=== PATIENT | female | born 1950 | race Caucasian/White ===

== ENCOUNTER 2017-08-27 08:26 | Emergency (ER) | payer BC ==
[~2017-08-27] VITALS: Ht 175.3 cm; Wt 58.0 kg
[~2017-08-27 08:26] MED LIST: CYPR4TAB PO; MEDR4PAK3 PO; PROP20TA24 PO; PROZ20CA11 PO; TYLE3 PO; ZOCO40TA PO
[2017-08-27 08:32] VITALS: BP 144/102; PULSE 80; RESP 16; TEMP 96.9; O2SAT 98
[2017-08-27] MEDS ORDERED: SODIUM CHLOR 0.9% 1000 ML INJ 1,000 ML IV SCH (08:41)
[2017-08-27] MEDS ORDERED: SODIUM CHLORIDE 0.9% FLUSH 10 ML FLUSH IV FLUSH PRN (08:45)
--- NOTE | 2017-08-27 09:07 | RADRPT ---
EXAM DATE/TIME: 08/27/2017 08:55 [facility] COMPARISON: No previous studies available for comparison. INDICATIONS : Altered mental status. RADIATION DOSE: 29.62 CTDIvol (mGy) MEDICAL HISTORY : Cardiovascular disease. Hypertension. SURGICAL HISTORY : Mitral valve prolapse ENCOUNTER: Initial ACUITY: 1 day PAIN SCALE: 0/10 LOCATION: cranial TECHNIQUE: Multiple contiguous axial images were obtained of the head. Using automated exposure control and adj ustment of the mA and/or kV according to patient size, radiation dose was kept as low as reasonably a chievable to obtain optimal diagnostic quality images. DICOM format image data is available electro nically for review and comparison. FINDINGS: CEREBRUM: Atrophy with commensurate ventricular prominence. Chronic low attenuation seen in the periventricular white matter. No evidence of midline shift, mass lesion, hemorrhage or acute infarction. No extra-a xial fluid collections are seen. POSTERIOR FOSSA: The cerebellum and brainstem are intact. The 4th ventricle is midline. The cerebellopontine angle i s unremarkable. EXTRACRANIAL: The visualized portion of the orbits is intact. SKULL: The calvaria is intact. No evidence of skull fracture. CONCLUSION: No acute intracranial abnormality demonstrated. Atrophy and chronic white matter changes. Scooter Moreno MD on August 27, 2017 at 9:03 Board Certified Radiologist. This report was verified electronically.
[2017-08-27 09:12] LABS: AUTOMATED NEUTROPHIL # 2.3 TH/MM3 (1.8-7.7); BASOPHIL # 0.1 TH/MM3 (0-0.2); BASOPHIL % 1.4 % (0.0-2.0); EOSINOPHIL % 0.8 % (0.0-4.0); HEMATOCRIT 39.8 % (35.0-46.0); HEMO FLAGS DIFF FINAL; LYMPHOCYTE # 1.6 TH/MM3 (1.0-4.8); MEAN CORPUSCULAR HEMOGLOBIN 36.8 PG (27.0-34.0); MEAN CORPUSCULAR HGB CONC 35.1 % (32.0-36.0); MONO % 10.6 % (0.0-8.0); NEUT % 51.2 % (16.0-70.0); PLATELET COUNT 301 TH/MM3 (150-450); RED BLOOD COUNT 3.79 MIL/MM3 (4.00-5.30); RED CELL DISTRIBUTION WIDTH 13.3 % (11.6-17.2); WHITE BLOOD COUNT 4.5 TH/MM3 (4.0-11.0)
[2017-08-27 09:27] LABS: BICARBONATE 22.4 MEQ/L (21.0-32.0); POTASSIUM 3.9 MEQ/L (3.5-5.1)
[2017-08-27 10:11] LABS: BACTERIA, URINE RARE /hpf; BLOOD, URINE TRACE (NEG); GLUCOSE,URINE NEG (NEG); GRANULAR CAST, URINE 1 /lpf; HYALINE CAST, URINE 6 /lpf (RARE); KETONE, URINE TRACE mg/dL (NEG); MUCUS URINE MOD /lpf (OCC); NITRITE,URINE NEG (NEG); PH, URINE 5.5 (5.0-8.5); SQUAMOUS EPITHELIAL CELL URINE 2 /hpf (0-5); URINE COLOR YELLOW (YELLW/STRAW)
[2017-08-27 10:14] LABS: COMMENT (UR) CATH-CULTURE IND; CULTURE IF INDICATED CATH CULTURE IND
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
[2017-08-27] MEDS ORDERED: PROP20TA3 PO (11:09)
[2017-08-27 12:47] VITALS: BP 154/74
[2017-08-28] MEDS ORDERED: PROP20TA3 PO (11:09)
[2017-08-28] MEDS ORDERED: ACET300T49 PO (11:09)
[2017-08-28] MEDS ORDERED: LORA2TAB7 PO (11:09)
[2017-08-28] MEDS ORDERED: DIPH2.5T14 PO (11:09)
[2017-08-28] MEDS ORDERED: BACL10TA PO (11:09)
== END 2017-08-27 12:48 | disposition home or self-care (01) ==
LOC: NEPC 08:26
DX: R41.0 Disorientation, unspecified (principal); F41.9 Anxiety disorder, unspecified; I34.1 Nonrheumatic mitral (valve) prolapse; I10 Essential (primary) hypertension; F17.210 Nicotine dependence, cigarettes, uncomplicated; Z79.899 Other long term (current) drug therapy
CPT/HCPCS: 70450; 80048; 80307; 81001; 84443; 85025; 87086; 99285; J7030

== ENCOUNTER 2017-08-28 07:39 | Inpatient (IN) | payer BC ==
[2017-08-28] VITALS (19 sets, daily range): BP systolic 96–196; BP diastolic 59–120; PULSE 66–123; RESP 16–20; TEMP 97.4–100.7; O2SAT 94–100
[~2017-08-28] VITALS: Ht 167.6 cm; Wt 52.5 kg
[~2017-08-28 07:39] MED LIST changes: +PROP20TA3 PO
[2017-08-28] MEDS ORDERED: SODIUM CHLOR 0.9% 1000 ML INJ 1,000 ML IV SCH (07:51)
[2017-08-28] MEDS ORDERED: ETOMIDATE 20 MG/10 ML VIAL IV PUSH ONE (08:00)
[2017-08-28] MEDS ORDERED: TETANUS/DIPHTHERIA TOXOID ADULT 0.5 ML VIAL IM ONE (08:00)
[2017-08-28] MEDS ORDERED: SUCCINYLCHOLINE CHLORIDE 100 MG/5 ML SYRINGE IV PUSH ONE (08:00)
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
[2017-08-28 08:35] LABS: INTERNATIONAL NORMALIZED RATIO 1.1 RATIO; PROTHROMBIN TIME - PATIENT 11.2 SEC (9.8-11.6)
[2017-08-28 08:49] LABS: AUTOMATED NEUTROPHIL # 3.6 TH/MM3 (1.8-7.7); BASOPHIL % 0.5 % (0.0-2.0); EOSINOPHIL % 0.6 % (0.0-4.0); HEMATOCRIT 38.8 % (35.0-46.0); HEMOGLOBIN 12.6 GM/DL (11.6-15.3); LYMPH % 42.3 % (9.0-44.0); LYMPHOCYTE # 2.7 TH/MM3 (1.0-4.8); MEAN CELL VOLUME 111.5 FL (80.0-100.0); MEAN CORPUSCULAR HEMOGLOBIN 36.2 PG (27.0-34.0); MEAN CORPUSCULAR HGB CONC 32.5 % (32.0-36.0); MEAN PLATELET VOLUME 9.6 FL (7.0-11.0); MONO % 1.2 % (0.0-8.0); MONOCYTE # 0.1 TH/MM3 (0-0.9); NEUT % 55.4 % (16.0-70.0); PLATELET COUNT 300 TH/MM3 (150-450); RED BLOOD COUNT 3.48 MIL/MM3 (4.00-5.30); RED CELL DISTRIBUTION WIDTH 13.5 % (11.6-17.2); WHITE BLOOD COUNT 6.5 TH/MM3 (4.0-11.0)
--- NOTE | 2017-08-28 08:58 | RADRPT ---
EXAM DATE/TIME: 08/28/2017 08:20 [facility] COMPARISON: No previous studies available for comparison. INDICATIONS : Found face down having seizure, unresponsive RADIATION DOSE: 56.35 CTDIvol (mGy) MEDICAL HISTORY : Hyperparathyroidism. Cardiovascular disease SURGICAL HISTORY : None. ENCOUNTER: Initial ACUITY: 1 day PAIN SCALE: Non-responsive LOCATION: cranial TECHNIQUE: Multiple contiguous axial images were obtained of the head. Using automated exposure control and adj ustment of the mA and/or kV according to patient size, radiation dose was kept as low as reasonably a chievable to obtain optimal diagnostic quality images. DICOM format image data is available electro nically for review and comparison. FINDINGS: CEREBRUM: Scattered areas of low attenuation throughout the white matter. The ventricles are normal for age. N o evidence of midline shift, mass lesion, hemorrhage or acute infarction. No extra-axial fluid colle ctions are seen. POSTERIOR FOSSA: The cerebellum and brainstem are intact. The 4th ventricle is midline. The cerebellopontine angle i s unremarkable. EXTRACRANIAL: The visualized portion of the orbits is intact. Complete opacification of the left maxillary sinus wi th wall thickening. SKULL: The calvaria is intact. No evidence of skull fracture. CONCLUSION: 1. Nonspecific white matter changes. 2. No acute intracranial abnormality. 3. Chronic opacification left maxillary sinus Armand Foreman MD on August 28, 2017 at 8:55 Board Certified Radiologist. This report was verified electronically.
--- NOTE | 2017-08-28 09:01 | RADRPT ---
EXAM DATE/TIME: 08/28/2017 08:20 [facility] COMPARISON: No previous studies available for comparison. INDICATIONS : Found face down, unresponsive RADIATION DOSE: 24.13 CTDIvol (mGy) MEDICAL HISTORY : Hypertension. Cardiovascular disease SURGICAL HISTORY : None. ENCOUNTER: initial ACUITY: 1 day PAIN SCALE: Non-responsive LOCATION: neck TECHNIQUE: Volumetric scanning of the cervical spine was performed. Multiplanar reconstructions in the sagittal, coronal and oblique axial planes were performed. Using automated exposure control and adjustment o f the mA and/or kV according to patient size, radiation dose was kept as low as reasonably achievable to obtain optimal diagnostic quality images. DICOM format image data is available electronically f or review and comparison. FINDINGS: VERTEBRAE: Normal vertebral body height. ALIGNMENT: No evidence of subluxation. Emphysema in upper lobes. Right upper lung density with minimal disease i n the left upper lung. C2-C3: The bony spinal canal is normal in size. No evidence of disc bulge or herniation. The neural forami na are bilaterally patent. C3-C4: The bony spinal canal is normal in size. No evidence of disc bulge or herniation. The neural forami na are bilaterally patent. C4-C5: Posterior disc osteophyte complex without canal stenosis. . The neural foramina are bilaterally pat ent. C5-C6: Posterior disc osteophyte complex without canal stenosis. The neural foramina are bilaterally patent . C6-C7: Posterior disc osteophyte complex without canal stenosis. The neural foramina are bilaterally patent . C7-T1: The bony spinal canal is normal in size. No evidence of disc bulge or herniation. The neural forami na are bilaterally patent. CONCLUSION: 1. Multilevel degenerative changes. 2. No compression fracture or subluxation. 3. Ground glass density right upper lobe and to lesser degree left upper lobe could be contusion or i nfectious/inflammatory process. Armand Foreman MD on August 28, 2017 at 8:57 Board Certified Radiologist. This report was verified electronically.
--- NOTE | 2017-08-28 09:05 | RADRPT ---
EXAM DATE/TIME: 08/28/2017 08:20 [facility] COMPARISON: No previous studies available for comparison. INDICATIONS : Found face down, unresponsive RADIATION DOSE: 26.35 CTDIvol (mGy) MEDICAL HISTORY : Hypertension. Cardiovascular disease SURGICAL HISTORY : None. ENCOUNTER: Initial ACUITY: 1 day PAIN SCORE: Non-responsive LOCATION: Bilateral facial TECHNIQUE: Volumetric scanning of the facial bones was performed. Using automated exposure control and adjustme nt of the mA and/or kV according to patient size, radiation dose was kept as low as reasonably achiev able to obtain optimal diagnostic quality images. DICOM format image data is available electronicall y for review and comparison. FINDINGS: ORBITS: The orbital and infraorbital osseous structures are intact. The retroconal structures have a normal configuration. No radiopaque foreign bodies are seen. NASAL BONE: The nasal bone and maxillary spine are intact ZYGOMATIC ARCHES: Symmetric without evidence of fracture. SINUSES: The maxillary, ethmoid and frontal sinuses are intact. No air-fluid levels seen. NASAL CAVITY: Bilateral displaced nasal fractures. SOFT TISSUES: Extensive soft tissue swelling and contusion right face and to a lesser degree in the left. There is a fracture through the body of the right mandible and also displaced fracture of the condyle with ove rlap. There is also a fracture through the left ramus/condyle. Displacement of both condylar heads. T here are some fracture/loose teeth anteriorly. INTRACRANIAL: No intracranial air seen. CRIBIFORM PLATE: Grossly intact. CONCLUSION: 1. Bilateral displaced mandible fractures more extensive involving the condyles bilaterally. 2. Sensitive soft tissue swelling. 3. Bilateral nasal fractures. Armand Foreman MD on August 28, 2017 at 8:59 Board Certified Radiologist. This report was verified electronically.
--- NOTE | 2017-08-28 09:07 | RADRPT ---
EXAM DATE/TIME: 08/28/2017 08:44 [facility] COMPARISON: No previous studies available for comparison. INDICATIONS : Post intubation. MEDICAL HISTORY : Cardiovascular disease. Hypertension mitral valve prolapse SURGICAL HISTORY : None. ENCOUNTER: Initial ACUITY: 1 day PAIN SCORE: Non-responsive. LOCATION: Bilateral chest FINDINGS: A single view of the chest demonstrates bilateral upper lobe densities. Endotracheal tube 6 cm above the roberto carlos. Nasogastric tube tip in stomach. The cardiomediastinal contours are unremarkable. Osseou s structures are intact. CONCLUSION: 1. Minimal bilateral upper lobe densities likely contusions. Armand Foreman MD on August 28, 2017 at 9:04 Board Certified Radiologist. This report was verified electronically.
[2017-08-28] MEDS ORDERED: MIDAZOLAM HCL 2 MG/2 ML VIAL IV PUSH ONE (09:30)
[2017-08-28] MEDS ORDERED: LACTULOSE SYRUP 20 GM/30 ML CUP PO PRN (09:30)
[2017-08-28] MEDS ORDERED: MIDAZOLAM 100 MG/100 ML INJ 100 ML IV PRN (09:30)
[2017-08-28] MEDS ORDERED: fentaNYL DRIP 250 ML IV PRN (09:30)
[2017-08-28] MEDS ORDERED: MAGNESIUM HYDROXIDE SUSP 30 ML CUP PO PRN (09:30)
[2017-08-28] MEDS ORDERED: CHLORHEXIDINE GLUCONATE 2 % 1 PACK (2 CLOTHS) TOP PRN (09:30)
[2017-08-28] MEDS ORDERED: SENNOSIDES 8.6 MG TAB PO PRN (09:30)
[2017-08-28] MEDS ORDERED: BISACODYL 10 MG SUPP RECTAL PRN (09:30)
[2017-08-28] MEDS ORDERED: MISCELLANEOUS NURSING INFORMATION XX SCH (09:30)
[2017-08-28 09:31] LABS: AMORPHOUS SEDIMENT, URINE RARE; BACTERIA, URINE OCC /hpf; BILIRUBIN, URINE NEG (NEG); BLOOD, URINE SMALL (NEG); GLUCOSE,URINE NEG (NEG); HYALINE CAST, URINE 1 /lpf (RARE); KETONE, URINE NEG (NEG); MUCUS URINE FEW /lpf (OCC); NITRITE,URINE NEG (NEG); PH, URINE 5.5 (5.0-8.5); SQUAMOUS EPITHELIAL CELL URINE <1 /hpf (0-5); URINE COLOR LIGHT-YELLOW (YELLW/STRAW); URINE LEUKOCYTE ESTERASE NEG (NEG)
[2017-08-28] MEDS ORDERED: SODIUM BICARBONATE 8.4% INJ 154 MEQ in SODIUM CHLOR 0.9% 1000 ML INJ 846 ML IV SCH (09:43)
[2017-08-28] MEDS ORDERED: SODIUM CHLOR 0.9% 1000 ML INJ 1,000 ML IV ONE ×2 (09:45→16:00)
[2017-08-28] MEDS: MIDAZOLAM 100 MG/NS 100 ML DRIP Premix IV PRN (10:08)
[2017-08-28] MEDS: fentaNYL 2,500 MCG/NS 250 ML IV PRN (10:08)
[2017-08-28 10:15] LABS: ACETAMINOPHEN LESS THAN 2.0 MCG/ML (10.0-30.0); ALBUMIN 2.5 GM/DL (3.4-5.0); ALT (GPT) 18 U/L (10-53); AST (GOT) 81 U/L (15-37); BICARBONATE 13.1 MEQ/L (21.0-32.0); BLOOD UREA NITROGEN 9 MG/DL (7-18); CHLORIDE 107 MEQ/L (98-107); CREATININE 0.84 MG/DL (0.50-1.00); GLOMERULAR FILTRATION RATE 68 ML/MIN (>89); GLUCOSE,RANDOM 123 MG/DL (74-106); SODIUM (NA) 133 MEQ/L (136-145)
[2017-08-28] MEDS: RESP: ALBUTEROL 2.5 MG/IPRATROPIUM 0.5 MG NEB (SCH) INH ×3 (10:28→20:06)
[2017-08-28 10:29] LABS: ALKALINE PHOSPHATASE 106 U/L (45-117); TOTAL BILIRUBIN ADULT 0.4 MG/DL (0.2-1.0); TOTAL PROTEIN 6.5 GM/DL (6.4-8.2)
[2017-08-28] MEDS ORDERED: VANCOMYCIN INJ 1,000 MG in SODIUM CHLOR 0.9% 250 ML INJ 250 ML IV ONE (10:30)
[2017-08-28] MEDS ORDERED: PIPERACIL-TAZO 4.5 GM PREMIX 100 ML IV ONE (10:30)
[2017-08-28 10:42] LABS: CALCIUM-PROTEIN CORRECTED 7.3 MG/DL (8.5-10.1); TROPONIN I 0.97 NG/ML (0.02-0.05)
[2017-08-28] MEDS ORDERED: CALCIUM CHLORIDE 10% SOLN 1 GRAM/10 ML SYR IV PUSH ONE (10:45)
[2017-08-28] MEDS ORDERED: cefTRIAXone INJ 1,000 MG in SODIUM CHLORIDE 0.9% INJ 100 ML IV SCH (11:00)
[2017-08-28] MEDS ORDERED: BACL10TA PO (11:09)
[2017-08-28] MEDS ORDERED: DIPH2.5T14 PO (11:09)
[2017-08-28] MEDS ORDERED: LORA2TAB7 PO (11:09)
[2017-08-28] MEDS ORDERED: ACET300T49 PO (11:09)
[2017-08-28] MEDS ORDERED: PROP20TA3 PO (11:09)
[2017-08-28] MEDS ORDERED: POTASSIUM CHLOR 20 MEQ PREMIX 100 ML IV PRN (11:15)
[2017-08-28] MEDS ORDERED: MAGNESIUM SULFATE INJ 2 GM in SODIUM CHLORIDE 0.9% INJ 96 ML IV PRN (11:15)
[2017-08-28] MEDS ORDERED: POTASSIUM CHLORIDE 25 MEQ EFFERVESCENT TAB PO PRN (11:15)
[2017-08-28] MEDS ORDERED: MAGNESIUM SULFATE INJ 4 GM in SODIUM CHLORIDE 0.9% INJ 92 ML IV PRN (11:15)
[2017-08-28] MEDS ORDERED: POTASSIUM PHOSPHATE INJ 30 MMOL in SODIUM CHLOR 0.9% 250 ML INJ 250 ML IV PRN (11:15)
[2017-08-28] MEDS ORDERED: POTASSIUM PHOSPHATE MONOBASIC 500 MG TAB PO/TUBE PRN (11:15)
[2017-08-28] MEDS ORDERED: POTASSIUM PHOSPHATE MONOBASIC 500 MG TAB PO PRN (11:15)
[2017-08-28] MEDS ORDERED: MAGNESIUM OXIDE 400 MG TAB PO PRN (11:15)
[2017-08-28] MEDS ORDERED: GLUCAGON 1 MG/ML VIAL OTHER PRN (11:15)
--- NOTE | 2017-08-28 11:49 | MH ---
cc: LASHAY HOOK M.D. DATE OF ADMISSION 08/28/2017 DATE OF 1950 HISTORY OF PRESENT ILLNESS The patient is a 67-year-old female with a past medical history of mitral valve prolapse, chronic back pain, hyperlipidemia, hypertension. She presented to [facility] ED via EMS after she was found face down unresponsive by her . She was given 2 mg IV Ativan by EMS for a witnessed seizure. She was last seen at her baseline at 5:30 this morning. According to the , the patient does not have any seizure disorder and she is not on any seizure meds at home. She had a similar episode a couple years ago and he attributed it to her multiple medications that she takes at home. She is on Tylenol #3 along with Lorazepam, Baclofen and Propranolol. She was found to have a laceration on chin which was bleeding. Her blood sugar was measured at 95. On arrival to the ED, she was hypertensive with a blood pressure of 196/120 and tachycardiac with a heart rate in the 120's. The patient was intubated with etomidate, succinylcholine and placed on full mechanical ventilation. Her laboratory data is significant for lactic acidosis with lactic acid level of 4.0, an elevated troponin at 0.97 with a total CK of 129. Her urine drug screen is negative for amphetamines, benzodiazepines, and opiates. A CT scan of the brain was performed in the ED which showed no acute intracranial abnormalities. Chronic opacification left maxillary sinus noted. She also had a CT maxillofacial which showed bilateral displaced mandible fractures and bilateral nasal fractures. A cervical spine CT showed multilevel degenerative changes without any compression fracture or subluxation. Chest x-ray, she also had a chest x-ray which showed minimal bilateral upper lobe densities. The patient was given 2 liters of crystalloids in the ED, tetanus shot and placed on Fentanyl and Versed for sedation. There is no history of any chest pain, shortness of breath or any constitutional symptoms. Also, no history of any GI symptoms per the patient's . PAST MEDICAL HISTORY Significant for: 1. Mitral valve prolapse 2. Hyperlipidemia 3. Hypertension 4. Chronic back pain PAST SURGICAL HISTORY Unremarkable FAMILY HISTORY Reviewed and not related to the current present illness. ALLERGIES NO KNOWN DRUG ALLERGIES. MEDICATIONS Reported medications include: 1. Propranolol 2. Tylenol #3 3. Lorazepam 4. Baclofen SOCIAL HISTORY Occasional drinker. The patient drinks a half bottle of wine per and occasional smoker. REVIEW OF SYSTEMS As per HPI. The rest of the review of systems is limited as the patient is intubated. PHYSICAL EXAM This is a 67-year-old male female intubated for airway protection. VITAL SIGNS: Afebrile, temperature of 97.4, pulse of 116, blood pressure 144/100, saturation 100%, vent setting assist control, rate of 18, tidal volume 500, PEEP of 5, 100% FIO2. HEENT. A one inch chin laceration that stopped bleeding. Contusion and superficial laceration on the right lower rib cage laterally. Pupils equal, round and reactive to accommodation. Extraocular muscles intact. Conjunctivae pink. Nonicteric sclerae. Blood noted in the oral cavity, poor dentition with multiple loose teeth. NECK: C-collar in place. CARDIOVASCULAR: Tachycardiac normal S1-S2. No murmurs, rubs or gallops noted. PULMONARY: Bilateral equal entry. No rales or wheezing. ABDOMEN: Soft, nontender, no distension. Positive bowel sounds. EXTREMITIES: No cyanosis, clubbing or edema. NEUROLOGIC: Intubated and sedated. LABORATORY DATA Sodium of 133, potassium 4.4, chloride 107, CO2 13, BUN 9, creatinine 0.84, glucose 123, lactic acid 4.0, corrected calcium 7.3, AST 81, ALT 18, total bilirubin 0.4, ammonia 32, troponin 0.97, total CK 129, TSH 2.96, WBC 6.5, hemoglobin 12.6, hematocrit 38, platelet count of 300, INR 1.1, PT 11.2. Urine drug screen negative. Urinalysis occasional bacteria. RADIOGRAPHIC STUDIES CT scan of the brain showed no acute intracranial abnormalities. Maxillofacial CT showed bilateral mandible fractures and nasal fractures. Cervical spine CT showed multilevel degenerative changes. No compression fracture or subluxation. IMPRESSION 1. Altered mental status 2. Status post syncopal episode. 3. Status post seizure episode. 4. Lactic acidemia likely secondary to seizures. 5. Respiratory failure requiring intubation. 6. Bilateral mandible and nasal fractures. 7. Pulmonary contusion 8. Elevated troponin 9. Hypertension 10. Hyperlipidemia 11. Elevated AST RECOMMENDATIONS 1. Monitor neuro status closely. 2. Continue with Fentanyl and Versed drip for sedation. Daily sedation vacation when appropriate. 3. CT scan of the brain in the ED negative for acute intracranial findings. 4. We will obtain EEG. 5. I will consult neurology service. 6. In addition, we will check a duplex carotid ultrasound. 7. Place on Ativan p.r.n. for seizures. 8. Continue with vent support and maintain sats above 92%. 9. Bronchodilators in the form of DuoNeb q4 scheduled. 10. I will initiate ICU vent bundle. 11. Monitor heart rate and blood pressure closely and maintain MAP greater 65 mmHg. The patient was given 2 liters of crystalloids in the ED. We will continue with maintenance fluids D5 NS at 84 mL an hour. 12. Monitor cardiac enzymes and troponins and will obtain a 2-D echo to evaluate LV function and to rule out regional wall motion abnormalities. 13. We will give aspirin 325 mg p.o. x1 now. 14. Serial lactic acid monitoring till cleared. Mild elevation lactic acid likely secondary to seizures. 15. Monitor renal function I's and O's and electrolyte replacement per protocol. 16. IV fluids as stated above. 17. We will give one ampule of sodium bicarb and repeat BMP and lactic acid in six hours. 18. Keep n.p.o. for now, monitor LFTs and place on Pepcid 10 mg q. 12-hour for GI prophylaxis. 19. Continue with antibiotics in the form of Zosyn for possible aspiration and monitor for signs of infections which include fever and WBC. 20. Follow up on blood cultures and urine culture. In addition, We will check sputum culture with gram stain. 21. The patient was given one dose of vancomycin and Zosyn in the ED. 22. Monitor CBC 23. Sliding scale insulin with Accu-Chek's to maintain euglycemia. 24. GI prophylaxis with Pepcid and DVT prophylaxis with SCD's for now. 25. Further recommendations will be based on hospital course. MD QI Rodriguez/ENDER /11:00 AM /11:28 AM
[2017-08-28] MEDS ORDERED: ASPIRIN 325 MG TAB PO ONE (12:00)
[2017-08-28] MEDS ORDERED: SODIUM BICARBONATE 8.4% INJ 50 MEQ/50 ML SYR IV PUSH ONE (12:00)
[2017-08-28] MEDS: DEXT 5%-NACL 0.9% 1000 ML INJ 1,000 ML IV SCH ×2 (12:11→23:55)
[2017-08-28] MEDS ORDERED: FAMOTIDINE 20 MG/2 ML VIAL IV PUSH SCH (12:15)
[2017-08-28] MEDS ORDERED: CALCIUM GLUCONATE INJ 1 GM in SODIUM CHLORIDE 0.9% INJ 100 ML IV ONE (13:00)
--- NOTE | 2017-08-28 13:31 | MG ---
cc: JEREMY BROWN M.D., ALAA M.D. Lab No: Date: Age: Sex: F INDICATION An EEG was obtained on this 67-year-old patient being evaluated for inappropriate behavior, seizures. MEDICAL HISTORY Depression and anxiety. MEDICATIONS Lorazepam, acetaminophen/codeine, propranolol, baclofen. The patient is described as intubated on Versed. DESCRIPTION The EEG is showing some diffuse alpha activity. There is also low amplitude beta rhythms. There are delta rhythms bilaterally. At times the delta activity becomes more prominent. There continues to be alpha rhythms even during the asleep recording and more so frontally. Photic stimulation showed no change. The patient does not squeeze but the EEG shows some artifact and "awakening" at the very end when the patient was asked to squeeze with the hands. INTERPRETATION Abnormal EEG because of generalized slowing suggesting a diffuse disturbance of cerebral function. No epileptiform or ictal features are present. Clinical correlation. Jeremy Brown MD OFC/BT /1:08 PM /1:19 PM
--- NOTE | 2017-08-28 13:33 | PD.CONS ---
HPI Consult Requested By Primary Care Physician No Primary Care Physician History of Present Illness 67-year-old female with a past medical history of mitral valve prolapse, chronic back pain, hyperlipidemia and hypertension. She presented to [facility] ED via EMS after she was found face down unresponsive by her . On arrival to the ED, she was hypertensive with a blood pressure of 196 /120 and tachycardiac with a heart rate in the 120's.The patient was intubated, laboratory data is significant for lactic acidosis with lactic acid level of 4.0 , an elevated troponin at 0.97 with a total CK of 129. Head CT scan showed no acute intracranial abnormalities. CT maxillofacial showed bilateral displaced mandible fractures and bilateral nasal fractures. There is no history of any chest pain, shortness of breath or any constitutional symptoms. Cardiology consulted due to elevated troponin. Review of Systems ROS Limitations: Intubated Consitutional: DENIES: Fatigue, Fever, Chills, Weight gain, Weight loss Eyes: DENIES: Amaurosis Fugax, Change in vision HEENT: DENIES: Lightheadedness, Change in hearing Respiratory: DENIES: See HPI, Cough, Snoring, Shortness of breath, Wheezing, Sputum production Cardiovascular: DENIES: See HPI, Chest pain, Palpitations, Syncope, Tachycardia Gastrointestinal: DENIES: Nausea, Vomiting, Change in bowel habits, Reflux, Bloody stools, Melena Genitourinary: DENIES: Urinary incontinence, Difficulty voiding Integumentary: DENIES: Rash Neurologic: DENIES: Tingling or numbness, Memory problems, Poor Balance, Stroke symptoms Musculoskeletal: DENIES: Joint pain, Muscle pain, Limited range of motion, Back pain Psychiatric: DENIES: Anxiety, Depression, Sleep disturbances Hematologic: DENIES: Bruising tendencies, Bleeding tendencies Endocrine: DENIES: Weight gain, Weight loss, Thyroid disease Past Family Social History Allergies: Coded Allergies: No Known Allergies (Verified , 10/13/10) Past Medical History 1. Mitral valve prolapse 2. Hyperlipidemia 3. Hypertension 4. Chronic back pain Past Surgical History Unremarkable Reported Medications Reported Meds & Active Scripts Active Reported Lorazepam 2 Mg Tab 2 Mg PO BID PRN Lorazepam 2 Mg Tab 2 Mg PO BID PRN Diphenoxylate-Atropine 2.5-0.025 Mg Tab 2 Tab PO Q6H PRN Acetaminophen-Codeine 300-15 mg Tab 1 Tab PO Q6H PRN Propranolol (Propranolol HCl) 20 Mg Tab 20 Mg PO Q8HR Baclofen 10 Mg Tab 10 Mg PO TID Active Ordered Medications Current Medications Medications (Trade) Dose Ordered Sig/Benny Route Start Time Stop Time Status Last Admin (NS Flush) 2 ml UNSCH PRN IV FLUSH 08/28/17 08:00 Fentanyl Citrate 250 ml @ 5 mls/hr TITRATE PRN IV 08/28/17 10:00 08/28/17 10:08 Midazolam HCl 100 ml @ 2 mls/hr TITRATE PRN IV 08/28/17 10:00 08/28/17 10:08 (Duoneb Neb) 1 ampule Q4HR NEB INH 08/28/17 12:00 08/28/17 10:28 Miscellaneous Information 1 [id number] XX 08/28/17 09:30 (Chlorhexidine 2% Cloth) 3 pack Taper DAILY@04 TOP 08/29/17 04:00 08/25/18 03:59 (Chlorhexidine 2% Cloth) 3 pack UNSCH PRN TOP 08/28/17 09:30 (Brenna-Colace) 1 tab BID PO 08/28/17 21:00 (Milk Of Magnesia Liq) 30 ml Q12H PRN PO 08/28/17 09:30 (Senokot) 17.2 mg Q12H PRN PO 08/28/17 09:30 (Dulcolax Supp) 10 mg DAILY PRN RECTAL 08/28/17 09:30 (Lactulose Liq) 30 ml DAILY PRN PO 08/28/17 09:30 Calcium Gluconate 1 gm/Sodium Chloride 110 ml @ 110 mls/hr ONCE ONCE IV 08/28/17 13:00 08/28/17 13:59 Dextrose/Sodium Chloride 1,000 ml @ 84 mls/hr [id number] IV 08/28/17 12:00 08/28/17 12:11 Piperacillin Sod/ Tazobactam Sod 100 ml @ 200 mls/hr Q6H IV 08/28/17 17:00 (Pepcid Inj) 10 mg Q12HR IV PUSH 08/28/17 12:15 (D50w (Vial) Inj) 50 ml UNSCH PRN IV PUSH 08/28/17 11:15 (Glucagon Inj) 1 mg UNSCH PRN OTHER 08/28/17 11:15 (NovoLIN R SUPPLEMENTAL SCALE) 1 Q4H SQ 08/28/17 12:00 Potassium Chloride 100 ml @ 50 mls/hr Q2H PRN IV 08/28/17 11:15 Potassium Chloride 100 ml @ 50 mls/hr Q2H PRN IV 08/28/17 11:15 (K-Lyte Cl Eff) 50 meq UNSCH PRN PO 08/28/17 11:15 Potassium Chloride 100 ml @ 25 mls/hr UNSCH PRN IV 08/28/17 11:15 Potassium Chloride 100 ml @ 50 mls/hr Q2H PRN IV 08/28/17 11:15 Magnesium Sulfate 4 gm/Sodium Chloride 100 ml @ 50 mls/hr UNSCH PRN IV 08/28/17 11:15 (Mag-Ox) 800 mg UNSCH PRN PO 08/28/17 11:15 Magnesium Sulfate 2 gm/Sodium Chloride 100 ml @ 50 mls/hr UNSCH PRN IV 08/28/17 11:15 (K-Phos) 2,000 mg Q4H PRN PO 08/28/17 11:15 Sodium Phosphate 30 mmol/Sodium Chloride 250 ml @ 42 mls/hr UNSCH PRN IV 08/28/17 11:15 (K-Phos) 2,000 mg UNSCH PRN PO/TUBE 08/28/17 11:15 Potassium Phosphate 30 mmol/ Sodium Chloride 260 ml @ 42 mls/hr UNSCH PRN IV 08/28/17 11:15 Family History Reviewed and not related to the current present illness. Social History Occasional drinker. The patient drinks a half bottle of wine per and occasional smoker. Physical Exam Vital Signs Vital Signs Date Time Temp Pulse Resp B/P (MAP) Pulse Ox O2 Delivery O2 Flow Rate FiO2 08/28/17 12:45 100 40 08/28/17 12:00 98 08/28/17 12:00 99.8 98 20 155/87 (109) 100 08/28/17 12:00 50 08/28/17 11:47 08/28/17 11:15 100 100 08/28/17 10:00 113 20 144/98 (113) 100 Ventilator 50 08/28/17 09:50 100 60 08/28/17 08:30 100 100 08/28/17 08:15 123 16 183/82 (115) 100 Ventilator 100 08/28/17 07:53 94 100 08/28/17 07:47 100 08/28/17 07:45 123 16 98 Bag Valve 15.00 08/28/17 07:40 98 Non-Rebreather 15.00 08/28/17 07:40 97.4 121 16 196/120 (145) 98 Non-Rebreather 15.00 08/28/17 07:40 97.4 121 16 196/120 (145) 100 Physical Exam GENERAL: Sedated, intubated SKIN: Warm and dry. HEAD: Normocephalic. EYES: No scleral icterus. No injection or drainage. NECK: Supple, trachea midline. No JVD or lymphadenopathy. CARDIOVASCULAR: Regular rate and rhythm without murmurs, gallops, or rubs. RESPIRATORY: Breath sounds equal bilaterally. No accessory muscle use. GASTROINTESTINAL: Abdomen soft, non-tender, nondistended. EXTREMITIES: No cyanosis, or edema. Laboratory Laboratory Tests Test 08/28/17 08:05 08/28/17 09:00 08/28/17 09:30 08/28/17 09:35 White Blood Count 6.5 Red Blood Count 3.48 Hemoglobin 12.6 Hematocrit 38.8 Mean Corpuscular Volume 111.5 Mean Corpuscular Hemoglobin 36.2 Mean Corpuscular Hemoglobin Concent 32.5 Red Cell Distribution Width 13.5 Platelet Count 300 Mean Platelet Volume 9.6 Neutrophils (%) (Auto) 55.4 Lymphocytes (%) (Auto) 42.3 Monocytes (%) (Auto) 1.2 Eosinophils (%) (Auto) 0.6 Basophils (%) (Auto) 0.5 Neutrophils # (Auto) 3.6 Lymphocytes # (Auto) 2.7 Monocytes # (Auto) 0.1 Eosinophils # (Auto) 0.0 Basophils # (Auto) 0.0 CBC Comment DIFF FINAL Differential Comment Prothrombin Time 11.2 Prothromb Time International Ratio 1.1 Salicylates Level 2.0 Urine Color LIGHT-YELLOW Urine Turbidity CLEAR Urine pH 5.5 Urine Specific [place] 1.005 Urine Protein TRACE Urine Glucose (UA) NEG Urine Ketones NEG Urine Occult Blood SMALL Urine Nitrite NEG Urine Bilirubin NEG Urine Urobilinogen LESS THAN 2.0 Urine Leukocyte Esterase NEG Urine RBC 1 Urine WBC 1 Urine Squamous Epithelial Cells <1 Urine Amorphous Sediment RARE Urine Bacteria OCC Urine Hyaline Casts 1 Urine Mucus FEW Microscopic Urinalysis Comment CATH-CULTURE IND Urine Opiates Screen NEG Urine Barbiturates Screen NEG Urine Amphetamines Screen NEG Urine Benzodiazepines Screen NEG Urine Cocaine Screen NEG Urine Cannabinoids Screen NEG Blood Gas Puncture Site LT RADIAL Blood Gas Patient Temperature 37.0 Blood Gas HCO3 13 Blood Gas Base Excess -12.0 Blood Gas Oxygen Saturation 99 Arterial Blood pH 7.29 Arterial Blood Partial Pressure CO2 29 Arterial Blood Partial Pressure O2 464 Arterial Blood Oxygen Content 18.2 Arterial Blood Carboxyhemoglobin 0.1 Arterial Blood Methemoglobin 0.6 Blood Gas Hemoglobin 12.2 Oxygen Delivery Device VENTILATOR Blood Gas Ventilator Setting AC 500/18/+5PEEP Blood Gas Inspired Oxygen 100 Blood Urea Nitrogen 9 Creatinine 0.84 Random Glucose 123 Total Protein 6.5 Albumin 2.5 Calcium Level 7.0 Alkaline Phosphatase 106 Aspartate Amino Transf (AST/SGOT) 81 Alanine Aminotransferase (ALT/SGPT) 18 Total Bilirubin 0.4 Sodium Level 133 Potassium Level 4.4 Chloride Level 107 Carbon Dioxide Level 13.1 Anion Gap 13 Estimat Glomerular Filtration Rate 68 Lactic Acid Level 4.0 Protein Corrected Calcium 7.3 Ammonia 32 Total Creatine Kinase 129 Troponin I 0.97 Thyroid Stimulating Hormone 3rd Gen 2.960 Acetaminophen Level LESS THAN 2.0 Ethyl Alcohol Level LESS THAN 3 Test 08/28/17 13:26 Date/Time Source Procedure Growth Status 08/28/17 08:10 Blood Peripheral Aerobic Blood Culture Pending Received 08/28/17 08:10 Blood Peripheral Anaerobic Blood Culture Pending Received 08/28/17 09:00 Urine Catheterized Urine Urine Culture Pending Received Result Diagram: 08/28/17 0805 08/28/17 0935 Imaging Last Impressions Head CT 08/28/17 0751 Signed Impressions: Service Date/Time: Monday, August 28, 2017 08:20 - CONCLUSION: 1. Nonspecific white matter changes. 2. No acute intracranial abnormality. 3. Chronic opacification left maxillary sinus Armand Foreman MD Maxillofacial CT 08/28/17 0000 Signed Impressions: Service Date/Time: Monday, August 28, 2017 08:20 - CONCLUSION: 1. Bilateral displaced mandible fractures more extensive involving the condyles bilaterally. 2. Sensitive soft tissue swelling. 3. Bilateral nasal fractures. Armand Foreman MD Chest X-Ray 08/28/17 0000 Signed Impressions: Service Date/Time: Monday, August 28, 2017 08:44 - CONCLUSION: 1. Minimal bilateral upper lobe densities likely contusions. Armand Foreman MD Cervical Spine CT 08/28/17 0000 Signed Impressions: Service Date/Time: Monday, August 28, 2017 08:20 - CONCLUSION: 1. Multilevel degenerative changes. 2. No compression fracture or subluxation. 3. Ground glass density right upper lobe and to lesser degree left upper lobe could be contusion or infectious/inflammatory process. Armand Foreamn MD Assessment and Plan Problem List: (1) Elevated troponin ICD Codes: R74.8 - Abnormal levels of other serum enzymes Plan: 67y/o F found down sustaining mandibular fractures ?seizures vs syncope, severely hypocalcemic on admission labs. Cardiac risk factors DM, HTN, HLD. EKG sinus tach, IRBBB with T wave inversions in the Lateral Leads. First set of Troponin 0.97. Neurological status uncertain. EEG results noted. Pending formal Neurology Consult. Given unknown neurological status she is not a candidate for invasive cardiac risk stratification at this time. Recommendations: 1. Cont cycle cardiac enzymes x3 2. Start Heparin drip if no contraindications 3. BB, ACEi, statin 4. Cont ASA 5. Echocardiogram 6. Telemetry monitoring 7. Neuro consult 8. Avoid electrolytes abnormalities Will follow with you Cruzito Tucker MD Aug 28, 2017 13:33
--- NOTE | 2017-08-28 15:01 | RADRPT ---
EXAM DATE/TIME: 08/28/2017 13:23 [facility] COMPARISON: No previous studies available for comparison. INDICATIONS : Syncope. MEDICAL HISTORY : Hypertension. Mitral valve prolapse. Arthritis. SURGICAL HISTORY : None. ENCOUNTER: Initial ACUITY: 1 day PAIN SCORE: Nonresponsive. LOCATION: Bilateral neck PEAK SYSTOLIC VELOCITIES (cm/sec): ICA/CCA RATIO: Right: 1.1 Left: 1.3 ICA: Right: 74 Left: 104 CCA: Right: 68 Left: 82 ECA: Right: 45 Left: 40 VERTEBRAL: Right: 59 antegrade Left: 41 antegrade Elevated flow velocities and ICA/CCA ratios have been found to correlate with increased degrees of vessel stenosis, calculated as percentage of diameter relative to a normal segment of distal ICA/CCA FINDINGS: Mild plaque is identified in both carotid bifurcations. RIGHT CAROTID: No significant stenosis is visualized. The waveforms are within normal limits. LEFT CAROTID: No significant stenosis is visualized. The waveforms are within normal limits. VERTEBRAL ARTERIES: Antegrade flow is seen in both vertebral arteries. MISCELLANEOUS: None. CONCLUSION: 1. Mild bilateral carotid plaque. 2. No evidence of hemodynamically significant stenosis. 3. Antegrade flow in both vertebral arteries. Jason Martinez MD on August 28, 2017 at 14:58 Board Certified Radiologist. This report was verified electronically.
[2017-08-28 15:35] LABS: BICARBONATE 21.4 MEQ/L (21.0-32.0); CALCIUM 8.1 MG/DL (8.5-10.1); CREATININE 0.85 MG/DL (0.50-1.00); PHOSPHORUS 3.1 MG/DL (2.5-4.9)
[2017-08-28 15:39] LABS: TROPONIN I 3.38 NG/ML (0.02-0.05)
[2017-08-28] MEDS: INSULIN NovoLIN REGULAR SUPPLEMENTAL SCALE SQ SCH ×2 (16:00→20:00)
[2017-08-28] MEDS ORDERED: LORazepam 2 MG/ML VIAL IV PUSH PRN (16:00)
--- NOTE | 2017-08-28 16:09 | MB ---
cc: JAVON HALL M.D. DATE OF CONSULTATION 08/28/2017 REASON FOR CONSULTATION Seizure. HISTORY OF PRESENT ILLNESS Ms. Long is a 67-year-old woman. She was found face down unresponsive by her . EMS was called and when they found her she was having seizure activity, was given 2 mg IV Ativan with improvement. She has had no recurrent seizures. There is no history of previous seizure. She has not been running any fevers. PAST MEDICAL HISTORY 1. Hyperlipidemia. 2. Hypertension. 3. Chronic back pain. 4. Mitral valve prolapse. MEDICATIONS Current medications are: 1. Chlorhexidine. 2. Senna. 3. Pepcid. 4. Piperacillin. 5. Albuterol. 6. She is on Versed and Fentanyl IV. 7. Potassium chloride. 8. Magnesium sulfate. NEUROLOGIC EXAMINATION She does withdraw both upper and lower extremities to tactile stimulation. She does not follow commands. Pupils are 2 mm symmetric and reactive. Extraocular movements are intact. Reflexes symmetric. IMAGING CT scan of the head, chronic ischemic demyelinization, opacification left maxillary sinus which appears to chronic. No acute changes present. Carotid ultrasound mild bilateral carotid disease. No significant stenosis. Cervical spine CT scan degenerative disk disease. No fractures identified. Ground-glass density seen in the right upper lobe and left upper lobe. LABORATORY DATA White count 6500, hemoglobin 12.6, hematocrit 38%, platelets 300,000. Sodium is 136, potassium 3.6, chloride 104, CO2 is 21.4, BUN is 9, creatinine 0.85, GFR 67, glucose 94, calcium 8.1, ammonia 32, CPK 325. Troponin 3.38. PT 11.2, INR 1.1. Tox screen is negative. Urinalysis pH 5.5, specific gravity 1.005. IMPRESSION New-onset seizure. RECOMMENDATIONS EEG, MRI brain. We will start the patient on Keppra 500 mg IV q.6h and also place her under seizure precautions. MD LOKI Cunha/KK /3:45 PM /4:01 PM
[2017-08-28] MEDS ORDERED: DIATRIZOATE MEGLUM/DIATRIZOATE SOD 9 ML CUP PO ONE (16:30)
[2017-08-28] MEDS: METOPROLOL TARTRATE 25 MG TAB PO SCH (16:47)
[2017-08-28] MEDS: metroNIDAZOLE 500 MG INJ 100 ML IV SCH (17:10)
[2017-08-28] MEDS: PIPERACIL-TAZO 4.5 GM PREMIX 100 ML IV SCH ×2 (18:23→22:53)
[2017-08-28] MEDS: levETIRAcetam INJ 500 MG in SODIUM CHLORIDE 0.9% INJ 100 ML IV SCH (18:23)
[2017-08-28] MEDS ORDERED: IOHEXOL 350 MG/ML 10 ML VIAL (for RAD DIAG) IVCONTRAST ONE (19:02)
--- NOTE | 2017-08-28 19:22 | RADRPT ---
EXAM DATE/TIME: 08/28/2017 19:02 [facility] COMPARISON: No previous studies available for comparison. INDICATIONS : Diarrhea today. IV CONTRAST: 75 cc Omnipaque 350 (iohexol) IV ORAL CONTRAST: Prescribed oral contrast ingested. RADIATION DOSE: 6.37 CTDIvol (mGy) MEDICAL HISTORY : Hypertension. SURGICAL HISTORY : None. ENCOUNTER: Initial ACUITY: 1 day PAIN SCALE: Non-responsive LOCATION: Bilateral abdomen TECHNIQUE: Volumetric scanning of the abdomen and pelvis was performed. Using automated exposure control and ad justment of the mA and/or kV according to patient size, radiation dose was kept as low as reasonably achievable to obtain optimal diagnostic quality images. DICOM format image data is available electro nically for review and comparison. FINDINGS: Small bilateral pleural effusions present with minimal basilar atelectasis. No acute findings in the liver, spleen, adrenals, kidneys or pancreas. No calcified gallstones. No bi liary ductal dilatation. There is some mild mural thickening of the distal colon predominantly the rectosigmoid. No obstructio n, free fluid or free air. No acute bony abnormalities. Mild scoliosis. CONCLUSION: 1. Mild mural thickening of the rectosigmoid most characteristic of a mild colitis distally. No obstr uction, free fluid or free air. 2. Small bilateral pleural effusions. 3. 1.6 cm left ovarian cyst. 4. Catheter in decompressed bladder. Lloyd Han MD on August 28, 2017 at 19:15 Board Certified Radiologist. This report was verified electronically.
--- NOTE | 2017-08-28 19:35 | EKG ---
Date Performed: 08/28/2017 Time Performed: 07:56:25 PTAGE: 67 years EKG: SINUS TACHYCARDIA POSSIBLE RIGHT VENTRICULAR CONDUCTION DELAY INFERIOR MYOCARDIAL INFARCTIO N MODERATE T-WAVE ABNORMALITY, CONSIDER LATERAL ISCHEMIA ABNORMAL ECG PREVIOUS TRACING : 10/11/2010 19.11 SINCE PRIOR TRACING INFERIOR INFARCT PATTERN IS NEW. MALENA LATERAL T WAVE CHANGES ARE MORE PROMINENT. CONSIDER ISCHEMIA. OVERALL IT DOES NOT SEEMS TO BE SIGNIFI CANT CHANGES BETWEEN THIS EKG AND THE PREVIOUS. DOCTOR: Dany Pearce Interpretating Date/Time 08/28/2017 19:34:00
--- NOTE | 2017-08-28 20:09 | RADRPT ---
EXAM DATE/TIME: 08/28/2017 19:18 [facility] COMPARISON: No previous studies available for comparison. INDICATIONS : Seizures. MEDICAL HISTORY : Hypertension. Mitral valve prolapse. Arthritis. SURGICAL HISTORY : None. ENCOUNTER: Subsequent ACUITY: 1 day PAIN SCORE: Nonresponsive. LOCATION: cranial TECHNIQUE: Multiplanar, multisequence MRI of the brain was performed without contrast. FINDINGS: There are mild to moderate chronic white matter ischemic changes. These are periventricular and also extends the brainstem, especially the jak. No mass effect or shift. Ventricular size mildly prominen t. No abnormal extra-axial fluid. Chronic left maxillary sinus disease. Globes intact. CONCLUSION: 1. No focal mass or shift. No recent infarct. Chronic white matter ischemic changes involving periventricular region and brainstem especially jak. Lloyd Han MD on August 28, 2017 at 20:04 Board Certified Radiologist. This report was verified electronically.
[2017-08-28] MEDS: FAMOTIDINE 20 MG/2 ML VIAL IV PUSH SCH (20:40)
[2017-08-28] MEDS: DOCUSATE SODIUM 50 MG/SENNA 8.6 MG TAB PO SCH (20:40)
[2017-08-28] MEDS: SODIUM CHLORIDE 0.9% FLUSH 10 ML FLUSH IV FLUSH PRN (20:41)
[2017-08-28] MEDS: DEXTROSE 50% IN WATER 50 ML VIAL(D50) IV PUSH PRN (20:41)
[2017-08-28] MEDS ORDERED: HEPARIN SODIUM - IV 10,000 UNITS/10 ML VIAL IV PUSH ONE (21:00)
[2017-08-28 21:48] LABS: HEMOGLOBIN 11.5 GM/DL (11.6-15.3); MEAN CELL VOLUME 105.1 FL (80.0-100.0); MEAN CORPUSCULAR HEMOGLOBIN 35.5 PG (27.0-34.0); MEAN CORPUSCULAR HGB CONC 33.8 % (32.0-36.0); MEAN PLATELET VOLUME 8.9 FL (7.0-11.0); PLATELET COUNT 198 TH/MM3 (150-450); RED BLOOD COUNT 3.23 MIL/MM3 (4.00-5.30); RED CELL DISTRIBUTION WIDTH 13.3 % (11.6-17.2); WHITE BLOOD COUNT 8.7 TH/MM3 (4.0-11.0)
[2017-08-28 21:56] LABS: INTERNATIONAL NORMALIZED RATIO 1.2 RATIO; PROTHROMBIN TIME - PATIENT 11.7 SEC (9.8-11.6)
[2017-08-28] MEDS: HEPARIN-D5W 25,000 U/250 ML 250 ML IV PRN (22:59)
[2017-08-29] VITALS (26 sets, daily range): BP systolic 87–133; BP diastolic 45–60; PULSE 62–77; RESP 16–17; TEMP 98–98.9; O2SAT 100
[2017-08-29] MEDS: RESP: ALBUTEROL 2.5 MG/IPRATROPIUM 0.5 MG NEB (SCH) INH ×7 (00:42→23:48)
[2017-08-29] MEDS: metroNIDAZOLE 500 MG INJ 100 ML IV SCH ×3 (01:01→16:53)
[2017-08-29] MEDS: levETIRAcetam INJ 500 MG in SODIUM CHLORIDE 0.9% INJ 100 ML IV SCH ×4 (01:04→16:53)
--- NOTE | 2017-08-29 02:33 | RADRPT ---
EXAM DATE/TIME: 08/29/2017 01:39 [facility] COMPARISON: CT ABDOMEN & PELVIS W CONTRAST, August 28, 2017, 19:02. CHEST SINGLE AP, August 28, 2017, 8:44. INDICATIONS : Short of breath. MEDICAL HISTORY : Hypertension. SURGICAL HISTORY : None. ENCOUNTER: Subsequent ACUITY: 3 days PAIN SCORE: Non-responsive. LOCATION: Bilateral chest FINDINGS: ET tube tip well above the roberto carlos. Gastric tube tip and side-port project within the stomach. The l ungs are symmetrically aerated and clear. No focal infiltrates seen. Interval resolution of bilater al upper lobe opacities. There is a pleural reflection seen at the right apex suggesting a 6 mm pneu mothorax. The heart is normal in size. CONCLUSION: The lungs are clear. 6 mm right apical pneumothorax. Rex Burdick MD on August 29, 2017 at 2:29 Board Certified Radiologist. This report was verified electronically.
[2017-08-29] MEDS ORDERED: HEPARIN SODIUM - IV 10,000 UNITS/10 ML VIAL IV PUSH PRN ×2 (03:00)
[2017-08-29] MEDS: MIDAZOLAM 100 MG/NS 100 ML DRIP Premix IV PRN (03:22)
[2017-08-29] MEDS: CHLORHEXIDINE GLUCONATE 2 % 1 PACK (2 CLOTHS) TOP SCH (04:00)
[2017-08-29] MEDS: INSULIN NovoLIN REGULAR SUPPLEMENTAL SCALE SQ SCH ×6 (04:00→19:54)
[2017-08-29] MEDS: METOPROLOL TARTRATE 25 MG TAB PO SCH (04:00)
[2017-08-29] MEDS: DEXTROSE 50% IN WATER 50 ML VIAL(D50) IV PUSH PRN (04:14)
[2017-08-29] MEDS: PIPERACIL-TAZO 4.5 GM PREMIX 100 ML IV SCH ×4 (04:15→22:16)
--- NOTE | 2017-08-29 04:25 | PD.PROCEDR ---
Procedure Note Procedure Centerline placement A time-out was completed verifying correct patient, procedure, site, positioning , and special equipment if applicable. The patient was placed in a dependent position appropriate for central line placement based on the vein to be cannulated. The patients left neck was prepped and draped in sterile fashion. 1 % Lidocaine was used to anesthetize the surrounding skin area. A triple lumen 9 Irish Cordis catheter was introduced into the the internal jugular vein using the Seldinger technique and under ultrasound guidance. The catheter was threaded smoothly over the guide wire and appropriate blood return was obtained. Each lumen of the catheter was evacuated of air and flushed with sterile saline. The catheter was then sutured in place to the skin and a sterile dressing applied. Perfusion to the extremity distal to the point of catheter insertion was checked and found to be adequate. Estimated Blood Loss: 1ml The patient tolerated the procedure well and there were no complications. Darshan Landeros MD Aug 29, 2017 04:25
--- NOTE | 2017-08-29 04:26 | PD.PROCEDR ---
Procedure Note Procedure Arterial line placement A time-out was completed verifying correct patient, procedure, site, positioning , and special equipment if applicable. Allens test was performed to ensure adequate perfusion. The patients right wrist was prepped and draped in sterile fashion. 1% Lidocaine was used to anesthetize the area. A 18G Arrow arterial line was introduced into the radial artery. The catheter was threaded over the guide wire and the needle was removed with appropriate pulsatile blood return. The catheter was then sutured in place to the skin and a sterile dressing applied. Perfusion to the extremity distal to the point of catheter insertion was checked and found to be adequate. Estimated Blood Loss: 1ml The patient tolerated the procedure well and there were no complications. Darshan Landeros MD Aug 29, 2017 04:26
--- NOTE | 2017-08-29 04:31 | RADRPT ---
EXAM DATE/TIME: 08/29/2017 03:12 [facility] COMPARISON: CHEST SINGLE AP, August 29, 2017, 1:39. INDICATIONS : Central line placement. MEDICAL HISTORY : Hypertension. SURGICAL HISTORY : None. ENCOUNTER: Subsequent ACUITY: 3 days PAIN SCORE: 0/10 LOCATION: Bilateral chest FINDINGS: ET, left central, and gastric tubes in satisfactory position. The lungs are symmetrically aerated. The heart is normal size. Interval reduction in size of right apical pneumothorax to 4 mm. No focal infiltrates seen. CONCLUSION: Reduction in size right apical pneumothorax to 4 mm. Rex Burdick MD on August 29, 2017 at 4:28 Board Certified Radiologist. This report was verified electronically.
[2017-08-29 05:59] LABS: BASOPHIL % 0.8 % (0.0-2.0); EOSINOPHIL % 0.2 % (0.0-4.0); HEMATOCRIT 28.3 % (35.0-46.0); HEMOGLOBIN 9.8 GM/DL (11.6-15.3); LYMPH % 20.4 % (9.0-44.0); LYMPHOCYTE # 1.2 TH/MM3 (1.0-4.8); MEAN CELL VOLUME 105.4 FL (80.0-100.0); MEAN CORPUSCULAR HEMOGLOBIN 36.4 PG (27.0-34.0); MEAN CORPUSCULAR HGB CONC 34.5 % (32.0-36.0); MEAN PLATELET VOLUME 7.9 FL (7.0-11.0); MONO % 7.7 % (0.0-8.0); MONOCYTE # 0.4 TH/MM3 (0-0.9); NEUT % 70.9 % (16.0-70.0); PLATELET COUNT 171 TH/MM3 (150-450); RED BLOOD COUNT 2.68 MIL/MM3 (4.00-5.30); RED CELL DISTRIBUTION WIDTH 13.2 % (11.6-17.2); WHITE BLOOD COUNT 5.6 TH/MM3 (4.0-11.0)
[2017-08-29] MEDS ORDERED: TERBUTALINE INJ 1 MG/ML AMP SQ PRN (06:00)
[2017-08-29] MEDS: NOREPINEPHRINE INJ 4 MG in SODIUM CHLOR 0.9% 250 ML INJ 246 ML IV PRN ×2 (06:07→16:05)
[2017-08-29 06:42] LABS: ALBUMIN 1.8 GM/DL (3.4-5.0); BICARBONATE 20.5 MEQ/L (21.0-32.0); CALCIUM 6.5 MG/DL (8.5-10.1); CALCIUM-PROTEIN CORRECTED 7.6 MG/DL (8.5-10.1); CREATININE 0.86 MG/DL (0.50-1.00); MAGNESIUM 1.2 MG/DL (1.5-2.5); PHOSPHORUS 2.1 MG/DL (2.5-4.9); TOTAL BILIRUBIN ADULT 0.5 MG/DL (0.2-1.0); TOTAL PROTEIN 4.9 GM/DL (6.4-8.2)
[2017-08-29 06:46] LABS: TROPONIN I 2.59 NG/ML (0.02-0.05)
--- NOTE | 2017-08-29 07:25 | HHI.CCPN ---
Subjective Remarks/Hospital Course Patient is a 67-year-old female with a past medical history of mitral valve prolapse, chronic back pain, hyperlipidemia, hypertension. She presented to [facility] ED via EMS after she was found face down unresponsive by her . She was given 2 mg IV Ativan by EMS for a witnessed seizure. She was last seen at her baseline at 5:30 this morning. According to the , the patient does not have any seizure disorder and she is not on any seizure meds at home. She had a similar episode a couple years ago and he attributed it to her multiple medications that she takes at home. She is on Tylenol #3 along with Lorazepam, Baclofen and Propranolol. She was found to have a laceration on chin which was bleeding. Her blood sugar was measured at 95. On arrival to the ED, she was hypertensive with a blood pressure of 196/120 and tachycardiac with a heart rate in the 120's. The patient was intubated with etomidate, succinylcholine and placed on full mechanical ventilation. Her laboratory data is significant for lactic acidosis with lactic acid level of 4.0, an elevated troponin at 0.97 with a total CK of 129. Her urine drug screen is negative for amphetamines, benzodiazepines, and opiates. A CT scan of the brain was performed in the ED which showed no acute intracranial abnormalities. Chronic opacification left maxillary sinus noted. She also had a CT maxillofacial which showed bilateral displaced mandible fractures and bilateral nasal fractures. A cervical spine CT showed multilevel degenerative changes without any compression fracture or subluxation. Chest x-ray, she also had a chest x-ray which showed minimal bilateral upper lobe densities. The patient was given 2 liters of crystalloids in the ED, tetanus shot and placed on Fentanyl and Versed for sedation. There is no history of any chest pain, shortness of breath or any constitutional symptoms. Also, no history of any GI symptoms per the patient's . 08/29 Patient became hypotensive last night started on Levophed 5 mics currently. MRI brain no acute findings, CT abd/pelvis showed mild colitis. On Heparin drip. Left IJ CVP was placed last night CXR post procedure showed 6 mm right apical PTX a repeat CXR from 4:30 showed reduction right apical PTX 4 mm( Right IJ was attempted first) Objective Vital Signs Date Time Temp Pulse Resp B/P (MAP) Pulse Ox O2 Delivery O2 Flow Rate FiO2 08/29/17 07:08 65 113/42 08/29/17 04:00 98.7 16 100 08/29/17 04:00 40 08/28/17 10:00 Ventilator 08/28/17 07:45 15.00 Intake and Output 08/29/17 08/29/17 08/30/17 08:00 16:00 00:00 Intake Total 265 ml Output Total 1150 ml Balance -885 ml Result Diagram: 08/29/17 0540 08/29/17 0540 Other Results Laboratory Tests Test 08/28/17 08:05 08/28/17 09:00 08/28/17 09:30 08/28/17 09:35 White Blood Count 6.5 TH/MM3 Red Blood Count 3.48 MIL/MM3 Hemoglobin 12.6 GM/DL Hematocrit 38.8 % Mean Corpuscular Volume 111.5 FL Mean Corpuscular Hemoglobin 36.2 PG Mean Corpuscular Hemoglobin Concent 32.5 % Red Cell Distribution Width 13.5 % Platelet Count 300 TH/MM3 Mean Platelet Volume 9.6 FL Neutrophils (%) (Auto) 55.4 % Lymphocytes (%) (Auto) 42.3 % Monocytes (%) (Auto) 1.2 % Eosinophils (%) (Auto) 0.6 % Basophils (%) (Auto) 0.5 % Neutrophils # (Auto) 3.6 TH/MM3 Lymphocytes # (Auto) 2.7 TH/MM3 Monocytes # (Auto) 0.1 TH/MM3 Eosinophils # (Auto) 0.0 TH/MM3 Basophils # (Auto) 0.0 TH/MM3 CBC Comment DIFF FINAL Differential Comment Prothrombin Time 11.2 SEC Prothromb Time International Ratio 1.1 RATIO Salicylates Level 2.0 MG/DL Urine Color LIGHT-YELLOW Urine Turbidity CLEAR Urine pH 5.5 Urine Specific [place] 1.005 Urine Protein TRACE mg/dL Urine Glucose (UA) NEG mg/dL Urine Ketones NEG mg/dL Urine Occult Blood SMALL Urine Nitrite NEG Urine Bilirubin NEG Urine Urobilinogen LESS THAN 2.0 MG/DL Urine Leukocyte Esterase NEG Urine RBC 1 /hpf Urine WBC 1 /hpf Urine Squamous Epithelial Cells <1 /hpf Urine Amorphous Sediment RARE Urine Bacteria OCC /hpf Urine Hyaline Casts 1 /lpf Urine Mucus FEW /lpf Microscopic Urinalysis Comment CATH-CULTURE IND Urine Opiates Screen NEG Urine Barbiturates Screen NEG Urine Amphetamines Screen NEG Urine Benzodiazepines Screen NEG Urine Cocaine Screen NEG Urine Cannabinoids Screen NEG Blood Gas Puncture Site LT RADIAL Blood Gas Patient Temperature 37.0 Blood Gas HCO3 13 mmol/L Blood Gas Base Excess -12.0 mmol/L Blood Gas Oxygen Saturation 99 % Arterial Blood pH 7.29 Arterial Blood Partial Pressure CO2 29 mmHg Arterial Blood Partial Pressure O2 464 mmHG Arterial Blood Oxygen Content 18.2 Vol % Arterial Blood Carboxyhemoglobin 0.1 % Arterial Blood Methemoglobin 0.6 % Blood Gas Hemoglobin 12.2 G/DL Oxygen Delivery Device VENTILATOR Blood Gas Ventilator Setting AC 500/18/+5PEEP Blood Gas Inspired Oxygen 100 % Blood Urea Nitrogen 9 MG/DL Creatinine 0.84 MG/DL Random Glucose 123 MG/DL Total Protein 6.5 GM/DL Albumin 2.5 GM/DL Calcium Level 7.0 MG/DL Alkaline Phosphatase 106 U/L Aspartate Amino Transf (AST/SGOT) 81 U/L Alanine Aminotransferase (ALT/SGPT) 18 U/L Total Bilirubin 0.4 MG/DL Sodium Level 133 MEQ/L Potassium Level 4.4 MEQ/L Chloride Level 107 MEQ/L Carbon Dioxide Level 13.1 MEQ/L Anion Gap 13 MEQ/L Estimat Glomerular Filtration Rate 68 ML/MIN Lactic Acid Level 4.0 mmol/L Protein Corrected Calcium 7.3 MG/DL Ammonia 32 MCMOL/L Total Creatine Kinase 129 U/L Troponin I 0.97 NG/ML Thyroid Stimulating Hormone 3rd Gen 2.960 uIU/ML Acetaminophen Level LESS THAN 2.0 MCG/ML Ethyl Alcohol Level LESS THAN 3 MG/DL Test 08/28/17 13:26 08/28/17 15:09 08/28/17 16:00 08/28/17 16:30 Nasal Screen MRSA (PCR) MRSA NOT DETECTED Blood Urea Nitrogen 9 MG/DL Creatinine 0.85 MG/DL Random Glucose 94 MG/DL Calcium Level 8.1 MG/DL Phosphorus Level 3.1 MG/DL Sodium Level 136 MEQ/L Potassium Level 3.6 MEQ/L Chloride Level 104 MEQ/L Carbon Dioxide Level 21.4 MEQ/L Anion Gap 11 MEQ/L Estimat Glomerular Filtration Rate 67 ML/MIN Lactic Acid Level 5.0 mmol/L Total Creatine Kinase 325 U/L Creatine Kinase MB 8.2 NG/ML Creatine Kinase MB % 2.5 % Troponin I 3.38 NG/ML Stool C. difficile Toxin (PCR) NEGATIVE Stl C. difficile Toxin Epiderm 027 PRESUMPTIVE NEGATIVE Blood Gas Puncture Site RT BRACHIAL Blood Gas Patient Temperature 98.6 Blood Gas HCO3 20 mmol/L Blood Gas Base Excess -2.4 mmol/L Blood Gas Oxygen Saturation 98 % Arterial Blood pH 7.54 Arterial Blood Partial Pressure CO2 24 mmHg Arterial Blood Partial Pressure O2 205 mmHg Arterial Blood Oxygen Content 16.2 Vol % Arterial Blood Carboxyhemoglobin 0.7 % Arterial Blood Methemoglobin 1.2 % Blood Gas Hemoglobin 11.5 G/DL Oxygen Delivery Device VENTILATOR Blood Gas Ventilator Setting Test 08/28/17 21:22 08/29/17 05:40 White Blood Count 8.7 TH/MM3 5.6 TH/MM3 Red Blood Count 3.23 MIL/MM3 2.68 MIL/MM3 Hemoglobin 11.5 GM/DL 9.8 GM/DL Hematocrit 34.0 % 28.3 % Mean Corpuscular Volume 105.1 FL 105.4 FL Mean Corpuscular Hemoglobin 35.5 PG 36.4 PG Mean Corpuscular Hemoglobin Concent 33.8 % 34.5 % Red Cell Distribution Width 13.3 % 13.2 % Platelet Count 198 TH/MM3 171 TH/MM3 Mean Platelet Volume 8.9 FL 7.9 FL Prothrombin Time 11.7 SEC Prothromb Time International Ratio 1.2 RATIO Activated Partial Thromboplast Time 23.0 SEC 34.1 SEC Lactic Acid Level 4.5 mmol/L Troponin I 4.40 NG/ML 2.59 NG/ML Neutrophils (%) (Auto) 70.9 % Lymphocytes (%) (Auto) 20.4 % Monocytes (%) (Auto) 7.7 % Eosinophils (%) (Auto) 0.2 % Basophils (%) (Auto) 0.8 % Neutrophils # (Auto) 4.0 TH/MM3 Lymphocytes # (Auto) 1.2 TH/MM3 Monocytes # (Auto) 0.4 TH/MM3 Eosinophils # (Auto) 0.0 TH/MM3 Basophils # (Auto) 0.0 TH/MM3 CBC Comment DIFF FINAL Differential Comment Blood Urea Nitrogen 5 MG/DL Creatinine 0.86 MG/DL Random Glucose 133 MG/DL Total Protein 4.9 GM/DL Albumin 1.8 GM/DL Calcium Level 6.5 MG/DL Phosphorus Level 2.1 MG/DL Magnesium Level 1.2 MG/DL Alkaline Phosphatase 67 U/L Aspartate Amino Transf (AST/SGOT) 50 U/L Alanine Aminotransferase (ALT/SGPT) 10 U/L Total Bilirubin 0.5 MG/DL Sodium Level 132 MEQ/L Potassium Level 2.1 MEQ/L Chloride Level 99 MEQ/L Carbon Dioxide Level 20.5 MEQ/L Anion Gap 13 MEQ/L Estimat Glomerular Filtration Rate 66 ML/MIN Protein Corrected Calcium 7.6 MG/DL Imaging Last Impressions Chest X-Ray 08/29/17 0000 Signed Impressions: Service Date/Time: Tuesday, August 29, 2017 03:12 - CONCLUSION: Reduction in size right apical pneumothorax to 4 mm. Rex Burdick MD Brain MRI 08/28/17 1554 Signed Impressions: Service Date/Time: Monday, August 28, 2017 19:18 - CONCLUSION: 1. No focal mass or shift. No recent infarct. Chronic white matter ischemic changes involving periventricular region and brainstem especially jak. Lloyd Han MD Head CT 08/28/17 0751 Signed Impressions: Service Date/Time: Monday, August 28, 2017 08:20 - CONCLUSION: 1. Nonspecific white matter changes. 2. No acute intracranial abnormality. 3. Chronic opacification left maxillary sinus Armand Foreman MD Maxillofacial CT 08/28/17 0000 Signed Impressions: Service Date/Time: Monday, August 28, 2017 08:20 - CONCLUSION: 1. Bilateral displaced mandible fractures more extensive involving the condyles bilaterally. 2. Sensitive soft tissue swelling. 3. Bilateral nasal fractures. Armand Foreman MD Cervical Spine CT 08/28/17 0000 Signed Impressions: Service Date/Time: Monday, August 28, 2017 08:20 - CONCLUSION: 1. Multilevel degenerative changes. 2. No compression fracture or subluxation. 3. Ground glass density right upper lobe and to lesser degree left upper lobe could be contusion or infectious/inflammatory process. Armand Foreman MD Carotid Artery Ultrasound 08/28/17 0000 Signed Impressions: Service Date/Time: Monday, August 28, 2017 13:23 - CONCLUSION: 1. Mild bilateral carotid plaque. 2. No evidence of hemodynamically significant stenosis. 3. Antegrade flow in both vertebral arteries. Jason Martinez MD Abdomen/Pelvis CT 08/28/17 0000 Signed Impressions: Service Date/Time: Monday, August 28, 2017 19:02 - CONCLUSION: 1. Mild mural thickening of the rectosigmoid most characteristic of a mild colitis distally. No obstruction, free fluid or free air. 2. Small bilateral pleural effusions. 3. 1.6 cm left ovarian cyst. 4. Catheter in decompressed bladder. Lloyd Han MD Objective Remarks GENERAL: Patient is 67 yo critically ill intubated and sedated SKIN: Warm and dry. HEAD: Normocephalic. EYES: No scleral icterus. No injection or drainage. NECK: Supple, trachea midline. No JVD or lymphadenopathy. CARDIOVASCULAR: Regular rate and rhythm without murmurs, gallops, or rubs. RESPIRATORY: Breath sounds equal bilaterally. No accessory muscle use. GASTROINTESTINAL: Abdomen soft, non-tender, nondistended. MUSCULOSKELETAL: No cyanosis, or edema. Neuro: Sedated A/P Assessment and Plan 1. Altered mental status 2. S/p syncopal episode. 3. Status post seizure episode. 4. Lactic acidemia likely secondary to seizures. 5. VDRF 6. Bilateral mandible and nasal fractures. 7. Pulmonary contusion 8. Elevated troponin 9. Hypertension 10. Hyperlipidemia 11. Elevated AST Plan Neuro: On Versed/Fentanyl drips for sedation. Monitor neuro status. Daily sedation vacation. CT scan of the brain in the ED negative for acute intracranial findings. MRI brain: No acute findings. Chronic white matter changes EEG: Generalized slowing, no ictal activity. Carotid Doppler US: No sig hemodynamic stenosis. Neuro is following- Dr. Moulton. Continue Keppra per Neuro. On Ativan PRN seizures Pulm: Continue with vent support and maintain sats above 92%. Bronchodilators, ICU vent bundle. SBT daily when appreciate CV: Wean off Levophed keep MAP>[address] on HC 50mg IV Q6 Monitor troponins, for 2-D echo . Serial lactic acid monitoring till cleared. Continue with ASA, hold Lopressor as patient was started on Levophed. Continue with Heparin drip. Cards is following- Dr. Han. : Monitor renal function I's and O's and electrolyte replacement per protocol. Change IVF- NS@100ml/hr. Will need K, Phos, Mag replacement today GI: Monitor LFTs and place on Pepcid 10 mg q. 12-hour for GI prophylaxis. Start tube feeds- Glucerna 1.5@45ml/hr ID: Continue abx( Zosyn, Flagyl) monitor for signs of infections( fever and WBC) . Follow up on blood, sputum, urine culture. Heme: Monitor CBC, coags- on Heparin drip Endo: SSI with Accu-Chek's to maintain euglycemia. OMFS is following for mandible/nasal fxs GI prophylaxis with Pepcid and DVT prophylaxis with SCD's. on Heparin drip Lines: Left IJ CVP placed 08/29 CCT 30 mins Dottie Harvey MD Aug 29, 2017 07:25
--- NOTE | 2017-08-29 08:50 | PD.CARD.PN ---
Subjective Subjective Remarks sedated, intubated Objective Medications Current Medications Medications (Trade) Dose Ordered Sig/Benny Route Start Time Stop Time Status Last Admin (NS Flush) 2 ml UNSCH PRN IV FLUSH 08/28/17 08:00 08/28/17 20:41 Fentanyl Citrate 250 ml @ 5 mls/hr TITRATE PRN IV 08/28/17 10:00 08/28/17 10:08 Midazolam HCl 100 ml @ 2 mls/hr TITRATE PRN IV 08/28/17 10:00 08/29/17 03:22 (Duoneb Neb) 1 ampule Q4HR NEB INH 08/28/17 12:00 08/29/17 03:39 Miscellaneous Information 1 Q361D XX 08/28/17 09:30 (Chlorhexidine 2% Cloth) 3 pack Taper DAILY@04 TOP 08/29/17 04:00 08/25/18 03:59 08/29/17 04:00 (Chlorhexidine 2% Cloth) 3 pack UNSCH PRN TOP 08/28/17 09:30 (Brenna-Colace) 1 tab BID PO 08/28/17 21:00 (Milk Of Magnesia Liq) 30 ml Q12H PRN PO 08/28/17 09:30 (Senokot) 17.2 mg Q12H PRN PO 08/28/17 09:30 (Dulcolax Supp) 10 mg DAILY PRN RECTAL 08/28/17 09:30 (Lactulose Liq) 30 ml DAILY PRN PO 08/28/17 09:30 Piperacillin Sod/ Tazobactam Sod 100 ml @ 200 mls/hr Q6H IV 08/28/17 17:00 08/29/17 04:15 (D50w (Vial) Inj) 50 ml UNSCH PRN IV PUSH 08/28/17 11:15 08/29/17 04:14 (Glucagon Inj) 1 mg UNSCH PRN OTHER 08/28/17 11:15 (NovoLIN R SUPPLEMENTAL SCALE) 1 Q4H SQ 08/28/17 12:00 Potassium Chloride 100 ml @ 50 mls/hr Q2H PRN IV 08/28/17 11:15 Potassium Chloride 100 ml @ 50 mls/hr Q2H PRN IV 08/28/17 11:15 (K-Lyte Cl Eff) 50 meq UNSCH PRN PO 08/28/17 11:15 Potassium Chloride 100 ml @ 25 mls/hr UNSCH PRN IV 08/28/17 11:15 Potassium Chloride 100 ml @ 50 mls/hr Q2H PRN IV 08/28/17 11:15 Magnesium Sulfate 4 gm/Sodium Chloride 100 ml @ 50 mls/hr UNSCH PRN IV 08/28/17 11:15 (Mag-Ox) 800 mg UNSCH PRN PO 08/28/17 11:15 Magnesium Sulfate 2 gm/Sodium Chloride 100 ml @ 50 mls/hr UNSCH PRN IV 08/28/17 11:15 (K-Phos) 2,000 mg Q4H PRN PO 08/28/17 11:15 Sodium Phosphate 30 mmol/Sodium Chloride 250 ml @ 42 mls/hr UNSCH PRN IV 08/28/17 11:15 (K-Phos) 2,000 mg UNSCH PRN PO/TUBE 08/28/17 11:15 Potassium Phosphate 30 mmol/ Sodium Chloride 260 ml @ 42 mls/hr UNSCH PRN IV 08/28/17 11:15 08/29/17 07:02 (Pepcid Inj) 20 mg Q12HR IV PUSH 08/28/17 21:00 08/28/17 20:40 Levetriacetam 500 mg/Sodium Chloride 105 ml @ 420 mls/hr Q6HR IV 08/28/17 18:00 08/29/17 06:06 (Ativan Inj) 1 mg Q2H PRN IV PUSH 08/28/17 16:00 (Aspirin Chew) 81 mg DAILY CHEW 08/29/17 09:00 Metronidazole 100 ml @ 100 mls/hr Q8H IV 08/28/17 17:00 08/29/17 01:01 (Heparin Inj) 5,000 units UNSCH PRN IV PUSH 08/29/17 03:00 (Heparin Inj) 2,500 units UNSCH PRN IV PUSH 08/29/17 03:00 Heparin Sodium/ Dextrose 250 ml @ 6 mls/hr TITRATE PRN IV 08/28/17 21:00 08/28/17 22:59 Norepinephrine Bitartrate 4 mg/ Sodium Chloride 250 ml @ 7.5 mls/hr TITRATE PRN IV 08/29/17 06:00 08/29/17 06:07 (Brethine Inj) 1 mg UNSCH PRN SQ 08/29/17 06:00 (SoluCORTEF INJ) 50 mg Q6HR IV PUSH 08/29/17 08:30 Sodium Chloride 1,000 ml @ 100 mls/hr Q10H IV 08/29/17 07:30 Vital Signs / I&O Vital Signs Date Time Temp Pulse Resp B/P (MAP) Pulse Ox O2 Delivery O2 Flow Rate FiO2 08/29/17 07:36 100 40 08/29/17 07:08 65 113/42 08/29/17 06:38 72 106/40 08/29/17 06:07 71 120/46 08/29/17 06:00 76 08/29/17 04:00 98.7 69 16 133/51 (78) 100 08/29/17 04:00 69 08/29/17 04:00 40 08/29/17 03:40 100 40 08/29/17 02:00 69 08/29/17 00:43 100 40 08/29/17 00:00 74 08/29/17 00:00 98.8 74 17 87/50 (62) 100 08/29/17 00:00 40 08/28/17 22:00 66 08/28/17 20:06 100 40 08/28/17 20:00 69 08/28/17 20:00 100.7 69 16 96/59 (71) 94 08/28/17 20:00 40 08/28/17 19:30 100 100 08/28/17 19:00 100 100 08/28/17 18:00 67 08/28/17 16:00 50 08/28/17 16:00 99.4 96 20 137/79 (98) 100 08/28/17 16:00 93 08/28/17 14:48 100 40 08/28/17 14:00 93 08/28/17 12:45 100 40 08/28/17 12:00 98 08/28/17 12:00 99.8 98 20 155/87 (109) 100 08/28/17 12:00 50 08/28/17 11:47 08/28/17 11:15 100 100 08/28/17 10:00 113 20 144/98 (113) 100 Ventilator 50 08/28/17 09:50 100 60 I/O 1208/28/17 08/28/17 08/29/17 08/29/17 08/29/17 06:59 14:59 22:59 06:59 14:59 22:59 Intake Total 2580 ml 2965 ml 935 ml Output Total 650 ml 1450 ml 1150 ml Balance 1930 ml 1515 ml -215 ml Intake IV Total 2580 ml 1965 ml 935 ml Tube Irrigant 500 ml Other 500 ml Output Urine Total 650 ml 1450 ml 1150 ml # Bowel Movements 2 0 Physical Exam GENERAL: Sedated, intubated SKIN: Warm and dry. HEAD: Normocephalic. EYES: No scleral icterus. No injection or drainage. NECK: Supple, trachea midline. No JVD or lymphadenopathy. CARDIOVASCULAR: Regular rate and rhythm without murmurs, gallops, or rubs. RESPIRATORY: Breath sounds equal bilaterally. No accessory muscle use. GASTROINTESTINAL: Abdomen soft, non-tender, nondistended. EXTREMITIES: No cyanosis, or edema. Laboratory Laboratory Tests Test 08/28/17 09:00 08/28/17 09:30 08/28/17 09:35 08/28/17 13:26 Urine Color LIGHT-YELLOW Urine Turbidity CLEAR Urine pH 5.5 Urine Specific [place] 1.005 Urine Protein TRACE mg/dL Urine Glucose (UA) NEG mg/dL Urine Ketones NEG mg/dL Urine Occult Blood SMALL Urine Nitrite NEG Urine Bilirubin NEG Urine Urobilinogen LESS THAN 2.0 MG/DL Urine Leukocyte Esterase NEG Urine RBC 1 /hpf Urine WBC 1 /hpf Urine Squamous Epithelial Cells <1 /hpf Urine Amorphous Sediment RARE Urine Bacteria OCC /hpf Urine Hyaline Casts 1 /lpf Urine Mucus FEW /lpf Microscopic Urinalysis Comment CATH-CULTURE IND Urine Opiates Screen NEG Urine Barbiturates Screen NEG Urine Amphetamines Screen NEG Urine Benzodiazepines Screen NEG Urine Cocaine Screen NEG Urine Cannabinoids Screen NEG Blood Gas Puncture Site LT RADIAL Blood Gas Patient Temperature 37.0 Blood Gas HCO3 13 mmol/L Blood Gas Base Excess -12.0 mmol/L Blood Gas Oxygen Saturation 99 % Arterial Blood pH 7.29 Arterial Blood Partial Pressure CO2 29 mmHg Arterial Blood Partial Pressure O2 464 mmHG Arterial Blood Oxygen Content 18.2 Vol % Arterial Blood Carboxyhemoglobin 0.1 % Arterial Blood Methemoglobin 0.6 % Blood Gas Hemoglobin 12.2 G/DL Oxygen Delivery Device VENTILATOR Blood Gas Ventilator Setting AC 500/18/+5PEEP Blood Gas Inspired Oxygen 100 % Blood Urea Nitrogen 9 MG/DL Creatinine 0.84 MG/DL Random Glucose 123 MG/DL Total Protein 6.5 GM/DL Albumin 2.5 GM/DL Calcium Level 7.0 MG/DL Alkaline Phosphatase 106 U/L Aspartate Amino Transf (AST/SGOT) 81 U/L Alanine Aminotransferase (ALT/SGPT) 18 U/L Total Bilirubin 0.4 MG/DL Sodium Level 133 MEQ/L Potassium Level 4.4 MEQ/L Chloride Level 107 MEQ/L Carbon Dioxide Level 13.1 MEQ/L Anion Gap 13 MEQ/L Estimat Glomerular Filtration Rate 68 ML/MIN Lactic Acid Level 4.0 mmol/L Protein Corrected Calcium 7.3 MG/DL Ammonia 32 MCMOL/L Total Creatine Kinase 129 U/L Troponin I 0.97 NG/ML Thyroid Stimulating Hormone 3rd Gen 2.960 uIU/ML Acetaminophen Level LESS THAN 2.0 MCG/ML Ethyl Alcohol Level LESS THAN 3 MG/DL Nasal Screen MRSA (PCR) MRSA NOT DETECTED Test 08/28/17 15:09 08/28/17 16:00 08/28/17 16:30 08/28/17 21:22 Blood Urea Nitrogen 9 MG/DL Creatinine 0.85 MG/DL Random Glucose 94 MG/DL Calcium Level 8.1 MG/DL Phosphorus Level 3.1 MG/DL Sodium Level 136 MEQ/L Potassium Level 3.6 MEQ/L Chloride Level 104 MEQ/L Carbon Dioxide Level 21.4 MEQ/L Anion Gap 11 MEQ/L Estimat Glomerular Filtration Rate 67 ML/MIN Lactic Acid Level 5.0 mmol/L 4.5 mmol/L Total Creatine Kinase 325 U/L Creatine Kinase MB 8.2 NG/ML Creatine Kinase MB % 2.5 % Troponin I 3.38 NG/ML 4.40 NG/ML Stool C. difficile Toxin (PCR) NEGATIVE Stl C. difficile Toxin Epiderm 027 PRESUMPTIVE NEGATIVE Blood Gas Puncture Site RT BRACHIAL Blood Gas Patient Temperature 98.6 Blood Gas HCO3 20 mmol/L Blood Gas Base Excess -2.4 mmol/L Blood Gas Oxygen Saturation 98 % Arterial Blood pH 7.54 Arterial Blood Partial Pressure CO2 24 mmHg Arterial Blood Partial Pressure O2 205 mmHg Arterial Blood Oxygen Content 16.2 Vol % Arterial Blood Carboxyhemoglobin 0.7 % Arterial Blood Methemoglobin 1.2 % Blood Gas Hemoglobin 11.5 G/DL Oxygen Delivery Device VENTILATOR Blood Gas Ventilator Setting White Blood Count 8.7 TH/MM3 Red Blood Count 3.23 MIL/MM3 Hemoglobin 11.5 GM/DL Hematocrit 34.0 % Mean Corpuscular Volume 105.1 FL Mean Corpuscular Hemoglobin 35.5 PG Mean Corpuscular Hemoglobin Concent 33.8 % Red Cell Distribution Width 13.3 % Platelet Count 198 TH/MM3 Mean Platelet Volume 8.9 FL Prothrombin Time 11.7 SEC Prothromb Time International Ratio 1.2 RATIO Activated Partial Thromboplast Time 23.0 SEC Test 08/29/17 05:40 08/29/17 08:25 White Blood Count 5.6 TH/MM3 Red Blood Count 2.68 MIL/MM3 Hemoglobin 9.8 GM/DL Hematocrit 28.3 % Mean Corpuscular Volume 105.4 FL Mean Corpuscular Hemoglobin 36.4 PG Mean Corpuscular Hemoglobin Concent 34.5 % Red Cell Distribution Width 13.2 % Platelet Count 171 TH/MM3 Mean Platelet Volume 7.9 FL Neutrophils (%) (Auto) 70.9 % Lymphocytes (%) (Auto) 20.4 % Monocytes (%) (Auto) 7.7 % Eosinophils (%) (Auto) 0.2 % Basophils (%) (Auto) 0.8 % Neutrophils # (Auto) 4.0 TH/MM3 Lymphocytes # (Auto) 1.2 TH/MM3 Monocytes # (Auto) 0.4 TH/MM3 Eosinophils # (Auto) 0.0 TH/MM3 Basophils # (Auto) 0.0 TH/MM3 CBC Comment DIFF FINAL Differential Comment Activated Partial Thromboplast Time 34.1 SEC Blood Urea Nitrogen 5 MG/DL Creatinine 0.86 MG/DL Random Glucose 133 MG/DL Total Protein 4.9 GM/DL Albumin 1.8 GM/DL Calcium Level 6.5 MG/DL Phosphorus Level 2.1 MG/DL Magnesium Level 1.2 MG/DL Alkaline Phosphatase 67 U/L Aspartate Amino Transf (AST/SGOT) 50 U/L Alanine Aminotransferase (ALT/SGPT) 10 U/L Total Bilirubin 0.5 MG/DL Sodium Level 132 MEQ/L Potassium Level 2.1 MEQ/L Chloride Level 99 MEQ/L Carbon Dioxide Level 20.5 MEQ/L Anion Gap 13 MEQ/L Estimat Glomerular Filtration Rate 66 ML/MIN Protein Corrected Calcium 7.6 MG/DL Troponin I 2.59 NG/ML Imaging Last 24 hours Impressions Chest X-Ray 08/29/17 0000 Signed Impressions: Service Date/Time: Tuesday, August 29, 2017 03:12 - CONCLUSION: Reduction in size right apical pneumothorax to 4 mm. Rex Burdick MD Chest X-Ray 08/29/17 0000 Signed Impressions: Service Date/Time: Tuesday, August 29, 2017 01:39 - CONCLUSION: The lungs are clear. 6 mm right apical pneumothorax. Rex Burdick MD Brain MRI 08/28/17 1554 Signed Impressions: Service Date/Time: Monday, August 28, 2017 19:18 - CONCLUSION: 1. No focal mass or shift. No recent infarct. Chronic white matter ischemic changes involving periventricular region and brainstem especially jak. Lloyd Han MD Assessment and Plan Problem List: (1) Elevated troponin ICD Codes: R74.8 - Abnormal levels of other serum enzymes Plan: NSTEMI Seizures Severe hypocalcemia Severe hypokalemia Hypomagnesium EKG this am SR with diffuse ST inversions consistent with severe hypokalemia Echo pending Recs: 1. Cont medical management for NSTEMI with ASA, Heparin drip, statins, BB and ACEi 2. Replete electrolytes abnormalities 3. ECHO pending Cruzito Tucker MD Aug 29, 2017 08:50
[2017-08-29] MEDS: POTASSIUM CHLOR 40 MEQ PREMIX 100 ML IV PRN ×2 (09:07→15:45)
[2017-08-29] MEDS ORDERED: CALCIUM GLUCONATE INJ 1 GM in SODIUM CHLORIDE 0.9% INJ 100 ML IV ONE (09:45)
[2017-08-29] MEDS: ASPIRIN 81 MG CHEW TAB CHEW SCH (10:21)
[2017-08-29] MEDS: HYDROCORTISONE SOD SUCCINATE 100 MG VIAL IV PUSH SCH ×3 (10:21→16:53)
[2017-08-29] MEDS: DOCUSATE SODIUM 50 MG/SENNA 8.6 MG TAB PO SCH ×2 (10:21→20:40)
[2017-08-29] MEDS: FAMOTIDINE 20 MG/2 ML VIAL IV PUSH SCH ×2 (10:21→20:40)
[2017-08-29] MEDS: SODIUM CHLOR 0.9% 1000 ML INJ 1,000 ML IV SCH ×2 (10:23→20:41)
[2017-08-29] MEDS: fentaNYL 2,500 MCG/NS 250 ML IV PRN (10:24)
--- NOTE | 2017-08-29 12:49 | RADRPT ---
EXAM DATE/TIME: 08/29/2017 11:58 [facility] COMPARISON: CHEST SINGLE AP, August 29, 2017, 1:39. CHEST SINGLE AP, August 29, 2017, 3:12. INDICATIONS : Pneumothorax. MEDICAL HISTORY : Cardiovascular disease. Hypertension. mitral valve prolapse SURGICAL HISTORY : None. ENCOUNTER: Subsequent ACUITY: 2 days PAIN SCORE: Non-responsive. LOCATION: Bilateral chest FINDINGS: The endotracheal tube is noted approximately 4 cm above the roberto carlos. Left internal jugular central cuauhtemoc e has its tip in the right atrium. Nasogastric has its tip in the stomach. Miniscule right apical pne umothorax is stable. The heart is stable. The pulmonary vascular pattern is normal. The lungs are treasure ar. Degenerative changes and scoliosis of the thoracic spine are stable. CONCLUSION: Stable miniscule right apical pneumothorax. Jayro Benitez MD on August 29, 2017 at 12:44 Board Certified Radiologist. This report was verified electronically.
--- NOTE | 2017-08-29 15:04 | ECHRPT ---
Indication: syncope CONCLUSIONS The left ventricular systolic function is moderately reduced with an estimated ejection fraction in the range of 30-35%. Distal anteroseptal and apical hypokinesis. Normal left ventricular size. [id number] mitral valve regurgitation. Mild aortic valve regurgitation. There is mild tricuspid valve regurgitation. The estimated pulmonary arterial pressure is 41 mmHg. BP: / HR: Rhythm: MEASUREMENTS (Male / Female) Normal Values Technical Quality:Good 2D ECHO LV Diastolic Diameter PLAX 3.4 cm 4.2 - 5.9 / 3.9 - 5.3 cm LV Systolic Diameter PLAX 2.9 cm IVS Diastolic Thickness 1.2 cm 0.6 - 1.0 / 0.6 - 0.9 cm LVPW Diastolic Thickness 1.0 cm 0.6 - 1.0 / 0.6 - 0.9 cm LV Relative Wall Thickness 0.6 RV Internal Dim ED PLAX 1.3 cm M-MODE Aortic Root Diameter MM 2.8 cm LA Systolic Diameter MM 2.2 cm LA Ao Ratio MM 0.8 DOPPLER AI Peak Velocity 353.0 cm/s AI Peak Gradient 49.8 mmHg AI Pressure Half Time 626.0 ms Mitral E Point Velocity 50.3 cm/s Mitral A Point Velocity 62.7 cm/s Mitral E to A Ratio 0.8 LV E' Lateral Velocity 4.7 cm/s Mitral E to LV E' Lateral Ratio 10.7 LV E' Septal Velocity 4.8 cm/s Mitral E to LV E' Septal Ratio 10.5 TR Peak Velocity 276.0 cm/s TR Peak Gradient 30.0 mmHg Right Atrial Pressure 10.0 mmHg Pulmonary Artery Systolic Pressu 40.5 mmHg Right Ventricular Systolic Press 40.5 mmHg FINDINGS LEFT VENTRICLE The left ventricular systolic function is severely reduced with an estimated ejection fraction in th e range of 30-35%. Normal left ventricular size. RIGHT VENTRICLE Normal right ventricular size and systolic function. LEFT ATRIUM The left atrial size is normal. RIGHT ATRIUM The right atrial size is normal. ATRIAL SEPTUM Normal atrial septal thickness without atrial level shunting by limited color doppler interrogation. AORTA The aortic root and proximal ascending aorta are normal in size on limited imaging. MITRAL VALVE [id number] mitral valve regurgitation. Structurally normal mitral valve. AORTIC VALVE Trileaflet aortic valve. Mild aortic valve regurgitation. P1/2 626 TRICUSPID VALVE Structurally normal tricuspid valve. There is mild tricuspid valve regurgitation. The estimated pulmonary arterial pressure is 40.5 mmHg. PULMONARY VALVE No pulmonary valve regurgitation or stenosis. VESSELS The inferior vena cava is normal in size. PERICARDIUM No pericardial effusion. Regina Post MD, FACC (Electronically Signed) Final Date:29 August 2017 15:03
--- NOTE | 2017-08-29 17:09 | HHI.PR ---
Subjective Remarks pt seen and examined intubated, sedated, vented nurse removed loose tooth in mouth at bedside on pressors, heparin drip, NSTEMI Objective Vital Signs Date Time Temp Pulse Resp B/P (MAP) Pulse Ox O2 Delivery O2 Flow Rate FiO2 08/29/17 16:05 69 107/49 08/29/17 15:25 100 40 08/29/17 11:44 100 40 08/29/17 07:36 100 40 08/29/17 07:08 65 113/42 08/29/17 06:38 72 106/40 08/29/17 06:07 71 120/46 08/29/17 06:00 76 08/29/17 04:00 98.7 69 16 133/51 (78) 100 08/29/17 04:00 69 08/29/17 04:00 40 08/29/17 03:40 100 40 08/29/17 02:00 69 08/29/17 00:43 100 40 08/29/17 00:00 74 08/29/17 00:00 98.8 74 17 87/50 (62) 100 08/29/17 00:00 40 08/28/17 22:00 66 08/28/17 20:06 100 40 08/28/17 20:00 69 08/28/17 20:00 100.7 69 16 96/59 (71) 94 08/28/17 20:00 40 08/28/17 19:30 100 100 08/28/17 19:00 100 100 08/28/17 18:00 67 I/O 08/28/17 08/28/17 08/28/17 08/29/17 08/29/17 08/29/17 07:00 15:00 23:00 07:00 15:00 23:00 Intake Total 2580 ml 2965 ml 935 ml 775 ml 250 ml Output Total 650 ml 1450 ml 1150 ml Balance 1930 ml 1515 ml -215 ml 775 ml 250 ml Intake IV Total 2580 ml 1965 ml 935 ml 775 ml 250 ml Tube Irrigant 500 ml Other 500 ml Output Urine Total 650 ml 1450 ml 1150 ml # Bowel Movements 2 0 Result Diagram: 08/29/17 0540 08/29/17 1410 Objective Remarks mild bruising/edema right mandible no neck edema intraorally tissues pink/well perfused loose dentition/fractures appear stable at this point Assessment and Plan Assessment and Plan s/p fall, seizures, NSTEMI b/l condyle fx/ right mandible fracture loose dentition plan for ORIF mandible fracture and extraction of loose teeth when cardiac/ medically stable d/w dr fink, plan for procedure after cath done, plan for early next week. Jose Doll DMD Aug 29, 2017 17:09
[2017-08-29] MEDS: SODIUM CHLORIDE 0.9% FLUSH 10 ML FLUSH IV FLUSH PRN (20:44)
--- NOTE | 2017-08-29 21:08 | RADRPT ---
EXAM DATE/TIME: 08/29/2017 19:24 [facility] COMPARISON: CHEST SINGLE AP, August 29, 2017, 11:58. INDICATIONS : Pneumothorax, VDRF. MEDICAL HISTORY : Venous insufficiency. Cardiovascular disease. Hypertension. Mitral valve prolapse. SURGICAL HISTORY : None. ENCOUNTER: Subsequent ACUITY: 3 days PAIN SCORE: Non-responsive. LOCATION: Right chest FINDINGS: Endotracheal tube in good position. Left central line in right atrium. NG enters stomach. Mild basila r airspace disease. No pneumothorax. CONCLUSION: 1. Mild basilar airspace disease. Support apparatus in satisfactory position. Lloyd Han MD on August 29, 2017 at 21:05 Board Certified Radiologist. This report was verified electronically.
--- NOTE | 2017-08-29 21:20 | HHI.PR ---
Review/Management Diagnosis seizure--stable without recurrence on versed, fentanyl, keppra Diagnosis/Plan: Subjective Subjective Comments No acute events reported No recurrent sz reported to follow commands when sedation lifted and no focal abnormalities noted Active Medications Current Medications Medications (Trade) Dose Ordered Sig/Benny Route Start Time Stop Time Status Last Admin (NS Flush) 2 ml UNSCH PRN IV FLUSH 08/28/17 08:00 08/29/17 20:44 Fentanyl Citrate 250 ml @ 5 mls/hr TITRATE PRN IV 08/28/17 10:00 08/29/17 10:24 Midazolam HCl 100 ml @ 2 mls/hr TITRATE PRN IV 08/28/17 10:00 08/29/17 03:22 (Duoneb Neb) 1 ampule Q4HR NEB INH 08/28/17 12:00 08/29/17 19:47 Miscellaneous Information 1 Q361D XX 08/28/17 09:30 (Chlorhexidine 2% Cloth) 3 pack Taper DAILY@04 TOP 08/29/17 04:00 08/25/18 03:59 08/29/17 04:00 (Chlorhexidine 2% Cloth) 3 pack UNSCH PRN TOP 08/28/17 09:30 (Brenna-Colace) 1 tab BID PO 08/28/17 21:00 08/29/17 20:40 (Milk Of Magnesia Liq) 30 ml Q12H PRN PO 08/28/17 09:30 (Senokot) 17.2 mg Q12H PRN PO 08/28/17 09:30 (Dulcolax Supp) 10 mg DAILY PRN RECTAL 08/28/17 09:30 (Lactulose Liq) 30 ml DAILY PRN PO 08/28/17 09:30 Piperacillin Sod/ Tazobactam Sod 100 ml @ 200 mls/hr Q6H IV 08/28/17 17:00 08/29/17 16:53 (D50w (Vial) Inj) 50 ml UNSCH PRN IV PUSH 08/28/17 11:15 08/29/17 04:14 (Glucagon Inj) 1 mg UNSCH PRN OTHER 08/28/17 11:15 (NovoLIN R SUPPLEMENTAL SCALE) 1 Q4H SQ 08/28/17 12:00 08/29/17 08:00 Potassium Chloride 100 ml @ 50 mls/hr Q2H PRN IV 08/28/17 11:15 08/29/17 15:45 Potassium Chloride 100 ml @ 50 mls/hr Q2H PRN IV 08/28/17 11:15 (K-Lyte Cl Eff) 50 meq UNSCH PRN PO 08/28/17 11:15 Potassium Chloride 100 ml @ 25 mls/hr UNSCH PRN IV 08/28/17 11:15 Potassium Chloride 100 ml @ 50 mls/hr Q2H PRN IV 08/28/17 11:15 Magnesium Sulfate 4 gm/Sodium Chloride 100 ml @ 50 mls/hr UNSCH PRN IV 08/28/17 11:15 (Mag-Ox) 800 mg UNSCH PRN PO 08/28/17 11:15 Magnesium Sulfate 2 gm/Sodium Chloride 100 ml @ 50 mls/hr UNSCH PRN IV 08/28/17 11:15 08/29/17 09:06 (K-Phos) 2,000 mg Q4H PRN PO 08/28/17 11:15 Sodium Phosphate 30 mmol/Sodium Chloride 250 ml @ 42 mls/hr UNSCH PRN IV 08/28/17 11:15 (K-Phos) 2,000 mg UNSCH PRN PO/TUBE 08/28/17 11:15 Potassium Phosphate 30 mmol/ Sodium Chloride 260 ml @ 42 mls/hr UNSCH PRN IV 08/28/17 11:15 08/29/17 07:02 (Pepcid Inj) 20 mg Q12HR IV PUSH 08/28/17 21:00 08/29/17 20:40 Levetriacetam 500 mg/Sodium Chloride 105 ml @ 420 mls/hr Q6HR IV 08/28/17 18:00 08/29/17 16:53 (Ativan Inj) 1 mg Q2H PRN IV PUSH 08/28/17 16:00 (Aspirin Chew) 81 mg DAILY CHEW 08/29/17 09:00 08/29/17 10:21 Metronidazole 100 ml @ 100 mls/hr Q8H IV 08/28/17 17:00 08/29/17 16:53 (Heparin Inj) 5,000 units UNSCH PRN IV PUSH 08/29/17 03:00 (Heparin Inj) 2,500 units UNSCH PRN IV PUSH 08/29/17 03:00 Heparin Sodium/ Dextrose 250 ml @ 6 mls/hr TITRATE PRN IV 08/28/17 21:00 08/28/17 22:59 Norepinephrine Bitartrate 4 mg/ Sodium Chloride 250 ml @ 7.5 mls/hr TITRATE PRN IV 08/29/17 06:00 08/29/17 16:05 (Brethine Inj) 1 mg UNSCH PRN SQ 08/29/17 06:00 (SoluCORTEF INJ) 50 mg Q6HR IV PUSH 08/29/17 08:30 08/29/17 16:53 Sodium Chloride 1,000 ml @ 100 mls/hr Q10H IV 08/29/17 07:30 08/29/17 20:41 Allergies Allergies Coded Allergies No Known Allergies (Verified10/13/10) Exam I&O / VS 08/29/17 08/29/17 08/30/17 15:00 23:00 07:00 Intake Total 775 ml 1525 ml Output Total 450 ml Balance 775 ml 1075 ml Intake IV Total 775 ml 1250 ml Tube Feeding 175 ml Tube Irrigant 100 ml Output Urine Total 450 ml # Bowel Movements 0 Vital Signs Date Time Temp Pulse Resp B/P (MAP) Pulse Ox O2 Delivery O2 Flow Rate FiO2 08/29/17 19:00 69 16 120/51 (74) 100 08/29/17 19:00 69 108/58 08/29/17 18:00 70 16 96/53 (67) 100 101/45 (63) 08/29/17 17:00 74 16 108/47 (67) 100 08/29/17 16:05 69 107/49 08/29/17 16:00 40 08/29/17 16:00 98.0 72 16 104/59 (74) 100 115/53 (73) 08/29/17 15:25 100 40 08/29/17 15:00 72 16 106/49 (68) 100 08/29/17 14:00 62 16 106/56 (73) 100 108/49 (68) 08/29/17 13:00 65 16 119/53 (75) 100 08/29/17 12:00 98.2 64 16 104/53 (70) 100 110/49 (69) 08/29/17 12:00 40 08/29/17 11:44 100 40 08/29/17 11:00 77 16 103/49 (67) 100 08/29/17 10:00 71 16 103/57 (72) 100 118/53 (74) 08/29/17 09:00 64 16 128/60 (82) 100 08/29/17 08:23 65 16 100/57 (71) 100 127/49 (75) 08/29/17 08:00 98.6 66 16 124/48 (73) 100 08/29/17 08:00 40 08/29/17 07:36 100 40 08/29/17 07:08 65 113/42 08/29/17 06:38 72 106/40 08/29/17 06:07 71 120/46 08/29/17 06:00 76 08/29/17 04:00 98.7 69 16 133/51 (78) 100 08/29/17 04:00 69 08/29/17 04:00 40 08/29/17 03:40 100 40 08/29/17 02:00 69 08/29/17 00:43 100 40 08/29/17 00:00 74 08/29/17 00:00 98.8 74 17 87/50 (62) 100 08/29/17 00:00 40 08/28/17 22:00 66 Exam Comments sedted, nonresponsive PERRL MOTOR-no posturing no spontaneous limb movement Objective Radiology Results MRI brain--chronic ischemic changes with no acute change Micro and Labs Laboratory Tests Test 08/28/17 21:22 08/29/17 05:40 08/29/17 08:25 08/29/17 09:10 White Blood Count 8.7 5.6 Red Blood Count 3.23 2.68 Hemoglobin 11.5 9.8 Hematocrit 34.0 28.3 Mean Corpuscular Volume 105.1 105.4 Mean Corpuscular Hemoglobin 35.5 36.4 Mean Corpuscular Hemoglobin Concent 33.8 34.5 Red Cell Distribution Width 13.3 13.2 Platelet Count 198 171 Mean Platelet Volume 8.9 7.9 Prothrombin Time 11.7 Prothromb Time International Ratio 1.2 Activated Partial Thromboplast Time 23.0 34.1 Lactic Acid Level 4.5 2.0 Troponin I 4.40 2.59 Neutrophils (%) (Auto) 70.9 Lymphocytes (%) (Auto) 20.4 Monocytes (%) (Auto) 7.7 Eosinophils (%) (Auto) 0.2 Basophils (%) (Auto) 0.8 Neutrophils # (Auto) 4.0 Lymphocytes # (Auto) 1.2 Monocytes # (Auto) 0.4 Eosinophils # (Auto) 0.0 Basophils # (Auto) 0.0 CBC Comment DIFF FINAL Differential Comment Blood Urea Nitrogen 5 Creatinine 0.86 Random Glucose 133 Total Protein 4.9 Albumin 1.8 Calcium Level 6.5 Phosphorus Level 2.1 Magnesium Level 1.2 Alkaline Phosphatase 67 Aspartate Amino Transf (AST/SGOT) 50 Alanine Aminotransferase (ALT/SGPT) 10 Total Bilirubin 0.5 Sodium Level 132 Potassium Level 2.1 Chloride Level 99 Carbon Dioxide Level 20.5 Anion Gap 13 Estimat Glomerular Filtration Rate 66 Protein Corrected Calcium 7.6 Blood Gas Puncture Site ART LINE Blood Gas Patient Temperature 98.6 Blood Gas HCO3 18 Blood Gas Base Excess -5.3 Blood Gas Oxygen Saturation 98 Arterial Blood pH 7.42 Arterial Blood Partial Pressure CO2 29 Arterial Blood Partial Pressure O2 216 Arterial Blood Oxygen Content 14.9 Arterial Blood Carboxyhemoglobin 0.4 Arterial Blood Methemoglobin 1.2 Blood Gas Hemoglobin 10.5 Oxygen Delivery Device VENTILATOR Blood Gas Ventilator Setting Blood Gas Inspired Oxygen 40 Test 08/29/17 13:55 08/29/17 14:10 08/29/17 17:20 Activated Partial Thromboplast Time 176.7 39.7 Potassium Level 3.5 Phosphorus Level 5.0 Magnesium Level 2.0 Date/Time Source Procedure Growth Status 08/28/17 08:10 Blood Peripheral Aerobic Blood Culture - Preliminary NO GROWTH IN 1 DAY Resulted 08/28/17 08:10 Blood Peripheral Anaerobic Blood Culture - Preliminary NO GROWTH IN 1 DAY Resulted 08/28/17 14:45 Sputum Endotracheal Gram Stain - Final Resulted 08/28/17 14:45 Sputum Endotracheal Sputum Culture - Preliminary IMMATURE GROWTH - REINCUBATE Resulted 08/28/17 09:00 Urine Catheterized Urine Urine Culture - Preliminary NO GROWTH IN 24 HOURS. Resulted Mo Moulton PhD Aug 29, 2017 21:20
[2017-08-30] VITALS (21 sets, daily range): BP systolic 99–149; BP diastolic 40–78; PULSE 65–105; RESP 7–52; TEMP 97.7–98.9; O2SAT 99–100
[2017-08-30] MEDS: levETIRAcetam INJ 500 MG in SODIUM CHLORIDE 0.9% INJ 100 ML IV SCH ×5 (00:30→23:32)
[2017-08-30] MEDS: HYDROCORTISONE SOD SUCCINATE 100 MG VIAL IV PUSH SCH ×5 (00:31→23:31)
[2017-08-30] MEDS: metroNIDAZOLE 500 MG INJ 100 ML IV SCH ×4 (01:04→23:32)
[2017-08-30] MEDS: RESP: ALBUTEROL 2.5 MG/IPRATROPIUM 0.5 MG NEB (SCH) INH ×3 (03:45→19:53)
[2017-08-30] MEDS: CHLORHEXIDINE GLUCONATE 2 % 1 PACK (2 CLOTHS) TOP SCH (04:00)
[2017-08-30] MEDS: INSULIN NovoLIN REGULAR SUPPLEMENTAL SCALE SQ SCH ×7 (04:00→23:02)
[2017-08-30 04:51] LABS: AUTOMATED NEUTROPHIL # 7.3 TH/MM3 (1.8-7.7); BASOPHIL % 0.2 % (0.0-2.0); HEMATOCRIT 25.7 % (35.0-46.0); LYMPHOCYTE # 0.3 TH/MM3 (1.0-4.8); MEAN CELL VOLUME 104.8 FL (80.0-100.0); MEAN CORPUSCULAR HEMOGLOBIN 36.5 PG (27.0-34.0); MEAN CORPUSCULAR HGB CONC 34.9 % (32.0-36.0); MEAN PLATELET VOLUME 9.1 FL (7.0-11.0); MONOCYTE # 0.3 TH/MM3 (0-0.9); NEUT % 91.8 % (16.0-70.0); PLATELET COUNT 157 TH/MM3 (150-450); RED BLOOD COUNT 2.46 MIL/MM3 (4.00-5.30); RED CELL DISTRIBUTION WIDTH 13.4 % (11.6-17.2)
[2017-08-30] MEDS: SODIUM CHLOR 0.9% 1000 ML INJ 1,000 ML IV SCH (05:12)
[2017-08-30] MEDS: PIPERACIL-TAZO 4.5 GM PREMIX 100 ML IV SCH ×4 (05:15→20:01)
[2017-08-30 05:22] LABS: ALBUMIN 1.6 GM/DL (3.4-5.0); BICARBONATE 18.8 MEQ/L (21.0-32.0); CALCIUM 7.1 MG/DL (8.5-10.1); CALCIUM-PROTEIN CORRECTED 8.3 MG/DL (8.5-10.1); CREATININE 0.59 MG/DL (0.50-1.00); MAGNESIUM 1.7 MG/DL (1.5-2.5); PHOSPHORUS 2.6 MG/DL (2.5-4.9); TOTAL BILIRUBIN ADULT 0.3 MG/DL (0.2-1.0); TOTAL PROTEIN 4.9 GM/DL (6.4-8.2)
[2017-08-30] MEDS: POTASSIUM CHLOR 40 MEQ PREMIX 100 ML IV PRN (05:48)
--- NOTE | 2017-08-30 07:31 | HHI.CCPN ---
Subjective Remarks/Hospital Course Patient is a 67-year-old female with a past medical history of mitral valve prolapse, chronic back pain, hyperlipidemia, hypertension. She presented to [facility] ED via EMS after she was found face down unresponsive by her . She was given 2 mg IV Ativan by EMS for a witnessed seizure. She was last seen at her baseline at 5:30 this morning. According to the , the patient does not have any seizure disorder and she is not on any seizure meds at home. She had a similar episode a couple years ago and he attributed it to her multiple medications that she takes at home. She is on Tylenol #3 along with Lorazepam, Baclofen and Propranolol. She was found to have a laceration on chin which was bleeding. Her blood sugar was measured at 95. On arrival to the ED, she was hypertensive with a blood pressure of 196/120 and tachycardiac with a heart rate in the 120's. The patient was intubated with etomidate, succinylcholine and placed on full mechanical ventilation. Her laboratory data is significant for lactic acidosis with lactic acid level of 4.0, an elevated troponin at 0.97 with a total CK of 129. Her urine drug screen is negative for amphetamines, benzodiazepines, and opiates. A CT scan of the brain was performed in the ED which showed no acute intracranial abnormalities. Chronic opacification left maxillary sinus noted. She also had a CT maxillofacial which showed bilateral displaced mandible fractures and bilateral nasal fractures. A cervical spine CT showed multilevel degenerative changes without any compression fracture or subluxation. Chest x-ray, she also had a chest x-ray which showed minimal bilateral upper lobe densities. The patient was given 2 liters of crystalloids in the ED, tetanus shot and placed on Fentanyl and Versed for sedation. There is no history of any chest pain, shortness of breath or any constitutional symptoms. Also, no history of any GI symptoms per the patient's . 08/29 Patient became hypotensive last night started on Levophed 5 mics currently. MRI brain no acute findings, CT abd/pelvis showed mild colitis. On Heparin drip. Left IJ CVP was placed last night CXR post procedure showed 6 mm right apical PTX a repeat CXR from 4:30 showed reduction right apical PTX 4 mm( Right IJ was attempted first) 08/30 No events overnight. Sedated with Diprivan, Versed and intubated. Afebrile. Remains on Levophed. Afebrile. CXR last night mild basilar airspace disease,no PTX. Objective Vital Signs Date Time Temp Pulse Resp B/P (MAP) Pulse Ox O2 Delivery O2 Flow Rate FiO2 08/30/17 06:00 65 08/30/17 04:56 99 35 08/30/17 04:00 97.7 16 121/58 (79) 136/57 (83) 08/28/17 10:00 Ventilator 08/28/17 07:45 15.00 Intake and Output 08/30/17 08/30/17 08/31/17 08:00 16:00 00:00 Intake Total 1795 ml Output Total 625 ml Balance 1170 ml Result Diagram: 08/30/17 0430 08/30/17 0430 Other Results Laboratory Tests Test 08/29/17 08:25 08/29/17 09:10 08/29/17 13:55 08/29/17 14:10 Lactic Acid Level 2.0 mmol/L Blood Gas Puncture Site ART LINE Blood Gas Patient Temperature 98.6 Blood Gas HCO3 18 mmol/L Blood Gas Base Excess -5.3 mmol/L Blood Gas Oxygen Saturation 98 % Arterial Blood pH 7.42 Arterial Blood Partial Pressure CO2 29 mmHg Arterial Blood Partial Pressure O2 216 mmHg Arterial Blood Oxygen Content 14.9 Vol % Arterial Blood Carboxyhemoglobin 0.4 % Arterial Blood Methemoglobin 1.2 % Blood Gas Hemoglobin 10.5 G/DL Oxygen Delivery Device VENTILATOR Blood Gas Ventilator Setting Blood Gas Inspired Oxygen 40 % Activated Partial Thromboplast Time 176.7 SEC Potassium Level 3.5 MEQ/L Phosphorus Level 5.0 MG/DL Magnesium Level 2.0 MG/DL Test 08/29/17 17:20 08/30/17 00:15 08/30/17 04:30 08/30/17 06:10 Activated Partial Thromboplast Time 39.7 SEC 42.0 SEC 68.2 SEC White Blood Count 8.0 TH/MM3 Red Blood Count 2.46 MIL/MM3 Hemoglobin 9.0 GM/DL Hematocrit 25.7 % Mean Corpuscular Volume 104.8 FL Mean Corpuscular Hemoglobin 36.5 PG Mean Corpuscular Hemoglobin Concent 34.9 % Red Cell Distribution Width 13.4 % Platelet Count 157 TH/MM3 Mean Platelet Volume 9.1 FL Neutrophils (%) (Auto) 91.8 % Lymphocytes (%) (Auto) 4.0 % Monocytes (%) (Auto) 4.0 % Eosinophils (%) (Auto) 0.0 % Basophils (%) (Auto) 0.2 % Neutrophils # (Auto) 7.3 TH/MM3 Lymphocytes # (Auto) 0.3 TH/MM3 Monocytes # (Auto) 0.3 TH/MM3 Eosinophils # (Auto) 0.0 TH/MM3 Basophils # (Auto) 0.0 TH/MM3 CBC Comment DIFF FINAL Differential Comment Blood Urea Nitrogen 6 MG/DL Creatinine 0.59 MG/DL Random Glucose 143 MG/DL Total Protein 4.9 GM/DL Albumin 1.6 GM/DL Calcium Level 7.1 MG/DL Phosphorus Level 2.6 MG/DL Magnesium Level 1.7 MG/DL Alkaline Phosphatase 63 U/L Aspartate Amino Transf (AST/SGOT) 31 U/L Alanine Aminotransferase (ALT/SGPT) 8 U/L Total Bilirubin 0.3 MG/DL Sodium Level 134 MEQ/L Potassium Level 3.4 MEQ/L Chloride Level 106 MEQ/L Carbon Dioxide Level 18.8 MEQ/L Anion Gap 9 MEQ/L Estimat Glomerular Filtration Rate 102 ML/MIN Protein Corrected Calcium 8.3 MG/DL Imaging Last Impressions Chest X-Ray 08/29/171999 Signed Impressions: Service Date/Time: Tuesday, August 29, 2017 19:24 - CONCLUSION: 1. Mild basilar airspace disease. Support apparatus in satisfactory position. Lloyd Han MD Brain MRI 08/28/17 1554 Signed Impressions: Service Date/Time: Monday, August 28, 2017 19:18 - CONCLUSION: 1. No focal mass or shift. No recent infarct. Chronic white matter ischemic changes involving periventricular region and brainstem especially jak. Lloyd Han MD Head CT 08/28/17 0751 Signed Impressions: Service Date/Time: Monday, August 28, 2017 08:20 - CONCLUSION: 1. Nonspecific white matter changes. 2. No acute intracranial abnormality. 3. Chronic opacification left maxillary sinus Armand Foreman MD Maxillofacial CT 08/28/17 0000 Signed Impressions: Service Date/Time: Monday, August 28, 2017 08:20 - CONCLUSION: 1. Bilateral displaced mandible fractures more extensive involving the condyles bilaterally. 2. Sensitive soft tissue swelling. 3. Bilateral nasal fractures. Armand Foreman MD Cervical Spine CT 08/28/17 0000 Signed Impressions: Service Date/Time: Monday, August 28, 2017 08:20 - CONCLUSION: 1. Multilevel degenerative changes. 2. No compression fracture or subluxation. 3. Ground glass density right upper lobe and to lesser degree left upper lobe could be contusion or infectious/inflammatory process. Armand Foreman MD Carotid Artery Ultrasound 08/28/17 0000 Signed Impressions: Service Date/Time: Monday, August 28, 2017 13:23 - CONCLUSION: 1. Mild bilateral carotid plaque. 2. No evidence of hemodynamically significant stenosis. 3. Antegrade flow in both vertebral arteries. Jason Martinez MD Abdomen/Pelvis CT 08/28/17 0000 Signed Impressions: Service Date/Time: Monday, August 28, 2017 19:02 - CONCLUSION: 1. Mild mural thickening of the rectosigmoid most characteristic of a mild colitis distally. No obstruction, free fluid or free air. 2. Small bilateral pleural effusions. 3. 1.6 cm left ovarian cyst. 4. Catheter in decompressed bladder. Lloyd Han MD Objective Remarks GENERAL: Patient is 67 yo critically ill intubated and sedated SKIN: Warm and dry. HEAD: Normocephalic. EYES: No scleral icterus. No injection or drainage. NECK: Supple, trachea midline. No JVD or lymphadenopathy. CARDIOVASCULAR: Regular rate and rhythm without murmurs, gallops, or rubs. RESPIRATORY: Breath sounds equal bilaterally. No accessory muscle use. GASTROINTESTINAL: Abdomen soft, non-tender, nondistended. MUSCULOSKELETAL: No cyanosis, or edema. Neuro: Sedated A/P Assessment and Plan 1. Altered mental status 2. S/p syncopal episode. 3. Status post seizure episode. 4. Lactic acidemia likely secondary to seizures. 5. VDRF 6. Bilateral mandible and nasal fractures. 7. Pulmonary contusion 8. Elevated troponin 9. Hypertension 10. Hyperlipidemia 11. Elevated AST Plan Neuro: On Versed/Fentanyl drips for sedation. Monitor neuro status. Daily sedation vacation. CT scan of the brain in the ED negative for acute intracranial findings. MRI brain: No acute findings. Chronic white matter changes EEG: Generalized slowing, no ictal activity. Carotid Doppler US: No sig hemodynamic stenosis. Neuro is following- Dr. Moulton. Continue Keppra per Neuro. On Ativan PRN seizures Pulm: Continue with vent support and maintain sats above 92%. Bronchodilators, ICU vent bundle. SBT daily as susan. CXR last night mild basilar airspace disease,no PTX. CV: Wean off Levophed keep MAP>65 mmHg. On HC 50mg IV Q6 Monitor troponins, echo showed EF 30-35% lactic acid cleared Continue with ASA, Continue with Heparin drip. Cards is following- Dr. Han. Will need cardiac cath when stable per cards : Monitor renal function I's and O's and electrolyte replacement per protocol. d/c IVF GI: On Pepcid 10 mg q. 12-hour for GI prophylaxis. tube feeds- Glucerna 1.5@45ml/hr ID: Continue abx( Zosyn, Flagyl) monitor for signs of infections( fever and WBC) . Follow up on blood, sputum, urine culture.- NGTD Heme: Monitor CBC, coags- on Heparin drip Endo: SSI with Accu-Chek's to maintain euglycemia. Spoke to Dr. Doll( [facility] [place]) plan for ORIF mandible fracture when stable-likely next week. GI prophylaxis with Pepcid and DVT prophylaxis with SCD's. on Heparin drip Lines: Left IJ CVP placed 08/29 CCT 30 mins Dottie Harvey MD Aug 30, 2017 07:31
[2017-08-30] MEDS: FAMOTIDINE 20 MG/2 ML VIAL IV PUSH SCH ×2 (08:21→20:01)
[2017-08-30] MEDS: ASPIRIN 81 MG CHEW TAB CHEW SCH (08:21)
[2017-08-30] MEDS: DOCUSATE SODIUM 50 MG/SENNA 8.6 MG TAB PO SCH ×2 (08:22→20:01)
[2017-08-30] MEDS ORDERED: VANCOMYCIN INJ 1,000 MG in SODIUM CHLOR 0.9% 250 ML INJ 250 ML IV ONE (12:00)
[2017-08-30] MEDS: MIDAZOLAM 100 MG/NS 100 ML DRIP Premix IV PRN (20:03)
[2017-08-30] MEDS: fentaNYL 2,500 MCG/NS 250 ML IV PRN (20:03)
[2017-08-31] VITALS (20 sets, daily range): BP systolic 101–163; BP diastolic 51–72; PULSE 64–91; RESP 15–17; TEMP 97–99; O2SAT 99–100
[2017-08-31] MEDS: CHLORHEXIDINE GLUCONATE 2 % 1 PACK (2 CLOTHS) TOP SCH (02:11)
[2017-08-31 02:13] LABS: AUTOMATED NEUTROPHIL # 5.8 TH/MM3 (1.8-7.7); BASOPHIL % 0.3 % (0.0-2.0); HEMATOCRIT 24.2 % (35.0-46.0); HEMOGLOBIN 8.1 GM/DL (11.6-15.3); LYMPH % 4.4 % (9.0-44.0); LYMPHOCYTE # 0.3 TH/MM3 (1.0-4.8); MEAN CELL VOLUME 104.9 FL (80.0-100.0); MEAN CORPUSCULAR HEMOGLOBIN 35.2 PG (27.0-34.0); MEAN CORPUSCULAR HGB CONC 33.6 % (32.0-36.0); MEAN PLATELET VOLUME 9.1 FL (7.0-11.0); MONO % 6.2 % (0.0-8.0); MONOCYTE # 0.4 TH/MM3 (0-0.9); NEUT % 89.1 % (16.0-70.0); PLATELET COUNT 131 TH/MM3 (150-450); RED BLOOD COUNT 2.31 MIL/MM3 (4.00-5.30); RED CELL DISTRIBUTION WIDTH 13.3 % (11.6-17.2); WHITE BLOOD COUNT 6.5 TH/MM3 (4.0-11.0)
[2017-08-31 02:33] LABS: BICARBONATE 22.9 MEQ/L (21.0-32.0); CALCIUM 7.5 MG/DL (8.5-10.1); CREATININE 0.49 MG/DL (0.50-1.00); MAGNESIUM 1.7 MG/DL (1.5-2.5); PHOSPHORUS 1.4 MG/DL (2.5-4.9)
[2017-08-31] MEDS: INSULIN NovoLIN REGULAR SUPPLEMENTAL SCALE SQ SCH ×6 (02:53→23:05)
[2017-08-31] MEDS: RESP: ALBUTEROL 2.5 MG/IPRATROPIUM 0.5 MG NEB (SCH) INH ×4 (03:18→21:31)
[2017-08-31] MEDS: PIPERACIL-TAZO 4.5 GM PREMIX 100 ML IV SCH ×4 (04:17→23:21)
[2017-08-31] MEDS: levETIRAcetam INJ 500 MG in SODIUM CHLORIDE 0.9% INJ 100 ML IV SCH ×4 (04:17→23:21)
[2017-08-31] MEDS: SODIUM PHOSPHATE INJ 30 MMOL in SODIUM CHLOR 0.9% 250 ML INJ 240 ML IV PRN (04:17)
[2017-08-31] MEDS: HYDROCORTISONE SOD SUCCINATE 100 MG VIAL IV PUSH SCH ×2 (04:17→16:57)
--- NOTE | 2017-08-31 07:15 | HHI.CCPN ---
Subjective Remarks/Hospital Course Patient is a 67-year-old female with a past medical history of mitral valve prolapse, chronic back pain, hyperlipidemia, hypertension. She presented to [facility] ED via EMS after she was found face down unresponsive by her . She was given 2 mg IV Ativan by EMS for a witnessed seizure. She was last seen at her baseline at 5:30 this morning. According to the , the patient does not have any seizure disorder and she is not on any seizure meds at home. She had a similar episode a couple years ago and he attributed it to her multiple medications that she takes at home. She is on Tylenol #3 along with Lorazepam, Baclofen and Propranolol. She was found to have a laceration on chin which was bleeding. Her blood sugar was measured at 95. On arrival to the ED, she was hypertensive with a blood pressure of 196/120 and tachycardiac with a heart rate in the 120's. The patient was intubated with etomidate, succinylcholine and placed on full mechanical ventilation. Her laboratory data is significant for lactic acidosis with lactic acid level of 4.0, an elevated troponin at 0.97 with a total CK of 129. Her urine drug screen is negative for amphetamines, benzodiazepines, and opiates. A CT scan of the brain was performed in the ED which showed no acute intracranial abnormalities. Chronic opacification left maxillary sinus noted. She also had a CT maxillofacial which showed bilateral displaced mandible fractures and bilateral nasal fractures. A cervical spine CT showed multilevel degenerative changes without any compression fracture or subluxation. Chest x-ray, she also had a chest x-ray which showed minimal bilateral upper lobe densities. The patient was given 2 liters of crystalloids in the ED, tetanus shot and placed on Fentanyl and Versed for sedation. There is no history of any chest pain, shortness of breath or any constitutional symptoms. Also, no history of any GI symptoms per the patient's . 08/29 Patient became hypotensive last night started on Levophed 5 mics currently. MRI brain no acute findings, CT abd/pelvis showed mild colitis. On Heparin drip. Left IJ CVP was placed last night CXR post procedure showed 6 mm right apical PTX a repeat CXR from 4:30 showed reduction right apical PTX 4 mm( Right IJ was attempted first) 08/30 No events overnight. Sedated with Diprivan, Versed and intubated. Afebrile. Remains on Levophed. Afebrile. CXR last night mild basilar airspace disease,no PTX. 08/31 No events overnight. Sedated with Versed, Fentanyl and intubated. Afebrile. For cardiac cath today. Off Levophed. Objective Vital Signs Date Time Temp Pulse Resp B/P (MAP) Pulse Ox O2 Delivery O2 Flow Rate FiO2 08/31/17 06:00 66 08/31/17 04:00 98.0 16 122/64 (83) 100 139/58 (85) 08/31/17 04:00 30 08/28/17 10:00 Ventilator 08/28/17 07:45 15.00 Intake and Output 08/31/17 08/31/17 09/01/17 08:00 16:00 00:00 Intake Total 830 ml Output Total 500 ml Balance 330 ml Result Diagram: 08/31/17 0200 08/31/17 0200 Other Results Laboratory Tests Test 08/31/17 02:00 White Blood Count 6.5 TH/MM3 Red Blood Count 2.31 MIL/MM3 Hemoglobin 8.1 GM/DL Hematocrit 24.2 % Mean Corpuscular Volume 104.9 FL Mean Corpuscular Hemoglobin 35.2 PG Mean Corpuscular Hemoglobin Concent 33.6 % Red Cell Distribution Width 13.3 % Platelet Count 131 TH/MM3 Mean Platelet Volume 9.1 FL Neutrophils (%) (Auto) 89.1 % Lymphocytes (%) (Auto) 4.4 % Monocytes (%) (Auto) 6.2 % Eosinophils (%) (Auto) 0.0 % Basophils (%) (Auto) 0.3 % Neutrophils # (Auto) 5.8 TH/MM3 Lymphocytes # (Auto) 0.3 TH/MM3 Monocytes # (Auto) 0.4 TH/MM3 Eosinophils # (Auto) 0.0 TH/MM3 Basophils # (Auto) 0.0 TH/MM3 CBC Comment DIFF FINAL Differential Comment Activated Partial Thromboplast Time 37.5 SEC Blood Urea Nitrogen 11 MG/DL Creatinine 0.49 MG/DL Random Glucose 131 MG/DL Calcium Level 7.5 MG/DL Phosphorus Level 1.4 MG/DL Magnesium Level 1.7 MG/DL Sodium Level 138 MEQ/L Potassium Level 3.8 MEQ/L Chloride Level 108 MEQ/L Carbon Dioxide Level 22.9 MEQ/L Anion Gap 7 MEQ/L Estimat Glomerular Filtration Rate 127 ML/MIN Imaging Last Impressions Chest X-Ray 08/29/171999 Signed Impressions: Service Date/Time: Tuesday, August 29, 2017 19:24 - CONCLUSION: 1. Mild basilar airspace disease. Support apparatus in satisfactory position. Lloyd Han MD Brain MRI 08/28/17 1554 Signed Impressions: Service Date/Time: Monday, August 28, 2017 19:18 - CONCLUSION: 1. No focal mass or shift. No recent infarct. Chronic white matter ischemic changes involving periventricular region and brainstem especially jak. Lloyd Han MD Head CT 08/28/17 0751 Signed Impressions: Service Date/Time: Monday, August 28, 2017 08:20 - CONCLUSION: 1. Nonspecific white matter changes. 2. No acute intracranial abnormality. 3. Chronic opacification left maxillary sinus Armand Foreman MD Maxillofacial CT 08/28/17 0000 Signed Impressions: Service Date/Time: Monday, August 28, 2017 08:20 - CONCLUSION: 1. Bilateral displaced mandible fractures more extensive involving the condyles bilaterally. 2. Sensitive soft tissue swelling. 3. Bilateral nasal fractures. Armand Foreman MD Cervical Spine CT 08/28/17 0000 Signed Impressions: Service Date/Time: Monday, August 28, 2017 08:20 - CONCLUSION: 1. Multilevel degenerative changes. 2. No compression fracture or subluxation. 3. Ground glass density right upper lobe and to lesser degree left upper lobe could be contusion or infectious/inflammatory process. Armand Foreman MD Carotid Artery Ultrasound 08/28/17 0000 Signed Impressions: Service Date/Time: Monday, August 28, 2017 13:23 - CONCLUSION: 1. Mild bilateral carotid plaque. 2. No evidence of hemodynamically significant stenosis. 3. Antegrade flow in both vertebral arteries. Jason Martinez MD Abdomen/Pelvis CT 08/28/17 0000 Signed Impressions: Service Date/Time: Monday, August 28, 2017 19:02 - CONCLUSION: 1. Mild mural thickening of the rectosigmoid most characteristic of a mild colitis distally. No obstruction, free fluid or free air. 2. Small bilateral pleural effusions. 3. 1.6 cm left ovarian cyst. 4. Catheter in decompressed bladder. Lloyd Han MD Objective Remarks GENERAL: Patient is 67 yo intubated and sedated SKIN: Warm and dry. HEAD: Normocephalic. EYES: No scleral icterus. No injection or drainage. NECK: Supple, trachea midline. No JVD or lymphadenopathy. CARDIOVASCULAR: Regular rate and rhythm without murmurs, gallops, or rubs. RESPIRATORY: Breath sounds equal bilaterally. No accessory muscle use. GASTROINTESTINAL: Abdomen soft, non-tender, nondistended. MUSCULOSKELETAL: No cyanosis, or edema. Neuro: Sedated A/P Assessment and Plan 1. Altered mental status 2. S/p syncopal episode. 3. Status post seizure episode. 4. Lactic acidemia likely secondary to seizures. 5. VDRF 6. Bilateral mandible and nasal fractures. 7. Pulmonary contusion 8. Elevated troponin 9. Hypertension 10. Hyperlipidemia 11. Elevated AST Plan Neuro: On Versed/Fentanyl drips for sedation. Monitor neuro status. Daily sedation vacation. CT scan of the brain in the ED negative for acute intracranial findings. MRI brain: No acute findings. Chronic white matter changes EEG: Generalized slowing, no ictal activity. Carotid Doppler US: No sig hemodynamic stenosis. Neuro is following- Dr. Moulton. Continue Keppra per Neuro. On Ativan PRN seizures Pulm: Continue with vent support and maintain sats above 92%. Bronchodilators, ICU vent bundle. SBT daily as susan. CV: Off Levophed keep MAP>65 mmHg. Decrease HC 50mg IV Q12 Echo showed EF 30-35%, lactic acid cleared Continue with ASA, Heparin drip. Cards is following- Dr. Han. For cardiac cath today : Monitor renal function I's and O's and electrolyte replacement per protocol. For phos replacement today GI: On Pepcid 10 mg q. 12-hour for GI prophylaxis. NPO for cath today (tube feeds- Glucerna 1.5@45ml/hr) ID: Continue abx( Zosyn, Flagyl) monitor for signs of infections( fever and WBC) . Follow up sputum, urine culture.- NGTD 08/28 BC 09/21 bottles: GPC s/p Vanco x1 dose 08/30 08/30 BC: NGTD Heme: Monitor CBC, coags- on Heparin drip Check H/H, guaiac stool or heme. Endo: SSI with Accu-Chek's to maintain euglycemia. [place] Dr[place] Doll( [facility] [place] plan for ORIF mandible fracture when stable-likely next week. GI prophylaxis with Pepcid and DVT prophylaxis with SCD's. on Heparin drip Lines: Left IJ CVP placed 08/29 Level 3 Dottie Harvey MD Aug 31, 2017 07:15
--- NOTE | 2017-08-31 08:30 | PD.CARD.PN ---
Subjective Subjective Remarks sedated, intubated Objective Medications Current Medications Medications (Trade) Dose Ordered Sig/Benny Route Start Time Stop Time Status Last Admin (NS Flush) 2 ml UNSCH PRN IV FLUSH 08/28/17 08:00 08/29/17 20:44 Fentanyl Citrate 250 ml @ 5 mls/hr TITRATE PRN IV 08/28/17 10:00 08/30/17 20:03 Midazolam HCl 100 ml @ 2 mls/hr TITRATE PRN IV 08/28/17 10:00 08/30/17 20:03 Miscellaneous Information 1 Q361D XX 08/28/17 09:30 (Chlorhexidine 2% Cloth) 3 pack Taper DAILY@04 TOP 08/29/17 04:00 08/25/18 03:59 08/31/17 02:11 (Chlorhexidine 2% Cloth) 3 pack UNSCH PRN TOP 08/28/17 09:30 (Brenna-Colace) 1 tab BID PO 08/28/17 21:00 08/30/17 20:01 (Milk Of Magnesia Liq) 30 ml Q12H PRN PO 08/28/17 09:30 (Senokot) 17.2 mg Q12H PRN PO 08/28/17 09:30 (Dulcolax Supp) 10 mg DAILY PRN RECTAL 08/28/17 09:30 (Lactulose Liq) 30 ml DAILY PRN PO 08/28/17 09:30 Piperacillin Sod/ Tazobactam Sod 100 ml @ 200 mls/hr Q6H IV 08/28/17 17:00 08/31/17 04:17 (D50w (Vial) Inj) 50 ml UNSCH PRN IV PUSH 08/28/17 11:15 08/29/17 04:14 (Glucagon Inj) 1 mg UNSCH PRN OTHER 08/28/17 11:15 (NovoLIN R SUPPLEMENTAL SCALE) 1 Q4H SQ 08/28/17 12:00 08/29/17 08:00 Potassium Chloride 100 ml @ 50 mls/hr Q2H PRN IV 08/28/17 11:15 08/29/17 15:45 Potassium Chloride 100 ml @ 50 mls/hr Q2H PRN IV 08/28/17 11:15 (K-Lyte Cl Eff) 50 meq UNSCH PRN PO 08/28/17 11:15 Potassium Chloride 100 ml @ 25 mls/hr UNSCH PRN IV 08/28/17 11:15 08/30/17 05:48 Potassium Chloride 100 ml @ 50 mls/hr Q2H PRN IV 08/28/17 11:15 Magnesium Sulfate 4 gm/Sodium Chloride 100 ml @ 50 mls/hr UNSCH PRN IV 08/28/17 11:15 (Mag-Ox) 800 mg UNSCH PRN PO 08/28/17 11:15 Magnesium Sulfate 2 gm/Sodium Chloride 100 ml @ 50 mls/hr UNSCH PRN IV 08/28/17 11:15 08/29/17 09:06 (K-Phos) 2,000 mg Q4H PRN PO 08/28/17 11:15 Sodium Phosphate 30 mmol/Sodium Chloride 250 ml @ 42 mls/hr UNSCH PRN IV 08/28/17 11:15 08/31/17 04:17 (K-Phos) 2,000 mg UNSCH PRN PO/TUBE 08/28/17 11:15 Potassium Phosphate 30 mmol/ Sodium Chloride 260 ml @ 42 mls/hr UNSCH PRN IV 08/28/17 11:15 08/29/17 07:02 (Pepcid Inj) 20 mg Q12HR IV PUSH 08/28/17 21:00 08/30/17 20:01 Levetriacetam 500 mg/Sodium Chloride 105 ml @ 420 mls/hr Q6HR IV 08/28/17 18:00 08/31/17 04:17 (Ativan Inj) 1 mg Q2H PRN IV PUSH 08/28/17 16:00 (Aspirin Chew) 81 mg DAILY CHEW 08/29/17 09:00 08/30/17 08:21 Metronidazole 100 ml @ 100 mls/hr Q8H IV 08/28/17 17:00 08/30/17 23:32 (Heparin Inj) 5,000 units UNSCH PRN IV PUSH 08/29/17 03:00 (Heparin Inj) 2,500 units UNSCH PRN IV PUSH 08/29/17 03:00 Heparin Sodium/ Dextrose 250 ml @ 6 mls/hr TITRATE PRN IV 08/28/17 21:00 08/28/17 22:59 Norepinephrine Bitartrate 4 mg/ Sodium Chloride 250 ml @ 7.5 mls/hr TITRATE PRN IV 08/29/17 06:00 08/29/17 16:05 (Brethine Inj) 1 mg UNSCH PRN SQ 08/29/17 06:00 (Duoneb Neb) 1 ampule Q6HR NEB INH 08/30/17 16:00 08/31/17 08:02 (SoluCORTEF INJ) 50 mg Q12H IV PUSH 08/31/17 16:00 Vital Signs / I&O Vital Signs Date Time Temp Pulse Resp B/P (MAP) Pulse Ox O2 Delivery O2 Flow Rate FiO2 08/31/17 08:02 100 30 08/31/17 06:00 66 08/31/17 04:00 98.0 67 16 122/64 (83) 100 139/58 (85) 08/31/17 04:00 30 08/31/17 04:00 67 08/31/17 03:18 100 30 08/31/17 02:00 65 08/31/17 00:27 100 30 08/31/17 00:00 30 08/31/17 00:00 98.0 67 15 110/57 (74) 99 08/31/17 00:00 67 08/30/17 22:00 73 08/30/17 20:00 72 08/30/17 20:00 98.0 72 16 130/63 (85) 100 134/60 (84) 08/30/17 20:00 30 08/30/17 19:53 100 30 08/30/17 18:00 105 19 135/78 (97) 100 140/69 (92) 08/30/17 17:00 78 7 120/49 (72) 100 08/30/17 16:00 30 08/30/17 16:00 98.9 74 8 110/56 (74) 100 123/48 (73) 08/30/17 15:00 73 8 121/47 (71) 100 08/30/17 14:00 84 9 99/52 (68) 100 108/40 (62) 08/30/17 13:00 82 9 119/47 (71) 100 08/30/17 12:00 30 08/30/17 12:00 98.5 71 9 131/60 (83) 100 149/64 (92) 08/30/17 11:00 72 8 108/51 (70) 100 08/30/17 10:00 70 41 110/58 (75) 100 110/57 (74) 08/30/17 09:00 77 20 115/47 (69) 100 08/30/17 08:32 30 I/O 08/30/17 08/30/17 08/30/17 08/31/17 08/31/17 08/31/17 07:00 15:00 23:00 07:00 15:00 23:00 Intake Total 1795 ml 555 ml 1507 ml 830 ml Output Total 625 ml 200 ml 500 ml Balance 1170 ml 555 ml 1307 ml 330 ml Intake IV Total 1310 ml 555 ml 755 ml 610 ml Tube Feeding 410 ml 630 ml 220 ml Tube Irrigant 122 ml Other 75 ml Output Urine Total 625 ml 200 ml 500 ml # Bowel Movements 0 Physical Exam GENERAL: Sedated, intubated SKIN: Warm and dry. HEAD: Normocephalic. EYES: No scleral icterus. No injection or drainage. NECK: Supple, trachea midline. No JVD or lymphadenopathy. CARDIOVASCULAR: Regular rate and rhythm without murmurs, gallops, or rubs. RESPIRATORY: Breath sounds equal bilaterally. No accessory muscle use. GASTROINTESTINAL: Abdomen soft, non-tender, nondistended. EXTREMITIES: No cyanosis, or edema. Laboratory Laboratory Tests Test 08/31/17 02:00 White Blood Count 6.5 TH/MM3 Red Blood Count 2.31 MIL/MM3 Hemoglobin 8.1 GM/DL Hematocrit 24.2 % Mean Corpuscular Volume 104.9 FL Mean Corpuscular Hemoglobin 35.2 PG Mean Corpuscular Hemoglobin Concent 33.6 % Red Cell Distribution Width 13.3 % Platelet Count 131 TH/MM3 Mean Platelet Volume 9.1 FL Neutrophils (%) (Auto) 89.1 % Lymphocytes (%) (Auto) 4.4 % Monocytes (%) (Auto) 6.2 % Eosinophils (%) (Auto) 0.0 % Basophils (%) (Auto) 0.3 % Neutrophils # (Auto) 5.8 TH/MM3 Lymphocytes # (Auto) 0.3 TH/MM3 Monocytes # (Auto) 0.4 TH/MM3 Eosinophils # (Auto) 0.0 TH/MM3 Basophils # (Auto) 0.0 TH/MM3 CBC Comment DIFF FINAL Differential Comment Activated Partial Thromboplast Time 37.5 SEC Blood Urea Nitrogen 11 MG/DL Creatinine 0.49 MG/DL Random Glucose 131 MG/DL Calcium Level 7.5 MG/DL Phosphorus Level 1.4 MG/DL Magnesium Level 1.7 MG/DL Sodium Level 138 MEQ/L Potassium Level 3.8 MEQ/L Chloride Level 108 MEQ/L Carbon Dioxide Level 22.9 MEQ/L Anion Gap 7 MEQ/L Estimat Glomerular Filtration Rate 127 ML/MIN Imaging Last Impressions Chest X-Ray 08/29/171999 Signed Impressions: Service Date/Time: Tuesday, August 29, 2017 19:24 - CONCLUSION: 1. Mild basilar airspace disease. Support apparatus in satisfactory position. Lloyd Han MD Brain MRI 08/28/17 1554 Signed Impressions: Service Date/Time: Monday, August 28, 2017 19:18 - CONCLUSION: 1. No focal mass or shift. No recent infarct. Chronic white matter ischemic changes involving periventricular region and brainstem especially jak. Lloyd Han MD Head CT 08/28/17 0751 Signed Impressions: Service Date/Time: Monday, August 28, 2017 08:20 - CONCLUSION: 1. Nonspecific white matter changes. 2. No acute intracranial abnormality. 3. Chronic opacification left maxillary sinus Armand Foreman MD Maxillofacial CT 08/28/17 0000 Signed Impressions: Service Date/Time: Monday, August 28, 2017 08:20 - CONCLUSION: 1. Bilateral displaced mandible fractures more extensive involving the condyles bilaterally. 2. Sensitive soft tissue swelling. 3. Bilateral nasal fractures. Armand Foreman MD Cervical Spine CT 08/28/17 0000 Signed Impressions: Service Date/Time: Monday, August 28, 2017 08:20 - CONCLUSION: 1. Multilevel degenerative changes. 2. No compression fracture or subluxation. 3. Ground glass density right upper lobe and to lesser degree left upper lobe could be contusion or infectious/inflammatory process. Armand Foreman MD Carotid Artery Ultrasound 08/28/17 0000 Signed Impressions: Service Date/Time: Monday, August 28, 2017 13:23 - CONCLUSION: 1. Mild bilateral carotid plaque. 2. No evidence of hemodynamically significant stenosis. 3. Antegrade flow in both vertebral arteries. Jason Martinez MD Abdomen/Pelvis CT 08/28/17 0000 Signed Impressions: Service Date/Time: Monday, August 28, 2017 19:02 - CONCLUSION: 1. Mild mural thickening of the rectosigmoid most characteristic of a mild colitis distally. No obstruction, free fluid or free air. 2. Small bilateral pleural effusions. 3. 1.6 cm left ovarian cyst. 4. Catheter in decompressed bladder. Lloyd Han MD Assessment and Plan Problem List: (1) Elevated troponin ICD Codes: R74.8 - Abnormal levels of other serum enzymes Plan: NSTEMI Hemodynamically stable H&H trending down, no active signs of bleeding but significant trauma on presentation Cont aggressive medical management for CAD Check stools for blood Not a candidate for LHC given severe anemia Case discuss with splitting machine feeder Cruzito Tucker MD Aug 31, 2017 08:30
[2017-08-31] MEDS: metroNIDAZOLE 500 MG INJ 100 ML IV SCH ×3 (08:35→23:21)
[2017-08-31] MEDS: ASPIRIN 81 MG CHEW TAB CHEW SCH (08:35)
[2017-08-31] MEDS: DOCUSATE SODIUM 50 MG/SENNA 8.6 MG TAB PO SCH ×2 (08:49→21:00)
[2017-08-31] MEDS: FAMOTIDINE 20 MG/2 ML VIAL IV PUSH SCH ×2 (08:50→21:00)
[2017-08-31] MEDS: fentaNYL 2,500 MCG/NS 250 ML IV PRN ×2 (08:50→18:11)
[2017-08-31 09:06] LABS: HEMATOCRIT 24.3 % (35.0-46.0); HEMOGLOBIN 8.1 GM/DL (11.6-15.3)
[2017-08-31] MEDS: HEPARIN-D5W 25,000 U/250 ML 250 ML IV PRN (16:54)
--- NOTE | 2017-08-31 17:32 | HHI.PR ---
Subjective Remarks pt seen and examined intubated, sedated, vented heparin drip, NSTEMI Cath. not done decreased H/H - being transfused now Objective Vital Signs Date Time Temp Pulse Resp B/P (MAP) Pulse Ox O2 Delivery O2 Flow Rate FiO2 08/31/17 16:19 100 30 08/31/17 16:00 75 08/31/17 16:00 30 08/31/17 15:30 99.0 68 16 125/52 100 08/31/17 15:06 99.0 64 16 138/58 100 08/31/17 12:00 64 08/31/17 12:00 30 08/31/17 11:13 100 30 08/31/17 10:00 91 08/31/17 08:02 100 30 08/31/17 08:00 30 08/31/17 08:00 75 08/31/17 06:00 66 08/31/17 04:00 98.0 67 16 122/64 (83) 100 139/58 (85) 08/31/17 04:00 30 08/31/17 04:00 67 08/31/17 03:18 100 30 08/31/17 02:00 65 08/31/17 00:27 100 30 08/31/17 00:00 30 08/31/17 00:00 98.0 67 15 110/57 (74) 99 08/31/17 00:00 67 08/30/17 22:00 73 08/30/17 20:00 72 08/30/17 20:00 98.0 72 16 130/63 (85) 100 134/60 (84) 08/30/17 20:00 30 08/30/17 19:53 100 30 08/30/17 18:00 105 19 135/78 (97) 100 140/69 (92) I/O 08/30/17 08/30/17 08/30/17 08/31/17 08/31/17 08/31/17 07:00 15:00 23:00 07:00 15:00 23:00 Intake Total 1795 ml 555 ml 1507 ml 830 ml 473 ml 50 ml Output Total 625 ml 200 ml 500 ml Balance 1170 ml 555 ml 1307 ml 330 ml 473 ml 50 ml Intake IV Total 1310 ml 555 ml 755 ml 610 ml 473 ml Tube Feeding 410 ml 630 ml 220 ml Blood Product IV Normal Saline Flush 50 ml Tube Irrigant 122 ml Other 75 ml Output Urine Total 625 ml 200 ml 500 ml # Bowel Movements 0 Result Diagram: 08/31/17 0830 08/31/17 0200 Objective Remarks mild bruising/edema right mandible no neck edema intraorally tissues pink/well perfused loose dentition/fractures appear stable at this point no active heme noted Assessment and Plan Assessment and Plan s/p fall, seizures, NSTEMI b/l condyle fx's / right mandible fracture loose dentition plan for ORIF mandible fracture and extraction of loose teeth when cardiac/ medically stable plan for surgery early next week ok to extubate from OMS standpoint. Jose Doll DMD Aug 31, 2017 17:32
[2017-08-31 19:23] LABS: HEMATOCRIT 28.9 % (35.0-46.0); HEMOGLOBIN 9.7 GM/DL (11.6-15.3)
[2017-09-01] VITALS (23 sets, daily range): BP systolic 117–168; BP diastolic 53–79; PULSE 57–87; RESP 16–20; TEMP 97.6–99.9; O2SAT 100
[2017-09-01] MEDS: CHLORHEXIDINE GLUCONATE 2 % 1 PACK (2 CLOTHS) TOP SCH (00:05)
[2017-09-01] MEDS: RESP: ALBUTEROL 2.5 MG/IPRATROPIUM 0.5 MG NEB (SCH) INH ×4 (02:31→20:22)
[2017-09-01] MEDS: INSULIN NovoLIN REGULAR SUPPLEMENTAL SCALE SQ SCH ×6 (03:08→23:29)
[2017-09-01 04:08] LABS: AUTOMATED NEUTROPHIL # 6.2 TH/MM3 (1.8-7.7); BASOPHIL % 0.2 % (0.0-2.0); HEMOGLOBIN 9.5 GM/DL (11.6-15.3); LYMPH % 9.1 % (9.0-44.0); LYMPHOCYTE # 0.7 TH/MM3 (1.0-4.8); MEAN CELL VOLUME 98.2 FL (80.0-100.0); MEAN CORPUSCULAR HEMOGLOBIN 33.3 PG (27.0-34.0); MEAN CORPUSCULAR HGB CONC 33.9 % (32.0-36.0); MEAN PLATELET VOLUME 9.9 FL (7.0-11.0); MONO % 6.7 % (0.0-8.0); MONOCYTE # 0.5 TH/MM3 (0-0.9); PLATELET COUNT 130 TH/MM3 (150-450); RED BLOOD COUNT 2.85 MIL/MM3 (4.00-5.30); RED CELL DISTRIBUTION WIDTH 22.1 % (11.6-17.2); WHITE BLOOD COUNT 7.4 TH/MM3 (4.0-11.0)
[2017-09-01 04:35] LABS: CALCIUM 7.7 MG/DL (8.5-10.1); CREATININE 0.58 MG/DL (0.50-1.00); MAGNESIUM 1.9 MG/DL (1.5-2.5); PHOSPHORUS 1.7 MG/DL (2.5-4.9)
[2017-09-01] MEDS: PIPERACIL-TAZO 4.5 GM PREMIX 100 ML IV SCH ×4 (04:52→22:37)
[2017-09-01] MEDS: HYDROCORTISONE SOD SUCCINATE 100 MG VIAL IV PUSH SCH ×2 (04:52→16:10)
[2017-09-01] MEDS: levETIRAcetam INJ 500 MG in SODIUM CHLORIDE 0.9% INJ 100 ML IV SCH ×4 (04:52→23:25)
[2017-09-01] MEDS: fentaNYL 2,500 MCG/NS 250 ML IV PRN ×2 (05:42→16:11)
--- NOTE | 2017-09-01 07:04 | HHI.CCPN ---
Subjective Remarks/Hospital Course Patient is a 67-year-old female with a past medical history of mitral valve prolapse, chronic back pain, hyperlipidemia, hypertension. She presented to [facility] ED via EMS after she was found face down unresponsive by her . She was given 2 mg IV Ativan by EMS for a witnessed seizure. She was last seen at her baseline at 5:30 this morning. According to the , the patient does not have any seizure disorder and she is not on any seizure meds at home. She had a similar episode a couple years ago and he attributed it to her multiple medications that she takes at home. She is on Tylenol #3 along with Lorazepam, Baclofen and Propranolol. She was found to have a laceration on chin which was bleeding. Her blood sugar was measured at 95. On arrival to the ED, she was hypertensive with a blood pressure of 196/120 and tachycardiac with a heart rate in the 120's. The patient was intubated with etomidate, succinylcholine and placed on full mechanical ventilation. Her laboratory data is significant for lactic acidosis with lactic acid level of 4.0, an elevated troponin at 0.97 with a total CK of 129. Her urine drug screen is negative for amphetamines, benzodiazepines, and opiates. A CT scan of the brain was performed in the ED which showed no acute intracranial abnormalities. Chronic opacification left maxillary sinus noted. She also had a CT maxillofacial which showed bilateral displaced mandible fractures and bilateral nasal fractures. A cervical spine CT showed multilevel degenerative changes without any compression fracture or subluxation. Chest x-ray, she also had a chest x-ray which showed minimal bilateral upper lobe densities. The patient was given 2 liters of crystalloids in the ED, tetanus shot and placed on Fentanyl and Versed for sedation. There is no history of any chest pain, shortness of breath or any constitutional symptoms. Also, no history of any GI symptoms per the patient's . 08/29 Patient became hypotensive last night started on Levophed 5 mics currently. MRI brain no acute findings, CT abd/pelvis showed mild colitis. On Heparin drip. Left IJ CVP was placed last night CXR post procedure showed 6 mm right apical PTX a repeat CXR from 4:30 showed reduction right apical PTX 4 mm( Right IJ was attempted first) 08/30 No events overnight. Sedated with Diprivan, Versed and intubated. Afebrile. Remains on Levophed. Afebrile. CXR last night mild basilar airspace disease,no PTX. 08/31 No events overnight. Sedated with Versed, Fentanyl and intubated. Afebrile. For cardiac cath today. Off Levophed. 09/01 Patient remains sedated and intubated. s/p transfusion 1u PRBC yesterday Hgb 9.5 this morning. Objective Vital Signs Date Time Temp Pulse Resp B/P (MAP) Pulse Ox O2 Delivery O2 Flow Rate FiO2 09/01/17 06:00 64 09/01/17 04:42 100 30 09/01/17 04:00 98.0 16 118/58 (78) 138/59 (85) 08/28/17 10:00 Ventilator 08/28/17 07:45 15.00 Intake and Output 09/01/17 09/01/17 09/02/17 08:00 16:00 00:00 Intake Total 1497 ml Output Total 500 ml Balance 997 ml Result Diagram: 09/01/17 0315 09/01/17 0315 Other Results Laboratory Tests Test 08/31/17 08:30 08/31/17 14:25 08/31/17 19:08 08/31/17 20:52 Hemoglobin 8.1 GM/DL 9.7 GM/DL Hematocrit 24.3 % 28.9 % Activated Partial Thromboplast Time 40.7 SEC 37.0 SEC 38.1 SEC Test 09/01/17 03:15 White Blood Count 7.4 TH/MM3 Red Blood Count 2.85 MIL/MM3 Hemoglobin 9.5 GM/DL Hematocrit 28.0 % Mean Corpuscular Volume 98.2 FL Mean Corpuscular Hemoglobin 33.3 PG Mean Corpuscular Hemoglobin Concent 33.9 % Red Cell Distribution Width 22.1 % Platelet Count 130 TH/MM3 Mean Platelet Volume 9.9 FL Neutrophils (%) (Auto) 84.0 % Lymphocytes (%) (Auto) 9.1 % Monocytes (%) (Auto) 6.7 % Eosinophils (%) (Auto) 0.0 % Basophils (%) (Auto) 0.2 % Neutrophils # (Auto) 6.2 TH/MM3 Lymphocytes # (Auto) 0.7 TH/MM3 Monocytes # (Auto) 0.5 TH/MM3 Eosinophils # (Auto) 0.0 TH/MM3 Basophils # (Auto) 0.0 TH/MM3 CBC Comment AUTO DIFF Activated Partial Thromboplast Time 55.3 SEC Blood Urea Nitrogen 15 MG/DL Creatinine 0.58 MG/DL Random Glucose 123 MG/DL Calcium Level 7.7 MG/DL Phosphorus Level 1.7 MG/DL Magnesium Level 1.9 MG/DL Sodium Level 141 MEQ/L Potassium Level 3.4 MEQ/L Chloride Level 109 MEQ/L Carbon Dioxide Level 22.0 MEQ/L Anion Gap 10 MEQ/L Estimat Glomerular Filtration Rate 104 ML/MIN Imaging Last Impressions Chest X-Ray 08/29/171999 Signed Impressions: Service Date/Time: Tuesday, August 29, 2017 19:24 - CONCLUSION: 1. Mild basilar airspace disease. Support apparatus in satisfactory position. Lloyd Han MD Brain MRI 08/28/17 1554 Signed Impressions: Service Date/Time: Monday, August 28, 2017 19:18 - CONCLUSION: 1. No focal mass or shift. No recent infarct. Chronic white matter ischemic changes involving periventricular region and brainstem especially jak. Lloyd Han MD Head CT 08/28/17 0751 Signed Impressions: Service Date/Time: Monday, August 28, 2017 08:20 - CONCLUSION: 1. Nonspecific white matter changes. 2. No acute intracranial abnormality. 3. Chronic opacification left maxillary sinus Armand Foreman MD Maxillofacial CT 08/28/17 0000 Signed Impressions: Service Date/Time: Monday, August 28, 2017 08:20 - CONCLUSION: 1. Bilateral displaced mandible fractures more extensive involving the condyles bilaterally. 2. Sensitive soft tissue swelling. 3. Bilateral nasal fractures. Armand Foreman MD Cervical Spine CT 08/28/17 0000 Signed Impressions: Service Date/Time: Monday, August 28, 2017 08:20 - CONCLUSION: 1. Multilevel degenerative changes. 2. No compression fracture or subluxation. 3. Ground glass density right upper lobe and to lesser degree left upper lobe could be contusion or infectious/inflammatory process. Armand Foreman MD Carotid Artery Ultrasound 08/28/17 0000 Signed Impressions: Service Date/Time: Monday, August 28, 2017 13:23 - CONCLUSION: 1. Mild bilateral carotid plaque. 2. No evidence of hemodynamically significant stenosis. 3. Antegrade flow in both vertebral arteries. Jason Martinez MD Abdomen/Pelvis CT 08/28/17 0000 Signed Impressions: Service Date/Time: Monday, August 28, 2017 19:02 - CONCLUSION: 1. Mild mural thickening of the rectosigmoid most characteristic of a mild colitis distally. No obstruction, free fluid or free air. 2. Small bilateral pleural effusions. 3. 1.6 cm left ovarian cyst. 4. Catheter in decompressed bladder. Lloyd Han MD Objective Remarks GENERAL: Patient is 67 yo intubated and sedated SKIN: Warm and dry. HEAD: Normocephalic. EYES: No scleral icterus. No injection or drainage. NECK: Supple, trachea midline. No JVD or lymphadenopathy. CARDIOVASCULAR: Regular rate and rhythm without murmurs, gallops, or rubs. RESPIRATORY: Breath sounds equal bilaterally. No accessory muscle use. GASTROINTESTINAL: Abdomen soft, non-tender, nondistended. MUSCULOSKELETAL: No cyanosis, or edema. Neuro: Sedated A/P Assessment and Plan 1. Altered mental status 2. S/p syncopal episode. 3. Status post seizure episode. 4. Lactic acidemia likely secondary to seizures. 5. VDRF 6. Bilateral mandible and nasal fractures. 7. Pulmonary contusion 8. Elevated troponin 9. Hypertension 10. Hyperlipidemia 11. Elevated AST Plan Neuro: On Versed/Fentanyl drips for sedation. Monitor neuro status. Daily sedation vacation. CT scan of the brain in the ED negative for acute intracranial findings. MRI brain: No acute findings. Chronic white matter changes EEG: Generalized slowing, no ictal activity. Carotid Doppler US: No sig hemodynamic stenosis. Neuro is following- Dr. Moulton. Continue Keppra per Neuro. On Ativan PRN seizures Pulm: Continue with vent support and maintain sats above 92%. Bronchodilators, ICU vent bundle. SBT daily as susan. CV: Off Levophed keep MAP>65 mmHg. HC 50mg IV Q12 Echo showed EF 30-35%, lactic acid cleared Continue with ASA, Heparin drip. Cards is following- Dr. Han. S/p cardiac cath today by Dr. Han- normal coronaries, elevated LVDP, ? takotsubo syndrome s/p transfusion 1unit PRBC yesterday. No signs of bleeding. : Monitor renal function I's and O's and electrolyte replacement per protocol. Will need K, Phos replacement today GI: On Pepcid 10 mg q. 12-hour for GI prophylaxis. Continue tube feeds- Glucerna 1.5@45ml/hr ID: Continue abx( Zosyn, Flagyl) monitor for signs of infections( fever and WBC) . Follow up sputum, urine culture.- NGTD 08/28 BC 09/21 bottles: GPC ( likely contaminant) s/p Vanco x1 dose 08/30 08/30 BC: NGTD Heme: Monitor CBC, coags- on Heparin drip Guaiac stool or heme. s/p transfusion 1unit PRBC yesterday. No signs of bleeding. Endo: SSI with Accu-Chek's to maintain euglycemia. Spoke to Dr. Doll( [facility]) plan for ORIF mandible fracture on Tuesday 09/04 GI prophylaxis with Pepcid and DVT prophylaxis with SCD's. on Heparin drip Lines: Left IJ CVP placed 08/29 Level 3 Dottie Harvey MD Sep 01, 2017 07:04
[2017-09-01] MEDS: DOCUSATE SODIUM 50 MG/SENNA 8.6 MG TAB PO SCH ×2 (08:34→20:45)
[2017-09-01] MEDS: ASPIRIN 81 MG CHEW TAB CHEW SCH (08:35)
[2017-09-01] MEDS: metroNIDAZOLE 500 MG INJ 100 ML IV SCH ×2 (08:35→17:02)
[2017-09-01] MEDS: FAMOTIDINE 20 MG/2 ML VIAL IV PUSH SCH ×2 (08:35→20:45)
[2017-09-01] MEDS: MIDAZOLAM 100 MG/NS 100 ML DRIP Premix IV PRN (08:35)
[2017-09-01] MEDS: SODIUM PHOSPHATE INJ 30 MMOL in SODIUM CHLOR 0.9% 250 ML INJ 240 ML IV PRN (08:53)
[2017-09-01] MEDS ORDERED: HEPARIN-NS/PF INJ 1,000 ML ONE (12:31)
--- NOTE | 2017-09-01 13:28 | CATHPROC ---
[facility] HIS Report Study Information Study Number Scheduled Start Study Start [id number] 09/01/2017 Sep 01 2017 12:18PM Referring Institution Admit Source Facility Department 1 Other [facility] - Chemical Laboratory Scientist Physician and Clinical Staff Initial Cruzito Siegel Personal Care Aid Aram RN, Arturo Recorder Loki Chan,RT(R) Scrub Geovanna Anna,INFORMATICA MDM ARCHITECT TECH2 Procedures Performed Procedure Location (Site) Vessel Name Angiogram LV LV Ventricle Coronary Angiograms LCA Left Coronary Coronary Angiograms RCA Right Coronary L Heart Cath Equipment Time Edger Saw Operator Description Size Mfg Part Number Used/Scraped TRANSDUCER, TRUWAVE [id number] 12:39 FRY GLEASON * Used W/STOCKTechulonCK *[id number] 13:11 [employer] VASCADE, FR5 CLOSURE SYSTEM FR 5 Used *[id number] INTRODUCER SET, 12:39 [employer] FR 5 [id number] *[id number] Used MICROPUNCTURE, STIFFENED [id number] *[id number] *[id number] 12:39 [employer] PACK, CCL CUSTOM * Used *[id number] [id number] 13:07 [employer] PIGTAIL ANG. CATHETER FR 5 Used *[id number] 12:39 [employer] SHEATH, FR5.5 PRELUDE 11CM FR 5 [id number] Used [id number] 12:39 [employer] WIRE, 3MMJ .035 180CM 180CM Used *[id number] 12:39 NAMIC MANIFOLD, 4 PORT * Used *[id number] 12:39 [employer] OMNIPAQUE, 350 MG, 150ML 150ML [id number] Used [id number] 12:39 [employer],WARM AIR CCL * Used *[id number] 12:39 [employer] MEDICAL SHEATH, FR5 TERUMO (10CM) FR 5 Used *[id number] History: Risk Factors Family History of Hypertension Dyslipidemia Previous DC Previous Heart Failure Premature CAD Yes Yes No No No Prior Valve Prior PCI Prior CABG Surgery No No No Cerebrovascular Peripheral Artery Chronic Lung On Dialysis Diabetes Disease Disease Disease No No No No No History: Other Current Smoker No Labs Hgb (g/dl) Hct (%) WBC (l/cumm) Platelets (thousands) 11.60-17.00 35.00-51.00 4.00-11.00 150.00-450.00 9.5 28 7.4 130 Glucose (mg/dl) BUN (mg/dl) Creatinine (mg/dl) BUN:Creatinine (1:x) 74.00-106.00 7.00-18.00 0.50-1.30 10.00-20.00 123 15 0.5 30 Na (meq/l) K (meq/l) 136.00-145.00 3.50-5.10 141 3.4 Troponin I (ng/ml) CPK-MB (ng/ML) 0.02-0.05 0.50-3.60 4.4 Not Drawn Medication Medication Total Dose (Bolus/Oral) Medication Total Dosage/Unit 1% XYLOCAINE 20 mL FENTANYL 50 mcg VERSED 2 mg Medications (Bolus/Oral) Medication Time Given Dosage/Unit Administered By Reason 09/01/2017 12:34:31 VERSED 2 mg Emely-Lottie Cruzito For sedation PM 2 mg/hr VERSED given via Peripheral IV. Reason: For sedation. 09/01/2017 12:35:04 FENTANYL 50 mcg Caitlin Cruzito PM Patient arrived on 200 mcg/hr FENTANYL given by Cruzito Tucker via Peripheral IV. Ordered by Cruzito Delgado. 09/01/2017 12:58:28 1% XYLOCAINE 20 mL Emely-Lottie Cruzito PM Patient arrived on 20 mL 1% XYLOCAINE given by Cruzito Tucker in Right Groin via Subcutaneous. Ord ered by Cruzito Tucker. Initial Case Assessment Cardiovascular HR Rhythm NIBP 63 sr 142/70 Edema Present Skin color Skin None Normal Warm Dry Circulatory - Right Pulses Dorsalis Pedis Femoral 3 3 Scale (0,1,2,3,4,d) Circulatory - Left Pulses Dorsalis Pedis Femoral 3 3 Scale (0,1,2,3,4,d) Respiration - General Respiration Rate SpO2 (%) (B/min) 18 100 Respiration - Ventilator Type Intubation Type ET(oral) Respiration - Ventilator Settings TV (ml) IMV (L) FIO2 (%) PEEP (cm/H2O) 450 16 100 5 Final Case Assessment Cardiovascular HR Rhythm NIBP 65 sr 162/87 Edema Present Skin color Skin None Normal Warm Dry Circulatory - Right Pulses Dorsalis Pedis Femoral 3 3 Scale (0,1,2,3,4,d) Circulatory - Left Pulses Dorsalis Pedis Femoral 3 3 Scale (0,1,2,3,4,d) Respiration - General Respiration Rate SpO2 (%) (B/min) 18 100 Chronological Log Time Study Chronological Log 12:: Patient arrived via Bed. Right radial artery line present. 12:22:23 Patient Name, D.O.B, / Armband Verified By R.N. 12::24 Consent signed by the physician and the patient and verified by the Chemical Laboratory Scientist staff. 12:: Pre-op and post- op instructions given; patient acknowledges understanding of instructions. Vitals capture started with the following parameters, Patient=Adult, Interval=5 min, Initial Pr duzhbe=678 mmHg, 12::47 Deflation Rate=5 mmHg, Cuff placed on Left Arm 12::22 HR=63 bpm, UEPA=916/76 mmhg, NbP8=379 %, Resp=20 B/min, Mclain=4 12:27:38 Reference ECG taken 12::20 Presedation assessment performed by Chemical Laboratory Scientist RN. 12:32:23 HR=61 bpm, WMGD=583/70 mmhg, SpO2=99.0 %, Resp=0 B/min, Mclain=4 12:32:29 Patient has been NPO for More than 6Hrs. 12:32:31 Skin Breakdown-none present. 12:32:45 A # Central line IV was noted in the right chest 12:34:31 2 mg/hr VERSED given via Peripheral IV. Reason: For sedation. 12:35:04 Patient arrived on 200 mcg/hr FENTANYL given by Cruzito Tucker via Peripheral IV. Ordere d by Cruzito Tucker. 12:35:27 History and physical on the chart or being dictated. Assessment: Initial Case, HR=63 BPM, Rhythm=sr, KBVH=136/70 mmhg, Edema=None, Color=Normal, Ski n = Warm, Dry 12:35:29 Right Pulses: Yaya Ped=3, Femoral=3 Left Pulses: Yaya Ped=3, Femoral=3 Respiration: Resp=18 B/min, JpU5=878 %, Type=ET(Oral), TH=503 mL, IMV=16 L, AHJ3=949 %, PEEP=5 cm/H2O 12:36:33 Bilateral groins prepped with 2% chlorhexidine, and draped after a 3 minute waiting time. 12:37:20 HR=61 bpm, TUDS=829/76 mmhg, SpO2=99.0 %, Resp=39 B/min, Mclain=4 12:40:35 Pressure channel 1 zeroed. 12:40:39 Pressure channel 2 zeroed. 12:42:21 HR=60 bpm, LXDG=742/77 mmhg, SpO2=99.0 %, Resp=0 B/min, Mclain=4 12:43:10 MD paged 12:47:22 HR=59 bpm, PRQO=467/73 mmhg, SpO2=99.0 %, Resp=10 B/min, Mclain=4 12:52:23 HR=63 bpm, KAIH=088/78 mmhg, SpO2=99.0 %, Resp=18 B/min, Mclain=4 Time Out. Correct patient, correct procedure, correct physician, power injector not loaded with contrast with surgical 12:57:10 team present. Time Out Concurred by MD and individual staff in procedure. Not loaded at this ti me. 12:58:01 HR=62 bpm, TTRU=481/88 mmhg, SpO2=99.0 %, Resp=14 B/min, Mclain=4 12:58:05 Case Start Patient arrived on 20 mL 1% XYLOCAINE given by Cruzito Tucker in Right Groin via Subcutaneou s. Ordered by 12:58:28 Cruzito Tucker. 12:59:09 Access site was Right Femoral Artery. A INTRODUCER SET, MICROPUNCTURE, STIFFENED FR 5 was advanced into the Fem Art (right) using the 12:59:16 Percutaneous technique. A SHEATH, FR5 TERUMO (10CM) FR 5 was exchanged in the Fem Art (right). This was necessary in or adonis to 12:59:25 accomodate a larger catheter. Recorded Pressure: FA, HR=62, Condition=Condition 1 12:59:58 (Femoral Artery) FA 172/69/108 13:00:17 An injection in the Fem Art (right) was made through the SHEATH, FR5 TERUMO (10CM) FR 5. A JR 4.0 INFINITI CATHETER FR 5 was advanced over a wire. OMNIPAQUE, 350 MG, 150ML 150ML was us ed for 13:00:47 injections. Recorded Pressure: LV, HR=65, Condition=Condition 1 13:01:44 (Left Ventricle) LV 160/6/28 Recorded Pressure: LV, Ao, HR=63, Condition=Condition 1 13:02:09 (Left Ventricle) LV 164/6/29, (Aorta) Ao 163/65/108 13:02:27 HR=60 bpm, HQNC=781/77 mmhg, SpO2=99.0 %, Resp=16 B/min, Mclain=4 13:02:32 The RCA was injected and visualized at various angles. OMNIPAQUE, 350 MG, 150ML 150ML used . Recorded Pressure: Ao, HR=61, Condition=Condition 1 13:02:42 (Aorta) Ao 149/75/103 13:03:27 Catheter was removed A JL 4.0 INFINITI CATHETER FR 5 was advanced over a wire. OMNIPAQUE, 350 MG, 150ML 150ML was us ed for 13:03:29 injections. 13:03:33 The LCA was injected and visualized at various angles. OMNIPAQUE, 350 MG, 150ML 150ML used . 13:06:26 Catheter was removed A PIGTAIL ANG. CATHETER FR 5 was advanced over a wire. OMNIPAQUE, 350 MG, 150ML 150ML was used for 13:07:03 injections. 13:07:22 HR=65 bpm, CUJT=341/93 mmhg, SpO2=99.0 %, Resp=18 B/min, Mclain=4 Recorded Pressure: LV, HR=67, Condition=Condition 1 13:08:50 (Left Ventricle) LV 159/15/29 13:08:56 Power Injector loaded by Arturo Chiu rn, verified by Sophy Anna 13:09:24 The LV was injected at 15 cc/sec for a total of 30. OMNIPAQUE, 350 MG, 150ML 150ML used. 13:10:33 Catheter was removed 13:12:26 HR=64 bpm, GRDL=371/93 mmhg, SpO2=99.0 %, Resp=16 B/min, Mclain=4 13:12:50 VASCADE, FR5 CLOSURE SYSTEM FR 5 placement in the Fem Art (right) 13:14:14 Case End 13:17:29 HR=64 bpm, LQPF=202/87 mmhg, SpO2=99.0 %, Resp=16 B/min, Mclain=4 Assessment: Final Case, HR=65 BPM, Rhythm=sr, LSRV=092/87 mmhg, Edema=None, Color=Normal, Skin = Warm, Dry 13:19:52 Right Pulses: Yaya Ped=3, Femoral=3 Left Pulses: Yaya Ped=3, Femoral=3 Respiration: Resp=18 B/min, IhK5=884 % 13:20:08 Pressure channel 1 zeroed. 13:20:35 Vitals capture stopped. Vitals capture started with the following parameters, Patient=Adult, Interval=5 min, Initial P fqswkuk=708 mmHg, 13:20:36 Deflation Rate=5 mmHg, Cuff placed on Left Arm 13:21:12 HR=65 bpm, JWPF=101/84 mmhg, SpO2=99.0 %, Resp=17 B/min, Mclain=2 13:21:33 Sterile dressing applied to site 13:21:35 No case complications noted. 13:21:38 Cine recording checked. 13:21:40 Bedside Report will be given. 13:21:44 Implantable Device card placed in patient's chart. 13:21:47 A Left Heart Cath was performed. 13:26:13 HR=62 bpm, QVFI=185/81 mmhg, SpO2=99.0 %, Resp=16 B/min, Mclain=2 13:26:44 Vitals capture stopped. 13:26:47 Patient moved to [facility] End Study - Contrast Media Used In Study Contrast Total Opened (mL) Total Used (mL) Total Wasted (mL) Omnipaque 50 50 0 End Study - Maximum Contrast Load Max Contrast Load (mL) 570.0 End Study - Radiation Exposure Fluoro Time (minutes) 3.2 End Study - Patient Disposition Complications Transferred To Telemetry Bed
[2017-09-01] MEDS ORDERED: MISC INFORMATION XX ONE (13:30)
[2017-09-01] MEDS ORDERED: ATROPINE SULFATE 1 MG/ML VIAL IV PUSH PRN (13:30)
[2017-09-01] MEDS ORDERED: ONDANSETRON HCL 4 MG/2 ML VIAL IV PUSH PRN (13:30)
[2017-09-01] MEDS ORDERED: IOHEXOL 350 MG/ML 50 ML BTL (for Cath Lab) OTHER ONE (14:14)
--- NOTE | 2017-09-01 14:36 | MA ---
cc: TRIP NEVILLE DATE 09/01/2017 DATE OF 1950 PROCEDURE PERFORMED 1. Left heart catheterization. 2. Selective right and left coronary angiography. 3. Left ventriculogram. INDICATION Elevated troponin, LV dysfunction. PROCEDURE DESCRIPTION Consent was signed. The patient was brought into the cardiac systems testing laboratory technician in a fasting state. The right groin was prepped and draped in a sterile fashion. Using 1% lidocaine for local anesthesia and a micropuncture kit a 5 Turkish sheath was inserted into the right common femoral artery. Right common femoral artery angiography was performed to confirm position of the sheath then selective right and left coronary angiography was performed with a JR4 and JL4 diagnostic catheter. Angiography was taken in multiple views. An angled pigtail was entered into the ventricle over a wire. This was followed by pressure recordings and ventriculogram and pullback. The patient tolerated the procedure well without complications. Estimated blood loss was less than 10 cc. Total contrast used was 50 cc. The right groin access site was closed with a Vascade closure device. RESULTS LEFT VENTRICLE The left ventricular pressure was 159/15 with an LVEDP of 29. The aortic pressure was 149/75 with a mean of 103. There was no gradient upon pullback from the left ventricle to the aorta. The left ventriculogram revealed symmetrically rony ventricle with an estimated ejection fraction of 50%. There was a significant amount of mitral regurgitation going into the left atrium. The left atrium seems big. ANGIOGRAPHY 1. The right coronary artery is a dominant vessel giving off the PDA. The right coronary artery has minimal luminal irregularities, 10% lesion in the midsegment. The PDA is small and tortuous and patent. There is also a posterolateral branch which is patent with no significant obstructive coronary artery disease. 2. The left main is patent with ERIN-III flow, is giving off the left circumflex artery and the LAD. 3. The LAD is a transapical vessel. It has a high take-off diagonal which is patent and tortuous with no significant obstruction. The LAD throughout is smooth and there are no significant obstructive lesions. 4. The left circumflex artery is composed mainly of an OM vessel. It is small and has no significant obstructive disease. CONCLUSIONS 1. Nonobstructive coronary artery disease. 2. Elevated LVEDP. 3. Preserved LV systolic function. RECOMMENDATIONS 1. Continue aggressive medical management for primary prevention of coronary artery disease. 2. Repeat echocardiogram to reassess LV function as well as mitral regurgitation. MD CHESTER Celis/BT /1:19 PM /2:16 PM SHAGUFTA
[2017-09-01] MEDS: SODIUM CHLORIDE 0.9% FLUSH 10 ML FLUSH IV FLUSH PRN (16:11)
[2017-09-01 22:19] LABS: PHOSPHORUS 2.7 MG/DL (2.5-4.9)
[2017-09-01] MEDS: POTASSIUM CHLOR 40 MEQ PREMIX 100 ML IV PRN (22:36)
[2017-09-02] VITALS (30 sets, daily range): BP systolic 144–182; BP diastolic 70–81; PULSE 58–85; RESP 0–16; TEMP 97.6–99.3; O2SAT 100
[2017-09-02] MEDS: metroNIDAZOLE 500 MG INJ 100 ML IV SCH ×3 (01:04→17:38)
[2017-09-02] MEDS: RESP: ALBUTEROL 2.5 MG/IPRATROPIUM 0.5 MG NEB (SCH) INH ×6 (02:38→22:55)
[2017-09-02] MEDS: CHLORHEXIDINE GLUCONATE 2 % 1 PACK (2 CLOTHS) TOP SCH (04:00)
[2017-09-02] MEDS: INSULIN NovoLIN REGULAR SUPPLEMENTAL SCALE SQ SCH ×5 (04:00→20:00)
--- NOTE | 2017-09-02 04:50 | RADRPT ---
EXAM DATE/TIME: 09/02/2017 02:50 [facility] COMPARISON: CHEST SINGLE AP, August 29, 2017, 19:24. INDICATIONS : Evaluate for pneumonia MEDICAL HISTORY : Hypertension. Cardiovascular disease. Mitral Valve prolapse SURGICAL HISTORY : None. ENCOUNTER: Subsequent ACUITY: 4 - 6 days PAIN SCORE: Non-responsive. LOCATION: Bilateral chest FINDINGS: Single AP view of the chest. Endotracheal tube, left IJ central venous catheter, and nasogastric tube remain in place. Nasogastric tube is coiled in the stomach and the tip of the tube is in the distal esophagus. Mild bilateral lower lung zone predominant hazy opacity with left bilateral lobe atelectas is and small bilateral pleural effusions. CONCLUSION: 1. Slight increase in bilateral basilar pulmonary opacity with bilateral lower lobe atelectasis and s mall bilateral pleural effusions. 2. Nasogastric tube is coiled in the stomach with the tip now in the distal esophagus. This could be advanced approximately 10 cm. Hans Reagan MD on September 02, 2017 at 4:46 Board Certified Radiologist. This report was verified electronically.
[2017-09-02] MEDS: PIPERACIL-TAZO 4.5 GM PREMIX 100 ML IV SCH ×3 (05:12→17:38)
[2017-09-02] MEDS: HYDROCORTISONE SOD SUCCINATE 100 MG VIAL IV PUSH SCH ×2 (05:12→17:38)
[2017-09-02] MEDS: levETIRAcetam INJ 500 MG in SODIUM CHLORIDE 0.9% INJ 100 ML IV SCH ×4 (05:44→23:42)
[2017-09-02 06:49] LABS: AUTOMATED NEUTROPHIL # 4.1 TH/MM3 (1.8-7.7); BASOPHIL % 0.2 % (0.0-2.0); EOSINOPHIL % 0.1 % (0.0-4.0); HEMATOCRIT 25.8 % (35.0-46.0); HEMOGLOBIN 8.8 GM/DL (11.6-15.3); LYMPH % 20.3 % (9.0-44.0); LYMPHOCYTE # 1.2 TH/MM3 (1.0-4.8); MEAN CELL VOLUME 98.5 FL (80.0-100.0); MEAN CORPUSCULAR HEMOGLOBIN 33.6 PG (27.0-34.0); MEAN CORPUSCULAR HGB CONC 34.1 % (32.0-36.0); MEAN PLATELET VOLUME 10.1 FL (7.0-11.0); MONO % 10.3 % (0.0-8.0); MONOCYTE # 0.6 TH/MM3 (0-0.9); NEUT % 69.1 % (16.0-70.0); PLATELET COUNT 125 TH/MM3 (150-450); RED BLOOD COUNT 2.62 MIL/MM3 (4.00-5.30); RED CELL DISTRIBUTION WIDTH 21.7 % (11.6-17.2)
[2017-09-02 07:16] LABS: BICARBONATE 25.4 MEQ/L (21.0-32.0); CALCIUM 7.5 MG/DL (8.5-10.1); CREATININE 0.48 MG/DL (0.50-1.00); PHOSPHORUS 2.3 MG/DL (2.5-4.9)
[2017-09-02] MEDS: ASPIRIN 81 MG CHEW TAB CHEW SCH (09:05)
[2017-09-02] MEDS: DOCUSATE SODIUM 50 MG/SENNA 8.6 MG TAB PO SCH ×2 (09:05→21:05)
[2017-09-02] MEDS: FAMOTIDINE 20 MG/2 ML VIAL IV PUSH SCH ×2 (09:06→21:05)
--- NOTE | 2017-09-02 17:51 | HHI.CCPN ---
Subjective Remarks/Hospital Course Patient is a 67-year-old female with a past medical history of mitral valve prolapse, chronic back pain, hyperlipidemia, hypertension. She presented to [facility] ED via EMS after she was found face down unresponsive by her . She was given 2 mg IV Ativan by EMS for a witnessed seizure. She was last seen at her baseline at 5:30 this morning. According to the , the patient does not have any seizure disorder and she is not on any seizure meds at home. She had a similar episode a couple years ago and he attributed it to her multiple medications that she takes at home. She is on Tylenol #3 along with Lorazepam, Baclofen and Propranolol. She was found to have a laceration on chin which was bleeding. Her blood sugar was measured at 95. On arrival to the ED, she was hypertensive with a blood pressure of 196/120 and tachycardiac with a heart rate in the 120's. The patient was intubated with etomidate, succinylcholine and placed on full mechanical ventilation. Her laboratory data is significant for lactic acidosis with lactic acid level of 4.0, an elevated troponin at 0.97 with a total CK of 129. Her urine drug screen is negative for amphetamines, benzodiazepines, and opiates. A CT scan of the brain was performed in the ED which showed no acute intracranial abnormalities. Chronic opacification left maxillary sinus noted. She also had a CT maxillofacial which showed bilateral displaced mandible fractures and bilateral nasal fractures. A cervical spine CT showed multilevel degenerative changes without any compression fracture or subluxation. Chest x-ray, she also had a chest x-ray which showed minimal bilateral upper lobe densities. The patient was given 2 liters of crystalloids in the ED, tetanus shot and placed on Fentanyl and Versed for sedation. There is no history of any chest pain, shortness of breath or any constitutional symptoms. Also, no history of any GI symptoms per the patient's . 08/29 Patient became hypotensive last night started on Levophed 5 mics currently. MRI brain no acute findings, CT abd/pelvis showed mild colitis. On Heparin drip. Left IJ CVP was placed last night CXR post procedure showed 6 mm right apical PTX a repeat CXR from 4:30 showed reduction right apical PTX 4 mm( Right IJ was attempted first) 08/30 No events overnight. Sedated with Diprivan, Versed and intubated. Afebrile. Remains on Levophed. Afebrile. CXR last night mild basilar airspace disease,no PTX. 08/31 No events overnight. Sedated with Versed, Fentanyl and intubated. Afebrile. For cardiac cath today. Off Levophed. 09/01 Patient remains sedated and intubated. s/p transfusion 1u PRBC yesterday Hgb 9.5 this morning. 09/02: LHC yesterday without obstructive CAD. medical management recommended. hgb 8.8 from 9.5 continue to trend. Objective Vital Signs Date Time Temp Pulse Resp B/P (MAP) Pulse Ox O2 Delivery O2 Flow Rate FiO2 09/02/17 15:20 100 30 09/02/17 06:00 58 09/02/17 04:00 99.3 16 145/70 (95) Intake and Output 09/02/17 09/02/17 09/03/17 08:00 16:00 00:00 Intake Total 1027 ml Output Total 350 ml Balance 677 ml Result Diagram: 09/02/17 0500 09/02/17 0500 Imaging Last Impressions Chest X-Ray 08/29/171999 Signed Impressions: Service Date/Time: Tuesday, August 29, 2017 19:24 - CONCLUSION: 1. Mild basilar airspace disease. Support apparatus in satisfactory position. Lloyd Han MD Brain MRI 08/28/17 1554 Signed Impressions: Service Date/Time: Monday, August 28, 2017 19:18 - CONCLUSION: 1. No focal mass or shift. No recent infarct. Chronic white matter ischemic changes involving periventricular region and brainstem especially jak. Lloyd Han MD Head CT 08/28/17 0751 Signed Impressions: Service Date/Time: Monday, August 28, 2017 08:20 - CONCLUSION: 1. Nonspecific white matter changes. 2. No acute intracranial abnormality. 3. Chronic opacification left maxillary sinus Armand Foreman MD Maxillofacial CT 08/28/17 0000 Signed Impressions: Service Date/Time: Monday, August 28, 2017 08:20 - CONCLUSION: 1. Bilateral displaced mandible fractures more extensive involving the condyles bilaterally. 2. Sensitive soft tissue swelling. 3. Bilateral nasal fractures. Armand Foreman MD Cervical Spine CT 08/28/17 0000 Signed Impressions: Service Date/Time: Monday, August 28, 2017 08:20 - CONCLUSION: 1. Multilevel degenerative changes. 2. No compression fracture or subluxation. 3. Ground glass density right upper lobe and to lesser degree left upper lobe could be contusion or infectious/inflammatory process. Armand Foreman MD Carotid Artery Ultrasound 08/28/17 0000 Signed Impressions: Service Date/Time: Monday, August 28, 2017 13:23 - CONCLUSION: 1. Mild bilateral carotid plaque. 2. No evidence of hemodynamically significant stenosis. 3. Antegrade flow in both vertebral arteries. Jason Martinez MD Abdomen/Pelvis CT 08/28/17 0000 Signed Impressions: Service Date/Time: Monday, August 28, 2017 19:02 - CONCLUSION: 1. Mild mural thickening of the rectosigmoid most characteristic of a mild colitis distally. No obstruction, free fluid or free air. 2. Small bilateral pleural effusions. 3. 1.6 cm left ovarian cyst. 4. Catheter in decompressed bladder. Lloyd Han MD Objective Remarks GENERAL: Patient is 67 yo intubated and sedated SKIN: Warm and dry. HEAD: Normocephalic. EYES: No scleral icterus. No injection or drainage. NECK: Supple, trachea midline. No JVD or lymphadenopathy. CARDIOVASCULAR: Regular rate and rhythm without murmurs, gallops, or rubs. RESPIRATORY: Breath sounds equal bilaterally. No accessory muscle use. GASTROINTESTINAL: Abdomen soft, non-tender, nondistended. MUSCULOSKELETAL: No cyanosis, or edema. Neuro: Sedated A/P Assessment and Plan 1. Altered mental status 2. S/p syncopal episode. 3. Status post seizure episode. 4. Lactic acidemia likely secondary to seizures. 5. VDRF 6. Bilateral mandible and nasal fractures. 7. Pulmonary contusion 8. Elevated troponin 9. Hypertension 10. Hyperlipidemia 11. Elevated AST Plan Neuro: On Versed/Fentanyl drips for sedation. Monitor neuro status. Daily sedation vacation. CT scan of the brain in the ED negative for acute intracranial findings. MRI brain: No acute findings. Chronic white matter changes EEG: Generalized slowing, no ictal activity. Carotid Doppler US: No sig hemodynamic stenosis. Neuro is following- Dr. Moulton. Continue Keppra per Neuro. On Ativan PRN seizures Pulm: Continue with vent support and maintain sats above 92%. Bronchodilators, ICU vent bundle. SBT daily as susan. CV: Off Levophed keep MAP>65 mmHg. HC 50mg IV Q12 Echo showed EF 30-35%, lactic acid cleared Continue with ASA, Heparin drip. Cards is following- Dr. Han. S/p cardiac cath today by Dr. Han- normal coronaries, elevated LVDP, ? takotsubo syndrome s/p transfusion 1unit PRBC yesterday. No signs of bleeding. : Monitor renal function I's and O's and electrolyte replacement per protocol. Will need K, Phos replacement today GI: On Pepcid 10 mg q. 12-hour for GI prophylaxis. Continue tube feeds- Glucerna 1.5@45ml/hr ID: d/c abx. Follow up sputum, urine culture.- NGTD 08/28 BC 09/21 bottles: GPC ( likely contaminant) s/p Vanco x1 dose 08/30 08/30 BC: NGTD Heme: Monitor CBC, coags- on Heparin drip Guaiac stool or heme. s/p transfusion 1unit PRBC yesterday. No signs of bleeding. Endo: SSI with Accu-Chek's to maintain euglycemia. [place] Doll[place] [facility] [place] plan for ORIF mandible fracture on Tuesday 09/04 GI prophylaxis with Pepcid and DVT prophylaxis with SCD's. on Heparin drip Lines: Left IJ CVP placed 08/29 Bruce Haynes MD Sep 02, 2017 17:51
[2017-09-02] MEDS: SODIUM CHLORIDE 0.9% FLUSH 10 ML FLUSH IV FLUSH PRN (21:05)
[2017-09-02] MEDS: fentaNYL 2,500 MCG/NS 250 ML IV PRN (23:43)
[2017-09-03] VITALS (39 sets, daily range): BP systolic 147–182; BP diastolic 68–114; PULSE 60–110; RESP 0–29; TEMP 97.4–98.5; O2SAT 98–100
[2017-09-03] MEDS: CHLORHEXIDINE GLUCONATE 2 % 1 PACK (2 CLOTHS) TOP SCH (02:14)
[2017-09-03] MEDS: RESP: ALBUTEROL 2.5 MG/IPRATROPIUM 0.5 MG NEB (SCH) INH ×7 (03:09→19:34)
[2017-09-03] MEDS: INSULIN NovoLIN REGULAR SUPPLEMENTAL SCALE SQ SCH ×3 (03:49→08:00)
[2017-09-03 03:59] LABS: HEMATOCRIT 24.9 % (35.0-46.0); HEMOGLOBIN 8.2 GM/DL (11.6-15.3); MEAN CELL VOLUME 98.7 FL (80.0-100.0); MEAN CORPUSCULAR HEMOGLOBIN 32.7 PG (27.0-34.0); MEAN CORPUSCULAR HGB CONC 33.1 % (32.0-36.0); MEAN PLATELET VOLUME 9.6 FL (7.0-11.0); PLATELET COUNT 124 TH/MM3 (150-450); RED BLOOD COUNT 2.52 MIL/MM3 (4.00-5.30); RED CELL DISTRIBUTION WIDTH 21.3 % (11.6-17.2); WHITE BLOOD COUNT 6.9 TH/MM3 (4.0-11.0)
[2017-09-03 04:25] LABS: BICARBONATE 26.5 MEQ/L (21.0-32.0); CALCIUM 7.6 MG/DL (8.5-10.1); CREATININE 0.44 MG/DL (0.50-1.00)
[2017-09-03] MEDS: levETIRAcetam INJ 500 MG in SODIUM CHLORIDE 0.9% INJ 100 ML IV SCH ×3 (05:48→18:11)
[2017-09-03] MEDS: ASPIRIN 81 MG CHEW TAB CHEW SCH (08:54)
[2017-09-03] MEDS: DOCUSATE SODIUM 50 MG/SENNA 8.6 MG TAB PO SCH ×2 (08:54→20:52)
[2017-09-03] MEDS: FAMOTIDINE 20 MG/2 ML VIAL IV PUSH SCH (08:54)
[2017-09-03] MEDS: POTASSIUM CHLOR 40 MEQ PREMIX 100 ML IV PRN (11:10)
--- NOTE | 2017-09-03 12:04 | HHI.CCPN ---
Subjective Remarks/Hospital Course Patient is a 67-year-old female with a past medical history of mitral valve prolapse, chronic back pain, hyperlipidemia, hypertension. She presented to [facility] ED via EMS after she was found face down unresponsive by her . She was given 2 mg IV Ativan by EMS for a witnessed seizure. She was last seen at her baseline at 5:30 this morning. According to the , the patient does not have any seizure disorder and she is not on any seizure meds at home. She had a similar episode a couple years ago and he attributed it to her multiple medications that she takes at home. She is on Tylenol #3 along with Lorazepam, Baclofen and Propranolol. She was found to have a laceration on chin which was bleeding. Her blood sugar was measured at 95. On arrival to the ED, she was hypertensive with a blood pressure of 196/120 and tachycardiac with a heart rate in the 120's. The patient was intubated with etomidate, succinylcholine and placed on full mechanical ventilation. Her laboratory data is significant for lactic acidosis with lactic acid level of 4.0, an elevated troponin at 0.97 with a total CK of 129. Her urine drug screen is negative for amphetamines, benzodiazepines, and opiates. A CT scan of the brain was performed in the ED which showed no acute intracranial abnormalities. Chronic opacification left maxillary sinus noted. She also had a CT maxillofacial which showed bilateral displaced mandible fractures and bilateral nasal fractures. A cervical spine CT showed multilevel degenerative changes without any compression fracture or subluxation. Chest x-ray, she also had a chest x-ray which showed minimal bilateral upper lobe densities. The patient was given 2 liters of crystalloids in the ED, tetanus shot and placed on Fentanyl and Versed for sedation. There is no history of any chest pain, shortness of breath or any constitutional symptoms. Also, no history of any GI symptoms per the patient's . 08/29 Patient became hypotensive last night started on Levophed 5 mics currently. MRI brain no acute findings, CT abd/pelvis showed mild colitis. On Heparin drip. Left IJ CVP was placed last night CXR post procedure showed 6 mm right apical PTX a repeat CXR from 4:30 showed reduction right apical PTX 4 mm( Right IJ was attempted first) 08/30 No events overnight. Sedated with Diprivan, Versed and intubated. Afebrile. Remains on Levophed. Afebrile. CXR last night mild basilar airspace disease,no PTX. 08/31 No events overnight. Sedated with Versed, Fentanyl and intubated. Afebrile. For cardiac cath today. Off Levophed. 09/01 Patient remains sedated and intubated. s/p transfusion 1u PRBC yesterday Hgb 9.5 this morning. 09/02: LHC yesterday without obstructive CAD. medical management recommended. hgb 8.8 from 9.5 continue to trend. 09/03: doing well this morning. awake and alert. remains intubated. on PSV. at this point, risk/benefit would be in favor of remaining intubated for mandibular fixation tomorrow, however, will attempt to ambulate patient to decrease immobility and debilitation. Objective Vital Signs Date Time Temp Pulse Resp B/P (MAP) Pulse Ox O2 Delivery O2 Flow Rate FiO2 09/03/17 10:40 30 09/03/17 10:38 100 09/03/17 06:00 60 09/03/17 04:00 97.8 0 174/79 (110) Intake and Output 09/03/17 09/03/17 09/04/17 08:00 16:00 00:00 Intake Total 1038.3 ml Output Total 400 ml Balance 638.3 ml Result Diagram: 09/03/17 0330 09/03/17 0330 Imaging Last Impressions Chest X-Ray 08/29/171999 Signed Impressions: Service Date/Time: Tuesday, August 29, 2017 19:24 - CONCLUSION: 1. Mild basilar airspace disease. Support apparatus in satisfactory position. Lloyd Han MD Brain MRI 08/28/17 [id number] Signed Impressions: Service Date/Time: Monday, August 28, 2017 19:18 - CONCLUSION: 1. No focal mass or shift. No recent infarct. Chronic white matter ischemic changes involving periventricular region and brainstem especially jak. Lloyd Han MD Head CT 08/28/17 [id number] Signed Impressions: Service Date/Time: Monday, August 28, 2017 08:20 - CONCLUSION: 1. Nonspecific white matter changes. 2. No acute intracranial abnormality. 3. Chronic opacification left maxillary sinus Armand Foreman MD Maxillofacial CT 08/28/17 0000 Signed Impressions: Service Date/Time: Monday, August 28, 2017 08:20 - CONCLUSION: 1. Bilateral displaced mandible fractures more extensive involving the condyles bilaterally. 2. Sensitive soft tissue swelling. 3. Bilateral nasal fractures. Armand Foreman MD Cervical Spine CT 08/28/17 0000 Signed Impressions: Service Date/Time: Monday, August 28, 2017 08:20 - CONCLUSION: 1. Multilevel degenerative changes. 2. No compression fracture or subluxation. 3. Ground glass density right upper lobe and to lesser degree left upper lobe could be contusion or infectious/inflammatory process. Armand Foreman MD Carotid Artery Ultrasound 08/28/17 0000 Signed Impressions: Service Date/Time: Monday, August 28, 2017 13:23 - CONCLUSION: 1. Mild bilateral carotid plaque. 2. No evidence of hemodynamically significant stenosis. 3. Antegrade flow in both vertebral arteries. Jason Martinez MD Abdomen/Pelvis CT 08/28/17 0000 Signed Impressions: Service Date/Time: Monday, August 28, 2017 19:02 - CONCLUSION: 1. Mild mural thickening of the rectosigmoid most characteristic of a mild colitis distally. No obstruction, free fluid or free air. 2. Small bilateral pleural effusions. 3. 1.6 cm left ovarian cyst. 4. Catheter in decompressed bladder. Lloyd Han MD Objective Remarks GENERAL: Patient is 67 yo intubated and sedated SKIN: Warm and dry. HEAD: Normocephalic. EYES: No scleral icterus. No injection or drainage. NECK: trachea midline. No JVD CARDIOVASCULAR: Regular rate and rhythm RESPIRATORY: PSV. 40% fio2. equal chest rise. GASTROINTESTINAL: Abdomen soft, non-tender, nondistended. MUSCULOSKELETAL: No cyanosis, or edema. Neuro: RASS 0. CAM -. follows commands. A/P Assessment and Plan Assessment: 67yF with seizures, resolving hypoxic respiratory failure, NSTEMI with non-occlusive coronary artery disease, and mandible fracture. keep intubated for OR in the morning. plan to wean to extubate after this. ambulate to prevent deconditioning. 1. Altered mental status - resolved. 2. S/p syncopal episode. - resolved. 3. Status post seizure episode. - resolved. 4. Lactic acidemia likely secondary to seizures. - resolved. 5. acute hypoxic respiratory failure -resolving. 6. Bilateral mandible and nasal fractures. - need surgical repair. 7. Pulmonary contusion - improved. 8. Elevated troponin- downtrending. 9. Hypertension 10. Hyperlipidemia 11. Elevated AST- improved. 12. non-obstructive coronary disease 13. acute protein calorie malnutrition- mild Plan Neuro: On Versed/Fentanyl drips for sedation. Monitor neuro status. Daily sedation vacation. CT scan of the brain in the ED negative for acute intracranial findings. MRI brain: No acute findings. Chronic white matter changes EEG: Generalized slowing, no ictal activity. Carotid Doppler US: No sig hemodynamic stenosis. Neuro is following- Dr. Moulton. Continue Keppra per Neuro. On Ativan PRN seizures Pulm: Continue with vent support and maintain sats above 92%. Bronchodilators, ICU vent bundle. SBT daily as susan. ambulate today if possible to prevent deconditioning. PT consult. CV: Echo showed EF 30-35%, lactic acid cleared Continue with ASA, Cards is following- Dr. Han. S/p cardiac cath by Dr. Han- normal coronaries, elevated LVDP, ? takotsubo syndrome : Monitor renal function I's and O's and electrolyte replacement per protocol. GI: On Pepcid q. 12-hour for GI prophylaxis. Continue tube feeds- Glucerna 1.5@45ml/hr ID: d/c abx. Follow up sputum, urine culture.- NGTD 08/28 BC 09/21 bottles: GPC ( likely contaminant) s/p Vanco x1 dose 08/30 08/30 BC: NGTD Heme: Monitor CBC, coags Guaiac stool or heme. Endo: SSI with Accu-Chek's to maintain euglycemia. Per Dr. Doll( [facility] [place] plan for ORIF mandible fracture on Tuesday 09/04 GI prophylaxis with Pepcid and DVT prophylaxis with SCD's. SQH Lines: Left IJ CVP placed 08/29, d/c today. Bruce Haynes MD Sep 03, 2017 12:04
[2017-09-03] MEDS: HEPARIN SODIUM - SQ 10,000 UNITS/ML VIAL SQ SCH ×2 (14:04→22:10)
[2017-09-03] MEDS: MIDAZOLAM 100 MG/NS 100 ML DRIP Premix IV PRN (16:08)
--- NOTE | 2017-09-03 16:18 | HHI.PR ---
Subjective Remarks pt seen and examined intubated, vented NSTEMI Cath. done at bedside, pt follows commands and communicated using letter board Objective Vital Signs Date Time Temp Pulse Resp B/P (MAP) Pulse Ox O2 Delivery O2 Flow Rate FiO2 09/03/17 15:30 100 30 09/03/17 12:52 100 30 09/03/17 10:40 30 09/03/17 10:38 100 30 09/03/17 07:28 100 30 09/03/17 06:00 60 09/03/17 04:09 100 30 09/03/17 04:00 97.8 60 0 174/79 (110) 100 09/03/17 04:00 30 09/03/17 04:00 60 09/03/17 02:00 60 09/03/17 01:04 100 30 09/03/17 00:00 98.5 61 6 161/75 (103) 100 09/03/17 00:00 30 09/03/17 00:00 61 09/02/17 22:17 100 30 09/02/17 22:00 69 09/02/17 20:00 98.1 60 0 162/77 (105) 100 Arterial Line 09/02/17 20:00 30 09/02/17 20:00 60 09/02/17 19:35 100 30 09/02/17 19:30 62 2 154/73 (100) 100 09/02/17 19:00 65 3 165/74 (104) 100 09/02/17 18:30 68 6 147/77 (100) 100 09/02/17 18:00 64 0 165/77 (106) 100 09/02/17 17:38 70 0 167/77 (107) 100 09/02/17 17:00 64 0 100 I/O 09/02/17 09/02/17 09/02/17 09/03/17 09/03/17 09/03/17 07:00 15:00 23:00 07:00 15:00 23:00 Intake Total 1232 ml 670 ml 1111.1 ml Output Total 350 ml 350 ml 400 ml Balance 882 ml 320 ml 711.1 ml Intake Oral 0 ml IV Total 610 ml 100 ml 408.1 ml Tube Feeding 562 ml 470 ml 583 ml Tube Irrigant 100 ml 120 ml Other 60 ml Output Urine Total 350 ml 350 ml 400 ml # Bowel Movements 0 0 Result Diagram: 09/03/1732909/03/17329 Objective Remarks mild bruising/edema right mandible no neck edema intraorally tissues pink/well perfused loose dentition/fractures appear stable at this point no active heme noted Right V3 paraesthesia - CATH--> 1. Nonobstructive coronary artery disease. 2. Elevated LVEDP. 3. Preserved LV systolic function Assessment and Plan Assessment and Plan s/p fall, seizures, NSTEMI b/l condyle fx's / right mandible fracture loose dentition, right V3 paraesthesia plan for ORIF mandible fracture and extraction of loose teeth when cardiac/ medically stable plan for surgery tomorrow benefits/risks reviewed - asked if wisdom teeth could be extracted, pt has hx of pain informed pt/ will evaluate in OR- can be done as an outpatient ok to extubate from OMS standpoint. Jose Doll DMD Sep 03, 2017 16:18
[2017-09-03] MEDS: fentaNYL 2,500 MCG/NS 250 ML IV PRN (18:12)
[2017-09-03] MEDS: FAMOTIDINE 40 MG/5 ML LIQ 50 ML BTL NG SCH (20:52)
[2017-09-03] MEDS: ACETAMINOPHEN 325MG/HYDROcodone 7.5MG/15ML UDC PO PRN (22:41)
[2017-09-04] VITALS (19 sets, daily range): BP systolic 123–191; BP diastolic 68–85; PULSE 75–92; RESP 10–16; TEMP 97.9–99; O2SAT 97–100
[2017-09-04] MEDS: levETIRAcetam INJ 500 MG in SODIUM CHLORIDE 0.9% INJ 100 ML IV SCH ×5 (00:42→23:41)
[2017-09-04] MEDS: CHLORHEXIDINE GLUCONATE 2 % 1 PACK (2 CLOTHS) TOP SCH ×2 (01:24→22:18)
[2017-09-04] MEDS: RESP: ALBUTEROL 2.5 MG/IPRATROPIUM 0.5 MG NEB (SCH) INH ×8 (03:36→22:00)
[2017-09-04 03:47] LABS: HEMATOCRIT 24.4 % (35.0-46.0); HEMOGLOBIN 8.3 GM/DL (11.6-15.3); MEAN PLATELET VOLUME 9.6 FL (7.0-11.0); PLATELET COUNT 146 TH/MM3 (150-450); RED BLOOD COUNT 2.44 MIL/MM3 (4.00-5.30); RED CELL DISTRIBUTION WIDTH 20.3 % (11.6-17.2); WHITE BLOOD COUNT 7.7 TH/MM3 (4.0-11.0)
[2017-09-04 04:00] LABS: BICARBONATE 26.9 MEQ/L (21.0-32.0); CALCIUM 7.5 MG/DL (8.5-10.1); CREATININE 0.25 MG/DL (0.50-1.00)
[2017-09-04] MEDS: HEPARIN SODIUM - SQ 10,000 UNITS/ML VIAL SQ SCH ×2 (05:53→12:54)
[2017-09-04] MEDS: fentaNYL 2,500 MCG/NS 250 ML IV PRN ×2 (07:30→20:30)
[2017-09-04] MEDS: FAMOTIDINE 40 MG/5 ML LIQ 50 ML BTL NG SCH ×2 (08:30→20:31)
[2017-09-04] MEDS: DOCUSATE SODIUM 50 MG/SENNA 8.6 MG TAB PO SCH ×2 (08:30→20:31)
[2017-09-04] MEDS: ASPIRIN 81 MG CHEW TAB CHEW SCH (08:30)
[2017-09-04] MEDS ORDERED: PHENYLEPH/NS 1000 MCG/10 ML SYR IV ONE (12:00)
[2017-09-04] MEDS ORDERED: ceFAZolin INJ 1,000 MG VIAL IV ONE ×2 (12:00→17:10)
[2017-09-04] MEDS ORDERED: LIDOCAINE HCL 1% PF 5 ML SYRINGE OTHER ONE (12:00)
[2017-09-04] MEDS ORDERED: ROCURONIUM INJ 50 MG/5 ML SYRINGE IV PUSH ONE (12:00)
[2017-09-04] MEDS ORDERED: DEXAMETHASONE SOD PHOS 4 MG/ML VIAL IV ONE (12:00)
[2017-09-04] MEDS ORDERED: LABETALOL HCL 100 MG/20 ML VIAL IV ONE (12:00)
[2017-09-04] MEDS ORDERED: PROPOFOL 200 MG/20 ML AMP IV ONE (12:00)
[2017-09-04] MEDS ORDERED: ONDANSETRON HCL 4 MG/2 ML VIAL IV ONE (12:00)
--- NOTE | 2017-09-04 13:20 | HHI.CCPN ---
Subjective Remarks/Hospital Course Patient is a 67-year-old female with a past medical history of mitral valve prolapse, chronic back pain, hyperlipidemia, hypertension. She presented to [facility] ED via EMS after she was found face down unresponsive by her . She was given 2 mg IV Ativan by EMS for a witnessed seizure. She was last seen at her baseline at 5:30 this morning. According to the , the patient does not have any seizure disorder and she is not on any seizure meds at home. She had a similar episode a couple years ago and he attributed it to her multiple medications that she takes at home. She is on Tylenol #3 along with Lorazepam, Baclofen and Propranolol. She was found to have a laceration on chin which was bleeding. Her blood sugar was measured at 95. On arrival to the ED, she was hypertensive with a blood pressure of 196/120 and tachycardiac with a heart rate in the 120's. The patient was intubated with etomidate, succinylcholine and placed on full mechanical ventilation. Her laboratory data is significant for lactic acidosis with lactic acid level of 4.0, an elevated troponin at 0.97 with a total CK of 129. Her urine drug screen is negative for amphetamines, benzodiazepines, and opiates. A CT scan of the brain was performed in the ED which showed no acute intracranial abnormalities. Chronic opacification left maxillary sinus noted. She also had a CT maxillofacial which showed bilateral displaced mandible fractures and bilateral nasal fractures. A cervical spine CT showed multilevel degenerative changes without any compression fracture or subluxation. Chest x-ray, she also had a chest x-ray which showed minimal bilateral upper lobe densities. The patient was given 2 liters of crystalloids in the ED, tetanus shot and placed on Fentanyl and Versed for sedation. There is no history of any chest pain, shortness of breath or any constitutional symptoms. Also, no history of any GI symptoms per the patient's . 08/29 Patient became hypotensive last night started on Levophed 5 mics currently. MRI brain no acute findings, CT abd/pelvis showed mild colitis. On Heparin drip. Left IJ CVP was placed last night CXR post procedure showed 6 mm right apical PTX a repeat CXR from 4:30 showed reduction right apical PTX 4 mm( Right IJ was attempted first) 08/30 No events overnight. Sedated with Diprivan, Versed and intubated. Afebrile. Remains on Levophed. Afebrile. CXR last night mild basilar airspace disease,no PTX. 08/31 No events overnight. Sedated with Versed, Fentanyl and intubated. Afebrile. For cardiac cath today. Off Levophed. 09/01 Patient remains sedated and intubated. s/p transfusion 1u PRBC yesterday Hgb 9.5 this morning. 09/02: LHC yesterday without obstructive CAD. medical management recommended. hgb 8.8 from 9.5 continue to trend. 09/03: doing well this morning. awake and alert. remains intubated. on PSV. at this point, risk/benefit would be in favor of remaining intubated for mandibular fixation tomorrow, however, will attempt to ambulate patient to decrease immobility and debilitation. 09/04: still awake and alert. plan for fixation in OR tonight. no contra- indication to extubation after fixation. will give small dose of lasix to help with edema over last few days. intravascularly replete on physical exam. Objective Vital Signs Date Time Temp Pulse Resp B/P (MAP) Pulse Ox O2 Delivery O2 Flow Rate FiO2 09/04/17 12:00 30 09/04/17 12:00 98.0 85 16 164/77 (106) 100 Intake and Output 09/04/17 09/04/17 09/04/17 07:59 15:59 23:59 Intake Total 765.9 ml Output Total 800 ml Balance -34.1 ml Result Diagram: 09/04/17 0325 09/04/17 0325 Imaging Last Impressions Chest X-Ray 08/29/171999 Signed Impressions: Service Date/Time: Tuesday, August 29, 2017 19:24 - CONCLUSION: 1. Mild basilar airspace disease. Support apparatus in satisfactory position. Lloyd Han MD Brain MRI 08/28/17 [id number] Signed Impressions: Service Date/Time: Monday, August 28, 2017 19:18 - CONCLUSION: 1. No focal mass or shift. No recent infarct. Chronic white matter ischemic changes involving periventricular region and brainstem especially jak. Lloyd Han MD Head CT 08/28/17 1679 Signed Impressions: Service Date/Time: Monday, August 28, 2017 08:20 - CONCLUSION: 1. Nonspecific white matter changes. 2. No acute intracranial abnormality. 3. Chronic opacification left maxillary sinus Armand Foreman MD Maxillofacial CT 08/28/17 0000 Signed Impressions: Service Date/Time: Monday, August 28, 2017 08:20 - CONCLUSION: 1. Bilateral displaced mandible fractures more extensive involving the condyles bilaterally. 2. Sensitive soft tissue swelling. 3. Bilateral nasal fractures. Armand Foreman MD Cervical Spine CT 08/28/17 0000 Signed Impressions: Service Date/Time: Monday, August 28, 2017 08:20 - CONCLUSION: 1. Multilevel degenerative changes. 2. No compression fracture or subluxation. 3. Ground glass density right upper lobe and to lesser degree left upper lobe could be contusion or infectious/inflammatory process. Armand Foreman MD Carotid Artery Ultrasound 08/28/17 0000 Signed Impressions: Service Date/Time: Monday, August 28, 2017 13:23 - CONCLUSION: 1. Mild bilateral carotid plaque. 2. No evidence of hemodynamically significant stenosis. 3. Antegrade flow in both vertebral arteries. Jason Martinez MD Abdomen/Pelvis CT 08/28/17 0000 Signed Impressions: Service Date/Time: Monday, August 28, 2017 19:02 - CONCLUSION: 1. Mild mural thickening of the rectosigmoid most characteristic of a mild colitis distally. No obstruction, free fluid or free air. 2. Small bilateral pleural effusions. 3. 1.6 cm left ovarian cyst. 4. Catheter in decompressed bladder. Lloyd Han MD Objective Remarks GENERAL: Patient is 67 yo intubated and sedated SKIN: Warm and dry. HEAD: Normocephalic. EYES: No scleral icterus. No injection or drainage. NECK: trachea midline. No JVD CARDIOVASCULAR: Regular rate and rhythm RESPIRATORY: PSV. 40% fio2. equal chest rise. GASTROINTESTINAL: Abdomen soft, non-tender, nondistended. MUSCULOSKELETAL: No cyanosis, or edema. Neuro: RASS 0. CAM -. follows commands. A/P Assessment and Plan Assessment: 67yF with seizures, resolved hypoxic respiratory failure, NSTEMI with non-occlusive coronary artery disease, and mandible fracture. keep intubated for OR today. plan to wean to extubate after this. 1. Altered mental status - resolved. 2. S/p syncopal episode. - resolved. 3. Status post seizure episode. - resolved. 4. Lactic acidemia likely secondary to seizures. - resolved. 5. acute hypoxic respiratory failure -resolved 6. Bilateral mandible and nasal fractures. - need surgical repair. 7. Pulmonary contusion - improved. 8. Elevated troponin- downtrending. 9. Hypertension 10. Hyperlipidemia 11. Elevated AST- improved. 12. non-obstructive coronary disease 13. acute protein calorie malnutrition- mild Plan Neuro: On Versed/Fentanyl drips for sedation. Monitor neuro status. Daily sedation vacation. CT scan of the brain in the ED negative for acute intracranial findings. MRI brain: No acute findings. Chronic white matter changes EEG: Generalized slowing, no ictal activity. Carotid Doppler US: No sig hemodynamic stenosis. Neuro is following- Dr. Moulton. Continue Keppra per Neuro. On Ativan PRN seizures Pulm: Continue with vent support and maintain sats above 92%. Bronchodilators, ICU vent bundle. SBT daily as susan. ambulate today if possible to prevent deconditioning. PT consult. CV: Echo showed EF 30-35%, lactic acid cleared Continue with ASA, Cards is following- Dr. Han. S/p cardiac cath by Dr. Han- normal coronaries, elevated LVDP, ? takotsubo syndrome : Monitor renal function I's and O's and electrolyte replacement per protocol. lasix 20mg iv x 1. GI: On Pepcid q. 12-hour for GI prophylaxis. Continue tube feeds- Glucerna 1.5@45ml/hr ID: d/c abx. Follow up sputum, urine culture.- NGTD 08/28 BC 09/21 bottles: GPC ( likely contaminant) s/p Vanco x1 dose 08/30 08/30 BC: NGTD Heme: Monitor CBC, coags Endo: SSI with Accu-Chek's to maintain euglycemia. Per Dr. Doll( [facility] [place]) plan for ORIF mandible fracture on Tuesday 09/04 GI prophylaxis with Pepcid and DVT prophylaxis with SCD's. Bruce Garza MD Sep 04, 2017 13:20
[2017-09-04] MEDS ORDERED: FUROSEMIDE 20 MG/2 ML VIAL IV PUSH ONE (13:30)
[2017-09-04] MEDS ORDERED: LIDOCAINE 1%/EPINEPHrine 1:100,000 SOLN 50 ML VIAL ONE (16:53)
[2017-09-04] MEDS ORDERED: CHLORHEXIDINE GLUCONATE 0.12% 15 ML CUP ONE (17:24)
--- NOTE | 2017-09-04 18:00 | HHI.PR ---
Immediate Post Op Note Procedure Date: Sep 04, 2017 Pre Op Diagnosis: right mandible fracture(angle/body region) Post Op Diagnosis: mikal Surgeon: Dr. Garcia Supervisor Remelt(s): Dr. Doll Procedure: ORIF right mandible fracture ( angle/body region) extraction of decayed teeth/roots x7 Complications: none Estimated blood loss: minimal Anesthesia: General, Local (2:lidocaine with 1:200,000 epi x 8cc) Drains: None Patient to: PACU Date/Time of Procedure: SEE SURGICAL CARE RECORD Jose Doll DMD Sep 04, 2017 18:00
[2017-09-04] MEDS: ACETAMINOPHEN 325MG/HYDROcodone 7.5MG/15ML UDC PO PRN (20:31)
[2017-09-05] VITALS (25 sets, daily range): BP systolic 132–194; BP diastolic 64–87; PULSE 80–103; RESP 10–19; TEMP 97.5–98.9; O2SAT 98–100
[2017-09-05] MEDS: RESP: ALBUTEROL 2.5 MG/IPRATROPIUM 0.5 MG NEB (SCH) INH ×6 (03:29→19:54)
[2017-09-05] MEDS ORDERED: HEPARIN SODIUM - SQ 10,000 UNITS/ML VIAL ONE (05:34)
[2017-09-05] MEDS: HEPARIN SODIUM - SQ 10,000 UNITS/ML VIAL SQ SCH ×3 (06:02→21:54)
[2017-09-05] MEDS: fentaNYL 2,500 MCG/NS 250 ML IV PRN (06:02)
[2017-09-05] MEDS: levETIRAcetam INJ 500 MG in SODIUM CHLORIDE 0.9% INJ 100 ML IV SCH (06:03)
[2017-09-05] MEDS: ACETAMINOPHEN 325MG/HYDROcodone 7.5MG/15ML UDC PO PRN ×2 (06:03→13:09)
--- NOTE | 2017-09-05 06:57 | HHI.PR ---
Subjective Remarks POD 1 s/p ORIF right mandible fractures and extraction of loose, decayed teeth/ roots/ x7 pt seen and examined intubated, vented, AAO, NAD follows commands nurse at bedsidem heparin started now Objective Vital Signs Date Time Temp Pulse Resp B/P (MAP) Pulse Ox O2 Delivery O2 Flow Rate FiO2 09/05/17 06:00 92 09/05/17 04:00 98.9 85 17 162/72 (102) 99 09/05/17 04:00 85 09/05/17 04:00 30 09/05/17 03:31 100 30 09/05/17 02:00 82 09/05/17 00:13 98 30 09/05/17 00:00 30 09/05/17 00:00 98.7 81 16 132/64 (86) 99 09/05/17 00:00 81 09/04/17 22:00 91 09/04/17 20:00 82 09/04/17 20:00 99.0 82 10 183/85 (117) 100 09/04/17 20:00 30 09/04/17 19:43 100 30 09/04/17 18:00 88 09/04/17 16:30 100 100 09/04/17 16:00 98.7 83 16 169/78 (108) 100 09/04/17 16:00 83 09/04/17 16:00 30 09/04/17 15:13 100 30 09/04/17 14:00 78 09/04/17 12:00 30 09/04/17 12:00 98.0 85 16 164/77 (106) 100 09/04/17 12:00 85 09/04/17 10:59 98 30 09/04/17 10:00 76 09/04/17 08:00 30 09/04/17 08:00 98.1 75 16 123/68 (86) 97 09/04/17 08:00 75 09/04/17 07:40 98 30 I/O 09/04/17 09/04/17 09/04/17 09/05/17 09/05/17 09/05/17 07:00 15:00 23:00 07:00 15:00 23:00 Intake Total 737.3 ml 28.6 ml 1460 ml 580 ml Output Total 800 ml 2720 ml 1000 ml Balance -62.7 ml 28.6 ml -1260 ml -420 ml Intake Oral 0 ml 0 ml IV Total 345.3 ml 28.6 ml 460 ml 460 ml Tube Feeding 292 ml Tube Irrigant 100 ml Other 1000 ml 120 ml Output Urine Total 800 ml 2700 ml 1000 ml Estimated Blood Loss 20 ml # Bowel Movements 1 2 2 Result Diagram: 09/04/17 0325 09/04/17324 Objective Remarks mild edema right mandible/face no neck edema intraorally tissues pink/well perfused all wound margins well approximated, sutures intact, hemostatic extraction sites hemostatic, tissues pink/well perfused mandible stable Assessment and Plan Assessment and Plan POD 1 s/p ORIF right mandible fractures and extraction of loose, decayed teeth/ roots/ x7 s/p fall, seizures, NSTEMI b/l condyle fx's / right mandible fracture loose dentition, right V3 paraesthesia ok to d/c to home from oms standpoint f/up next week [facility] [phone] no drinking with straw ok to extubate from OMS standpoint. Jose Doll DMD Sep 05, 2017 06:57
[2017-09-05] MEDS: DOCUSATE SODIUM 50 MG/SENNA 8.6 MG TAB PO SCH ×2 (09:00→20:29)
[2017-09-05] MEDS: ASPIRIN 81 MG CHEW TAB CHEW SCH (09:00)
[2017-09-05] MEDS: FAMOTIDINE 40 MG/5 ML LIQ 50 ML BTL NG SCH ×2 (09:00→20:29)
--- NOTE | 2017-09-05 12:42 | HHI.CCPN ---
Subjective Remarks/Hospital Course Patient is a 67-year-old female with a past medical history of mitral valve prolapse, chronic back pain, hyperlipidemia, hypertension. She presented to [facility] ED via EMS after she was found face down unresponsive by her . She was given 2 mg IV Ativan by EMS for a witnessed seizure. She was last seen at her baseline at 5:30 this morning. According to the , the patient does not have any seizure disorder and she is not on any seizure meds at home. She had a similar episode a couple years ago and he attributed it to her multiple medications that she takes at home. She is on Tylenol #3 along with Lorazepam, Baclofen and Propranolol. She was found to have a laceration on chin which was bleeding. Her blood sugar was measured at 95. On arrival to the ED, she was hypertensive with a blood pressure of 196/120 and tachycardiac with a heart rate in the 120's. The patient was intubated with etomidate, succinylcholine and placed on full mechanical ventilation. Her laboratory data is significant for lactic acidosis with lactic acid level of 4.0, an elevated troponin at 0.97 with a total CK of 129. Her urine drug screen is negative for amphetamines, benzodiazepines, and opiates. A CT scan of the brain was performed in the ED which showed no acute intracranial abnormalities. Chronic opacification left maxillary sinus noted. She also had a CT maxillofacial which showed bilateral displaced mandible fractures and bilateral nasal fractures. A cervical spine CT showed multilevel degenerative changes without any compression fracture or subluxation. Chest x-ray, she also had a chest x-ray which showed minimal bilateral upper lobe densities. The patient was given 2 liters of crystalloids in the ED, tetanus shot and placed on Fentanyl and Versed for sedation. There is no history of any chest pain, shortness of breath or any constitutional symptoms. Also, no history of any GI symptoms per the patient's . 08/29 Patient became hypotensive last night started on Levophed 5 mics currently. MRI brain no acute findings, CT abd/pelvis showed mild colitis. On Heparin drip. Left IJ CVP was placed last night CXR post procedure showed 6 mm right apical PTX a repeat CXR from 4:30 showed reduction right apical PTX 4 mm( Right IJ was attempted first) 08/30 No events overnight. Sedated with Diprivan, Versed and intubated. Afebrile. Remains on Levophed. Afebrile. CXR last night mild basilar airspace disease,no PTX. 08/31 No events overnight. Sedated with Versed, Fentanyl and intubated. Afebrile. For cardiac cath today. Off Levophed. 09/01 Patient remains sedated and intubated. s/p transfusion 1u PRBC yesterday Hgb 9.5 this morning. 09/02: LHC yesterday without obstructive CAD. medical management recommended. hgb 8.8 from 9.5 continue to trend. 09/03: doing well this morning. awake and alert. remains intubated. on PSV. at this point, risk/benefit would be in favor of remaining intubated for mandibular fixation tomorrow, however, will attempt to ambulate patient to decrease immobility and debilitation. 09/04: still awake and alert. plan for fixation in OR tonight. no contra- indication to extubation after fixation. will give small dose of lasix to help with edema over last few days. intravascularly replete on physical exam. 09/05: mandible fixation overnight. this morning, passed SBT and extubated on pathway. denies complaints. Objective Vital Signs Date Time Temp Pulse Resp B/P (MAP) Pulse Ox O2 Delivery O2 Flow Rate FiO2 09/05/17 11:00 93 19 171/77 (108) 98 09/05/17 09:33 Nasal Cannula 2.00 09/05/17 08:00 30 09/05/17 04:00 98.9 Intake and Output 09/05/17 09/05/17 09/06/17 08:00 16:00 00:00 Intake Total 580 ml Output Total 1000 ml Balance -420 ml Result Diagram: 09/04/17 0325 09/04/17 0325 Imaging Last Impressions Chest X-Ray 08/29/171999 Signed Impressions: Service Date/Time: Tuesday, August 29, 2017 19:24 - CONCLUSION: 1. Mild basilar airspace disease. Support apparatus in satisfactory position. Lloyd Han MD Brain MRI 08/28/17 5982 Signed Impressions: Service Date/Time: Monday, August 28, 2017 19:18 - CONCLUSION: 1. No focal mass or shift. No recent infarct. Chronic white matter ischemic changes involving periventricular region and brainstem especially jak. Lloyd Han MD Head CT 08/28/17 0751 Signed Impressions: Service Date/Time: Monday, August 28, 2017 08:20 - CONCLUSION: 1. Nonspecific white matter changes. 2. No acute intracranial abnormality. 3. Chronic opacification left maxillary sinus Armand Foreman MD Maxillofacial CT 08/28/17 0000 Signed Impressions: Service Date/Time: Monday, August 28, 2017 08:20 - CONCLUSION: 1. Bilateral displaced mandible fractures more extensive involving the condyles bilaterally. 2. Sensitive soft tissue swelling. 3. Bilateral nasal fractures. Armand Foreman MD Cervical Spine CT 08/28/17 0000 Signed Impressions: Service Date/Time: Monday, August 28, 2017 08:20 - CONCLUSION: 1. Multilevel degenerative changes. 2. No compression fracture or subluxation. 3. Ground glass density right upper lobe and to lesser degree left upper lobe could be contusion or infectious/inflammatory process. Armand Foreman MD Carotid Artery Ultrasound 08/28/17 0000 Signed Impressions: Service Date/Time: Monday, August 28, 2017 13:23 - CONCLUSION: 1. Mild bilateral carotid plaque. 2. No evidence of hemodynamically significant stenosis. 3. Antegrade flow in both vertebral arteries. Jason Martinez MD Abdomen/Pelvis CT 08/28/17 0000 Signed Impressions: Service Date/Time: Monday, August 28, 2017 19:02 - CONCLUSION: 1. Mild mural thickening of the rectosigmoid most characteristic of a mild colitis distally. No obstruction, free fluid or free air. 2. Small bilateral pleural effusions. 3. 1.6 cm left ovarian cyst. 4. Catheter in decompressed bladder. Lloyd Han MD Objective Remarks GENERAL: Patient is middle-aged female, lying in bed, no acute distress. SKIN: Warm and dry. HEAD: Normocephalic. EYES: No scleral icterus. No injection or drainage. NECK: trachea midline. No JVD CARDIOVASCULAR: Regular rate and rhythm RESPIRATORY: nc o2. equal chest rise. unlabored. GASTROINTESTINAL: Abdomen soft, non-tender, nondistended. MUSCULOSKELETAL: No cyanosis, or edema. Neuro: RASS 0. CAM -. follows commands. A/P Assessment and Plan Assessment: 67yF with seizures, resolved hypoxic respiratory failure, NSTEMI with non-occlusive coronary artery disease, and mandible fracture. now back on pathway. stable for transfer to floor after 6-8 hours post-extubation. per OMFS , stable to d/c home. per Cardiology, stable to d/c home with follow-up. would want to watch her overnight post-extubation and if stable, could d/c home in AM. 1. Altered mental status - resolved. 2. S/p syncopal episode. - resolved. 3. Status post seizure episode. - resolved. 4. Lactic acidemia likely secondary to seizures. - resolved. 5. acute hypoxic respiratory failure -resolved 6. Bilateral mandible and nasal fractures. - s/p fixation. 7. Pulmonary contusion - improved. 8. Elevated troponin- downtrending. 9. Hypertension 10. Hyperlipidemia 11. Elevated AST- improved. 12. non-obstructive coronary disease 13. acute protein calorie malnutrition- mild Plan Neuro: CT scan of the brain in the ED negative for acute intracranial findings. MRI brain: No acute findings. Chronic white matter changes EEG: Generalized slowing, no ictal activity. Carotid Doppler US: No sig hemodynamic stenosis. Neuro is following- Dr. Moulton. Continue Keppra per Neuro, change to 1gm po q12h (from 500 iv q6h) Pulm: wean o2 by nc for goal spo2 > 92% Bronchodilators, ICU vent bundle. SBT daily as susan. ambulate PT/OT OOB aggressive pulm toilet. CV: Echo showed EF 30-35%, lactic acid cleared Continue with ASA, Cards is following- Dr. Han. S/p cardiac cath by Dr. Han- normal coronaries, elevated LVDP, ? takotsubo syndrome : Monitor renal function I's and O's and electrolyte replacement per protocol. lasix 20mg iv x 1 again today. d/c sagastume. GI: On Pepcid q. 12-hour for GI prophylaxis. nursing bedside swallow eval and advance diet. formal speech eval if she fails bedside. ID: d/c abx. Follow up sputum, urine culture.- NGTD 08/28 BC 09/21 bottles: GPC ( likely contaminant) s/p Vanco x1 dose 08/30 08/30 BC: NGTD Heme: Monitor CBC, coags Endo: SSI with Accu-Chek's to maintain euglycemia. Per Dr. Doll( [facility] [place]) s/p ORIF mandible 09/04. stable to d/c home from [place] standpoint. GI prophylaxis with Pepcid and DVT prophylaxis with SCD's. [facility] dispo: transfer out of ICU after 6-8h observation post extubation. consult hospitalist. Bruce Haynes MD Sep 05, 2017 12:42
[2017-09-05] MEDS ORDERED: FUROSEMIDE 20 MG/2 ML VIAL IV PUSH ONE (12:45)
[2017-09-05] MEDS: ACETAMINOPHEN 325 MG TAB PO SCH ×2 (13:10→17:51)
[2017-09-05 14:23] LABS: HEMOGLOBIN 10.7 GM/DL (11.6-15.3); MEAN CELL VOLUME 99.6 FL (80.0-100.0); MEAN CORPUSCULAR HEMOGLOBIN 34.2 PG (27.0-34.0); MEAN CORPUSCULAR HGB CONC 34.4 % (32.0-36.0); MEAN PLATELET VOLUME 9.6 FL (7.0-11.0); PLATELET COUNT 231 TH/MM3 (150-450); RED BLOOD COUNT 3.11 MIL/MM3 (4.00-5.30); RED CELL DISTRIBUTION WIDTH 20.4 % (11.6-17.2); WHITE BLOOD COUNT 9.3 TH/MM3 (4.0-11.0)
[2017-09-05 14:37] LABS: BICARBONATE 22.2 MEQ/L (21.0-32.0); CALCIUM 8.3 MG/DL (8.5-10.1); CREATININE 0.4 MG/DL (0.50-1.00)
[2017-09-05] MEDS: HYDROmorphone HCL PF 2 MG/ML VIAL IV PUSH PRN ×2 (17:50→21:54)
[2017-09-05] MEDS: levETIRAcetam 500 MG TAB PO SCH (20:29)
[2017-09-06] VITALS (20 sets, daily range): BP systolic 112–185; BP diastolic 57–87; PULSE 75–119; RESP 16–31; TEMP 97.4–98.4; O2SAT 96–100
[2017-09-06] MEDS ORDERED: LORazepam 2 MG TAB PO PRN (00:45)
[2017-09-06] MEDS ORDERED: HALOPERIDOL LACTATE 5 MG/ML AMP IV PUSH PRN ×2 (00:45→11:30)
[2017-09-06] MEDS ORDERED: LORazepam 1 MG TAB PO PRN (00:45)
[2017-09-06] MEDS ORDERED: FLUMAZENIL 0.5 MG/5 ML VIAL IV PUSH PRN (00:45)
[2017-09-06] MEDS ORDERED: DEXMEDETOMIDINE INJ 200 MCG in SODIUM CHLORIDE 0.9% INJ 50 ML IV PRN (00:45)
[2017-09-06] MEDS: RESP: ALBUTEROL 2.5 MG/IPRATROPIUM 0.5 MG NEB (SCH) INH ×4 (03:24→20:36)
[2017-09-06] MEDS: CHLORHEXIDINE GLUCONATE 2 % 1 PACK (2 CLOTHS) TOP SCH (04:00)
[2017-09-06 05:38] LABS: HEMATOCRIT 26.2 % (35.0-46.0); HEMOGLOBIN 9.1 GM/DL (11.6-15.3); MEAN CELL VOLUME 98.4 FL (80.0-100.0); MEAN CORPUSCULAR HEMOGLOBIN 34.4 PG (27.0-34.0); MEAN CORPUSCULAR HGB CONC 34.9 % (32.0-36.0); MEAN PLATELET VOLUME 10.3 FL (7.0-11.0); PLATELET COUNT 238 TH/MM3 (150-450); RED BLOOD COUNT 2.66 MIL/MM3 (4.00-5.30); RED CELL DISTRIBUTION WIDTH 20.1 % (11.6-17.2)
[2017-09-06 05:57] LABS: BICARBONATE 24.1 MEQ/L (21.0-32.0); CALCIUM 7.7 MG/DL (8.5-10.1); CREATININE 0.29 MG/DL (0.50-1.00)
[2017-09-06] MEDS: ACETAMINOPHEN 325 MG TAB PO SCH ×4 (06:00→17:07)
[2017-09-06] MEDS: HEPARIN SODIUM - SQ 10,000 UNITS/ML VIAL SQ SCH ×3 (06:00→21:41)
[2017-09-06] MEDS: FAMOTIDINE 40 MG/5 ML LIQ 50 ML BTL NG SCH ×2 (07:32→21:39)
[2017-09-06] MEDS: ASPIRIN 81 MG CHEW TAB CHEW SCH (07:33)
[2017-09-06] MEDS: levETIRAcetam 500 MG TAB PO SCH ×2 (07:33→21:40)
[2017-09-06] MEDS: DOCUSATE SODIUM 50 MG/SENNA 8.6 MG TAB PO SCH ×2 (07:33→21:39)
[2017-09-06] MEDS: HYDROmorphone HCL PF 2 MG/ML VIAL IV PUSH PRN ×2 (07:55→18:37)
[2017-09-06] MEDS: POTASSIUM CHLOR 20 MEQ PREMIX 100 ML IV PRN ×2 (08:08→09:34)
[2017-09-06] MEDS ORDERED: POTASSIUM CHLORIDE 25 MEQ EFFERVESCENT TAB PO ONE (11:30)
[2017-09-06] MEDS: DIAZEPAM 5 MG TAB PO SCH ×2 (13:24→21:38)
--- NOTE | 2017-09-06 17:40 | HHI.CCPN ---
Subjective Remarks/Hospital Course Patient is a 67-year-old female with a past medical history of mitral valve prolapse, chronic back pain, hyperlipidemia, hypertension. She presented to [facility] ED via EMS after she was found face down unresponsive by her . She was given 2 mg IV Ativan by EMS for a witnessed seizure. She was last seen at her baseline at 5:30 this morning. According to the , the patient does not have any seizure disorder and she is not on any seizure meds at home. She had a similar episode a couple years ago and he attributed it to her multiple medications that she takes at home. She is on Tylenol #3 along with Lorazepam, Baclofen and Propranolol. She was found to have a laceration on chin which was bleeding. Her blood sugar was measured at 95. On arrival to the ED, she was hypertensive with a blood pressure of 196/120 and tachycardiac with a heart rate in the 120's. The patient was intubated with etomidate, succinylcholine and placed on full mechanical ventilation. Her laboratory data is significant for lactic acidosis with lactic acid level of 4.0, an elevated troponin at 0.97 with a total CK of 129. Her urine drug screen is negative for amphetamines, benzodiazepines, and opiates. A CT scan of the brain was performed in the ED which showed no acute intracranial abnormalities. Chronic opacification left maxillary sinus noted. She also had a CT maxillofacial which showed bilateral displaced mandible fractures and bilateral nasal fractures. A cervical spine CT showed multilevel degenerative changes without any compression fracture or subluxation. Chest x-ray, she also had a chest x-ray which showed minimal bilateral upper lobe densities. The patient was given 2 liters of crystalloids in the ED, tetanus shot and placed on Fentanyl and Versed for sedation. There is no history of any chest pain, shortness of breath or any constitutional symptoms. Also, no history of any GI symptoms per the patient's . 08/29 Patient became hypotensive last night started on Levophed 5 mics currently. MRI brain no acute findings, CT abd/pelvis showed mild colitis. On Heparin drip. Left IJ CVP was placed last night CXR post procedure showed 6 mm right apical PTX a repeat CXR from 4:30 showed reduction right apical PTX 4 mm( Right IJ was attempted first) 08/30 No events overnight. Sedated with Diprivan, Versed and intubated. Afebrile. Remains on Levophed. Afebrile. CXR last night mild basilar airspace disease,no PTX. 08/31 No events overnight. Sedated with Versed, Fentanyl and intubated. Afebrile. For cardiac cath today. Off Levophed. 09/01 Patient remains sedated and intubated. s/p transfusion 1u PRBC yesterday Hgb 9.5 this morning. 09/02: LHC yesterday without obstructive CAD. medical management recommended. hgb 8.8 from 9.5 continue to trend. 09/03: doing well this morning. awake and alert. remains intubated. on PSV. at this point, risk/benefit would be in favor of remaining intubated for mandibular fixation tomorrow, however, will attempt to ambulate patient to decrease immobility and debilitation. 09/04: still awake and alert. plan for fixation in OR tonight. no contra- indication to extubation after fixation. will give small dose of lasix to help with edema over last few days. intravascularly replete on physical exam. 09/05: mandible fixation overnight. this morning, passed SBT and extubated on pathway. denies complaints. 09/06: went into agitated delirium overnight, presumably etoh withdraw. was on precedex, now off. doing well today. stable for transfer to floor. still on o2 which prevents her from d/c home. Objective Vital Signs Date Time Temp Pulse Resp B/P (MAP) Pulse Ox O2 Delivery O2 Flow Rate FiO2 09/06/17 17:00 96 24 114/57 (76) 99 09/06/17 12:00 98.4 09/06/17 10:33 Nasal Cannula 2.00 09/05/17 08:00 30 Result Diagram: 09/06/17 0310 09/06/17 0310 Imaging Last Impressions Chest X-Ray 08/29/171999 Signed Impressions: Service Date/Time: Tuesday, August 29, 2017 19:24 - CONCLUSION: 1. Mild basilar airspace disease. Support apparatus in satisfactory position. Lloyd Han MD Brain MRI 08/28/17 3583 Signed Impressions: Service Date/Time: Monday, August 28, 2017 19:18 - CONCLUSION: 1. No focal mass or shift. No recent infarct. Chronic white matter ischemic changes involving periventricular region and brainstem especially jak. Lloyd Han MD Head CT 08/28/17 0751 Signed Impressions: Service Date/Time: Monday, August 28, 2017 08:20 - CONCLUSION: 1. Nonspecific white matter changes. 2. No acute intracranial abnormality. 3. Chronic opacification left maxillary sinus Armand Foreman MD Maxillofacial CT 08/28/17 0000 Signed Impressions: Service Date/Time: Monday, August 28, 2017 08:20 - CONCLUSION: 1. Bilateral displaced mandible fractures more extensive involving the condyles bilaterally. 2. Sensitive soft tissue swelling. 3. Bilateral nasal fractures. Armand Foreman MD Cervical Spine CT 08/28/17 0000 Signed Impressions: Service Date/Time: Monday, August 28, 2017 08:20 - CONCLUSION: 1. Multilevel degenerative changes. 2. No compression fracture or subluxation. 3. Ground glass density right upper lobe and to lesser degree left upper lobe could be contusion or infectious/inflammatory process. Armand Foreman MD Carotid Artery Ultrasound 08/28/17 0000 Signed Impressions: Service Date/Time: Monday, August 28, 2017 13:23 - CONCLUSION: 1. Mild bilateral carotid plaque. 2. No evidence of hemodynamically significant stenosis. 3. Antegrade flow in both vertebral arteries. Jason Martinez MD Abdomen/Pelvis CT 08/28/17 0000 Signed Impressions: Service Date/Time: Monday, August 28, 2017 19:02 - CONCLUSION: 1. Mild mural thickening of the rectosigmoid most characteristic of a mild colitis distally. No obstruction, free fluid or free air. 2. Small bilateral pleural effusions. 3. 1.6 cm left ovarian cyst. 4. Catheter in decompressed bladder. Lloyd Han MD Objective Remarks GENERAL: Patient is middle-aged female, lying in bed, no acute distress. SKIN: Warm and dry. HEAD: Normocephalic. EYES: No scleral icterus. No injection or drainage. NECK: trachea midline. No JVD CARDIOVASCULAR: Regular rate and rhythm RESPIRATORY: nc o2. equal chest rise. unlabored. GASTROINTESTINAL: Abdomen soft, non-tender, nondistended. MUSCULOSKELETAL: No cyanosis, or edema. Neuro: RASS 0. CAM -. follows commands. A/P Assessment and Plan Assessment: 67yF with seizures, resolved hypoxic respiratory failure, NSTEMI with non-occlusive coronary artery disease, and mandible fracture. now back on pathway. still has small o2 requirement. added valium to help with withdraw symtpoms. prn haldol for agitation. still stable for transfer to floor with hospitalist following. 1. Altered mental status - resolved. 2. S/p syncopal episode. - resolved. 3. Status post seizure episode. - resolved. 4. Lactic acidemia likely secondary to seizures. - resolved. 5. acute hypoxic respiratory failure -resolved 6. Bilateral mandible and nasal fractures. - s/p fixation. 7. Pulmonary contusion - improved. 8. Elevated troponin- downtrending. 9. Hypertension 10. Hyperlipidemia 11. Elevated AST- improved. 12. non-obstructive coronary disease 13. acute protein calorie malnutrition- mild 14. Agitated Delirium 15. Etoh withdraw/Delirium Tremens Plan Neuro: CT scan of the brain in the ED negative for acute intracranial findings. MRI brain: No acute findings. Chronic white matter changes EEG: Generalized slowing, no ictal activity. Carotid Doppler US: No sig hemodynamic stenosis. Neuro is following- Dr. Moulton. Continue Keppra per Neuro, change to 1gm po q12h (from 500 iv q6h) valium 10mg po q8h haldol 5mg iv q4h prn for breakthrough agitation CIWA protocol. Pulm: wean o2 by ok for goal spo2 > 92% ambulate PT/OT OOB aggressive pulm toilet. CV: Echo showed EF 30-35%, lactic acid cleared Continue with ASA, Cards is following- Dr. Han. S/p cardiac cath by Dr. Han- normal coronaries, elevated LVDP, ? takotsubo syndrome : Monitor renal function I's and O's and electrolyte replacement per protocol. lasix 20mg iv x 1 again today. d/c sagastume. GI: On Pepcid q. 12-hour for GI prophylaxis. regular diet as tolerated. ID: d/c abx. Follow up sputum, urine culture.- NGTD 08/28 BC 09/21 bottles: GPC ( likely contaminant) s/p Vanco x1 dose 08/30 08/30 BC: NGTD Heme: Monitor CBC, coags Endo: SSI with Accu-Chek's to maintain euglycemia. Per Dr. Doll( [facility] [place]) s/p ORIF mandible 09/04. stable to d/c home from [place] standpoint. GI prophylaxis with Pepcid and DVT prophylaxis with SCD's. H dispo: transfer to floor with hospitalist following. Bruce Haynes MD Sep 06, 2017 17:40
[2017-09-06] MEDS ORDERED: FUROSEMIDE 20 MG/2 ML VIAL IV PUSH ONE (18:30)
[2017-09-07] VITALS (10 sets, daily range): BP systolic 149–188; BP diastolic 72–101; PULSE 87–105; RESP 18–27; TEMP 96.6–98.7; O2SAT 98–100
[2017-09-07] MEDS: ACETAMINOPHEN 325 MG TAB PO SCH ×5 (01:00→23:47)
[2017-09-07 03:06] LABS: HEMATOCRIT 26.4 % (35.0-46.0); MEAN CELL VOLUME 99.7 FL (80.0-100.0); MEAN CORPUSCULAR HEMOGLOBIN 34.1 PG (27.0-34.0); MEAN CORPUSCULAR HGB CONC 34.3 % (32.0-36.0); MEAN PLATELET VOLUME 9.3 FL (7.0-11.0); PLATELET COUNT 238 TH/MM3 (150-450); RED BLOOD COUNT 2.65 MIL/MM3 (4.00-5.30); RED CELL DISTRIBUTION WIDTH 19.7 % (11.6-17.2); WHITE BLOOD COUNT 7.4 TH/MM3 (4.0-11.0)
[2017-09-07 03:41] LABS: BICARBONATE 26.7 MEQ/L (21.0-32.0); CREATININE 0.32 MG/DL (0.50-1.00)
[2017-09-07] MEDS: CHLORHEXIDINE GLUCONATE 2 % 1 PACK (2 CLOTHS) TOP SCH (04:00)
[2017-09-07] MEDS: RESP: ALBUTEROL 2.5 MG/IPRATROPIUM 0.5 MG NEB (SCH) INH ×3 (04:00→16:00)
[2017-09-07] MEDS: HEPARIN SODIUM - SQ 10,000 UNITS/ML VIAL SQ SCH ×3 (05:40→21:07)
[2017-09-07] MEDS: DIAZEPAM 5 MG TAB PO SCH ×2 (05:41→13:00)
--- NOTE | 2017-09-07 08:25 | HHI.PR ---
Subjective Remarks Patient is in bed she is vomiting and chills associated. No tremors at this time. No diarrhea. No abdominal pain. He is alert and oriented however falls asleep easily. Objective Vitals Vital Signs Date Time Temp Pulse Resp B/P (MAP) Pulse Ox O2 Delivery O2 Flow Rate FiO2 09/07/17 07:43 96.7 99 18 163/91 (115) 99 09/07/17 02:30 87 09/07/17 01:20 98.7 93 22 149/79 (102) 98 09/07/17 00:00 92 09/07/17 00:00 98.2 93 27 162/77 (105) 100 09/06/17 20:38 100 Nasal Cannula 2.00 09/06/17 20:00 85 09/06/17 20:00 98.2 100 31 171/81 (111) 100 09/06/17 17:00 96 24 114/57 (76) 99 09/06/17 16:00 100 30 112/58 (76) 96 09/06/17 13:45 88 09/06/17 13:30 94 09/06/17 13:15 81 09/06/17 13:00 79 09/06/17 12:45 84 09/06/17 12:30 83 09/06/17 12:15 84 09/06/17 12:00 84 09/06/17 12:00 98.4 09/06/17 10:33 100 Nasal Cannula 2.00 09/06/17 09:00 84 22 156/72 (100) 100 I/O 09/06/17 09/06/17 09/06/17 09/07/17 09/07/17 09/07/17 07:00 15:00 23:00 07:00 15:00 23:00 Intake Total 320 ml 220 ml Output Total 500 ml Balance 320 ml -280 ml Intake Oral 320 ml 220 ml Output Urine Total 500 ml # Voids 3 6 # Bowel Movements 1 2 0 Result Diagram: 09/07/176 09/07/17 0256 Imaging Last Impressions Chest X-Ray 09/02/17 0600 Signed Impressions: Service Date/Time: Saturday, September 02, 2017 02:50 - CONCLUSION: 1. Slight increase in bilateral basilar pulmonary opacity with bilateral lower lobe atelectasis and small bilateral pleural effusions. 2. Nasogastric tube is coiled in the stomach with the tip now in the distal esophagus. This could be advanced approximately 10 cm. Hans Reagan MD Brain MRI 08/28/17 1554 Signed Impressions: Service Date/Time: Monday, August 28, 2017 19:18 - CONCLUSION: 1. No focal mass or shift. No recent infarct. Chronic white matter ischemic changes involving periventricular region and brainstem especially jak. Lloyd Han MD Head CT 08/28/17 0751 Signed Impressions: Service Date/Time: Monday, August 28, 2017 08:20 - CONCLUSION: 1. Nonspecific white matter changes. 2. No acute intracranial abnormality. 3. Chronic opacification left maxillary sinus Armand Foreman MD Maxillofacial CT 08/28/17 0000 Signed Impressions: Service Date/Time: Monday, August 28, 2017 08:20 - CONCLUSION: 1. Bilateral displaced mandible fractures more extensive involving the condyles bilaterally. 2. Sensitive soft tissue swelling. 3. Bilateral nasal fractures. Armand Foreman MD Cervical Spine CT 08/28/17 0000 Signed Impressions: Service Date/Time: Monday, August 28, 2017 08:20 - CONCLUSION: 1. Multilevel degenerative changes. 2. No compression fracture or subluxation. 3. Ground glass density right upper lobe and to lesser degree left upper lobe could be contusion or infectious/inflammatory process. Armand Foreman MD Carotid Artery Ultrasound 08/28/17 0000 Signed Impressions: Service Date/Time: Monday, August 28, 2017 13:23 - CONCLUSION: 1. Mild bilateral carotid plaque. 2. No evidence of hemodynamically significant stenosis. 3. Antegrade flow in both vertebral arteries. Jason Martinez MD Abdomen/Pelvis CT 08/28/17 0000 Signed Impressions: Service Date/Time: Monday, August 28, 2017 19:02 - CONCLUSION: 1. Mild mural thickening of the rectosigmoid most characteristic of a mild colitis distally. No obstruction, free fluid or free air. 2. Small bilateral pleural effusions. 3. 1.6 cm left ovarian cyst. 4. Catheter in decompressed bladder. Lloyd Han MD Objective Remarks GENERAL: Patient is middle-aged female, lying in bed, falls Elavil asleep SKIN: Warm and dry. HEAD: Normocephalic. EYES: No scleral icterus. No injection or drainage. NECK: trachea midline. No JVD CARDIOVASCULAR: Regular rate and rhythm RESPIRATORY: CTA BL. No wheezing. sattign well on 2L NC GASTROINTESTINAL: Abdomen soft, non-tender, nondistended. MUSCULOSKELETAL: No cyanosis, or edema. Neuro:Awake and alert, however falls asleep easily. Moves legs and arms. CN I- XII grossly normal. A/P Assessment and Plan 67yF with seizures, resolved hypoxic respiratory failure, NSTEMI with non- occlusive coronary artery disease, and mandible fracture. now back on pathway. still has small o2 requirement. added valium to help with withdraw symtpoms. prn haldol for agitation. still stable for transfer to floor with hospitalist following. 1. Altered mental status / Acute encephalopathy toxic 2/2 EtOH use - resolved. 2. S/p syncopal episode. - resolved. 3. Status post seizure episode. - resolved. 4. Lactic acidemia likely secondary to seizures. - resolved. 5. Acute hypoxic respiratory failure -resolved 6. Bilateral mandible and nasal fractures. - s/p fixation. 7. Pulmonary contusion - improved. 8. Elevated troponin- downtrending. 9. Hypertension 10. Hyperlipidemia 11. Elevated AST- improved. 12. Non-obstructive coronary disease 13. Acute protein calorie malnutrition- mild 14. Agitated Delirium 15. EtOH withdraw/Delirium Tremens 16.Takotsubo syndrome 17. Nausea/vomiting. Add antiemetics 18. Physical decondition ing . Consult PT/OT /ST Plan Neuro: CT scan of the brain in the ED negative for acute intracranial findings. MRI brain: No acute findings. Chronic white matter changes EEG: Generalized slowing, no ictal activity. Carotid Doppler US: No sig hemodynamic stenosis. Neuro is following- Dr. Moulton. Continue Keppra per Neuro, change to 1gm po q12h (from 500 iv q6h) valium 10mg po q8h haldol 5mg iv q4h prn for breakthrough agitation CIWA protocol. Pulm: wean o2 by nc for goal spo2 > 92% ambulate PT/OT OOB aggressive pulm toilet. CV: Takotsubo syndrome Echo showed EF 30-35%, lactic acid cleared Continue with ASA, Cards is following- Dr. Han. S/p cardiac cath by Dr. Han- normal coronaries, elevated LVDP, ? Takotsubo syndrome : Monitor renal function I's and O's and electrolyte replacement per protocol. lasix 20mg iv x 1 again today. d/c sagastume. GI: On Pepcid q. 12-hour for GI prophylaxis. regular diet as tolerated. Nausea/vomiting add antiemetics ID: [id number] abx. Follow up sputum, urine culture.- NGTD 08/28 BC 09/21 bottles: GPC ( likely contaminant) s/p Vanco x1 dose 08/30 08/30 BC: NGTD Heme: Monitor CBC, coags Endo: SSI with Accu-Chek's to maintain euglycemia. Per Dr. Doll( [facility] [place]) s/p ORIF mandible 09/04. Stable to d/c home from [place] standpoint. GI prophylaxis with Pepcid and DVT prophylaxis with SCD's. [facility] DC plan: pending improving Consult Case management for DC plan Yuni Martinez MD Sep 07, 2017 08:25
[2017-09-07] MEDS ORDERED: cloNIDine HCL 0.1 MG TAB PO PRN (08:30)
[2017-09-07] MEDS: DOCUSATE SODIUM 50 MG/SENNA 8.6 MG TAB PO SCH ×2 (09:00→20:54)
[2017-09-07] MEDS: levETIRAcetam 500 MG TAB PO SCH ×2 (09:01→20:55)
[2017-09-07] MEDS: FAMOTIDINE 40 MG/5 ML LIQ 50 ML BTL NG SCH ×2 (09:02→20:54)
[2017-09-07] MEDS: ASPIRIN 81 MG CHEW TAB CHEW SCH (09:02)
[2017-09-07] MEDS ORDERED: PROMETHAZINE HCL 25 MG TAB PO PRN (10:45)
[2017-09-07] MEDS ORDERED: METOCLOPRAMIDE HCL 10 MG/2 ML VIAL IV PUSH PRN (10:45)
[2017-09-07] MEDS ORDERED: PROCHLORPERAZINE 25 MG SUPP RECTAL PRN (15:00)
[2017-09-07] MEDS ORDERED: POTASSIUM CHLORIDE 10 MEQ CONTROLLED RELEASE TAB PO ONE (15:00)
[2017-09-07] MEDS ORDERED: PROCHLORPERAZINE 25 MG SUPP RECTAL ONE (15:00)
[2017-09-07] MEDS ORDERED: NS + KCL 20 MEQ INJ 1,000 ML IV SCH (15:15)
[2017-09-07] MEDS ORDERED: ENALAPRILAT 2.5 MG/2 ML VIAL IV PUSH PRN (16:00)
--- NOTE | 2017-09-07 17:34 | HHI.PR ---
Addendum to Inpatient Note Addendum Reason: Additional Documentation Additional Information Residents responded to [facility] but attending physician had already been contacted by the [facility] Team and a plan has been established by the attending. Will defer all treatment to attending. radha Andrade,Barbara Childs MD, R3 Sep 07, 2017 17:34
[2017-09-07] MEDS ORDERED: LABETALOL HCL 100 MG/20 ML VIAL ONE (18:23)
[2017-09-07] MEDS ORDERED: NITROGLYCERIN 0.4 MG SL 25 TABS/BTL SL ONE ×2 (18:38→18:40)
[2017-09-07] MEDS ORDERED: METOPROLOL TARTRATE 5 MG/5 ML VIAL ONE ×2 (18:39→18:47)
--- NOTE | 2017-09-07 18:41 | RADRPT ---
EXAM DATE/TIME: 09/07/2017 17:50 [facility] COMPARISON: CHEST SINGLE AP, September 02, 2017, 2:50. INDICATIONS : Shortness of breath. MEDICAL HISTORY : Venous insufficiency. Cardiovascular disease. Hypertension. Mitral valve prolapse. SURGICAL HISTORY : None. ENCOUNTER: Subsequent ACUITY: 1 day PAIN SCORE: Non-responsive. LOCATION: Bilateral chest FINDINGS: Interval removal of central line, ET tube, and gastric tube. There is increasing consolidation in th e left lower lung causing loss of delineation of the entire left hemidiaphragm and inferior left hear t border. Patchy areas of opacity in the right lower lung with hazy lateral interface suggests a com bination of infiltrate and pleural effusion. The heart is normal size. CONCLUSION: Increasing consolidation left lower lobe and patchy infiltrates right lower lung. Probable bilateral pleural effusions. Rex Burdick MD on September 07, 2017 at 18:37 Board Certified Radiologist. This report was verified electronically.
[2017-09-07] MEDS ORDERED: NITROGLYCERIN 2% OINT 1 GM PACKET TOPICAL PRN (18:45)
--- NOTE | 2017-09-07 19:16 | HHI.CCPN ---
Subjective Remarks/Hospital Course Patient is a 67-year-old female with a past medical history of mitral valve prolapse, chronic back pain, hyperlipidemia, hypertension. She presented to [facility] ED via EMS after she was found face down unresponsive by her . She was given 2 mg IV Ativan by EMS for a witnessed seizure. She was last seen at her baseline at 5:30 this morning. According to the , the patient does not have any seizure disorder and she is not on any seizure meds at home. She had a similar episode a couple years ago and he attributed it to her multiple medications that she takes at home. She is on Tylenol #3 along with Lorazepam, Baclofen and Propranolol. She was found to have a laceration on chin which was bleeding. Her blood sugar was measured at 95. On arrival to the ED, she was hypertensive with a blood pressure of 196/120 and tachycardiac with a heart rate in the 120's. The patient was intubated with etomidate, succinylcholine and placed on full mechanical ventilation. Her laboratory data is significant for lactic acidosis with lactic acid level of 4.0, an elevated troponin at 0.97 with a total CK of 129. Her urine drug screen is negative for amphetamines, benzodiazepines, and opiates. A CT scan of the brain was performed in the ED which showed no acute intracranial abnormalities. Chronic opacification left maxillary sinus noted. She also had a CT maxillofacial which showed bilateral displaced mandible fractures and bilateral nasal fractures. A cervical spine CT showed multilevel degenerative changes without any compression fracture or subluxation. Chest x-ray, she also had a chest x-ray which showed minimal bilateral upper lobe densities. The patient was given 2 liters of crystalloids in the ED, tetanus shot and placed on Fentanyl and Versed for sedation. There is no history of any chest pain, shortness of breath or any constitutional symptoms. Also, no history of any GI symptoms per the patient's . 08/29 Patient became hypotensive last night started on Levophed 5 mics currently. MRI brain no acute findings, CT abd/pelvis showed mild colitis. On Heparin drip. Left IJ CVP was placed last night CXR post procedure showed 6 mm right apical PTX a repeat CXR from 4:30 showed reduction right apical PTX 4 mm( Right IJ was attempted first) 08/30 No events overnight. Sedated with Diprivan, Versed and intubated. Afebrile. Remains on Levophed. Afebrile. CXR last night mild basilar airspace disease,no PTX. 08/31 No events overnight. Sedated with Versed, Fentanyl and intubated. Afebrile. For cardiac cath today. Off Levophed. 09/01 Patient remains sedated and intubated. s/p transfusion 1u PRBC yesterday Hgb 9.5 this morning. 09/02: LHC yesterday without obstructive CAD. medical management recommended. hgb 8.8 from 9.5 continue to trend. 09/03: doing well this morning. awake and alert. remains intubated. on PSV. at this point, risk/benefit would be in favor of remaining intubated for mandibular fixation tomorrow, however, will attempt to ambulate patient to decrease immobility and debilitation. 09/04: still awake and alert. plan for fixation in OR tonight. no contra- indication to extubation after fixation. will give small dose of lasix to help with edema over last few days. intravascularly replete on physical exam. 09/05: mandible fixation overnight. this morning, passed SBT and extubated on pathway. denies complaints. 09/06: went into agitated delirium overnight, presumably etoh withdraw. was on precedex, now off. doing well today. stable for transfer to floor. still on o2 which prevents her from d/c home. RECONSULTED 09/07: patient was rapid response for severe hypertension, chest pain, and neck pain. per her she has had a SBP > 180 all day today. she has developed worsening neck pain, as well as substernal chest pain which is severe. EKG demonstrates ST depressions with t-wave inversions in the far lateral leads (prior EKG with t-wave inversions, but no depressions). she also endorses nausea and vomiting all day today. denies headache, photophobia. her wbc is normal and she is afebrile. she denies chills. Her ABG is 7.45/37/224 on NRB. on admission to the ICU her bp was 220/90 and her HR was 110s. I immediately gave her a total of 70mg labetalol iv and 10mg metoprolol iv. additionally, we immediately gave her 1" ntg paste. We improved her bp to the 150s range and her HR to the 80s, which improved her labored breathing. however , her chest pain persisted, and we started a ntg drip, which then relieved her chest pain. Her troponins are slightly elevated at 0.32 (prior NSTEMI trop peaked ~4). Objective Vital Signs Date Time Temp Pulse Resp B/P (MAP) Pulse Ox O2 Delivery O2 Flow Rate FiO2 09/07/17 15:53 96.6 94 18 188/101 (130) 100 09/07/17 08:57 Nasal Cannula 2.00 09/05/17 08:00 30 Intake and Output 09/07/17 09/07/17 09/08/17 08:00 16:00 00:00 Intake Total 220 ml 30 ml Output Total 500 ml Balance -280 ml 30 ml Result Diagram: 09/07/17 0256 09/07/17 0256 Other Results Laboratory Tests Test 09/07/17 17:28 Blood Gas Puncture Site LT RADIAL Blood Gas Patient Temperature 98.6 Blood Gas HCO3 25 mmol/L (22-26) Blood Gas Base Excess 1.7 mmol/L (-2-2) Blood Gas Oxygen Saturation 98 % (90-100) Arterial Blood pH 7.45 (7.380-7.420) Arterial Blood Partial Pressure CO2 37 mmHg (38-42) Arterial Blood Partial Pressure O2 224 mmHg (61-120) Arterial Blood Oxygen Content 13.8 Vol % (12.0-20.0) Arterial Blood Carboxyhemoglobin 1.2 % (0-4) Arterial Blood Methemoglobin 0.8 % (0-2) Blood Gas Hemoglobin 9.7 G/DL (12.0-16.0) Oxygen Delivery Device NRB Blood Gas Liter Flow 15 L/M Imaging Last Impressions Chest X-Ray 08/29/171999 Signed Impressions: Service Date/Time: Tuesday, August 29, 2017 19:24 - CONCLUSION: 1. Mild basilar airspace disease. Support apparatus in satisfactory position. Lloyd Han MD Brain MRI 08/28/17 1628 Signed Impressions: Service Date/Time: Monday, August 28, 2017 19:18 - CONCLUSION: 1. No focal mass or shift. No recent infarct. Chronic white matter ischemic changes involving periventricular region and brainstem especially jak. Lloyd Han MD Head CT 08/28/17 0751 Signed Impressions: Service Date/Time: Monday, August 28, 2017 08:20 - CONCLUSION: 1. Nonspecific white matter changes. 2. No acute intracranial abnormality. 3. Chronic opacification left maxillary sinus Armand Foreman MD Maxillofacial CT 08/28/17 0000 Signed Impressions: Service Date/Time: Monday, August 28, 2017 08:20 - CONCLUSION: 1. Bilateral displaced mandible fractures more extensive involving the condyles bilaterally. 2. Sensitive soft tissue swelling. 3. Bilateral nasal fractures. Armand Foreman MD Cervical Spine CT 08/28/17 0000 Signed Impressions: Service Date/Time: Monday, August 28, 2017 08:20 - CONCLUSION: 1. Multilevel degenerative changes. 2. No compression fracture or subluxation. 3. Ground glass density right upper lobe and to lesser degree left upper lobe could be contusion or infectious/inflammatory process. Armand Foreman MD Carotid Artery Ultrasound 08/28/17 0000 Signed Impressions: Service Date/Time: Monday, August 28, 2017 13:23 - CONCLUSION: 1. Mild bilateral carotid plaque. 2. No evidence of hemodynamically significant stenosis. 3. Antegrade flow in both vertebral arteries. Jason Martinez MD Abdomen/Pelvis CT 08/28/17 0000 Signed Impressions: Service Date/Time: Monday, August 28, 2017 19:02 - CONCLUSION: 1. Mild mural thickening of the rectosigmoid most characteristic of a mild colitis distally. No obstruction, free fluid or free air. 2. Small bilateral pleural effusions. 3. 1.6 cm left ovarian cyst. 4. Catheter in decompressed bladder. Lloyd Han MD Objective Remarks GENERAL: Patient is middle-aged female, lying in bed, in severe distress due to chest pain SKIN: Warm and dry. HEAD: Normocephalic. EYES: No scleral icterus. No injection or drainage. NECK: trachea midline. No JVD. she has midline tenderness to palpation generally. inability with [id number] due to pain, but negative Brudzinski/ Kernig's. CARDIOVASCULAR: tachycardic rate, regular rhythm. severely hypertensive. RESPIRATORY: NRB. tachypneic. spo2 94% in distress. GASTROINTESTINAL: Abdomen soft, non-tender, nondistended. MUSCULOSKELETAL: No cyanosis, or edema. Neuro: RASS -1. CAM -. follows commands. A/P Assessment and Plan Assessment: 67yF with seizures, NSTEMI with non-occlusive coronary artery disease, and mandible fracture. was clinically improving, now back with hypertensive emergency, recurrent evidence of NSTEMI, and acute hypoxic respiratory failure. Certainly with her history of depressed EF to 30% as well as mitral valve prolapse, severe hypertension could put her into pulmonary edema and CHF. Chest pain is concerning, have discussed with cardiology and they would prefer to treat her conservatively. Dr. Pizarro recommends against re-heparinization given low risk for ACS since she recently had a LHC within a week which was not suggestive of severe CAD. will continue beta blockade and ntg to keep HR < 100. wean o2 for goal spo2 > 94%. remains critically ill with hypertensive emergency and evidence of myocardial injury. Unclear etiology of neck pain. no risk factors for meningitis: no fever, leukocytosis. not altered. neuro intact. will monitor for now. Altered mental status - resolved. S/p syncopal episode. - resolved. Status post seizure episode. - resolved. Lactic acidemia likely secondary to seizures. - resolved. acute hypoxic respiratory failure -resolved Bilateral mandible and nasal fractures. - s/p fixation. Pulmonary contusion - improved. Elevated troponin- downtrending. Elevated AST- improved. Agitated Delirium Etoh withdraw/Delirium Tremens Hyperlipidemia non-obstructive coronary disease acute protein calorie malnutrition- mild Hypertensive Emergency recurrent NSTEMI Myocardial ischemia Acute hypoxemia Plan Neuro: CT scan of the brain in the ED negative for acute intracranial findings. MRI brain: No acute findings. Chronic white matter changes EEG: Generalized slowing, no ictal activity. Carotid Doppler US: No sig hemodynamic stenosis. Neuro is following- Dr. Moulton. Continue Keppra per Neuro 1gm po q12h ordered keppra 1gm iv q12h if not taking po d/c valium haldol 5mg iv q4h prn for breakthrough agitation d/c CIWA. Pulm: wean o2 by nc for goal spo2 > 94% aggressive pulmonary toilet. CV: Echo showed EF 30-35% Continue with ASA, Cards is following- Dr. Han. discussed overnight 09/[address] Pizarro. will not re-heparinize continue morphine prn for chest pain nitroglycerine drip for chest pain ntg paste metoprolol 5mg iv q10min prn for goal HR < 100 trend cardiac enzymes q6h. S/p cardiac cath by Dr. Han- normal coronaries, elevated LVDP, ? takotsubo syndrome : Monitor renal function I's and O's and electrolyte replacement per protocol. GI: On Pepcid q. 12-hour for GI prophylaxis. regular diet as tolerated. ID: no indication for abx at this time. wbc normal. afebrile. 08/28 BC 09/21 bottles: GPC ( likely contaminant) s/p Vanco x1 dose 08/30 08/30 BC: NGTD Heme: Monitor CBC, coags Endo: SSI with Accu-Chek's to maintain euglycemia. Per Dr. Doll( [facility] [place] s/p ORIF mandible 09/04. stable to d/c home from [place] standpoint. GI prophylaxis with Pepcid and DVT prophylaxis with SCD's. [facility] dispo: admit to ICU. critically ill. Critical care time: 63 minutes, exclusive of separately billable procedures. Bruce Haynes MD Sep 07, 2017 19:16
[2017-09-07] MEDS ORDERED: NITROGLYCERIN-D5W 50 MG/250 ML 250 ML IV PRN (19:30)
[2017-09-07 19:31] LABS: TROPONIN I 0.32 NG/ML (0.02-0.05)
[2017-09-07 19:37] LABS: CALCIUM-PROTEIN CORRECTED 7.7 MG/DL (8.5-10.1); CREATININE 0.3 MG/DL (0.50-1.00); TOTAL BILIRUBIN ADULT 0.4 MG/DL (0.2-1.0); TOTAL PROTEIN 5.7 GM/DL (6.4-8.2)
[2017-09-07 19:42] LABS: AUTOMATED NEUTROPHIL # 11.8 TH/MM3 (1.8-7.7); BASOPHIL % 0.2 % (0.0-2.0); EOSINOPHIL # 0.1 TH/MM3 (0-0.4); EOSINOPHIL % 0.5 % (0.0-4.0); HEMATOCRIT 28.5 % (35.0-46.0); HEMOGLOBIN 9.5 GM/DL (11.6-15.3); LYMPHOCYTE # 0.7 TH/MM3 (1.0-4.8); MEAN CELL VOLUME 100.5 FL (80.0-100.0); MEAN CORPUSCULAR HEMOGLOBIN 33.6 PG (27.0-34.0); MEAN CORPUSCULAR HGB CONC 33.4 % (32.0-36.0); MEAN PLATELET VOLUME 9.4 FL (7.0-11.0); MONOCYTE # 0.9 TH/MM3 (0-0.9); NEUT % 87.3 % (16.0-70.0); PLATELET COUNT 305 TH/MM3 (150-450); RED BLOOD COUNT 2.84 MIL/MM3 (4.00-5.30); RED CELL DISTRIBUTION WIDTH 19.9 % (11.6-17.2); WHITE BLOOD COUNT 13.6 TH/MM3 (4.0-11.0)
[2017-09-07] MEDS ORDERED: LABETALOL HCL 100 MG/20 ML VIAL IV PUSH ONE (20:30)
[2017-09-07] MEDS ORDERED: POTASSIUM CHLOR 20 MEQ PREMIX 100 ML IV SCH (20:30)
[2017-09-07] MEDS ORDERED: METOPROLOL TARTRATE 5 MG/5 ML VIAL IV PUSH ONE (20:30)
[2017-09-07] MEDS: levETIRAcetam INJ 100 ML IV PRN (21:06)
[2017-09-07] MEDS: MORPHINE SULFATE 2 MG/ML INJ IV PUSH PRN (21:13)
[2017-09-07] MEDS: METOPROLOL TARTRATE 5 MG/5 ML VIAL IV PUSH PRN (23:04)
--- NOTE | 2017-09-07 23:35 | EKG ---
Date Performed: 09/07/2017 Time Performed: 19:04:28 PTAGE: 67 years EKG: Sinus rhythm . Extensive ST-T changes may be due to myocardial ischemia Abnormal ECG PREVIOUS TRACING : 09/07/2017 17.51 Compared to the previous tracing, rate has decreased DOCTOR: Arvind Rodney Interpretating Date/Time 09/07/2017 23:33:38
--- NOTE | 2017-09-07 23:41 | EKG ---
Date Performed: 09/07/2017 Time Performed: 17:51:32 PTAGE: 67 years EKG: SINUS TACHYCARDIA ST DEVIATION AND MODERATE T-WAVE ABNORMALITY, CONSIDER ANTEROLATERAL ISCH EMIA ST DEVIATION AND MODERATE T-WAVE ABNORMALITY, CONSIDER INFERIOR ISCHEMIA ABNORMAL ECG PREVIOUS TRACING : 08/28/2017 07.56 Compared to the previous tracing, ST/T wave changes are mor e notable DOCTOR: Arvind Rodney Interpretating Date/Time 09/07/2017 23:40:41
[2017-09-07] MEDS: POTASSIUM CHLORIDE INJ 20 MEQ in SODIUM CHLORIDE 0.9% INJ 100 ML IV SCH (23:44)
[2017-09-08] VITALS (19 sets, daily range): BP systolic 124–186; BP diastolic 59–88; PULSE 90–106; RESP 20–40; TEMP 98.6–100; O2SAT 96–100
[2017-09-08] MEDS: RESP: ALBUTEROL 2.5 MG/IPRATROPIUM 0.5 MG NEB (SCH) INH ×5 (00:44→20:37)
[2017-09-08] MEDS: MORPHINE SULFATE 2 MG/ML INJ IV PUSH PRN ×2 (00:59→04:37)
[2017-09-08 01:39] LABS: TROPONIN I 0.34 NG/ML (0.02-0.05)
[2017-09-08] MEDS: POTASSIUM CHLORIDE INJ 20 MEQ in SODIUM CHLORIDE 0.9% INJ 100 ML IV SCH ×2 (01:42→04:05)
[2017-09-08] MEDS: METOPROLOL TARTRATE 5 MG/5 ML VIAL IV PUSH PRN ×3 (02:01→17:54)
[2017-09-08] MEDS: CHLORHEXIDINE GLUCONATE 2 % 1 PACK (2 CLOTHS) TOP SCH (04:00)
[2017-09-08] MEDS: ACETAMINOPHEN 325 MG TAB PO SCH ×5 (04:32→23:20)
[2017-09-08] MEDS: HEPARIN SODIUM - SQ 10,000 UNITS/ML VIAL SQ SCH ×2 (05:40→12:40)
--- NOTE | 2017-09-08 06:04 | HHI.CCPN ---
Subjective Remarks/Hospital Course Patient is a 67-year-old female with a past medical history of mitral valve prolapse, chronic back pain, hyperlipidemia, hypertension. She presented to [facility] ED via EMS after she was found face down unresponsive by her . She was given 2 mg IV Ativan by EMS for a witnessed seizure. She was last seen at her baseline at 5:30 this morning. According to the , the patient does not have any seizure disorder and she is not on any seizure meds at home. She had a similar episode a couple years ago and he attributed it to her multiple medications that she takes at home. She is on Tylenol #3 along with Lorazepam, Baclofen and Propranolol. She was found to have a laceration on chin which was bleeding. Her blood sugar was measured at 95. On arrival to the ED, she was hypertensive with a blood pressure of 196/120 and tachycardiac with a heart rate in the 120's. The patient was intubated with etomidate, succinylcholine and placed on full mechanical ventilation. Her laboratory data is significant for lactic acidosis with lactic acid level of 4.0 , an elevated troponin at 0.97 with a total CK of 129. Her urine drug screen is negative for amphetamines, benzodiazepines, and opiates. A CT scan of the brain was performed in the ED which showed no acute intracranial abnormalities. Chronic opacification left maxillary sinus noted. She also had a CT maxillofacial which showed bilateral displaced mandible fractures and bilateral nasal fractures. A cervical spine CT showed multilevel degenerative changes without any compression fracture or subluxation. Chest x-ray, she also had a chest x-ray which showed minimal bilateral upper lobe densities. The patient was given 2 liters of crystalloids in the ED, tetanus shot and placed on Fentanyl and Versed for sedation. There is no history of any chest pain, shortness of breath or any constitutional symptoms. Also, no history of any GI symptoms per the patient's . 08/29 Patient became hypotensive last night started on Levophed 5 mics currently. MRI brain no acute findings, CT abd/pelvis showed mild colitis. On Heparin drip. Left IJ CVP was placed last night CXR post procedure showed 6 mm right apical PTX a repeat CXR from 4:30 showed reduction right apical PTX 4 mm( Right IJ was attempted first) 08/30 No events overnight. Sedated with Diprivan, Versed and intubated. Afebrile. Remains on Levophed. Afebrile. CXR last night mild basilar airspace disease,no PTX. 08/31 No events overnight. Sedated with Versed, Fentanyl and intubated. Afebrile. For cardiac cath today. Off Levophed. 09/01 Patient remains sedated and intubated. s/p transfusion 1u PRBC yesterday Hgb 9.5 this morning. 09/02: LHC yesterday without obstructive CAD. medical management recommended. hgb 8.8 from 9.5 continue to trend. 09/03: doing well this morning. awake and alert. remains intubated. on PSV. at this point, risk/benefit would be in favor of remaining intubated for mandibular fixation tomorrow, however, will attempt to ambulate patient to decrease immobility and debilitation. 09/04: still awake and alert. plan for fixation in OR tonight. no contra- indication to extubation after fixation. will give small dose of lasix to help with edema over last few days. intravascularly replete on physical exam. 09/05: mandible fixation overnight. this morning, passed SBT and extubated on pathway. denies complaints. 09/06: went into agitated delirium overnight, presumably etoh withdraw. was on precedex, now off. doing well today. stable for transfer to floor. still on o2 which prevents her from d/c home. RECONSULTED 09/07: patient was rapid response for severe hypertension, chest pain, and neck pain. per her she has had a SBP > 180 all day today. she has developed worsening neck pain, as well as substernal chest pain which is severe. EKG demonstrates ST depressions with t-wave inversions in the far lateral leads (prior EKG with t-wave inversions, but no depressions). she also endorses nausea and vomiting all day today. denies headache, photophobia. her wbc is normal and she is afebrile. she denies chills. Her ABG is 7.45/37/224 on NRB. on admission to the ICU her bp was 220/90 and her HR was 110s. I immediately gave her a total of 70mg labetalol iv and 10mg metoprolol iv. additionally, we immediately gave her 1" ntg paste. We improved her bp to the 150s range and her HR to the 80s, which improved her labored breathing. however , her chest pain persisted, and we started a ntg drip, which then relieved her chest pain. Her troponins are slightly elevated at 0.32 (prior NSTEMI trop peaked ~4). 09/08: Denies chest pain. Currently complaining of "gurgling" back throat. Currently on Venturi mask at 35% saturation 100%. Slight troponin bump is 0.3 for likely secondary to hypertension. Recent cardiac catheterization with non obstructive coronary disease. Objective Vital Signs Date Time Temp Pulse Resp B/P (MAP) Pulse Ox O2 Delivery O2 Flow Rate FiO2 09/08/17 04:00 106 09/08/17 04:00 99.7 24 144/69 (94) 100 09/08/17 03:54 Venturi Mask 6.00 35 Intake and Output 09/08/17 09/08/17 09/09/17 08:00 16:00 00:00 Intake Total 548 ml Balance 548 ml Result Diagram: 09/07/17 1922 09/07/17 1850 Other Results Microbiology Date/Time Source Procedure Growth Status 08/30/17 13:55 Blood Peripheral Aerobic Blood Culture - Final NO GROWTH IN 5 DAYS Complete 08/30/17 13:55 Blood Peripheral Anaerobic Blood Culture - Final NO GROWTH IN 5 DAYS Complete 08/28/17 14:45 Sputum Endotracheal Gram Stain - Final Complete 08/28/17 14:45 Sputum Endotracheal Sputum Culture - Final HEAVY GROWTH NORMAL RESPIRATORY LAURA Complete 08/28/17 09:00 Urine Catheterized Urine Urine Culture - Final NO GROWTH IN 48 HOURS. Complete Imaging Last Impressions Chest X-Ray 09/07/17 0000 Signed Impressions: Service Date/Time: August 17:50 - CONCLUSION: Increasing consolidation left lower lobe and patchy infiltrates right lower lung. Probable bilateral pleural effusions. Rex Burdick MD Brain MRI 08/28/17 1554 Signed Impressions: Service Date/Time: Monday, August 28, 2017 19:18 - CONCLUSION: 1. No focal mass or shift. No recent infarct. Chronic white matter ischemic changes involving periventricular region and brainstem especially jak. Lloyd Han MD Head CT 08/28/17 0751 Signed Impressions: Service Date/Time: Monday, August 28, 2017 08:20 - CONCLUSION: 1. Nonspecific white matter changes. 2. No acute intracranial abnormality. 3. Chronic opacification left maxillary sinus Armand Foreman MD Maxillofacial CT 08/28/17 0000 Signed Impressions: Service Date/Time: Monday, August 28, 2017 08:20 - CONCLUSION: 1. Bilateral displaced mandible fractures more extensive involving the condyles bilaterally. 2. Sensitive soft tissue swelling. 3. Bilateral nasal fractures. Armand Foreman MD Cervical Spine CT 08/28/17 0000 Signed Impressions: Service Date/Time: Monday, August 28, 2017 08:20 - CONCLUSION: 1. Multilevel degenerative changes. 2. No compression fracture or subluxation. 3. Ground glass density right upper lobe and to lesser degree left upper lobe could be contusion or infectious/inflammatory process. Armand Foreman MD Carotid Artery Ultrasound 08/28/17 0000 Signed Impressions: Service Date/Time: Monday, August 28, 2017 13:23 - CONCLUSION: 1. Mild bilateral carotid plaque. 2. No evidence of hemodynamically significant stenosis. 3. Antegrade flow in both vertebral arteries. Jason Martinez MD Abdomen/Pelvis CT 08/28/17 0000 Signed Impressions: Service Date/Time: Monday, August 28, 2017 19:02 - CONCLUSION: 1. Mild mural thickening of the rectosigmoid most characteristic of a mild colitis distally. No obstruction, free fluid or free air. 2. Small bilateral pleural effusions. 3. 1.6 cm left ovarian cyst. 4. Catheter in decompressed bladder. Lloyd Han MD Objective Remarks GENERAL: 67-year-old female, resting in bed in no acute distress on Venturi mask SKIN: Warm and dry. HEAD: Normocephalic. EYES: No scleral icterus. No injection or drainage. NECK: Supple JVD. Midline trachea. Transmitted upper airway sounds are appreciated CARDIOVASCULAR: RRR. S1, S2 no S4. Without murmur RESPIRATORY: Venturi mask. Crackles appreciated throughout. Diminished in the bases. No wheezing GASTROINTESTINAL: Abdomen soft, non-tender, nondistended. Hypoactive bowel sounds are appreciated MUSCULOSKELETAL:Significant peripheral extremity edema. Neuro: Cranial nerves II through XII grossly intact. Strength appears equal symmetric. Normal sensation. A/P Assessment and Plan Plan Neuro/Psych: Status post ORIF right mandible fracture/extraction of tooth by Dr. Doll 09/04 Chronic narcotic use Chronic benzodiazepine use EtOH Patient is currently in acetaminophen 650 mg scheduled every 6 hours Oxycodone 5 mg every 4 hours. As needed pain fourth through 7 Morphine sulfate 2 mg IV every 1 hour as needed pain 8-10 Currently on levetiracetam 1000 mg IV twice a day for seizure Holding baclofen 10 mill grams 3 times a day/home medication Holding acetaminophen with Codeine 300/15 one tablet every 6 hours when necessary pain Holding lorazepam as needed/home medication Followed by Dr. Moulton/neurology Haloperidol 5 mill grams IV every [address] scan of the brain in the ED negative for acute intracranial findings. MRI brain: No acute findings. Chronic white matter changes EEG: Generalized slowing, no ictal activity. Carotid Doppler US: No sig hemodynamic stenosis. Per Dr. Doll( [facility] [place], [place]) s/p ORIF mandible 09/04. stable to d/c home from [place] standpoint. Thiamine 100 mg IV daily Pulm: Acute hypoxemic respiratory failure likely secondary to flash pulmonary edema wean o2 by Venturi mask for goal spo2 > 92% aggressive pulmonary toile Scheduled albuterol/ipratropium aerosols every 4 hours with albuterol aerosols every 2 hours. Dyspnea Received 1 dose of furosemide BP control. CV: Chronic systolic heart failure Hypertension Catheterization 09/01 revealed nonobstructive coronary artery disease. Preserved LV function. Elevated LVDP. Question Takotsubo syndrome Echo 09/03 showed EF left ventricular systolic function is moderately reduced with an estimated ejection fraction in the range of 30-35%. Distal anteroseptal and apical hypokinesis. Normal left ventricular size. [id number]-rllt mitral valve regurgitation. Mild aortic valve regurgitation. There is mild tricuspid valve regurgitation. The estimated pulmonary arterial pressure is 41 mmHg. Continue with ASA 81 mg daily Started on carvedilol 6.25 twice a day Cards is following- Dr. Han. discussed overnight 09/[address] Pizarro. Discussed with Dr. Marquis - add lisinopril 20 milligrams by mouth daily will not re-heparinize currently Currently nitroglycerin drip at 10 mics grams per minute metoprolol 5mg iv q10min prn for goal HR < 100 trend cardiac enzymes q6h. currently 0.34 Renal//FEN: Hypokalemia Monitor renal function Accurate I's and O's electrolyte replacement per ICU electrolyte protocol. GI: Currently on full liquid diet Famotidine 20 mg q. 12-hour for GI prophylaxis. Docusate sodium/senna 1 tablet twice a day for bowel regimen ID: no indication for abx at this time. wbc normal. afebrile. 08/28 BC 09/21 bottles: GPC ( likely contaminant) s/p Vanco x1 dose 08/30 08/30 BC: NGTD Heme: Leukocytosis Monitor CBC, coags Endo: SSI with Accu-Chek's to maintain euglycemia. GI prophylaxis with famotidine and DVT prophylaxis with SCD's. SQH Level II followup Lee Bishop MD Sep 08, 2017 06:04
[2017-09-08] MEDS: levETIRAcetam INJ 100 ML IV PRN ×2 (08:42→22:04)
[2017-09-08] MEDS: levETIRAcetam 500 MG TAB PO SCH ×2 (08:43→21:00)
[2017-09-08] MEDS ORDERED: POTASSIUM CHLORIDE 25 MEQ EFFERVESCENT TAB PO PRN (09:00)
[2017-09-08] MEDS ORDERED: MAGNESIUM OXIDE 400 MG TAB PO PRN (09:00)
[2017-09-08] MEDS ORDERED: DEXTROSE 50% IN WATER 50 ML VIAL(D50) IV PUSH PRN (09:00)
[2017-09-08] MEDS ORDERED: MAGNESIUM SULFATE INJ 2 GM in SODIUM CHLORIDE 0.9% INJ 96 ML IV PRN (09:00)
[2017-09-08] MEDS ORDERED: POTASSIUM PHOSPHATE MONOBASIC 500 MG TAB PO PRN (09:00)
[2017-09-08] MEDS ORDERED: POTASSIUM CHLOR 20 MEQ PREMIX 100 ML IV PRN (09:00)
[2017-09-08] MEDS ORDERED: MAGNESIUM SULFATE INJ 4 GM in SODIUM CHLORIDE 0.9% INJ 92 ML IV PRN (09:00)
[2017-09-08] MEDS ORDERED: GLUCAGON 1 MG/ML VIAL OTHER PRN (09:00)
[2017-09-08] MEDS ORDERED: POTASSIUM PHOSPHATE INJ 30 MMOL in SODIUM CHLOR 0.9% 250 ML INJ 250 ML IV PRN (09:00)
[2017-09-08] MEDS ORDERED: POTASSIUM CHLOR 40 MEQ PREMIX 100 ML IV PRN ×2 (09:00)
[2017-09-08] MEDS ORDERED: SODIUM PHOSPHATE INJ 30 MMOL in SODIUM CHLOR 0.9% 250 ML INJ 240 ML IV PRN (09:00)
[2017-09-08] MEDS ORDERED: POTASSIUM PHOSPHATE MONOBASIC 500 MG TAB PO/TUBE PRN (09:00)
[2017-09-08] MEDS: ASPIRIN 81 MG CHEW TAB CHEW SCH (10:39)
[2017-09-08] MEDS: DOCUSATE SODIUM 50 MG/SENNA 8.6 MG TAB PO SCH ×2 (10:39→21:00)
[2017-09-08] MEDS: CARVEDILOL 6.25 MG TAB PO SCH ×2 (10:41→21:00)
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
[2017-09-08] MEDS: INSULIN ASPART SUPPLEMENTAL SCALE SQ SCH ×3 (12:00→21:00)
[2017-09-08] MEDS ORDERED: LISINOPRIL 20 MG TAB PO ONE (12:15)
[2017-09-08] MEDS: PANTOPRAZOLE SODIUM 40 MG VIAL IV PUSH SCH ×2 (12:40→23:21)
[2017-09-08] MEDS ORDERED: IOHEXOL 350 MG/ML 10 ML VIAL (for RAD DIAG) IVCONTRAST ONE (13:17)
--- NOTE | 2017-09-08 13:46 | RADRPT ---
EXAM DATE/TIME: 09/08/2017 13:08 [place] COMPARISON: No previous studies available for comparison. INDICATIONS : Shortness of breath. IV CONTRAST: 69 cc Omnipaque 350 (iohexol) IV RADIATION DOSE: 20.99 CTDIvol (mGy) MEDICAL HISTORY : Cardiovascular disease. Hypertension. Rheumatoid arthritis. SURGICAL HISTORY : None. ENCOUNTER: Initial ACUITY: 1 day PAIN SCALE: 0/10 LOCATION: chest TECHNIQUE: Volumetric scanning of the chest was performed using a pulmonary embolism protocol MIP images were re constructed. Using automated exposure control and adjustment of the mA and/or kV according to patien t size, radiation dose was kept as low as reasonably achievable to obtain optimal diagnostic quality images. DICOM format image data is available electronically for review and comparison. Follow-up recommendations for detected pulmonary nodules are based at a minimum on nodule size and pa tient risk factors according to Fleischner Society Guidelines. FINDINGS: PULMONARY ARTERIES: The subsegmental branches aren't completely opacified for definitive evaluation. There is at least on e segmental right anterior lower lobe pulmonary artery branch which demonstrates a filling defect con sistent with pulmonary embolism. LUNGS: Dense airspace consolidation at the lung bases adjacent to pleural fluid. Mild scattered groundglass opacities in the right upper lobe. PLEURAE: Small to moderate bilateral pleural effusions which appear simple in density. MEDIASTINUM: Prominent left ventricular peterson consistent with LVH. Subcentimeter right hilar and mediastinal lymph nodes. MUSCULOSKELETAL: Within normal limits for patient age. MISCELLANEOUS: The visualized upper abdominal organs demonstrate no acute abnormality. CONCLUSION: 1. There is at least one segmental right anterior lower lobe pulmonary artery branch containing embol us. Subsegmental branches are suboptimally visualized for definitive evaluation. Overall thrombus bur den is low. 2. Dense airspace consolidation in the lower lobes with associated small to moderate simple appearing bilateral pleural effusions. 3. Scattered peripheral ground glass opacities in the right upper lobe. Differential considerations i nclude inflammatory/infectious etiologies, focal volume loss, or less likely pulmonary infarction. 4. Prominent left ventricular peterson consistent with LVH. Correlation is recommended. Janes Cotton MD on September 08, 2017 at 13:30 Board Certified Radiologist. This report was verified electronically.
[2017-09-08 14:58] LABS: AUTOMATED NEUTROPHIL # 11.5 TH/MM3 (1.8-7.7); BASOPHIL % 0.4 % (0.0-2.0); EOSINOPHIL % 0.1 % (0.0-4.0); HEMATOCRIT 27.1 % (35.0-46.0); LYMPH % 7.4 % (9.0-44.0); MEAN CELL VOLUME 101.7 FL (80.0-100.0); MEAN CORPUSCULAR HEMOGLOBIN 33.9 PG (27.0-34.0); MEAN CORPUSCULAR HGB CONC 33.3 % (32.0-36.0); MEAN PLATELET VOLUME 9.5 FL (7.0-11.0); MONO % 6.1 % (0.0-8.0); MONOCYTE # 0.8 TH/MM3 (0-0.9); PLATELET COUNT 280 TH/MM3 (150-450); RED BLOOD COUNT 2.66 MIL/MM3 (4.00-5.30); RED CELL DISTRIBUTION WIDTH 20.3 % (11.6-17.2); WHITE BLOOD COUNT 13.3 TH/MM3 (4.0-11.0)
[2017-09-08 15:30] LABS: BICARBONATE 24.9 MEQ/L (21.0-32.0); CALCIUM 8.3 MG/DL (8.5-10.1); CREATININE 0.4 MG/DL (0.50-1.00); TROPONIN I 0.24 NG/ML (0.02-0.05)
[2017-09-08] MEDS: hydrALAZINE HCL 20 MG/ML VIAL IV PUSH PRN ×2 (17:08→22:49)
[2017-09-08] MEDS ORDERED: HEPARIN - 10,000 UNITS/ML IV ADDITIVE IV PUSH STA (20:24)
[2017-09-08 21:28] LABS: HEMATOCRIT 27.4 % (35.0-46.0); HEMOGLOBIN 9.1 GM/DL (11.6-15.3); MEAN CORPUSCULAR HEMOGLOBIN 33.7 PG (27.0-34.0); MEAN CORPUSCULAR HGB CONC 33.4 % (32.0-36.0); MEAN PLATELET VOLUME 9.6 FL (7.0-11.0); PLATELET COUNT 301 TH/MM3 (150-450); RED BLOOD COUNT 2.71 MIL/MM3 (4.00-5.30); RED CELL DISTRIBUTION WIDTH 20.1 % (11.6-17.2); WHITE BLOOD COUNT 16.2 TH/MM3 (4.0-11.0)
[2017-09-08 21:40] LABS: INTERNATIONAL NORMALIZED RATIO 1.1 RATIO; PROTHROMBIN TIME - PATIENT 10.7 SEC (9.8-11.6)
[2017-09-08 21:41] LABS: TROPONIN I 0.24 NG/ML (0.02-0.05)
[2017-09-08] MEDS: LABETALOL HCL 100 MG/20 ML VIAL IV PUSH PRN (22:04)
[2017-09-08] MEDS: HEPARIN-D5W 25,000 U/250 ML 250 ML IV PRN (22:41)
[2017-09-09] VITALS (14 sets, daily range): BP systolic 125–164; BP diastolic 62–74; PULSE 74–112; RESP 15–38; TEMP 98.1–102.4; O2SAT 95–100
[2017-09-09] MEDS: MORPHINE SULFATE 2 MG/ML INJ IV PUSH PRN ×2 (00:23→15:38)
[2017-09-09 02:20] LABS: TROPONIN I 0.28 NG/ML (0.02-0.05)
[2017-09-09] MEDS ORDERED: HEPARIN - 10,000 UNITS/ML IV ADDITIVE IV PUSH PRN (02:30)
[2017-09-09] MEDS ORDERED: HEPARIN SODIUM - IV 10,000 UNITS/10 ML VIAL IV PUSH PRN (02:30)
[2017-09-09] MEDS: CHLORHEXIDINE GLUCONATE 2 % 1 PACK (2 CLOTHS) TOP SCH (03:42)
[2017-09-09] MEDS: METOPROLOL TARTRATE 5 MG/5 ML VIAL IV PUSH PRN (03:55)
[2017-09-09] MEDS: ACETAMINOPHEN 1000 MG/100 ML 100 ML IV PRN (04:05)
[2017-09-09] MEDS ORDERED: DEXTROSE 5% IN WATE 1000ML INJ 1,000 ML IV SCH (04:30)
[2017-09-09] MEDS: ACETAMINOPHEN 325 MG TAB PO SCH ×4 (04:49→23:53)
[2017-09-09] MEDS: PIPERACIL-TAZO 4.5 GM PREMIX 100 ML IV SCH ×4 (04:53→23:53)
[2017-09-09] MEDS: RESP: ALBUTEROL 2.5 MG/IPRATROPIUM 0.5 MG NEB (SCH) INH ×4 (05:21→20:34)
[2017-09-09 05:52] LABS: HEMATOCRIT 24.4 % (35.0-46.0); HEMOGLOBIN 8.3 GM/DL (11.6-15.3); MEAN CORPUSCULAR HEMOGLOBIN 34.4 PG (27.0-34.0); MEAN PLATELET VOLUME 9.5 FL (7.0-11.0); PLATELET COUNT 301 TH/MM3 (150-450); RED BLOOD COUNT 2.42 MIL/MM3 (4.00-5.30); RED CELL DISTRIBUTION WIDTH 20.3 % (11.6-17.2); WHITE BLOOD COUNT 16.5 TH/MM3 (4.0-11.0)
[2017-09-09 06:18] LABS: ALBUMIN 2.1 GM/DL (3.4-5.0); BICARBONATE 23.2 MEQ/L (21.0-32.0); CREATININE 0.43 MG/DL (0.50-1.00); DIRECT BILIRUBIN ADULT 0.1 MG/DL (0.0-0.2); INDIRECT BILIRUBIN 0.4 MG/DL (0.0-0.8); MAGNESIUM 1.6 MG/DL (1.5-2.5); PHOSPHORUS 2.9 MG/DL (2.5-4.9); TOTAL BILIRUBIN ADULT 0.5 MG/DL (0.2-1.0); TOTAL PROTEIN 6.4 GM/DL (6.4-8.2)
--- NOTE | 2017-09-09 06:48 | HHI.CCPN ---
Subjective Remarks/Hospital Course Patient is a 67-year-old female with a past medical history of mitral valve prolapse, chronic back pain, hyperlipidemia, hypertension. She presented to [facility] ED via EMS after she was found face down unresponsive by her . She was given 2 mg IV Ativan by EMS for a witnessed seizure. She was last seen at her baseline at 5:30 this morning. According to the , the patient does not have any seizure disorder and she is not on any seizure meds at home. She had a similar episode a couple years ago and he attributed it to her multiple medications that she takes at home. She is on Tylenol #3 along with Lorazepam, Baclofen and Propranolol. She was found to have a laceration on chin which was bleeding. Her blood sugar was measured at 95. On arrival to the ED, she was hypertensive with a blood pressure of 196/120 and tachycardiac with a heart rate in the 120's. The patient was intubated with etomidate, succinylcholine and placed on full mechanical ventilation. Her laboratory data is significant for lactic acidosis with lactic acid level of 4.0 , an elevated troponin at 0.97 with a total CK of 129. Her urine drug screen is negative for amphetamines, benzodiazepines, and opiates. A CT scan of the brain was performed in the ED which showed no acute intracranial abnormalities. Chronic opacification left maxillary sinus noted. She also had a CT maxillofacial which showed bilateral displaced mandible fractures and bilateral nasal fractures. A cervical spine CT showed multilevel degenerative changes without any compression fracture or subluxation. Chest x-ray, she also had a chest x-ray which showed minimal bilateral upper lobe densities. The patient was given 2 liters of crystalloids in the ED, tetanus shot and placed on Fentanyl and Versed for sedation. There is no history of any chest pain, shortness of breath or any constitutional symptoms. Also, no history of any GI symptoms per the patient's . 08/29 Patient became hypotensive last night started on Levophed 5 mics currently. MRI brain no acute findings, CT abd/pelvis showed mild colitis. On Heparin drip. Left IJ CVP was placed last night CXR post procedure showed 6 mm right apical PTX a repeat CXR from 4:30 showed reduction right apical PTX 4 mm( Right IJ was attempted first) 08/30 No events overnight. Sedated with Diprivan, Versed and intubated. Afebrile. Remains on Levophed. Afebrile. CXR last night mild basilar airspace disease,no PTX. 08/31 No events overnight. Sedated with Versed, Fentanyl and intubated. Afebrile. For cardiac cath today. Off Levophed. 09/01 Patient remains sedated and intubated. s/p transfusion 1u PRBC yesterday Hgb 9.5 this morning. 09/02: LHC yesterday without obstructive CAD. medical management recommended. hgb 8.8 from 9.5 continue to trend. 09/03: doing well this morning. awake and alert. remains intubated. on PSV. at this point, risk/benefit would be in favor of remaining intubated for mandibular fixation tomorrow, however, will attempt to ambulate patient to decrease immobility and debilitation. 09/04: still awake and alert. plan for fixation in OR tonight. no contra- indication to extubation after fixation. will give small dose of lasix to help with edema over last few days. intravascularly replete on physical exam. 09/05: mandible fixation overnight. this morning, passed SBT and extubated on pathway. denies complaints. 09/06: went into agitated delirium overnight, presumably etoh withdraw. was on precedex, now off. doing well today. stable for transfer to floor. still on o2 which prevents her from d/c home. RECONSULTED 09/07: patient was rapid response for severe hypertension, chest pain, and neck pain. per her she has had a SBP > 180 all day today. she has developed worsening neck pain, as well as substernal chest pain which is severe. EKG demonstrates ST depressions with t-wave inversions in the far lateral leads (prior EKG with t-wave inversions, but no depressions). she also endorses nausea and vomiting all day today. denies headache, photophobia. her wbc is normal and she is afebrile. she denies chills. Her ABG is 7.45/37/224 on NRB. on admission to the ICU her bp was 220/90 and her HR was 110s. I immediately gave her a total of 70mg labetalol iv and 10mg metoprolol iv. additionally, we immediately gave her 1" ntg paste. We improved her bp to the 150s range and her HR to the 80s, which improved her labored breathing. however , her chest pain persisted, and we started a ntg drip, which then relieved her chest pain. Her troponins are slightly elevated at 0.32 (prior NSTEMI trop peaked ~4). 09/08: Denies chest pain. Currently complaining of "gurgling" back throat. Currently on Venturi mask at 35% saturation 100%. Slight troponin bump is 0.3 for likely secondary to hypertension. Recent cardiac catheterization with non obstructive coronary disease. SUBJECTIVE: 09/09: Remains on nitroglycerin drip. Currently in 4 L nasal cannula. Start heparin drip due to lower lobe pulmonary embolism. Also started piperacillin/ tazobactam overnight. Using a cappella. Objective Vital Signs Date Time Temp Pulse Resp B/P (MAP) Pulse Ox O2 Delivery O2 Flow Rate FiO2 09/09/17 02:00 102 09/09/17 00:00 98.4 30 137/62 (87) 96 09/08/17 20:41 Nasal Cannula 4.00 09/08/17 03:54 35 Result Diagram: 09/09/17 0520 09/09/17 0520 Other Results Microbiology Date/Time Source Procedure Growth Status 09/09/17 05:56 Blood Peripheral Aerobic Blood Culture Pending Received 09/09/17 05:56 Blood Peripheral Anaerobic Blood Culture Pending Received 08/28/17 14:45 Sputum Endotracheal Gram Stain - Final Complete 08/28/17 14:45 Sputum Endotracheal Sputum Culture - Final HEAVY GROWTH NORMAL RESPIRATORY LAURA Complete 09/09/17 06:20 Urine Catheterized Urine Urine Culture Pending Received Imaging Last Impressions CT Angiography 09/08/17 0000 Signed Impressions: Service Date/Time: Friday, September 08, 2017 13:08 - CONCLUSION: 1. There is at least one segmental right anterior lower lobe pulmonary artery branch containing embolus. Subsegmental branches are suboptimally visualized for definitive evaluation. Overall thrombus burden is low. 2. Dense airspace consolidation in the lower lobes with associated small to moderate simple appearing bilateral pleural effusions. 3. Scattered peripheral ground glass opacities in the right upper lobe. Differential considerations include inflammatory/infectious etiologies, focal volume loss, or less likely pulmonary infarction. 4. Prominent left ventricular peterson consistent with LVH. Correlation is recommended. Janes Cotton MD Chest X-Ray 09/07/17 0000 Signed Impressions: Service Date/Time: August 17:50 - CONCLUSION: Increasing consolidation left lower lobe and patchy infiltrates right lower lung. Probable bilateral pleural effusions. Rex Burdick MD Brain MRI 08/28/17 1554 Signed Impressions: Service Date/Time: Monday, August 28, 2017 19:18 - CONCLUSION: 1. No focal mass or shift. No recent infarct. Chronic white matter ischemic changes involving periventricular region and brainstem especially jak. Lloyd Han MD Head CT 08/28/17 0751 Signed Impressions: Service Date/Time: Monday, August 28, 2017 08:20 - CONCLUSION: 1. Nonspecific white matter changes. 2. No acute intracranial abnormality. 3. Chronic opacification left maxillary sinus Armand Foreman MD Maxillofacial CT 08/28/17 0000 Signed Impressions: Service Date/Time: Monday, August 28, 2017 08:20 - CONCLUSION: 1. Bilateral displaced mandible fractures more extensive involving the condyles bilaterally. 2. Sensitive soft tissue swelling. 3. Bilateral nasal fractures. Armand Foreman MD Cervical Spine CT 08/28/17 0000 Signed Impressions: Service Date/Time: Monday, August 28, 2017 08:20 - CONCLUSION: 1. Multilevel degenerative changes. 2. No compression fracture or subluxation. 3. Ground glass density right upper lobe and to lesser degree left upper lobe could be contusion or infectious/inflammatory process. Armand Foreman MD Carotid Artery Ultrasound 08/28/17 0000 Signed Impressions: Service Date/Time: Monday, August 28, 2017 13:23 - CONCLUSION: 1. Mild bilateral carotid plaque. 2. No evidence of hemodynamically significant stenosis. 3. Antegrade flow in both vertebral arteries. Jason Martinez MD Abdomen/Pelvis CT 08/28/17 0000 Signed Impressions: Service Date/Time: Monday, August 28, 2017 19:02 - CONCLUSION: 1. Mild mural thickening of the rectosigmoid most characteristic of a mild colitis distally. No obstruction, free fluid or free air. 2. Small bilateral pleural effusions. 3. 1.6 cm left ovarian cyst. 4. Catheter in decompressed bladder. Lloyd Han MD Objective Remarks GENERAL: 67-year-old female, resting in bed in no acute distress on nasal cannula SKIN: Warm and dry. HEAD: Normocephalic. EYES: No scleral icterus. No injection or drainage. NECK: Supple JVD. Midline trachea. Transmitted upper airway sounds are appreciated CARDIOVASCULAR: RRR. S1, S2 no S4. Without murmur RESPIRATORY: Nasal cannula. Coarse Crackles appreciated throughout. Diminished in the bases. No wheezing GASTROINTESTINAL: Abdomen soft, non-tender, nondistended. Hypoactive bowel sounds are appreciated MUSCULOSKELETAL:Significant peripheral extremity edema. Neuro: Cranial nerves II through XII grossly intact. Strength appears equal symmetric. Normal sensation. A/P Assessment and Plan Plan Neuro/Psych: Status post ORIF right mandible fracture/extraction of tooth by Dr. Doll 09/04 Chronic narcotic use Chronic benzodiazepine use EtOH Patient is currently in acetaminophen 650 mg scheduled every 6 hours Oxycodone 5 mg every 4 hours. As needed pain fourth through 7 Morphine sulfate 2 mg IV every 1 hour as needed pain 8-10 Currently on levetiracetam 1000 mg IV twice a day for seizure Holding baclofen 10 mill grams 3 times a day/home medication Holding acetaminophen with Codeine 300/15 one tablet every 6 hours when necessary pain Holding lorazepam as needed/home medication Followed by Dr. Moulton/neurology Haloperidol 5 mill grams IV every [address] scan of the brain in the ED negative for acute intracranial findings. MRI brain: No acute findings. Chronic white matter changes EEG: Generalized slowing, no ictal activity. Carotid Doppler US: No sig hemodynamic stenosis. [place] Dr. Doll( [facility] [place] s/p ORIF mandible 09/04. stable to d/c home from [place] standpoint. Thiamine 100 mg IV daily Pulm: Acute hypoxemic respiratory failure likely secondary to flash pulmonary edema Right lower lobe pulmonary embolism Possible healthcare associated pneumonia CT pulmonary angiogram revealed right lower lobe/anterior home embolism, but upper lobe groundglass opacities and small bilateral pleural effusions wean o2 by nasal cannula for goal spo2 > 92% aggressive pulmonary toilet including a cappella Scheduled albuterol/ipratropium aerosols every 4 hours with albuterol aerosols every 2 hours. Dyspnea Received 1 dose of furosemide overnight BP control. CV: Chronic systolic heart failure Hypertension Catheterization 09/01 revealed nonobstructive coronary artery disease. Preserved LV function. Elevated LVDP. Question Takotsubo syndrome Echo 09/03 showed EF left ventricular systolic function is moderately reduced with an estimated ejection fraction in the range of 30-35%. Distal anteroseptal and apical hypokinesis. Normal left ventricular size. Lzoig-tn-fang mitral valve regurgitation. Mild aortic valve regurgitation. There is mild tricuspid valve regurgitation. The estimated pulmonary arterial pressure is 41 mmHg. Continue with ASA 81 mg daily Started on carvedilol 12.5 twice a day. Added lisinopril 20 mill grams by mouth daily Cards is following- Dr. Han. discussed overnight 09/[address] Pizarro. Discussed with Dr. Marquis - add lisinopril 20 milligrams by mouth daily Currently heparin drip Currently nitroglycerin drip at 3 mics grams per minute metoprolol 5mg iv q10min prn for goal HR < 100 trended cardiac enzymes q6h. currently 0.28 Renal//FEN: Hypokalemia Monitor renal function Accurate I's and O's electrolyte replacement per ICU electrolyte protocol. 80 mEq by mouth 1 now. 2 g mag sulfate IV 1 now. GI: Hypoalbuminemia Currently on full liquid diet Pantoprazole 40 mg by mouth daily for GI prophylaxis. Docusate sodium/senna 1 tablet twice a day for bowel regimen ID: Possible aspiration pneumonia - right upper lobe Currently on piperacillin/tazobactam day #1 08/28 BC 09/21 bottles: GPC ( likely contaminant) s/p Vanco x1 dose 08/30 08/30 BC: NGTD 09/08 Blood cultures 2, sputum reordered Heme: Leukocytosis Normocytic anemia Monitor CBC, coags On heparin drip Endo: SSI with Accu-Chek's to maintain euglycemia. GI prophylaxis with pantoprazole and DVT prophylaxis with SCD's. Heparin drip Level II followup Lee Bishop MD Sep 09, 2017 06:48
[2017-09-09] MEDS: MAGNESIUM SULFATE 1 GM PREMIX 100 ML IV SCH ×2 (06:56→08:01)
[2017-09-09] MEDS ORDERED: D5-NS + KCL 20 MEQ INJ 1,000 ML IV SCH (07:30)
[2017-09-09] MEDS: INSULIN ASPART SUPPLEMENTAL SCALE SQ SCH ×4 (08:00→21:00)
[2017-09-09] MEDS: levETIRAcetam 500 MG TAB PO SCH ×2 (08:53→20:41)
[2017-09-09] MEDS: DOCUSATE SODIUM 50 MG/SENNA 8.6 MG TAB PO SCH ×2 (08:53→20:41)
[2017-09-09] MEDS: ASPIRIN 81 MG CHEW TAB CHEW SCH (08:54)
[2017-09-09] MEDS: CARVEDILOL 12.5 MG TAB PO SCH ×2 (08:54→20:41)
[2017-09-09] MEDS: LISINOPRIL 20 MG TAB PO SCH (08:54)
--- NOTE | 2017-09-09 08:58 | RADRPT ---
EXAM DATE/TIME: 09/09/2017 07:58 [place] COMPARISON: No previous studies available for comparison. INDICATIONS : Bilateral leg swelling. MEDICAL HISTORY : Hypertension. Rheumatoid arthritis. Mitral valve prolapse. Nausea.Vomiting. Weight loss. Herniated d isk. SURGICAL HISTORY : None. ENCOUNTER: Initial ACUITY: 1 day PAIN SCORE: Non-responsive LOCATION: Bilateral legs. TECHNIQUE: Venous ultrasound of the left and right leg was performed from the inguinal ligament to the proximal calf. Real-time, color Doppler and spectral tracing, compression and augmentation techniques were us ed. FINDINGS: RIGHT LEG: There is pseudoaneurysm in the right groin There is normal compressibility of the deep venous system from the inguinal region to the proximal calf. No echogenic clot is seen in the lumen of the common femoral, femoral, popliteal, and posterior tibial veins. There is a normal response of the venous sy stem to proximal and distal augmentation and respiration. LEFT LEG: There is normal compressibility of the deep venous system from the inguinal region to the proximal ca lf. No echogenic clot is seen in the lumen of the common femoral, femoral, popliteal, and posterior tibial veins. There is a normal response of the venous system to proximal and distal augmentation an d respiration. CONCLUSION: 1. Small pseudoaneurysm right groin 2. Negative for DVT thrombosis. Leroy Coronel MD FACR on September 09, 2017 at 8:53 Board Certified Radiologist. This report was verified electronically.
[2017-09-09] MEDS: PANTOPRAZOLE SOD 40 MG DELAYED RELEASE TAB PO SCH (09:00)
[2017-09-09] MEDS: POTASSIUM CHLORIDE 20 MEQ PWD PACKET PO SCH ×2 (09:00→20:41)
--- NOTE | 2017-09-09 09:46 | PD.CARD.PN ---
Subjective Subjective Remarks SOB, no chest pain, not able to take PO well (swallow eval pending) Objective Medications Current Medications Medications (Trade) Dose Ordered Sig/Benny Route Start Time Stop Time Status Last Admin (NS Flush) 2 ml UNSCH PRN IV FLUSH 08/28/17 08:00 09/02/17 21:05 Miscellaneous Information 1 Q361D XX 08/28/17 09:30 (Chlorhexidine 2% Cloth) Taper DAILY@04 TOP 08/29/17 04:00 08/25/18 03:59 09/09/17 03:42 (Chlorhexidine 2% Cloth) 3 pack UNSCH PRN TOP 08/28/17 09:30 (Brenna-Colace) 1 tab BID PO 08/28/17 21:00 09/09/17 08:53 (Milk Of Magnesia Liq) 30 ml Q12H PRN PO 08/28/17 09:30 (Senokot) 17.2 mg Q12H PRN PO 08/28/17 09:30 (Dulcolax Supp) 10 mg DAILY PRN RECTAL 08/28/17 09:30 (Lactulose Liq) 30 ml DAILY PRN PO 08/28/17 09:30 (Aspirin Chew) 81 mg DAILY CHEW 08/29/17 09:00 09/09/17 08:54 (Zofran Inj) 4 mg Q4H PRN IV PUSH 09/01/17 13:30 09/07/17 08:58 (Roxicodone) 5 mg Q4H PRN PO 09/05/17 12:00 (Tylenol) 650 mg Q6H PO 09/05/17 12:00 09/08/17 12:41 (Keppra) 1,000 mg Q12HR PO 09/05/17 21:00 09/09/17 08:53 (Romazicon Inj) 0.2 mg Q1M PRN IV PUSH 09/06/17 00:45 (Duoneb Neb) 1 ampule Q6HR NEB INH 09/06/17 16:00 09/09/17 05:21 (Haldol Inj) 5 mg Q4H PRN IV PUSH 09/06/17 11:30 (Reglan Inj) 5 mg Q8H PRN IV PUSH 09/07/17 10:45 (Phenergan) 25 mg Q6H PRN PO 09/07/17 10:45 09/07/17 11:17 (Compazine Supp) 25 mg Q6H PRN RECTAL 09/07/17 15:00 (Nitroglycerin 2% Oint) 1 inch Q6HR PRN TOPICAL 09/07/17 18:45 Nitroglycerin/ Dextrose 250 ml @ 1.5 mls/hr TITRATE PRN IV 09/07/17 19:30 09/07/17 19:52 (Lopressor Inj) 5 mg Q5M PRN IV PUSH 09/07/17 20:30 09/09/17 03:55 Levetriacetam 100 ml @ 400 mls/hr Q12HR PRN IV 09/07/17 20:30 09/08/17 22:04 Acetaminophen 100 ml @ 400 mls/hr Q6H PRN IV 09/07/17 20:30 09/09/17 04:05 (Morphine Inj) 2 mg Q1H PRN IV PUSH 09/07/17 20:30 09/09/17 00:23 (Albuterol Neb) 2.5 mg Q2HR NEB PRN NEB 09/08/17 08:30 Potassium Chloride 100 ml @ 50 mls/hr Q2H PRN IV 09/08/17 09:00 Potassium Chloride 100 ml @ 50 mls/hr Q2H PRN IV 09/08/17 09:00 (K-Lyte Cl Eff) 50 meq UNSCH PRN PO 09/08/17 09:00 Potassium Chloride 100 ml @ 25 mls/hr UNSCH PRN IV 09/08/17 09:00 Potassium Chloride 100 ml @ 50 mls/hr Q2H PRN IV 09/08/17 09:00 Magnesium Sulfate 4 gm/Sodium Chloride 100 ml @ 50 mls/hr UNSCH PRN IV 09/08/17 09:00 (Mag-Ox) 800 mg UNSCH PRN PO 09/08/17 09:00 Magnesium Sulfate 2 gm/Sodium Chloride 100 ml @ 50 mls/hr UNSCH PRN IV 09/08/17 09:00 (K-Phos) 2,000 mg Q4H PRN PO 09/08/17 09:00 Sodium Phosphate 30 mmol/Sodium Chloride 250 ml @ 42 mls/hr UNSCH PRN IV 09/08/17 09:00 (K-Phos) 2,000 mg UNSCH PRN PO/TUBE 09/08/17 09:00 Potassium Phosphate 30 mmol/ Sodium Chloride 260 ml @ 42 mls/hr UNSCH PRN IV 09/08/17 09:00 (D50w (Vial) Inj) 50 ml UNSCH PRN IV PUSH 09/08/17 09:00 09/08/17 23:07 (Glucagon Inj) 1 mg UNSCH PRN OTHER 09/08/17 09:00 (NovoLOG SUPPLEMENTAL SCALE) 1 ACHS SLIDING SCALE SQ 09/08/17 12:00 (Trandate Inj) 10 mg Q1H PRN IV PUSH 09/08/17 09:00 09/08/17 22:04 (Apresoline Inj) 10 mg Q1H PRN IV PUSH 09/08/17 09:00 09/08/17 22:49 (Prinivil) 20 mg DAILY PO 09/09/17 09:00 09/09/17 08:54 (Heparin Inj) 5,000 units UNSCH PRN IV PUSH 09/09/17 02:30 (Heparin Inj) 2,500 units UNSCH PRN IV PUSH 09/09/17 02:30 Heparin Sodium/ Dextrose 250 ml @ 10 mls/hr TITRATE PRN IV 09/08/17 20:30 09/08/17 22:41 Piperacillin Sod/ Tazobactam Sod 100 ml @ 200 mls/hr Q6H IV 09/09/17 05:00 09/09/17 04:53 (Coreg) 12.5 mg Q12HR PO 09/09/17 09:00 09/09/17 08:54 (KCl Powder) 40 meq Q12HR PO 09/09/17 09:00 09/09/17 21:01 (Protonix) 40 mg DAILY PO 09/09/17 09:00 Potassium Chloride/Dextrose/ Sod Cl 1,000 ml @ 42 mls/hr [id number] IV 09/09/17 07:30 09/10/17 07:18 09/09/17 08:53 Vital Signs / I&O Vital Signs Date Time Temp Pulse Resp B/P (MAP) Pulse Ox O2 Delivery O2 Flow Rate FiO2 09/09/17 06:00 96 09/09/17 04:00 102.4 106 38 150/72 (98) 100 09/09/17 04:00 98 09/09/17 02:00 102 09/09/17 00:00 108 09/09/17 00:00 98.4 112 30 137/62 (87) 96 09/08/17 22:00 106 09/08/17 20:41 97 Nasal Cannula 4.00 09/08/17 20:00 98.6 104 40 140/65 (90) 96 09/08/17 20:00 93 09/08/17 18:00 90 09/08/17 18:00 90 124/59 (80) 09/08/17 17:30 103 170/81 (110) 09/08/17 17:00 35 186/88 (120) 100 09/08/17 16:30 90 170/81 (110) 09/08/17 16:00 90 09/08/17 16:00 99.0 90 36 181/83 (115) 100 09/08/17 14:00 92 09/08/17 13:00 90 36 150/70 (96) 98 09/08/17 12:00 99.7 92 36 171/78 (109) 98 09/08/17 12:00 92 09/08/17 10:00 102 I/O 09/08/17 09/08/17 09/08/17 09/09/17 09/09/17 09/09/17 07:00 15:00 23:00 07:00 15:00 23:00 Intake Total 548 ml 1100 ml 150 ml 200 ml Output Total 500 ml Balance 48 ml 1100 ml 150 ml 200 ml Intake Oral 50 ml 0 ml IV Total 548 ml 1100 ml 100 ml 200 ml Output Urine Total 500 ml # Voids 4 4 4 # Bowel Movements 1 1 0 Physical Exam Thin, malnourished AxOx3 No JVD Chest: doesn't take deep breaths, few rhoncho CV S1S2 RRR, 1/6 IRVING No edema. Hematoma right groin. Ultrasound shows pseudoaneurysm Laboratory Laboratory Tests Test 09/08/17 14:14 09/08/17 20:38 09/08/17 20:46 09/09/17 01:40 White Blood Count 13.3 TH/MM3 16.2 TH/MM3 Red Blood Count 2.66 MIL/MM3 2.71 MIL/MM3 Hemoglobin 9.0 GM/DL 9.1 GM/DL Hematocrit 27.1 % 27.4 % Mean Corpuscular Volume 101.7 FL 101.0 FL Mean Corpuscular Hemoglobin 33.9 PG 33.7 PG Mean Corpuscular Hemoglobin Concent 33.3 % 33.4 % Red Cell Distribution Width 20.3 % 20.1 % Platelet Count 280 TH/MM3 301 TH/MM3 Mean Platelet Volume 9.5 FL 9.6 FL Neutrophils (%) (Auto) 86.0 % Lymphocytes (%) (Auto) 7.4 % Monocytes (%) (Auto) 6.1 % Eosinophils (%) (Auto) 0.1 % Basophils (%) (Auto) 0.4 % Neutrophils # (Auto) 11.5 TH/MM3 Lymphocytes # (Auto) 1.0 TH/MM3 Monocytes # (Auto) 0.8 TH/MM3 Eosinophils # (Auto) 0.0 TH/MM3 Basophils # (Auto) 0.0 TH/MM3 CBC Comment AUTO DIFF Differential Comment AUTO DIFF CONFIRMED Platelet Estimate NORMAL Platelet Morphology Comment NORMAL Blood Urea Nitrogen 6 MG/DL Creatinine 0.40 MG/DL Random Glucose 68 MG/DL Calcium Level 8.3 MG/DL Sodium Level 139 MEQ/L Potassium Level 4.3 MEQ/L Chloride Level 104 MEQ/L Carbon Dioxide Level 24.9 MEQ/L Anion Gap 10 MEQ/L Estimat Glomerular Filtration Rate 160 ML/MIN Total Creatine Kinase 43 U/L 40 U/L 42 U/L Troponin I 0.24 NG/ML 0.24 NG/ML 0.28 NG/ML Prothrombin Time 10.7 SEC Prothromb Time International Ratio 1.1 RATIO Activated Partial Thromboplast Time 32.0 SEC Test 09/09/17 05:20 White Blood Count 16.5 TH/MM3 Red Blood Count 2.42 MIL/MM3 Hemoglobin 8.3 GM/DL Hematocrit 24.4 % Mean Corpuscular Volume 101.0 FL Mean Corpuscular Hemoglobin 34.4 PG Mean Corpuscular Hemoglobin Concent 34.0 % Red Cell Distribution Width 20.3 % Platelet Count 301 TH/MM3 Mean Platelet Volume 9.5 FL Blood Urea Nitrogen 6 MG/DL Creatinine 0.43 MG/DL Random Glucose 120 MG/DL Total Protein 6.4 GM/DL Albumin 2.1 GM/DL Calcium Level 8.0 MG/DL Phosphorus Level 2.9 MG/DL Magnesium Level 1.6 MG/DL Alkaline Phosphatase 70 U/L Aspartate Amino Transf (AST/SGOT) 19 U/L Alanine Aminotransferase (ALT/SGPT) 15 U/L Total Bilirubin 0.5 MG/DL Direct Bilirubin 0.1 MG/DL Sodium Level 138 MEQ/L Potassium Level 3.2 MEQ/L Chloride Level 103 MEQ/L Carbon Dioxide Level 23.2 MEQ/L Anion Gap 12 MEQ/L Estimat Glomerular Filtration Rate 147 ML/MIN Indirect Bilirubin 0.4 MG/DL Imaging Last 24 hours Impressions Lower Extremity Ultrasound 09/09/17 0000 Signed Impressions: Service Date/Time: Saturday, September 09, 2017 07:58 - CONCLUSION: 1. Small pseudoaneurysm right groin 2. Negative for DVT thrombosis. Leroy Coronel MD FACR Assessment and Plan Problem List: (1) Elevated troponin ICD Codes: R74.8 - Abnormal levels of other serum enzymes (2) Pseudoaneurysm of femoral artery ICD Codes: I72.4 - Aneurysm of artery of lower extremity Plan: Consult IR to try to seal/thrombose (3) Hypertensive heart disease ICD Codes: I11.9 - Hypertensive heart disease without heart failure (4) Cardiomyopathy, nonischemic ICD Codes: I42.8 - Other cardiomyopathies (5) Pneumonia ICD Codes: J18.9 - Pneumonia, unspecified organism (6) Pulmonary embolism ICD Codes: I26.99 - Other pulmonary embolism without acute cor pulmonale Plan: Consult IR for filter Bonifacio Marquis MD Sep 09, 2017 09:46
[2017-09-09] MEDS: POTASSIUM CHLOR 20 MEQ PREMIX 100 ML IV PRN ×4 (09:48→17:50)
[2017-09-09] MEDS ORDERED: POTASSIUM BICARBONATE 25 MEQ EFFERVESCENT TAB PO ONE (10:00)
[2017-09-09] MEDS ORDERED: cloNIDine HCL 0.1 MG TAB PO PRN (10:30)
--- NOTE | 2017-09-09 11:00 | HHI.PR ---
Addendum to Inpatient Note Addendum Reason: Additional Documentation Additional Information Discussed case with Dr. Lino. We feel weighing all the risks and benefits the best approach is to thrombose her pseudoaneurysm, leave her off heparin 6-8 hours, then resume heparin, rather place IVC filter. Bonifacio Marquis MD Sep 09, 2017 11:00
[2017-09-09] MEDS ORDERED: THROMBIN (TOPICAL) 5,000 UNIT VIAL ONE (12:17)
--- NOTE | 2017-09-09 14:12 | RADRPT ---
EXAM DATE/TIME: 09/09/2017 12:13 [facility] COMPARISON: US LEG BILATERAL VENOUS DOPPLER, September 09, 2017, 7:58. INDICATIONS : 67-year-old female with history of DVT and PE and recent cardiac catheterization. Patient noted to romero ve a 2 cm right common femoral artery pseudoaneurysm. given ongoing need for anticoagulation, thrombi n injection we performed. MEDICAL HISTORY : Hypertension. Rheumatoid arthritis. Mitral valve prolapse. Nausea.Vomiting. Weight loss. Herniated di sk. SURGICAL HISTORY : None. ENCOUNTER: Subsequent ACUITY: 1 day PAIN SCORE: 2/10 LOCATION: Right leg. AREA EVALUATED: Right groin. Procedure performed: 1. Ultrasound guidance number 2. Right common femoral artery pseudo-aneurysm repair FINDINGS: Ultrasound evaluation of the right groin again demonstrates a 2 cm pseudoaneurysm arising from the ri ght common femoral artery. There is a very small but short neck. Skin overlying this region was prepp ed and draped in usual sterile fashion. A 21 gauge spinal was advanced into the centimeters of sac un adonis careful ultrasound guidance. Next, thrombin was injected into the aneurysm sac under direct ultra sound guidance until the present sac was thrombosed. This required approximately 4000 international u nits of thrombin. Flow in the common femoral artery was noted to be intact following the procedure. CONCLUSION: 1. Uncomplicated ultrasound-guided right common femoral artery pseudoaneurysm thrombin repair, as abo ve. Plan: Will resume heparin in 6 hours with reevaluation of the pseudoaneurysm in 24 hours. Janes Cotton MD on September 09, 2017 at 13:59 Board Certified Radiologist. This report was verified electronically.
--- NOTE | 2017-09-09 16:32 | HHI.GIFU ---
Subjective Remarks Patient is resting in bed accompanied by . pt is s/p pseudoaneurysm thrombin repair. States diarrhea is much better, she hasn't had much to eat today due to recent procedure. (Vijay Teran) Objective Vitals I&O Vital Signs Date Time Temp Pulse Resp B/P (MAP) Pulse Ox O2 Delivery O2 Flow Rate FiO2 09/09/17 13:18 30 09/09/17 10:11 95 Nasal Cannula 3.00 09/09/17 06:00 96 09/09/17 04:00 102.4 106 38 150/72 (98) 100 09/09/17 04:00 98 09/09/17 02:00 102 09/09/17 00:00 108 09/09/17 00:00 98.4 112 30 137/62 (87) 96 09/08/17 22:00 106 09/08/17 20:41 97 Nasal Cannula 4.00 09/08/17 20:00 98.6 104 40 140/65 (90) 96 09/08/17 20:00 93 09/08/17 18:00 90 09/08/17 18:00 90 124/59 (80) 09/08/17 17:30 103 170/81 (110) 09/08/17 17:00 35 186/88 (120) 100 09/08/17 16:30 90 170/81 (110) I/O 09/08/17 09/08/17 09/08/17 09/09/17 09/09/17 09/09/17 07:00 15:00 23:00 07:00 15:00 23:00 Intake Total 548 ml 1100 ml 150 ml 200 ml Output Total 500 ml Balance 48 ml 1100 ml 150 ml 200 ml Intake Oral 50 ml 0 ml IV Total 548 ml 1100 ml 100 ml 200 ml Output Urine Total 500 ml # Voids 4 4 4 # Bowel Movements 1 1 0 Laboratory Laboratory Tests Test 09/08/17 20:38 09/08/17 20:46 09/09/17 01:40 09/09/17 05:20 Total Creatine Kinase 40 42 Troponin I 0.24 0.28 White Blood Count 16.2 16.5 Red Blood Count 2.71 2.42 Hemoglobin 9.1 8.3 Hematocrit 27.4 24.4 Mean Corpuscular Volume 101.0 101.0 Mean Corpuscular Hemoglobin 33.7 34.4 Mean Corpuscular Hemoglobin Concent 33.4 34.0 Red Cell Distribution Width 20.1 20.3 Platelet Count 301 301 Mean Platelet Volume 9.6 9.5 Prothrombin Time 10.7 Prothromb Time International Ratio 1.1 Activated Partial Thromboplast Time 32.0 Blood Urea Nitrogen 6 Creatinine 0.43 Random Glucose 120 Total Protein 6.4 Albumin 2.1 Calcium Level 8.0 Phosphorus Level 2.9 Magnesium Level 1.6 Alkaline Phosphatase 70 Aspartate Amino Transf (AST/SGOT) 19 Alanine Aminotransferase (ALT/SGPT) 15 Total Bilirubin 0.5 Direct Bilirubin 0.1 Sodium Level 138 Potassium Level 3.2 Chloride Level 103 Carbon Dioxide Level 23.2 Anion Gap 12 Estimat Glomerular Filtration Rate 147 Indirect Bilirubin 0.4 Test 09/09/17 09:15 09/09/17 14:10 Activated Partial Thromboplast Time 188.6 53.9 Date/Time Source Procedure Growth Status 09/09/17 05:56 Blood Peripheral Aerobic Blood Culture Pending Received 09/09/17 05:56 Blood Peripheral Anaerobic Blood Culture Pending Received 08/28/17 14:45 Sputum Endotracheal Gram Stain - Final Complete 08/28/17 14:45 Sputum Endotracheal Sputum Culture - Final HEAVY GROWTH NORMAL RESPIRATORY LAURA Complete 09/09/17 06:20 Urine Catheterized Urine Urine Culture Pending Received Imaging Last Impressions Lower Extremity Ultrasound 09/09/17 0000 Signed Impressions: Service Date/Time: Saturday, September 09, 2017 12:13 - CONCLUSION: 1. Uncomplicated ultrasound-guided right common femoral artery pseudoaneurysm thrombin repair, as above. Plan: Will resume heparin in 6 hours with reevaluation of the pseudoaneurysm in [address] MD [address] Angiography 09/08/17 0000 Signed Impressions: Service Date/Time: Friday, September 08, 2017 13:08 - CONCLUSION: 1. There is at least one segmental right anterior lower lobe pulmonary artery branch containing embolus. Subsegmental branches are suboptimally visualized for definitive evaluation. Overall thrombus burden is low. 2. Dense airspace consolidation in the lower lobes with associated small to moderate simple appearing bilateral pleural effusions. 3. Scattered peripheral ground glass opacities in the right upper lobe. Differential considerations include inflammatory/infectious etiologies, focal volume loss, or less likely pulmonary infarction. 4. Prominent left ventricular peterson consistent with LVH. Correlation is recommended. Janes Cotton MD Chest X-Ray 09/07/17 0000 Signed Impressions: Service Date/Time: August 17:50 - CONCLUSION: Increasing consolidation left lower lobe and patchy infiltrates right lower lung. Probable bilateral pleural effusions. Rex Burdick MD Brain MRI 08/28/17 1554 Signed Impressions: Service Date/Time: Monday, August 28, 2017 19:18 - CONCLUSION: 1. No focal mass or shift. No recent infarct. Chronic white matter ischemic changes involving periventricular region and brainstem especially jak. Lloyd Han MD Head CT 08/28/17 0751 Signed Impressions: Service Date/Time: Monday, August 28, 2017 08:20 - CONCLUSION: 1. Nonspecific white matter changes. 2. No acute intracranial abnormality. 3. Chronic opacification left maxillary sinus Armand Foreman MD Maxillofacial CT 08/28/17 0000 Signed Impressions: Service Date/Time: Monday, August 28, 2017 08:20 - CONCLUSION: 1. Bilateral displaced mandible fractures more extensive involving the condyles bilaterally. 2. Sensitive soft tissue swelling. 3. Bilateral nasal fractures. Armand Foreman MD Cervical Spine CT 08/28/17 0000 Signed Impressions: Service Date/Time: Monday, August 28, 2017 08:20 - CONCLUSION: 1. Multilevel degenerative changes. 2. No compression fracture or subluxation. 3. Ground glass density right upper lobe and to lesser degree left upper lobe could be contusion or infectious/inflammatory process. Armand Foreman MD Carotid Artery Ultrasound 08/28/17 0000 Signed Impressions: Service Date/Time: Monday, August 28, 2017 13:23 - CONCLUSION: 1. Mild bilateral carotid plaque. 2. No evidence of hemodynamically significant stenosis. 3. Antegrade flow in both vertebral arteries. Jason Martinez MD Abdomen/Pelvis CT 08/28/17 0000 Signed Impressions: Service Date/Time: Monday, August 28, 2017 19:02 - CONCLUSION: 1. Mild mural thickening of the rectosigmoid most characteristic of a mild colitis distally. No obstruction, free fluid or free air. 2. Small bilateral pleural effusions. 3. 1.6 cm left ovarian cyst. 4. Catheter in decompressed bladder. Lloyd Han MD Physical Exam HEENT: no jaundice. CHEST: Diminished to basis, some rhonchi CARDIAC: Regular rate and rhythm with no murmur gallop or rubs. ABDOMEN: Soft, nondistended, nontender; no hepatosplenomegaly; bowel sounds are present in all four quadrants. EXTREMITIES: No clubbing, cyanosis, or edema. SKIN: Normal; no rash; no jaundice. OFFSET LITHOGRAPHIC PRESS SETTER: No focal deficits; alert and oriented times three. (Vijay Teran) Assessment and Plan Assessment: (1) Nausea vomiting and diarrhea ICD Codes: R11.2 - Nausea with vomiting, unspecified; R19.7 - Diarrhea, unspecified Plan Changed PPI to IV Protonix 40 mg every 12h Consider EGD and colonoscopy when patient is stable from a cardiac standpoint as well as her mandible repair Monitor hemoglobin Monitor episodes of nausea vomiting and diarrhea Rectal Bui removed since there is no output, monitor number of stools and consistency. Consider checking C. difficile if diarrhea stools continue Monitor labs Plan a care will be based on patient's symptoms and needs during this hospital stay 09/09/17- pt is s/p pseudoaneurysm thrombin repair. States diarrhea is much better, she hasn't had much to eat today due to recent procedure. Stools are negative for C-diff, recent CT showed colitis in sigmoid. Patient still not stable for EGD/colonoscopy at this time will monitor for now Patient has been seen by myself and Dr Pond, note is written on his behalf (Vijay Teran) Physician Comments Agree with the above assessment and plan, will need endoscopic evaluation once stable. (Jenna Pond MD) Vijay Teran Sep 09, 2017 16:32 Jenna Pond MD Sep 09, 2017 18:52
--- NOTE | 2017-09-09 17:00 | MB ---
cc: KELLYDOLORES DATE OF CONSULTATION: 09/09/2017. REASON FOR CONSULTATION: Need for an inferior vena cava filter. PATIENT PROFILE: The patient is a 67-year-old white female. She is . She has no children. She was born [place], [place]. She is retired. 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 Much of this history is comes from the who was very forthcoming. In the past, the patient had smoked a pack of cigarettes per day. Tobacco use is much less presently. She is probably alcoholic. She frequently drinks three quarters of a bottle of wine daily. HISTORY OF PRESENT ILLNESS: The patient is a 67-year female who has chronic back pain. She takes Tylenol #4 for pain. She uses Ativan for anxiety. She has hypertension. She takes propranolol. Recently she has been using Baclofen for her back pain as well. She had an episode where she apparently took a number of her medications incorrectly and her noted that more pills were gone than should have been. She went to the emergency room. At that point, she was not acutely ill and did not require hospitalization. She returned home. She stopped her alcohol intake and 24 hours later her found her on the floor. Prior to this, she was agitated and it appears that she may have had an alcoholic withdrawal seizure. She was brought to the emergency room and has been hospitalized since 08/28/2017. When she fell, she sustained bilateral mandibular fractures. She had a brain MRI on 08/28/2017 and this showed no injury. She had a CT angiogram of the chest on September 08, 2017. The conclusion was "there is at least one segmental right anterior lower lobe pulmonary artery branch containing embolus. Overall thrombus burden is low". An ultrasound of the right leg was negative for DVT. She was found to have a small pseudoaneurysm in the right groin. She was felt to be at risk of bleeding from this pseudoaneurysm and underwent an uncomplicated ultrasound-guided right common femoral artery pseudoaneurysm thrombin repair. This was done by Dr. Cotton. She was seen by Dr. Marquis, who is a supervisor boiler repair. He had suggested the patient have an IVC filter. This request has been withdrawn as the aneurysm has been repaired and now there is not a significant risk of of bleeding from the aneurysm as per my discussions with Dr. Cotton [id number]. PAST SURGICAL HISTORY: 1. Removal of teeth. 2. Open reduction internal fixation right mandible fractures. 3. Extraction of remaining teeth. PAST MEDICAL HISTORY 1. Chronic back pain managed with Tylenol #4. 2. Mitral valve prolapse. 3. Sciatica associated with lower back pain. 4. Probable alcoholism. 5. Chronic anxiety. 6. Hyperlipidemia. 7. Hypertension. MEDICATIONS PRIOR TO ADMISSION: 1. Tylenol #4. 2. Baclofen. 3. Lomotil. 4. Ativan. 5. Propranolol. ALLERGIES: NO KNOWN ALLERGIES. FAMILY HISTORY: Noncontributory. REVIEW OF SYSTEMS: There is no change in vision or hearing. No chest pain. No shortness of breath. She has had generalized weakness. This is not the first time that she has had an episode of unconsciousness and her indicates that this happened before. LABORATORY FINDINGS: On 09/09, hemoglobin 8.3, white count 16,000, platelets are 301,000. When she presented to the hospital on 08/27, hemoglobin was 14. PHYSICAL EXAM: frail female appearing older then state age RR 20, pulse 89, Afebrile HEENT: no teeth Heart: reg rhythm Lungs: clear ABD: soft no masses EXTREM: no calf swelling or tenderness MSK: muscle atrophy Skin: few ecchymoses Neuro: no focal weakness ASSESSMENT: The patient is a 67-year-old female who I believe is alcoholic. She had what sounds like an alcoholic withdrawal seizure with facial trauma. She was found to have small pulmonary emboli. She had a pseudoaneurysm which has been repaired, and on speaking with the radiologist, is not at risk of bleeding. RECOMMENDATIONS: I would recommend a short course of anticoagulation extending no more than 3 months. I suspect that the current pulmonary emboli was a result of the present events. She may need to have a transfusion of packed cells. It is likely that the fall in the hemoglobin is due to her hospitalization and surgeries. I spoke to the patient about the fact that she cannot continue to drink. If she drinks and has recurrent seizures, she is at risk of hitting her head and having an intracerebral hemorrhage. In addition, she drinks heavily, takes codeine, baclofen and ativan. Her will manage her medications. She needs not to drink. She should probably stop the baclofen as this caused confusion and Ativan should be used sparingly. I have spoken with Dr. Bishop and at this point, I have nothing further to add and would recommend three months of anticoagulation. It would be simple to use one of the modern anticoagulants such as apixaban 5 milligrams twice a day or Xarelto 20 a day. I do not think that she needs the full dose of Xarelto 15 twice a day or apixaban 10 twice a day prior to the maintenance doses, which are less. Her pulmonary emboli are quite small and the precipitating event appears to be over. MD CARL Wilkes/BRICE /3:54 PM /4:29 PM MTDD
[2017-09-09] MEDS: LABETALOL HCL 100 MG/20 ML VIAL IV PUSH PRN (17:58)
[2017-09-10] VITALS (25 sets, daily range): BP systolic 119–154; BP diastolic 66–84; PULSE 77–98; RESP 18–32; TEMP 97.4–98.8; O2SAT 96–100
[2017-09-10] MEDS: RESP: ALBUTEROL 2.5 MG/IPRATROPIUM 0.5 MG NEB (SCH) INH ×3 (03:37→17:33)
[2017-09-10] MEDS: CHLORHEXIDINE GLUCONATE 2 % 1 PACK (2 CLOTHS) TOP SCH (04:00)
[2017-09-10] MEDS: ACETAMINOPHEN 325 MG TAB PO SCH ×3 (05:49→18:00)
[2017-09-10] MEDS: PIPERACIL-TAZO 4.5 GM PREMIX 100 ML IV SCH ×3 (05:51→17:00)
[2017-09-10] MEDS: MORPHINE SULFATE 2 MG/ML INJ IV PUSH PRN ×2 (06:02→20:22)
[2017-09-10 06:19] LABS: BASOPHIL # 0.1 TH/MM3 (0-0.2); BASOPHIL % 0.6 % (0.0-2.0); EOSINOPHIL # 0.1 TH/MM3 (0-0.4); EOSINOPHIL % 0.8 % (0.0-4.0); HEMATOCRIT 24.5 % (35.0-46.0); HEMOGLOBIN 8.1 GM/DL (11.6-15.3); LYMPH % 6.8 % (9.0-44.0); LYMPHOCYTE # 0.8 TH/MM3 (1.0-4.8); MEAN CELL VOLUME 101.8 FL (80.0-100.0); MEAN CORPUSCULAR HEMOGLOBIN 33.4 PG (27.0-34.0); MEAN CORPUSCULAR HGB CONC 32.9 % (32.0-36.0); MEAN PLATELET VOLUME 9.3 FL (7.0-11.0); MONO % 4.4 % (0.0-8.0); MONOCYTE # 0.5 TH/MM3 (0-0.9); NEUT % 87.4 % (16.0-70.0); PLATELET COUNT 284 TH/MM3 (150-450); RED BLOOD COUNT 2.41 MIL/MM3 (4.00-5.30); RED CELL DISTRIBUTION WIDTH 20.3 % (11.6-17.2); WHITE BLOOD COUNT 11.5 TH/MM3 (4.0-11.0)
[2017-09-10 06:36] LABS: ALKALINE PHOSPHATASE 70 U/L (45-117); ALT (GPT) 11 U/L (10-53); AST (GOT) 15 U/L (15-37); BICARBONATE 22.9 MEQ/L (21.0-32.0); BLOOD UREA NITROGEN 8 MG/DL (7-18); CALCIUM 8.4 MG/DL (8.5-10.1); CHLORIDE 111 MEQ/L (98-107); CREATININE 0.48 MG/DL (0.50-1.00); GLOMERULAR FILTRATION RATE 130 ML/MIN (>89); GLUCOSE,RANDOM 88 MG/DL (74-106); MAGNESIUM 2.1 MG/DL (1.5-2.5); PHOSPHORUS 3.1 MG/DL (2.5-4.9); SODIUM (NA) 141 MEQ/L (136-145); TOTAL BILIRUBIN ADULT 0.4 MG/DL (0.2-1.0); TOTAL PROTEIN 6.3 GM/DL (6.4-8.2)
--- NOTE | 2017-09-10 06:38 | RADRPT ---
EXAM DATE/TIME: 09/10/2017 04:43 [facility] COMPARISON: CT PULMONARY ANGIOGRAM, September 08, 2017, 13:08. CHEST SINGLE AP, September 07, 2017, 17:50. INDICATIONS : Shortness of breath, possible pulmonary disease. MEDICAL HISTORY : Hypertension. Rheumatoid arthritis. Mitral valve prolapse. SURGICAL HISTORY : None. ENCOUNTER: Subsequent ACUITY: 2 weeks PAIN SCORE: Non-responsive. LOCATION: Bilateral chest FINDINGS: There has been slight interval worsening in aeration with increase in hazy bilateral perihilar and ba silar pleuroparenchymal opacities. cardiac contours are grossly stable. CONCLUSION: Slight interval worsening in aeration Scooter Morrow MD on September 10, 2017 at 6:36 Board Certified Radiologist. This report was verified electronically.
[2017-09-10] MEDS: INSULIN ASPART SUPPLEMENTAL SCALE SQ SCH ×4 (07:47→21:00)
[2017-09-10] MEDS: CARVEDILOL 12.5 MG TAB PO SCH ×2 (09:08→20:17)
[2017-09-10] MEDS: DOCUSATE SODIUM 50 MG/SENNA 8.6 MG TAB PO SCH ×2 (09:08→20:17)
[2017-09-10] MEDS: levETIRAcetam 500 MG TAB PO SCH ×2 (09:08→20:17)
[2017-09-10] MEDS: PANTOPRAZOLE SOD 40 MG DELAYED RELEASE TAB PO SCH (09:09)
[2017-09-10] MEDS: LISINOPRIL 20 MG TAB PO SCH (09:09)
[2017-09-10] MEDS: ASPIRIN 81 MG CHEW TAB CHEW SCH (09:09)
--- NOTE | 2017-09-10 10:48 | HHI.PR ---
Subjective Remarks Follow-up acute hypoxemic respiratory failure/left lobe pulmonary embolism/ healthcare associated pneumonia 09/10/17-patient seen and examined, denies any chest pain or shortness of breath. Alert and oriented 3. Currently afebrile. Taking by mouth without any complication nausea and vomiting. Objective Vitals Vital Signs Date Time Temp Pulse Resp B/P (MAP) Pulse Ox O2 Delivery O2 Flow Rate FiO2 09/10/17 07:58 99 Nasal Cannula 2.00 09/10/17 06:00 77 09/10/17 05:00 86 09/10/17 04:00 98.1 82 22 151/84 (106) 99 09/10/17 04:00 Nasal Cannula 3.00 09/10/17 04:00 80 09/10/17 02:00 80 09/10/17 00:00 98.8 80 32 131/66 (87) 100 09/10/17 00:00 80 09/09/17 22:00 94 09/09/17 20:34 100 Nasal Cannula 3.00 09/09/17 20:00 98.1 76 28 151/70 (97) 100 09/09/17 20:00 76 09/09/17 19:06 12 09/09/17 18:00 80 09/09/17 17:07 27 09/09/17 16:00 80 09/09/17 16:00 98.3 80 29 164/74 (104) 100 09/09/17 14:00 80 09/09/17 12:00 74 09/09/17 12:00 99.9 74 29 125/62 (83) 100 I/O 09/09/17 09/09/17 09/09/17 09/10/17 09/10/17 09/10/17 07:00 15:00 23:00 07:00 15:00 23:00 Intake Total 200 ml 120 ml 656 ml Balance 200 ml 120 ml 656 ml Intake Oral 0 ml 120 ml 100 ml IV Total 200 ml 556 ml # Voids 4 2 2 # Bowel Movements 0 0 Result Diagram: 09/10/1755409/10/17 0555 Imaging Last Impressions Chest X-Ray 09/10/17 0600 Signed Impressions: Service Date/Time: Sunday, September 10, 2017 04:43 - CONCLUSION: Slight interval worsening in aeration Scooter Morrow MD Lower Extremity Ultrasound 09/09/17 0000 Signed Impressions: Service Date/Time: Saturday, September 09, 2017 12:13 - CONCLUSION: 1. Uncomplicated ultrasound-guided right common femoral artery pseudoaneurysm thrombin repair, as above. Plan: Will resume heparin in 6 hours with reevaluation of the pseudoaneurysm in [address] Janes Cotton MD [address] Angiography 09/08/17 0000 Signed Impressions: Service Date/Time: Friday, September 08, 2017 13:08 - CONCLUSION: 1. There is at least one segmental right anterior lower lobe pulmonary artery branch containing embolus. Subsegmental branches are suboptimally visualized for definitive evaluation. Overall thrombus burden is low. 2. Dense airspace consolidation in the lower lobes with associated small to moderate simple appearing bilateral pleural effusions. 3. Scattered peripheral ground glass opacities in the right upper lobe. Differential considerations include inflammatory/infectious etiologies, focal volume loss, or less likely pulmonary infarction. 4. Prominent left ventricular peterson consistent with LVH. Correlation is recommended. Janes Cotton MD Brain MRI 08/28/17 1554 Signed Impressions: Service Date/Time: Monday, August 28, 2017 19:18 - CONCLUSION: 1. No focal mass or shift. No recent infarct. Chronic white matter ischemic changes involving periventricular region and brainstem especially jak. Lloyd Han MD Head CT 08/28/17 0751 Signed Impressions: Service Date/Time: Monday, August 28, 2017 08:20 - CONCLUSION: 1. Nonspecific white matter changes. 2. No acute intracranial abnormality. 3. Chronic opacification left maxillary sinus Armand Foreman MD Maxillofacial CT 08/28/17 0000 Signed Impressions: Service Date/Time: Monday, August 28, 2017 08:20 - CONCLUSION: 1. Bilateral displaced mandible fractures more extensive involving the condyles bilaterally. 2. Sensitive soft tissue swelling. 3. Bilateral nasal fractures. Armand Foreman MD Cervical Spine CT 08/28/17 0000 Signed Impressions: Service Date/Time: Monday, August 28, 2017 08:20 - CONCLUSION: 1. Multilevel degenerative changes. 2. No compression fracture or subluxation. 3. Ground glass density right upper lobe and to lesser degree left upper lobe could be contusion or infectious/inflammatory process. Armand Foreman MD Carotid Artery Ultrasound 08/28/17 0000 Signed Impressions: Service Date/Time: Monday, August 28, 2017 13:23 - CONCLUSION: 1. Mild bilateral carotid plaque. 2. No evidence of hemodynamically significant stenosis. 3. Antegrade flow in both vertebral arteries. Jason Martinez MD Abdomen/Pelvis CT 08/28/17 0000 Signed Impressions: Service Date/Time: Monday, August 28, 2017 19:02 - CONCLUSION: 1. Mild mural thickening of the rectosigmoid most characteristic of a mild colitis distally. No obstruction, free fluid or free air. 2. Small bilateral pleural effusions. 3. 1.6 cm left ovarian cyst. 4. Catheter in decompressed bladder. Lloyd Han MD Objective Remarks GENERAL: NAD SKIN: Warm and dry. HEAD: Normocephalic. EYES: No scleral icterus. No injection or drainage. NECK: Supple, trachea midline. No JVD or lymphadenopathy. CARDIOVASCULAR: Regular rate and rhythm without murmurs, gallops, or rubs. RESPIRATORY: Breath sounds equal bilaterally. No accessory muscle use. GASTROINTESTINAL: Abdomen soft, non-tender, nondistended. MUSCULOSKELETAL: No cyanosis, or edema. BACK: Nontender without obvious deformity. No CVA tenderness. A/P Problem List: (1) Acute hypoxemic respiratory failure ICD Code: J96.01 - Acute respiratory failure with hypoxia (2) HCAP (healthcare-associated pneumonia) ICD Code: J18.9 - Pneumonia, unspecified organism (3) Pulmonary embolism ICD Code: I26.99 - Other pulmonary embolism without acute cor pulmonale (4) Cardiomyopathy, nonischemic ICD Code: I42.8 - Other cardiomyopathies Assessment and Plan 67-year-old female with Status post ORIF right mandible fracture/extraction of tooth by Dr. Doll 09/04 Chronic narcotic use Chronic benzodiazepine use EtOH Patient is currently in acetaminophen 650 mg scheduled every 6 hours Oxycodone 5 mg every 4 hours. As needed pain fourth through 7 Morphine sulfate 2 mg IV every 1 hour as needed pain 8-10 Holding baclofen 10 mill grams 3 times a day/home medication Holding acetaminophen with Codeine 300/15 one tablet every 6 hours when necessary pain Holding lorazepam as needed/home medication Followed by Dr. Moulton/neurology Haloperidol 5 mill grams IV every [address] scan of the brain in the ED negative for acute intracranial findings. MRI brain: No acute findings. Chronic white matter changes EEG: Generalized slowing, no ictal activity. Carotid Doppler US: No sig hemodynamic stenosis. Per Dr. Doll( [facility] [place]) s/p ORIF mandible 09/04. stable to d/c home from [place] standpoint. Acute hypoxemic respiratory failure likely secondary to flash pulmonary edema- Resolved Right lower lobe pulmonary embolism Possible healthcare associated pneumonia CT pulmonary angiogram revealed right lower lobe/anterior home embolism, but upper lobe groundglass opacities and small bilateral pleural effusions wean o2 by nasal cannula for goal spo2 > 92% aggressive pulmonary toilet including a cappella Scheduled albuterol/ipratropium aerosols every 4 hours with albuterol aerosols every 2 hours. Continue with Heparin drip, however will eventually start apixaban 5 milligrams twice no more than 3 months per hematology recommendation Currently on Zosyn Chronic systolic heart failure Hypertension Catheterization 09/01 revealed nonobstructive coronary artery disease. Preserved LV function. Elevated LVDP. Question Takotsubo syndrome Echo 09/03 showed EF left ventricular systolic function is moderately reduced with an estimated ejection fraction in the range of 30-35%. Continue with ASA 81 mg daily Currently on carvedilol 12.5 twice a day, lisinopril 20 mill grams by mouth daily Currently heparin drip Possible aspiration pneumonia - right upper lobe Currently on piperacillin/tazobactam s/p pseudoaneurysm thrombin repair Currently on heparin drip Diarrhea Resolved Panendoscopy when medically stable for GI Leukocytosis Normocytic anemia Monitor CBC, coags On heparin drip GI prophylaxis with pantoprazole and DVT prophylaxis with SCD's. Heparin drip Armand Tubbs MD Sep 10, 2017 10:48
--- NOTE | 2017-09-10 14:37 | PD.CARD.PN ---
Subjective Subjective Remarks Eating well. No chest pain Objective Medications Current Medications Medications (Trade) Dose Ordered Sig/Benny Route Start Time Stop Time Status Last Admin (NS Flush) 2 ml UNSCH PRN IV FLUSH 08/28/17 08:00 09/02/17 21:05 Miscellaneous Information 1 Q361D XX 08/28/17 09:30 (Chlorhexidine 2% Cloth) Taper DAILY@04 TOP 08/29/17 04:00 08/25/18 03:59 09/09/17 03:42 (Chlorhexidine 2% Cloth) 3 pack UNSCH PRN TOP 08/28/17 09:30 (Brenna-Colace) 1 tab BID PO 08/28/17 21:00 09/10/17 09:08 (Milk Of Magnesia Liq) 30 ml Q12H PRN PO 08/28/17 09:30 (Senokot) 17.2 mg Q12H PRN PO 08/28/17 09:30 (Dulcolax Supp) 10 mg DAILY PRN RECTAL 08/28/17 09:30 (Lactulose Liq) 30 ml DAILY PRN PO 08/28/17 09:30 (Aspirin Chew) 81 mg DAILY CHEW 08/29/17 09:00 09/10/17 09:09 (Zofran Inj) 4 mg Q4H PRN IV PUSH 09/01/17 13:30 09/07/17 08:58 (Roxicodone) 5 mg Q4H PRN PO 09/05/17 12:00 09/10/17 09:09 (Tylenol) 650 mg Q6H PO 09/05/17 12:00 09/10/17 12:00 (Keppra) 1,000 mg Q12HR PO 09/05/17 21:00 09/10/17 09:08 (Romazicon Inj) 0.2 mg Q1M PRN IV PUSH 09/06/17 00:45 (Duoneb Neb) 1 ampule Q6HR NEB INH 09/06/17 16:00 09/10/17 10:54 (Haldol Inj) 5 mg Q4H PRN IV PUSH 09/06/17 11:30 (Reglan Inj) 5 mg Q8H PRN IV PUSH 09/07/17 10:45 (Phenergan) 25 mg Q6H PRN PO 09/07/17 10:45 09/07/17 11:17 (Compazine Supp) 25 mg Q6H PRN RECTAL 09/07/17 15:00 (Nitroglycerin 2% Oint) 1 inch Q6HR PRN TOPICAL 09/07/17 18:45 Nitroglycerin/ Dextrose 250 ml @ 1.5 mls/hr TITRATE PRN IV 09/07/17 19:30 09/07/17 19:52 (Lopressor Inj) 5 mg Q5M PRN IV PUSH 09/07/17 20:30 09/09/17 03:55 Levetriacetam 100 ml @ 400 mls/hr Q12HR PRN IV 09/07/17 20:30 09/08/17 22:04 Acetaminophen 100 ml @ 400 mls/hr Q6H PRN IV 09/07/17 20:30 09/09/17 04:05 (Morphine Inj) 2 mg Q1H PRN IV PUSH 09/07/17 20:30 09/10/17 06:02 (Albuterol Neb) 2.5 mg Q2HR NEB PRN NEB 09/08/17 08:30 (D50w (Vial) Inj) 50 ml UNSCH PRN IV PUSH 09/08/17 09:00 09/08/17 23:07 (Glucagon Inj) 1 mg UNSCH PRN OTHER 09/08/17 09:00 (NovoLOG SUPPLEMENTAL SCALE) 1 ACHS SLIDING SCALE SQ 09/08/17 12:00 (Trandate Inj) 10 mg Q1H PRN IV PUSH 09/08/17 09:00 09/09/17 17:58 (Apresoline Inj) 10 mg Q1H PRN IV PUSH 09/08/17 09:00 09/08/17 22:49 (Prinivil) 20 mg DAILY PO 09/09/17 09:00 09/10/17 09:09 (Heparin Inj) 5,000 units UNSCH PRN IV PUSH 09/09/17 02:30 (Heparin Inj) 2,500 units UNSCH PRN IV PUSH 09/09/17 02:30 Heparin Sodium/ Dextrose 250 ml @ 10 mls/hr TITRATE PRN IV 09/08/17 20:30 09/08/17 22:41 Piperacillin Sod/ Tazobactam Sod 100 ml @ 200 mls/hr Q6H IV 09/09/17 05:00 09/10/17 11:00 (Coreg) 12.5 mg Q12HR PO 09/09/17 09:00 09/10/17 09:08 (Protonix) 40 mg DAILY PO 09/09/17 09:00 09/10/17 09:09 (Catapres) 0.1 mg Q6H PRN PO 09/09/17 10:30 Vital Signs / I&O Vital Signs Date Time Temp Pulse Resp B/P (MAP) Pulse Ox O2 Delivery O2 Flow Rate FiO2 09/10/17 13:00 91 09/10/17 12:00 98 09/10/17 11:42 97.4 87 18 141/79 (99) 97 09/10/17 11:00 86 09/10/17 10:35 96 09/10/17 10:00 82 09/10/17 09:00 80 09/10/17 08:00 90 09/10/17 07:58 99 Nasal Cannula 2.00 09/10/17 07:00 90 09/10/17 06:00 77 09/10/17 05:00 86 09/10/17 04:00 98.1 82 22 151/84 (106) 99 09/10/17 04:00 Nasal Cannula 3.00 09/10/17 04:00 80 09/10/17 02:00 80 09/10/17 00:00 98.8 80 32 131/66 (87) 100 09/10/17 00:00 80 09/09/17 22:00 94 09/09/17 20:34 100 Nasal Cannula 3.00 09/09/17 20:00 98.1 76 28 151/70 (97) 100 09/09/17 20:00 76 09/09/17 19:06 12 09/09/17 18:00 80 09/09/17 17:07 27 09/09/17 16:00 80 09/09/17 16:00 98.3 80 29 164/74 (104) 100 I/O 09/09/17 09/09/17 09/09/17 09/10/17 09/10/17 09/10/17 07:00 15:00 23:00 07:00 15:00 23:00 Intake Total 200 ml 120 ml 656 ml Balance 200 ml 120 ml 656 ml Intake Oral 0 ml 120 ml 100 ml IV Total 200 ml 556 ml # Voids 4 2 2 # Bowel Movements 0 0 Physical Exam Thin, malnourished Alert but ? oriented No JVD Chest: doesn't take deep breaths, few rhoncho CV S1S2 RRR, 1/6 IRVING No edema. Right groin better Laboratory Laboratory Tests Test 09/09/17 22:22 09/10/17 05:55 Potassium Level 4.8 MEQ/L 4.3 MEQ/L White Blood Count 11.5 TH/MM3 Red Blood Count 2.41 MIL/MM3 Hemoglobin 8.1 GM/DL Hematocrit 24.5 % Mean Corpuscular Volume 101.8 FL Mean Corpuscular Hemoglobin 33.4 PG Mean Corpuscular Hemoglobin Concent 32.9 % Red Cell Distribution Width 20.3 % Platelet Count 284 TH/MM3 Mean Platelet Volume 9.3 FL Neutrophils (%) (Auto) 87.4 % Lymphocytes (%) (Auto) 6.8 % Monocytes (%) (Auto) 4.4 % Eosinophils (%) (Auto) 0.8 % Basophils (%) (Auto) 0.6 % Neutrophils # (Auto) 10.0 TH/MM3 Lymphocytes # (Auto) 0.8 TH/MM3 Monocytes # (Auto) 0.5 TH/MM3 Eosinophils # (Auto) 0.1 TH/MM3 Basophils # (Auto) 0.1 TH/MM3 CBC Comment AUTO DIFF Differential Comment AUTO DIFF CONFIRMED Platelet Estimate NORMAL Platelet Morphology Comment NORMAL Activated Partial Thromboplast Time 42.6 SEC Blood Urea Nitrogen 8 MG/DL Creatinine 0.48 MG/DL Random Glucose 88 MG/DL Total Protein 6.3 GM/DL Albumin 2.0 GM/DL Calcium Level 8.4 MG/DL Phosphorus Level 3.1 MG/DL Magnesium Level 2.1 MG/DL Alkaline Phosphatase 70 U/L Aspartate Amino Transf (AST/SGOT) 15 U/L Alanine Aminotransferase (ALT/SGPT) 11 U/L Total Bilirubin 0.4 MG/DL Sodium Level 141 MEQ/L Chloride Level 111 MEQ/L Carbon Dioxide Level 22.9 MEQ/L Anion Gap 7 MEQ/L Estimat Glomerular Filtration Rate 130 ML/MIN Imaging Last 24 hours Impressions Chest X-Ray 09/10/17 0600 Signed Impressions: Service Date/Time: Sunday, September 10, 2017 04:43 - CONCLUSION: Slight interval worsening in aeration Scooter Morrow MD Assessment and Plan Problem List: (1) Elevated troponin ICD Codes: R74.8 - Abnormal levels of other serum enzymes Plan: no related to CAD (2) Pseudoaneurysm of femoral artery ICD Codes: I72.4 - Aneurysm of artery of lower extremity Plan: thrombosed by radiology (3) Hypertensive heart disease ICD Codes: I11.9 - Hypertensive heart disease without heart failure (4) Cardiomyopathy, nonischemic ICD Codes: I42.8 - Other cardiomyopathies (5) Pneumonia ICD Codes: J18.9 - Pneumonia, unspecified organism (6) Pulmonary embolism ICD Codes: I26.99 - Other pulmonary embolism without acute cor pulmonale Plan: per primary service Assessment and Plan Cardiology available prn - please call if assistance needed Discussed Condition With Bonifacio Marquis MD Sep 10, 2017 14:37
--- NOTE | 2017-09-10 17:58 | RADRPT ---
EXAM DATE/TIME: 09/10/2017 17:02 [facility] COMPARISON: US LEG RIGHT HEMATOMA/PSEUDOANEURYSM, September 09, 2017, 12:13. INDICATIONS : Pseudoaneurysm. MEDICAL HISTORY : Hypertension. Rheumatoid arthritis. Mitral valve prolapse. Nausea. Vomiting. Weight loss. Her niated disk. Pseudo aneurysm. SURGICAL HISTORY : None. ENCOUNTER: Subsequent ACUITY: 2 days PAIN SCORE: 0/10 LOCATION: Right leg. AREA EVALUATED: Right groin. FINDINGS: Oval mixed echogenicity area is again seen adjacent to the common femoral artery. No flow is seen int o the area. Normal flow is seen in the [employer]. CONCLUSION: No evidence of color Doppler flow into previously seen pseudoaneurysm. Hans Reagan MD on September 10, 2017 at 17:55 Board Certified Radiologist. This report was verified electronically.
[2017-09-10] MEDS: RESP: ALBUTEROL 2.5 MG/3 ML NEB (PRN) NEB (21:48)
[2017-09-11] VITALS (27 sets, daily range): BP systolic 147–177; BP diastolic 74–92; PULSE 78–113; RESP 18–30; TEMP 97.4–99; O2SAT 95–98
[2017-09-11] MEDS: PIPERACIL-TAZO 4.5 GM PREMIX 100 ML IV SCH ×5 (00:35→23:00)
[2017-09-11] MEDS: MORPHINE SULFATE 2 MG/ML INJ IV PUSH PRN ×2 (00:36→21:42)
[2017-09-11] MEDS: RESP: ALBUTEROL 2.5 MG/3 ML NEB (PRN) NEB ×3 (03:25→20:36)
[2017-09-11] MEDS: CHLORHEXIDINE GLUCONATE 2 % 1 PACK (2 CLOTHS) TOP SCH (04:00)
[2017-09-11] MEDS: hydrALAZINE HCL 20 MG/ML VIAL IV PUSH PRN ×2 (04:15→16:54)
[2017-09-11] MEDS: ACETAMINOPHEN 325 MG TAB PO SCH ×4 (05:11→18:21)
[2017-09-11 07:40] LABS: HEMATOCRIT 24.7 % (35.0-46.0); HEMOGLOBIN 8.4 GM/DL (11.6-15.3); MEAN CELL VOLUME 99.8 FL (80.0-100.0); MEAN CORPUSCULAR HGB CONC 34.1 % (32.0-36.0); PLATELET COUNT 294 TH/MM3 (150-450); RED BLOOD COUNT 2.47 MIL/MM3 (4.00-5.30); RED CELL DISTRIBUTION WIDTH 19.9 % (11.6-17.2); WHITE BLOOD COUNT 8.9 TH/MM3 (4.0-11.0)
[2017-09-11] MEDS: ACETAMINOPHEN 1000 MG/100 ML 100 ML IV PRN (09:58)
[2017-09-11] MEDS: SODIUM CHLORIDE 0.9% FLUSH 10 ML FLUSH IV FLUSH PRN (09:59)
--- NOTE | 2017-09-11 11:41 | HHI.PR ---
Subjective Remarks Follow-up acute hypoxemic respiratory failure/left lobe pulmonary embolism/ healthcare associated pneumonia 09/10/17-patient seen and examined, denies any chest pain or shortness of breath. Alert and oriented 3. Currently afebrile. Taking by mouth without any complication nausea and vomiting. 09/11/17-patient seen and examined, she was sleeping. Per patient has been complaining of back pain as well as pain to her lower extremities. He was requesting if patient can be put on narcotics Objective Vitals Vital Signs Date Time Temp Pulse Resp B/P (MAP) Pulse Ox O2 Delivery O2 Flow Rate FiO2 09/11/17 06:00 99 09/11/17 05:00 96 09/11/17 04:00 Nasal Cannula 2.00 09/11/17 04:00 95 09/11/17 04:00 98.0 95 18 161/86 (111) 97 09/11/17 03:00 89 09/11/17 02:00 86 09/11/17 01:00 85 09/11/17 00:00 Nasal Cannula 2.00 09/11/17 00:00 98.4 89 18 155/84 (107) 96 09/11/17 00:00 89 09/10/17 23:00 87 09/10/17 22:00 86 09/10/17 21:50 98 09/10/17 21:00 84 09/10/17 20:00 89 09/10/17 20:00 Nasal Cannula 2.00 09/10/17 20:00 98.2 89 18 154/81 (105) 97 09/10/17 18:00 88 09/10/17 17:00 84 09/10/17 16:00 92 09/10/17 15:17 98.8 97 18 119/67 (84) 96 09/10/17 15:00 89 09/10/17 14:00 94 09/10/17 13:00 91 09/10/17 12:00 98 09/10/17 11:42 97.4 87 18 141/79 (99) 97 I/O 09/10/17 09/10/17 09/10/17 09/11/17 09/11/17 09/11/17 07:00 15:00 23:00 07:00 15:00 23:00 Intake Total 656 ml 820 ml 500 ml Balance 656 ml 820 ml 500 ml Intake Oral 100 ml 820 ml 240 ml IV Total 556 ml 260 ml # Voids 2 3 2 # Bowel Movements 0 1 2 Result Diagram: 09/11/17 0649 09/10/17 0555 Objective Remarks GENERAL: NAD SKIN: Warm and dry. HEAD: Normocephalic. EYES: No scleral icterus. No injection or drainage. NECK: Supple, trachea midline. No JVD or lymphadenopathy. CARDIOVASCULAR: Regular rate and rhythm without murmurs, gallops, or rubs. RESPIRATORY: Breath sounds equal bilaterally. No accessory muscle use. GASTROINTESTINAL: Abdomen soft, non-tender, nondistended. MUSCULOSKELETAL: No cyanosis, or edema. BACK: Nontender without obvious deformity. No CVA tenderness. A/P Problem List: (1) Acute hypoxemic respiratory failure ICD Code: J96.01 - Acute respiratory failure with hypoxia (2) HCAP (healthcare-associated pneumonia) ICD Code: J18.9 - Pneumonia, unspecified organism (3) Pulmonary embolism ICD Code: I26.99 - Other pulmonary embolism without acute cor pulmonale (4) Cardiomyopathy, nonischemic ICD Code: I42.8 - Other cardiomyopathies Assessment and Plan 67-year-old female with Status post ORIF right mandible fracture/extraction of tooth by Dr. Doll 09/04 Chronic narcotic use Chronic benzodiazepine use EtOH Oxycodone 5 mg every 4 hours. As needed pain fourth through 7 Morphine sulfate 2 mg IV every 1 hour as needed pain 8-10 Holding baclofen 10 mill grams 3 times a day/home medication Holding acetaminophen with Codeine 300/15 one tablet every 6 hours when necessary pain Holding lorazepam as needed/home medication Followed by Dr. Moulton/neurology Haloperidol 5 mill grams IV every [address] scan of the brain in the ED negative for acute intracranial findings. MRI brain: No acute findings. Chronic white matter changes EEG: Generalized slowing, no ictal activity. Carotid Doppler US: No sig hemodynamic stenosis. Per Dr. Doll( [facility] [place]) s/p ORIF mandible 09/04. stable to d/c home from [place] standpoint. Acute hypoxemic respiratory failure likely secondary to flash pulmonary edema- Resolved Right lower lobe pulmonary embolism Possible healthcare associated pneumonia CT pulmonary angiogram revealed right lower lobe/anterior home embolism, but upper lobe groundglass opacities and small bilateral pleural effusions wean o2 by nasal cannula for goal spo2 > 92% Continue aggressive pulmonary toilet including a cappella Scheduled albuterol/ipratropium aerosols every 4 hours with albuterol aerosols every 2 hours. Continue with Heparin drip, however will eventually start apixaban 5 milligrams twice no more than 3 months per hematology recommendation Currently on Zosyn Chronic systolic heart failure Hypertension Catheterization 09/01 revealed nonobstructive coronary artery disease. Preserved LV function. Elevated LVDP. Question Takotsubo syndrome Echo 09/03 showed EF left ventricular systolic function is moderately reduced with an estimated ejection fraction in the range of 30-35%. Continue with ASA 81 mg daily Currently on carvedilol 12.5 twice a day, lisinopril 20 mill grams by mouth daily Currently heparin drip Possible aspiration pneumonia - right upper lobe Currently on piperacillin/tazobactam s/p pseudoaneurysm thrombin repair Currently on heparin drip Diarrhea Resolved Panendoscopy when medically stable for GI Leukocytosis-resolved Normocytic anemia Monitor CBC, coags On heparin drip GI prophylaxis with pantoprazole and DVT prophylaxis with SCD's. Heparin drip Armand Tubbs MD Sep 11, 2017 11:41
[2017-09-11] MEDS: DOCUSATE SODIUM 50 MG/SENNA 8.6 MG TAB PO SCH (21:41)
[2017-09-11] MEDS: CARVEDILOL 12.5 MG TAB PO SCH (21:41)
[2017-09-11] MEDS: levETIRAcetam 500 MG TAB PO SCH (21:41)
[2017-09-11] MEDS: INSULIN ASPART SUPPLEMENTAL SCALE SQ SCH (21:52)
[2017-09-12] VITALS (26 sets, daily range): BP systolic 122–173; BP diastolic 65–87; PULSE 69–100; RESP 18–24; TEMP 97.6–98.4; O2SAT 95–100
[2017-09-12] MEDS: ACETAMINOPHEN 1000 MG/100 ML 100 ML IV PRN (01:30)
[2017-09-12] MEDS: CHLORHEXIDINE GLUCONATE 2 % 1 PACK (2 CLOTHS) TOP SCH (04:00)
[2017-09-12] MEDS: MORPHINE SULFATE 2 MG/ML INJ IV PUSH PRN (04:30)
[2017-09-12] MEDS: PIPERACIL-TAZO 4.5 GM PREMIX 100 ML IV SCH ×3 (04:30→17:00)
[2017-09-12] MEDS: ACETAMINOPHEN 325 MG TAB PO SCH ×4 (06:00→17:54)
[2017-09-12 06:23] LABS: HEMOGLOBIN 11.6 GM/DL (11.6-15.3); MEAN CELL VOLUME 103.4 FL (80.0-100.0); MEAN CORPUSCULAR HEMOGLOBIN 33.2 PG (27.0-34.0); MEAN CORPUSCULAR HGB CONC 32.1 % (32.0-36.0); MEAN PLATELET VOLUME 9.5 FL (7.0-11.0); PLATELET COUNT 281 TH/MM3 (150-450); RED BLOOD COUNT 3.48 MIL/MM3 (4.00-5.30); RED CELL DISTRIBUTION WIDTH 20.1 % (11.6-17.2); WHITE BLOOD COUNT 7.8 TH/MM3 (4.0-11.0)
[2017-09-12] MEDS: INSULIN ASPART SUPPLEMENTAL SCALE SQ SCH ×4 (08:00→21:00)
[2017-09-12] MEDS: levETIRAcetam 500 MG TAB PO SCH ×2 (08:41→21:02)
[2017-09-12] MEDS: CARVEDILOL 12.5 MG TAB PO SCH ×2 (08:41→21:02)
[2017-09-12] MEDS: PANTOPRAZOLE SOD 40 MG DELAYED RELEASE TAB PO SCH (08:41)
[2017-09-12] MEDS: LISINOPRIL 20 MG TAB PO SCH (08:41)
[2017-09-12] MEDS: ASPIRIN 81 MG CHEW TAB CHEW SCH (08:42)
[2017-09-12] MEDS: DOCUSATE SODIUM 50 MG/SENNA 8.6 MG TAB PO SCH ×3 (08:43→21:01)
[2017-09-12] MEDS: HEPARIN-D5W 25,000 U/250 ML 250 ML IV PRN (09:00)
--- NOTE | 2017-09-12 10:56 | HHI.PR ---
Subjective Remarks Follow-up acute hypoxemic respiratory failure/left lobe pulmonary embolism/ healthcare associated pneumonia 09/10/17-patient seen and examined, denies any chest pain or shortness of breath. Alert and oriented 3. Currently afebrile. Taking by mouth without any complication nausea and vomiting. 09/11/17-patient seen and examined, she was sleeping. Per patient has been complaining of back pain as well as pain to her lower extremities. He was requesting if patient can be put on narcotics 09/12/17-patient seen and examined, patient appears much more alert and oriented and denies any significant neck pain which she has been complaining off last night per her 's account. Objective Vitals Vital Signs Date Time Temp Pulse Resp B/P (MAP) Pulse Ox O2 Delivery O2 Flow Rate FiO2 09/12/17 09:11 98 09/12/17 07:01 81 09/12/17 06:00 76 09/12/17 05:00 76 09/12/17 04:00 76 09/12/17 03:00 85 09/12/17 03:00 98.3 84 24 159/82 (107) 98 09/12/17 02:00 80 09/12/17 01:00 80 09/12/17 00:00 82 09/11/17 23:00 98.1 92 28 155/82 (106) 98 09/11/17 23:00 78 09/11/17 22:00 88 09/11/17 21:00 78 09/11/17 20:37 96 09/11/17 20:00 80 09/11/17 19:00 99.0 81 30 171/83 (112) 96 09/11/17 19:00 96 Room Air 09/11/17 19:00 96 09/11/17 18:00 96 09/11/17 17:30 97.9 90 18 154/84 (107) 97 09/11/17 17:00 90 09/11/17 16:00 88 09/11/17 15:00 88 09/11/17 15:00 98.0 88 18 177/92 (120) 97 09/11/17 14:00 82 09/11/17 13:00 96 09/11/17 12:30 95 Nasal Cannula 2.00 09/11/17 12:00 97.4 82 18 147/74 (98) 96 09/11/17 12:00 82 09/11/17 11:00 80 I/O 09/11/17 09/11/17 09/11/17 09/12/17 09/12/17 09/12/17 07:00 15:00 23:00 07:00 15:00 23:00 Intake Total 500 ml 566 ml 240 ml Balance 500 ml 566 ml 240 ml Intake Oral 240 ml 400 ml 240 ml IV Total 260 ml 166 ml # Voids 2 4 1 # Bowel Movements 2 0 Result Diagram: 09/12/17 0512 09/10/17 0555 Imaging Last Impressions Lower Extremity Ultrasound 09/10/17 0900 Signed Impressions: Service Date/Time: Sunday, September 10, 2017 17:02 - CONCLUSION: No evidence of color Doppler flow into previously seen pseudoaneurysm. Hans Reagan MD Chest X-Ray 09/10/17 0600 Signed Impressions: Service Date/Time: Sunday, September 10, 2017 04:43 - CONCLUSION: Slight interval worsening in aeration Scooter Morrow MD CT Angiography 09/08/17 0000 Signed Impressions: Service Date/Time: Friday, September 08, 2017 13:08 - CONCLUSION: 1. There is at least one segmental right anterior lower lobe pulmonary artery branch containing embolus. Subsegmental branches are suboptimally visualized for definitive evaluation. Overall thrombus burden is low. 2. Dense airspace consolidation in the lower lobes with associated small to moderate simple appearing bilateral pleural effusions. 3. Scattered peripheral ground glass opacities in the right upper lobe. Differential considerations include inflammatory/infectious etiologies, focal volume loss, or less likely pulmonary infarction. 4. Prominent left ventricular peterson consistent with LVH. Correlation is recommended. Janes Cotton MD Brain MRI 08/28/17 2185 Signed Impressions: Service Date/Time: Monday, August 28, 2017 19:18 - CONCLUSION: 1. No focal mass or shift. No recent infarct. Chronic white matter ischemic changes involving periventricular region and brainstem especially jak. Lloyd Han MD Head CT 08/28/17 2584 Signed Impressions: Service Date/Time: Monday, August 28, 2017 08:20 - CONCLUSION: 1. Nonspecific white matter changes. 2. No acute intracranial abnormality. 3. Chronic opacification left maxillary sinus Armand Foreman MD Maxillofacial CT 08/28/17 0000 Signed Impressions: Service Date/Time: Monday, August 28, 2017 08:20 - CONCLUSION: 1. Bilateral displaced mandible fractures more extensive involving the condyles bilaterally. 2. Sensitive soft tissue swelling. 3. Bilateral nasal fractures. Armand Foreman MD Cervical Spine CT 08/28/17 0000 Signed Impressions: Service Date/Time: Monday, August 28, 2017 08:20 - CONCLUSION: 1. Multilevel degenerative changes. 2. No compression fracture or subluxation. 3. Ground glass density right upper lobe and to lesser degree left upper lobe could be contusion or infectious/inflammatory process. Armand Foreman MD Carotid Artery Ultrasound 08/28/17 0000 Signed Impressions: Service Date/Time: Monday, August 28, 2017 13:23 - CONCLUSION: 1. Mild bilateral carotid plaque. 2. No evidence of hemodynamically significant stenosis. 3. Antegrade flow in both vertebral arteries. Jason Martinez MD Abdomen/Pelvis CT 08/28/17 0000 Signed Impressions: Service Date/Time: Monday, August 28, 2017 19:02 - CONCLUSION: 1. Mild mural thickening of the rectosigmoid most characteristic of a mild colitis distally. No obstruction, free fluid or free air. 2. Small bilateral pleural effusions. 3. 1.6 cm left ovarian cyst. 4. Catheter in decompressed bladder. Lloyd Han MD Objective Remarks GENERAL: NAD SKIN: Warm and dry. HEAD: Normocephalic. EYES: No scleral icterus. No injection or drainage. NECK: Supple, trachea midline. No JVD or lymphadenopathy. CARDIOVASCULAR: Regular rate and rhythm without murmurs, gallops, or rubs. RESPIRATORY: Breath sounds equal bilaterally. No accessory muscle use. GASTROINTESTINAL: Abdomen soft, non-tender, nondistended. MUSCULOSKELETAL: No cyanosis, or edema. BACK: Nontender without obvious deformity. No CVA tenderness. A/P Problem List: (1) Acute hypoxemic respiratory failure ICD Code: J96.01 - Acute respiratory failure with hypoxia (2) HCAP (healthcare-associated pneumonia) ICD Code: J18.9 - Pneumonia, unspecified organism (3) Pulmonary embolism ICD Code: I26.99 - Other pulmonary embolism without acute cor pulmonale (4) Cardiomyopathy, nonischemic ICD Code: I42.8 - Other cardiomyopathies Assessment and Plan 67-year-old female with Status post ORIF right mandible fracture/extraction of tooth by Dr. Doll 09/04 Chronic narcotic use Chronic benzodiazepine use EtOH Oxycodone 5 mg every 4 hours. Morphine sulfate 2 mg IV every 1 hour Holding baclofen 10 mill grams 3 times a day/home medication Holding acetaminophen with Codeine 300/15 one tablet every 6 hours when necessary pain Holding lorazepam as needed/home medication Followed by Dr. Moulton/neurology Haloperidol 5 mill grams IV every [address] scan of the brain in the ED negative for acute intracranial findings. MRI brain: No acute findings. Chronic white matter changes EEG: Generalized slowing, no ictal activity. Carotid Doppler US: No sig hemodynamic stenosis. Per Dr. Doll( [facility] [place]) s/p ORIF mandible 09/04. stable to d/c home from [place] standpoint. Acute hypoxemic respiratory failure likely secondary to flash pulmonary edema- Resolved Right lower lobe pulmonary embolism Possible healthcare associated pneumonia CT pulmonary angiogram revealed right lower lobe/anterior home embolism, but upper lobe groundglass opacities and small bilateral pleural effusions wean o2 by nasal cannula for goal spo2 > 92% Continue aggressive pulmonary toilet including a cappella Scheduled albuterol/ipratropium aerosols every 4 hours with albuterol aerosols every 2 hours. Continue with Heparin drip, however will eventually start apixaban 5 milligrams twice no more than 3 months per hematology recommendation Currently on Zosyn Chronic systolic heart failure Hypertension Catheterization 09/01 revealed nonobstructive coronary artery disease. Preserved LV function. Elevated LVDP. Question Takotsubo syndrome Echo 09/03 showed EF left ventricular systolic function is moderately reduced with an estimated ejection fraction in the range of 30-35%. Continue with ASA 81 mg daily Currently on carvedilol 12.5 twice a day, lisinopril 20 mill grams by mouth daily. Will increase Coreg to 25 mg twice a day secondary to labile BP Currently heparin drip Possible aspiration pneumonia - right upper lobe Currently on piperacillin/tazobactam s/p pseudoaneurysm thrombin repair Currently on heparin drip Diarrhea Resolved Panendoscopy when medically stable for GI Leukocytosis-resolved Normocytic anemia Monitor CBC, coags On heparin drip GI prophylaxis with pantoprazole and DVT prophylaxis with SCD's. Heparin drip ArleyArmand MD Sep 12, 2017 10:56
[2017-09-12] MEDS ORDERED: CARVEDILOL 12.5 MG TAB PO ONE (11:00)
--- NOTE | 2017-09-12 15:47 | HHI.GIFU ---
Subjective Remarks Pt resting in bed, in no apparent distress. at bedside. Pt remains to have poor appetite, per this is normal for her at home. She avoids eating due to pain from impacted wisdom teeth. Per she has avoided procedures to fix teeth due to fear of sedation. Pt denies abdominal pain, nausea, vomiting. Continued complaints of diarrhea, approx one episode a day. This is also chronic for the patient, she reports her PCP gives her Lomotil for this. (Mildred Hastings) Objective Vitals I&O Vital Signs Date Time Temp Pulse Resp B/P (MAP) Pulse Ox O2 Delivery O2 Flow Rate FiO2 09/12/17 15:38 98 21 09/12/17 12:00 86 09/12/17 11:30 97.7 87 18 173/87 (115) 95 09/12/17 11:00 84 09/12/17 10:00 79 09/12/17 09:11 98 09/12/17 09:00 100 09/12/17 08:30 97.6 85 18 172/86 (114) 100 09/12/17 08:30 100 Room Air 09/12/17 08:00 80 09/12/17 07:01 81 09/12/17 06:00 76 09/12/17 05:00 76 09/12/17 04:00 76 09/12/17 03:00 85 09/12/17 03:00 98.3 84 24 159/82 (107) 98 09/12/17 02:00 80 09/12/17 01:00 80 09/12/17 00:00 82 09/11/17 23:00 98.1 92 28 155/82 (106) 98 09/11/17 23:00 78 09/11/17 22:00 88 09/11/17 21:00 78 09/11/17 20:37 96 09/11/17 20:00 80 09/11/17 19:00 99.0 81 30 171/83 (112) 96 09/11/17 19:00 96 Room Air 09/11/17 19:00 96 09/11/17 18:00 96 09/11/17 17:30 97.9 90 18 154/84 (107) 97 09/11/17 17:00 90 09/11/17 16:00 88 I/O 09/11/17 09/11/17 09/11/17 09/12/17 09/12/17 09/12/17 07:00 15:00 23:00 07:00 15:00 23:00 Intake Total 500 ml 566 ml 240 ml 346 ml Balance 500 ml 566 ml 240 ml 346 ml Intake Oral 240 ml 400 ml 240 ml IV Total 260 ml 166 ml 346 ml # Voids 2 4 1 # Bowel Movements 2 0 Laboratory Laboratory Tests Test 09/12/17 05:12 09/12/17 14:14 White Blood Count 7.8 Red Blood Count 3.48 Hemoglobin 11.6 Hematocrit 36.0 Mean Corpuscular Volume 103.4 Mean Corpuscular Hemoglobin 33.2 Mean Corpuscular Hemoglobin Concent 32.1 Red Cell Distribution Width 20.1 Platelet Count 281 Mean Platelet Volume 9.5 Activated Partial Thromboplast Time 38.3 Date/Time Source Procedure Growth Status 09/09/17 05:56 Blood Peripheral Aerobic Blood Culture - Preliminary NO GROWTH IN 3 DAYS Resulted 09/09/17 05:56 Blood Peripheral Anaerobic Blood Culture - Preliminary NO GROWTH IN 3 DAYS Resulted 08/28/17 14:45 Sputum Endotracheal Gram Stain - Final Complete 08/28/17 14:45 Sputum Endotracheal Sputum Culture - Final HEAVY GROWTH NORMAL RESPIRATORY LAURA Complete 09/09/17 06:20 Urine Catheterized Urine Urine Culture - Final 10-50,000 CFU/ML MIXED LAURA... Complete Imaging Last Impressions Lower Extremity Ultrasound 09/10/17 0900 Signed Impressions: Service Date/Time: Sunday, September 10, 2017 17:02 - CONCLUSION: No evidence of color Doppler flow into previously seen pseudoaneurysm. Hans Reagan MD Chest X-Ray 09/10/17 0600 Signed Impressions: Service Date/Time: Sunday, September 10, 2017 04:43 - CONCLUSION: Slight interval worsening in aeration Scooter Morrow MD CT Angiography 09/08/17 0000 Signed Impressions: Service Date/Time: Friday, September 08, 2017 13:08 - CONCLUSION: 1. There is at least one segmental right anterior lower lobe pulmonary artery branch containing embolus. Subsegmental branches are suboptimally visualized for definitive evaluation. Overall thrombus burden is low. 2. Dense airspace consolidation in the lower lobes with associated small to moderate simple appearing bilateral pleural effusions. 3. Scattered peripheral ground glass opacities in the right upper lobe. Differential considerations include inflammatory/infectious etiologies, focal volume loss, or less likely pulmonary infarction. 4. Prominent left ventricular peterson consistent with LVH. Correlation is recommended. Janes Cotton MD Brain MRI 08/28/17 1554 Signed Impressions: Service Date/Time: Monday, August 28, 2017 19:18 - CONCLUSION: 1. No focal mass or shift. No recent infarct. Chronic white matter ischemic changes involving periventricular region and brainstem especially jak. Lloyd Han MD Head CT 08/28/17 0751 Signed Impressions: Service Date/Time: Monday, August 28, 2017 08:20 - CONCLUSION: 1. Nonspecific white matter changes. 2. No acute intracranial abnormality. 3. Chronic opacification left maxillary sinus Armand Foreman MD Maxillofacial CT 08/28/17 0000 Signed Impressions: Service Date/Time: Monday, August 28, 2017 08:20 - CONCLUSION: 1. Bilateral displaced mandible fractures more extensive involving the condyles bilaterally. 2. Sensitive soft tissue swelling. 3. Bilateral nasal fractures. Armand Foreman MD Cervical Spine CT 08/28/17 0000 Signed Impressions: Service Date/Time: Monday, August 28, 2017 08:20 - CONCLUSION: 1. Multilevel degenerative changes. 2. No compression fracture or subluxation. 3. Ground glass density right upper lobe and to lesser degree left upper lobe could be contusion or infectious/inflammatory process. Armand Foreman MD Carotid Artery Ultrasound 08/28/17 0000 Signed Impressions: Service Date/Time: Monday, August 28, 2017 13:23 - CONCLUSION: 1. Mild bilateral carotid plaque. 2. No evidence of hemodynamically significant stenosis. 3. Antegrade flow in both vertebral arteries. Jason Martinez MD Abdomen/Pelvis CT 08/28/17 0000 Signed Impressions: Service Date/Time: Monday, August 28, 2017 19:02 - CONCLUSION: 1. Mild mural thickening of the rectosigmoid most characteristic of a mild colitis distally. No obstruction, free fluid or free air. 2. Small bilateral pleural effusions. 3. 1.6 cm left ovarian cyst. 4. Catheter in decompressed bladder. Lloyd Han MD Physical Exam HEENT: Normocephalic, atraumatic CHEST: Even/unlabored CARDIAC: RRR ABDOMEN: Soft, nondistended, nontender; no hepatosplenomegaly; bowel sounds active x 4. EXTREMITIES: No clubbing, cyanosis, or edema. SKIN: Normal; no rash; no jaundice. HEAVY EQUIPMENT RENTAL ASSOCIATE: No focal deficits; alert and oriented times three. (Mildred Hastings) Assessment and Plan Assessment: (1) Nausea vomiting and diarrhea ICD Codes: R11.2 - Nausea with vomiting, unspecified; R19.7 - Diarrhea, unspecified Plan Assessment: Diarrhea- Pt reports this to be chronic, takes Lomotil PRN outpatient prescribed by PCP. Approx one episode a day. Denies blood in stool. Pt is currently S/P pseudoaneurysm thrombin repair as well as mandible repair, remains on Heparin. Would recommend EGD and colonoscopy, however, benefit does not outweigh risk at this time. Would recommend when pt is more stable. C. Diff negative. Will continue to monitor. Plan: Continue to monitor- not stable enough for GI procedure at this time Monitor H/H Notify GI of any active GI bleeding Supportive care Pt has been seen and examined by myself and Dr. Pond and this note is written on his behalf (Mildred Hastings) Physician Comments Seen and examined, plan as above. Please notify us when stable for EGD/Colonoscopy . (Jenna Pond MD) Mildred Hastings Sep 12, 2017 15:47 Jenna Pond MD Sep 13, 2017 08:37
[2017-09-13] VITALS (24 sets, daily range): BP systolic 125–160; BP diastolic 63–84; PULSE 71–92; RESP 16–18; TEMP 97.6–98.4; O2SAT 93–99
[2017-09-13] MEDS: PIPERACIL-TAZO 4.5 GM PREMIX 100 ML IV SCH ×5 (00:14→23:00)
[2017-09-13] MEDS: ACETAMINOPHEN 325 MG TAB PO SCH ×3 (00:14→12:00)
[2017-09-13] MEDS: CHLORHEXIDINE GLUCONATE 2 % 1 PACK (2 CLOTHS) TOP SCH (04:00)
[2017-09-13] MEDS: INSULIN ASPART SUPPLEMENTAL SCALE SQ SCH ×4 (08:00→21:00)
[2017-09-13] MEDS: DOCUSATE SODIUM 50 MG/SENNA 8.6 MG TAB PO SCH ×2 (09:00→21:00)
[2017-09-13] MEDS: ASPIRIN 81 MG CHEW TAB CHEW SCH (10:34)
[2017-09-13] MEDS: CARVEDILOL 12.5 MG TAB PO SCH ×2 (10:34→20:58)
[2017-09-13] MEDS: PANTOPRAZOLE SOD 40 MG DELAYED RELEASE TAB PO SCH (10:34)
[2017-09-13] MEDS: levETIRAcetam 500 MG TAB PO SCH ×2 (10:35→20:58)
[2017-09-13] MEDS: LISINOPRIL 20 MG TAB PO SCH (10:35)
[2017-09-13] MEDS ORDERED: HEPARIN SODIUM - IV 10,000 UNITS/10 ML VIAL IV PUSH PRN (11:00)
--- NOTE | 2017-09-13 12:03 | HHI.PR ---
Subjective Remarks Follow-up acute hypoxemic respiratory failure/left lobe pulmonary embolism/ healthcare associated pneumonia 09/10/17-patient seen and examined, denies any chest pain or shortness of breath. Alert and oriented 3. Currently afebrile. Taking by mouth without any complication nausea and vomiting. 09/11/17-patient seen and examined, she was sleeping. Per patient has been complaining of back pain as well as pain to her lower extremities. He was requesting if patient can be put on narcotics 09/12/17-patient seen and examined, patient appears much more alert and oriented and denies any significant neck pain which she has been complaining off last night per her 's account. 09/13/17-patient seen and examined, states she is not feeling well today. Complaint of nausea but no emesis. Not much of an appetite. by the bedside Objective Vitals Vital Signs Date Time Temp Pulse Resp B/P (MAP) Pulse Ox O2 Delivery O2 Flow Rate FiO2 09/13/17 10:57 18 09/13/17 10:56 18 09/13/17 06:00 74 09/13/17 05:00 88 09/13/17 04:00 79 09/13/17 03:00 97.8 81 18 132/63 (86) 98 09/13/17 03:00 80 09/13/17 02:00 74 09/13/17 01:00 82 09/13/17 00:00 85 09/12/17 23:00 98.4 87 24 122/65 (84) 97 09/12/17 23:00 76 09/12/17 22:00 78 09/12/17 21:00 82 09/12/17 20:00 86 09/12/17 19:00 86 09/12/17 19:00 98.2 84 24 149/73 (98) 98 09/12/17 19:00 98 Room Air 09/12/17 15:38 98 21 09/12/17 15:36 98.0 79 18 151/80 (103) 97 09/12/17 15:01 69 09/12/17 14:00 80 09/12/17 13:00 82 09/12/17 12:00 86 I/O 09/12/17 09/12/17 09/12/17 09/13/17 09/13/17 09/13/17 07:00 15:00 23:00 07:00 15:00 23:00 Intake Total 240 ml 346 ml 480 ml 240 ml Balance 240 ml 346 ml 480 ml 240 ml Intake Oral 240 ml 480 ml 240 ml IV Total 346 ml # Voids 1 2 2 # Bowel Movements 1 2 Result Diagram: 09/12/1712 09/10/17 0555 Objective Remarks GENERAL: NAD SKIN: Warm and dry. HEAD: Normocephalic. EYES: No scleral icterus. No injection or drainage. NECK: Supple, trachea midline. No JVD or lymphadenopathy. CARDIOVASCULAR: Regular rate and rhythm without murmurs, gallops, or rubs. RESPIRATORY: Breath sounds equal bilaterally. No accessory muscle use. GASTROINTESTINAL: Abdomen soft, non-tender, nondistended. MUSCULOSKELETAL: No cyanosis, or edema. BACK: Nontender without obvious deformity. No CVA tenderness. A/P Problem List: (1) Acute hypoxemic respiratory failure ICD Code: J96.01 - Acute respiratory failure with hypoxia (2) HCAP (healthcare-associated pneumonia) ICD Code: J18.9 - Pneumonia, unspecified organism (3) Pulmonary embolism ICD Code: I26.99 - Other pulmonary embolism without acute cor pulmonale (4) Cardiomyopathy, nonischemic ICD Code: I42.8 - Other cardiomyopathies Assessment and Plan 67-year-old female with Status post ORIF right mandible fracture/extraction of tooth by Dr. Doll 09/04 Chronic narcotic use Chronic benzodiazepine use EtOH Oxycodone 5 mg every 4 hours. Holding baclofen 10 mill grams 3 times a day/home medication Holding acetaminophen with Codeine 300/15 one tablet every 6 hours when necessary pain Holding lorazepam as needed/home medication Followed by Dr. Moulton/neurology Haloperidol 5 mill grams IV every [address] scan of the brain in the ED negative for acute intracranial findings. MRI brain: No acute findings. Chronic white matter changes EEG: Generalized slowing, no ictal activity. Carotid Doppler US: No sig hemodynamic stenosis. Per Dr. Doll( [facility] [place]) s/p ORIF mandible 09/04. stable to d/c home from [place] standpoint. Acute hypoxemic respiratory failure likely secondary to flash pulmonary edema- Resolved Right lower lobe pulmonary embolism Possible healthcare associated pneumonia CT pulmonary angiogram revealed right lower lobe/anterior home embolism, but upper lobe groundglass opacities and small bilateral pleural effusions wean o2 by nasal cannula for goal spo2 > 92% Continue aggressive pulmonary toilet including a cappella Scheduled albuterol/ipratropium aerosols every 4 hours with albuterol aerosols every 2 hours. Continue with Heparin drip, however will eventually start apixaban 5 milligrams twice no more than 3 months per hematology recommendation Currently on Zosyn Chronic systolic heart failure Hypertension Catheterization 09/01 revealed nonobstructive coronary artery disease. Preserved LV function. Elevated LVDP. Question Takotsubo syndrome Echo 09/03 showed EF left ventricular systolic function is moderately reduced with an estimated ejection fraction in the range of 30-35%. Continue with ASA 81 mg daily Currently on carvedilol 12.5 twice a day, lisinopril 20 mill grams by mouth daily. Will increase Coreg to 25 mg twice a day secondary to labile BP Currently heparin drip Possible aspiration pneumonia - right upper lobe Currently on piperacillin/tazobactam s/p pseudoaneurysm thrombin repair Currently on heparin drip Diarrhea Resolved Panendoscopy when medically stable per GI Leukocytosis-resolved Normocytic anemia Monitor CBC, coags On heparin drip Consult PT GI prophylaxis with pantoprazole and DVT prophylaxis with SCD's. Heparin drip Armand Tubbs MD Sep 13, 2017 12:03
[2017-09-13] MEDS: RESP: ALBUTEROL 2.5 MG/3 ML NEB (PRN) NEB (12:48)
--- NOTE | 2017-09-13 14:00 | RADRPT ---
EXAM DATE/TIME: 09/13/2017 13:20 [place] COMPARISON: CHEST SINGLE AP, September 10, 2017, 4:43. INDICATIONS : Shortness of breath. MEDICAL HISTORY : Hypertension. Rheumatoid arthritis. Mitral valve prolapse. Nausea. Vomiting. Weight loss. Herniated d isk. SURGICAL HISTORY : None. ENCOUNTER: Subsequent ACUITY: 2 weeks PAIN SCORE: Non-responsive. LOCATION: Bilateral chest FINDINGS: A single AP semierect view of the chest was obtained and again demonstrates bibasilar opacities and b lunting of both costophrenic angles. Infiltrate remains in the infrahilar regions. The perihilar infi ltrate has improved. The heart size remains mildly prominent. The bony thorax is intact. There are ov erlying electrocardiogram leads and oxygen tubing. CONCLUSION: 1. Mild interval improvement in pulmonary edema. 2. Bibasilar opacities remain as well as small to moderate effusions. García Thompson MD on September 13, 2017 at 13:57 Board Certified Radiologist. This report was verified electronically.
--- NOTE | 2017-09-13 14:19 | HHI.GIFU ---
Subjective Remarks Pt transferred to CVICU, per RN pt went unresponsive and her O2 started to desat. She is now on NRB at 100%. Pt lethargic during my exam but does open her eyes. Objective Vitals I&O Vital Signs Date Time Temp Pulse Resp B/P (MAP) Pulse Ox O2 Delivery O2 Flow Rate FiO2 09/13/17 13:14 93 Nasal Cannula 5.00 09/13/17 12:15 93 Nasal Cannula 3.00 09/13/17 10:57 18 09/13/17 10:56 18 09/13/17 06:00 74 09/13/17 05:00 88 09/13/17 04:00 79 09/13/17 03:00 97.8 81 18 132/63 (86) 98 09/13/17 03:00 80 09/13/17 02:00 74 09/13/17 01:00 82 09/13/17 00:00 85 09/12/17 23:00 98.4 87 24 122/65 (84) 97 09/12/17 23:00 76 09/12/17 22:00 78 09/12/17 21:00 82 09/12/17 20:00 86 09/12/17 19:00 86 09/12/17 19:00 98.2 84 24 149/73 (98) 98 09/12/17 19:00 98 Room Air 09/12/17 15:38 98 21 09/12/17 15:36 98.0 79 18 151/80 (103) 97 09/12/17 15:01 69 I/O 09/12/17 09/12/17 09/12/17 09/13/17 09/13/17 09/13/17 06:59 14:59 22:59 06:59 14:59 22:59 Intake Total 240 ml 346 ml 480 ml 240 ml Balance 240 ml 346 ml 480 ml 240 ml Intake Oral 240 ml 480 ml 240 ml IV Total 346 ml # Voids 1 2 2 # Bowel Movements 1 2 Laboratory Laboratory Tests Test 09/13/17 08:01 09/13/17 13:00 Activated Partial Thromboplast Time 21.8 Blood Gas Puncture Site RT BRACHIAL Blood Gas Patient Temperature 98.6 Blood Gas HCO3 21 Blood Gas Base Excess -2.0 Blood Gas Oxygen Saturation 96 Arterial Blood pH 7.47 Arterial Blood Partial Pressure CO2 30 Arterial Blood Partial Pressure O2 119 Arterial Blood Oxygen Content 15.7 Arterial Blood Carboxyhemoglobin 1.0 Arterial Blood Methemoglobin 0.9 Blood Gas Hemoglobin 11.4 Oxygen Delivery Device NASAL CANNULA Blood Gas Liter Flow 6 Date/Time Source Procedure Growth Status 09/09/17 05:56 Blood Peripheral Aerobic Blood Culture - Preliminary NO GROWTH IN 4 DAYS Resulted 09/09/17 05:56 Blood Peripheral Anaerobic Blood Culture - Preliminary NO GROWTH IN 4 DAYS Resulted 08/28/17 14:45 Sputum Endotracheal Gram Stain - Final Complete 08/28/17 14:45 Sputum Endotracheal Sputum Culture - Final HEAVY GROWTH NORMAL RESPIRATORY LAURA Complete 09/09/17 06:20 Urine Catheterized Urine Urine Culture - Final 10-50,000 CFU/ML MIXED LAURA... Complete Imaging Last Impressions Chest X-Ray 09/13/17 0000 Signed Impressions: Service Date/Time: Wednesday, September 13, 2017 13:20 - CONCLUSION: 1. Mild interval improvement in pulmonary edema. 2. Bibasilar opacities remain as well as small to moderate effusions. García Thompson MD Lower Extremity Ultrasound 09/10/17 0900 Signed Impressions: Service Date/Time: Sunday, September 10, 2017 17:02 - CONCLUSION: No evidence of color Doppler flow into previously seen pseudoaneurysm. Hans Reagan MD CT Angiography 09/08/17 0000 Signed Impressions: Service Date/Time: Friday, September 08, 2017 13:08 - CONCLUSION: 1. There is at least one segmental right anterior lower lobe pulmonary artery branch containing embolus. Subsegmental branches are suboptimally visualized for definitive evaluation. Overall thrombus burden is low. 2. Dense airspace consolidation in the lower lobes with associated small to moderate simple appearing bilateral pleural effusions. 3. Scattered peripheral ground glass opacities in the right upper lobe. Differential considerations include inflammatory/infectious etiologies, focal volume loss, or less likely pulmonary infarction. 4. Prominent left ventricular peterson consistent with LVH. Correlation is recommended. Janes Cotton MD Brain MRI 08/28/17 1554 Signed Impressions: Service Date/Time: Monday, August 28, 2017 19:18 - CONCLUSION: 1. No focal mass or shift. No recent infarct. Chronic white matter ischemic changes involving periventricular region and brainstem especially jak. Lloyd Han MD Head CT 08/28/17 0751 Signed Impressions: Service Date/Time: Monday, August 28, 2017 08:20 - CONCLUSION: 1. Nonspecific white matter changes. 2. No acute intracranial abnormality. 3. Chronic opacification left maxillary sinus Armand Foreman MD Maxillofacial CT 08/28/17 0000 Signed Impressions: Service Date/Time: Monday, August 28, 2017 08:20 - CONCLUSION: 1. Bilateral displaced mandible fractures more extensive involving the condyles bilaterally. 2. Sensitive soft tissue swelling. 3. Bilateral nasal fractures. Armand Foreman MD Cervical Spine CT 08/28/17 0000 Signed Impressions: Service Date/Time: Monday, August 28, 2017 08:20 - CONCLUSION: 1. Multilevel degenerative changes. 2. No compression fracture or subluxation. 3. Ground glass density right upper lobe and to lesser degree left upper lobe could be contusion or infectious/inflammatory process. Armand Foreman MD Carotid Artery Ultrasound 08/28/17 0000 Signed Impressions: Service Date/Time: Monday, August 28, 2017 13:23 - CONCLUSION: 1. Mild bilateral carotid plaque. 2. No evidence of hemodynamically significant stenosis. 3. Antegrade flow in both vertebral arteries. Jason Martinez MD Abdomen/Pelvis CT 08/28/17 0000 Signed Impressions: Service Date/Time: Monday, August 28, 2017 19:02 - CONCLUSION: 1. Mild mural thickening of the rectosigmoid most characteristic of a mild colitis distally. No obstruction, free fluid or free air. 2. Small bilateral pleural effusions. 3. 1.6 cm left ovarian cyst. 4. Catheter in decompressed bladder. Lloyd Han MD Physical Exam HEENT: Normocephalic, atraumatic CHEST: Diffuse rhales, tachypneic CARDIAC: RRR ABDOMEN: Soft, nondistended, nontender; no hepatosplenomegaly; bowel sounds active x 4. EXTREMITIES: No clubbing, cyanosis, or edema. SKIN: Normal; no rash; no jaundice. INSTRUCTOR NURSE: Lethargic, awake. Assessment and Plan Assessment: (1) Nausea vomiting and diarrhea ICD Codes: R11.2 - Nausea with vomiting, unspecified; R19.7 - Diarrhea, unspecified Plan Assessment: Diarrhea- Pt reports this to be chronic, takes Lomotil PRN outpatient prescribed by PCP. Approx one episode a day. Denies blood in stool. Pt is currently S/P pseudoaneurysm thrombin repair as well as mandible repair, remains on Heparin. Would recommend EGD and colonoscopy, however, benefit does not outweigh risk at this time. Would recommend when pt is more stable. C. Diff negative. Will continue to monitor. 09/13 Pt transferred to CVICU after an episode of becoming unresponsive and drop in O2. She is now 100% on NRB. Lethargic, but awake. Still remains too unstable for GI procedures. Will continue to monitor, but no new recommendations at this time. Plan: Continue to monitor- not stable enough for GI procedure at this time Monitor H/H Notify GI of any active GI bleeding Supportive care Pt has been seen and examined by myself and Dr. Pond and this note is written on his behalf Mildred Hastings Sep 13, 2017 14:19
[2017-09-13] MEDS: methylPREDNISolone SOD SUCC 40 MG/1 ML VIAL IV PUSH SCH ×2 (14:58→20:58)
--- NOTE | 2017-09-13 15:36 | HHI.CCPN ---
Subjective Remarks/Hospital Course Patient is a 67-year-old female with a past medical history of mitral valve prolapse, chronic back pain, hyperlipidemia, hypertension. She presented to [facility] ED via EMS after she was found face down unresponsive by her . She was given 2 mg IV Ativan by EMS for a witnessed seizure. She was last seen at her baseline at 5:30 this morning. According to the , the patient does not have any seizure disorder and she is not on any seizure meds at home. She had a similar episode a couple years ago and he attributed it to her multiple medications that she takes at home. She is on Tylenol #3 along with Lorazepam, Baclofen and Propranolol. She was found to have a laceration on chin which was bleeding. Her blood sugar was measured at 95. On arrival to the ED, she was hypertensive with a blood pressure of 196/120 and tachycardiac with a heart rate in the 120's. The patient was intubated with etomidate, succinylcholine and placed on full mechanical ventilation. Her laboratory data is significant for lactic acidosis with lactic acid level of 4.0 , an elevated troponin at 0.97 with a total CK of 129. Her urine drug screen is negative for amphetamines, benzodiazepines, and opiates. A CT scan of the brain was performed in the ED which showed no acute intracranial abnormalities. Chronic opacification left maxillary sinus noted. She also had a CT maxillofacial which showed bilateral displaced mandible fractures and bilateral nasal fractures. A cervical spine CT showed multilevel degenerative changes without any compression fracture or subluxation. Chest x-ray, she also had a chest x-ray which showed minimal bilateral upper lobe densities. The patient was given 2 liters of crystalloids in the ED, tetanus shot and placed on Fentanyl and Versed for sedation. There is no history of any chest pain, shortness of breath or any constitutional symptoms. Also, no history of any GI symptoms per the patient's . 08/29 Patient became hypotensive last night started on Levophed 5 mics currently. MRI brain no acute findings, CT abd/pelvis showed mild colitis. On Heparin drip. Left IJ CVP was placed last night CXR post procedure showed 6 mm right apical PTX a repeat CXR from 4:30 showed reduction right apical PTX 4 mm( Right IJ was attempted first) 08/30 No events overnight. Sedated with Diprivan, Versed and intubated. Afebrile. Remains on Levophed. Afebrile. CXR last night mild basilar airspace disease,no PTX. 08/31 No events overnight. Sedated with Versed, Fentanyl and intubated. Afebrile. For cardiac cath today. Off Levophed. 09/01 Patient remains sedated and intubated. s/p transfusion 1u PRBC yesterday Hgb 9.5 this morning. 09/02: LHC yesterday without obstructive CAD. medical management recommended. hgb 8.8 from 9.5 continue to trend. 09/03: doing well this morning. awake and alert. remains intubated. on PSV. at this point, risk/benefit would be in favor of remaining intubated for mandibular fixation tomorrow, however, will attempt to ambulate patient to decrease immobility and debilitation. 09/04: still awake and alert. plan for fixation in OR tonight. no contra- indication to extubation after fixation. will give small dose of lasix to help with edema over last few days. intravascularly replete on physical exam. 09/05: mandible fixation overnight. this morning, passed SBT and extubated on pathway. denies complaints. 09/06: went into agitated delirium overnight, presumably etoh withdraw. was on precedex, now off. doing well today. stable for transfer to floor. still on o2 which prevents her from d/c home. RECONSULTED 09/07: patient was rapid response for severe hypertension, chest pain, and neck pain. per her she has had a SBP > 180 all day today. she has developed worsening neck pain, as well as substernal chest pain which is severe. EKG demonstrates ST depressions with t-wave inversions in the far lateral leads (prior EKG with t-wave inversions, but no depressions). she also endorses nausea and vomiting all day today. denies headache, photophobia. her wbc is normal and she is afebrile. she denies chills. Her ABG is 7.45/37/224 on NRB. on admission to the ICU her bp was 220/90 and her HR was 110s. I immediately gave her a total of 70mg labetalol iv and 10mg metoprolol iv. additionally, we immediately gave her 1" ntg paste. We improved her bp to the 150s range and her HR to the 80s, which improved her labored breathing. however , her chest pain persisted, and we started a ntg drip, which then relieved her chest pain. Her troponins are slightly elevated at 0.32 (prior NSTEMI trop peaked ~4). 09/08: Denies chest pain. Currently complaining of "gurgling" back throat. Currently on Venturi mask at 35% saturation 100%. Slight troponin bump is 0.3 for likely secondary to hypertension. Recent cardiac catheterization with non obstructive coronary disease. 09/09: Remains on nitroglycerin drip. Currently in 4 L nasal cannula. Start heparin drip due to lower lobe pulmonary embolism. Also started piperacillin/ tazobactam overnight. Using a cappella. RECONSULTED 09/08: Consulted by hospitalist for "respiratory failure requiring intubation. Patient is currently on 2 L nasal cannula. On CIC was on the 100% nonrebreather and nonresponsive? At her baseline currently Complaining of neck pain. This is been an ongoing issue for her. We'll recheck CT neck and head currently has on heparin drip. Currently on 2 L nasal cannula. Objective Vital Signs Date Time Temp Pulse Resp B/P (MAP) Pulse Ox O2 Delivery O2 Flow Rate FiO2 09/13/17 14:00 99 Non-Rebreather 09/13/17 14:00 97.6 77 18 125/67 (86) 09/13/17 13:14 5.00 09/12/17 15:38 21 Intake and Output 09/13/17 09/13/17 09/14/17 08:00 16:00 00:00 Intake Total 240 ml Balance 240 ml Result Diagram: 09/12/17 0512 09/10/17 0555 Other Results Microbiology Date/Time Source Procedure Growth Status 09/09/17 05:56 Blood Peripheral Aerobic Blood Culture - Preliminary NO GROWTH IN 4 DAYS Resulted 09/09/17 05:56 Blood Peripheral Anaerobic Blood Culture - Preliminary NO GROWTH IN 4 DAYS Resulted 08/28/17 14:45 Sputum Endotracheal Gram Stain - Final Complete 08/28/17 14:45 Sputum Endotracheal Sputum Culture - Final HEAVY GROWTH NORMAL RESPIRATORY LAURA Complete 09/09/17 06:20 Urine Catheterized Urine Urine Culture - Final 10-50,000 CFU/ML MIXED LAURA... Complete Imaging Last Impressions Chest X-Ray 09/13/17 0000 Signed Impressions: Service Date/Time: Wednesday, September 13, 2017 13:20 - CONCLUSION: 1. Mild interval improvement in pulmonary edema. 2. Bibasilar opacities remain as well as small to moderate effusions. García Thompson MD Lower Extremity Ultrasound 09/10/17 0900 Signed Impressions: Service Date/Time: Sunday, September 10, 2017 17:02 - CONCLUSION: No evidence of color Doppler flow into previously seen pseudoaneurysm. Hans Reagan MD CT Angiography 09/08/17 0000 Signed Impressions: Service Date/Time: Friday, September 08, 2017 13:08 - CONCLUSION: 1. There is at least one segmental right anterior lower lobe pulmonary artery branch containing embolus. Subsegmental branches are suboptimally visualized for definitive evaluation. Overall thrombus burden is low. 2. Dense airspace consolidation in the lower lobes with associated small to moderate simple appearing bilateral pleural effusions. 3. Scattered peripheral ground glass opacities in the right upper lobe. Differential considerations include inflammatory/infectious etiologies, focal volume loss, or less likely pulmonary infarction. 4. Prominent left ventricular peterson consistent with LVH. Correlation is recommended. Janes Cotton MD Brain MRI 08/28/17 1554 Signed Impressions: Service Date/Time: Monday, August 28, 2017 19:18 - CONCLUSION: 1. No focal mass or shift. No recent infarct. Chronic white matter ischemic changes involving periventricular region and brainstem especially jak. Lloyd Han MD Head CT 08/28/17 0751 Signed Impressions: Service Date/Time: Monday, August 28, 2017 08:20 - CONCLUSION: 1. Nonspecific white matter changes. 2. No acute intracranial abnormality. 3. Chronic opacification left maxillary sinus Armand Foreman MD Maxillofacial CT 08/28/17 0000 Signed Impressions: Service Date/Time: Monday, August 28, 2017 08:20 - CONCLUSION: 1. Bilateral displaced mandible fractures more extensive involving the condyles bilaterally. 2. Sensitive soft tissue swelling. 3. Bilateral nasal fractures. Armand Foreman MD Cervical Spine CT 08/28/17 0000 Signed Impressions: Service Date/Time: Monday, August 28, 2017 08:20 - CONCLUSION: 1. Multilevel degenerative changes. 2. No compression fracture or subluxation. 3. Ground glass density right upper lobe and to lesser degree left upper lobe could be contusion or infectious/inflammatory process. Armand Foreman MD Carotid Artery Ultrasound 08/28/17 0000 Signed Impressions: Service Date/Time: Monday, August 28, 2017 13:23 - CONCLUSION: 1. Mild bilateral carotid plaque. 2. No evidence of hemodynamically significant stenosis. 3. Antegrade flow in both vertebral arteries. Jason Martinez MD Abdomen/Pelvis CT 08/28/17 0000 Signed Impressions: Service Date/Time: Monday, August 28, 2017 19:02 - CONCLUSION: 1. Mild mural thickening of the rectosigmoid most characteristic of a mild colitis distally. No obstruction, free fluid or free air. 2. Small bilateral pleural effusions. 3. 1.6 cm left ovarian cyst. 4. Catheter in decompressed bladder. Lloyd Han MD Objective Remarks GENERAL: 67-year-old female, resting in bed in no acute distress on nasal cannula SKIN: Warm and dry. HEAD: Normocephalic. EYES: No scleral icterus. No injection or drainage. NECK: Supple JVD. Midline trachea. Transmitted upper airway sounds are appreciated. Decreased range of motion. Unable to do chin to chest. CARDIOVASCULAR: RRR. S1, S2 no S4. Without murmur RESPIRATORY: Nasal cannula. Diminished breath sounds in the bases. Few crackles appreciated upper lobes. GASTROINTESTINAL: Abdomen soft, non-tender, nondistended. Hypoactive bowel sounds are appreciated MUSCULOSKELETAL: Without significant peripheral edema Neuro: Cranial nerves II through XII grossly intact. Strength appears equal symmetric. Normal sensation. A/P Assessment and Plan Plan Neuro/Psych: Status post ORIF right mandible fracture/extraction of tooth by Dr. Doll 09/04 Chronic narcotic use Chronic benzodiazepine use EtOH Patient is currently in acetaminophen 650 mg every 6 hours as needed for pain Oxycodone 5 mg every 4 hours. As needed pain fourth through 7 Currently on levetiracetam 1000 mg IV twice a day for seizure Recheck EEG now Holding baclofen 10 mill grams 3 times a day/home medication Holding acetaminophen with Codeine 300/15 one tablet every 6 hours when necessary pain Holding lorazepam as needed/home medication Followed by Dr. Moulton/neurology Haloperidol 5 mill grams IV every 4 hours if continued 09/13 CT scan of the brain in the ED negative for acute intracranial findings. MRI brain: No acute findings. Chronic white matter changes EEG: Generalized slowing, no ictal activity. Carotid Doppler US: No sig hemodynamic stenosis. Per Dr. Doll( [facility] [place]) s/p ORIF mandible 09/04. stable to d/c home from [place] standpoint. Thiamine 100 mg IV daily 09/13 CT brain - Senescent changes with redemonstration of periventricular small vessel ischemic white matter demyelination. 2. No acute intracranial abnormality or significant interval change. C-spine - Multilevel degenerative spondylosis without significant interval change. No acute fracture or subluxation. Interval development of small bilateral pleural effusions. Resolution of likely inflammatory or infectious last opacities previously noted in the lung apices. EEG pending Pulm: Acute hypoxemic respiratory failure likely secondary to flash pulmonary edema Right lower lobe pulmonary embolism Possible healthcare associated pneumonia CT pulmonary angiogram revealed right lower lobe/anterior home embolism, but upper lobe groundglass opacities and small bilateral pleural effusions wean o2 by nasal cannula for goal spo2 > 92% aggressive pulmonary toilet including a cappella to 6 hours Scheduled albuterol/ipratropium aerosols every 4 hours with albuterol aerosols every 2 hours. Dyspnea Methylprednisolone 40 mg IV twice a day Receiving furosemide 40 mg IV 1 now. BP control. CV: Chronic systolic heart failure Hypertension Catheterization 09/01 revealed nonobstructive coronary artery disease. Preserved LV function. Elevated LVDP. Question Takotsubo syndrome Echo 09/03 showed EF left ventricular systolic function is moderately reduced with an estimated ejection fraction in the range of 30-35%. Distal anteroseptal and apical hypokinesis. Normal left ventricular size. [id number] mitral valve regurgitation. Mild aortic valve regurgitation. There is mild tricuspid valve regurgitation. The estimated pulmonary arterial pressure is 41 mmHg. Continue with ASA 81 mg daily Started on carvedilol 25 twice a day. Added lisinopril 20 mill grams by mouth daily Cards is following- Dr. Han. discussed overnight 09/[address] Pearce. Discussed with Dr. Marquis - add lisinopril 20 milligrams by mouth daily Continue heparin drip at 800 units an hour. Renal//FEN: Hypokalemia Monitor renal function Accurate I[facility] O[facility] all pending GI: Hypoalbuminemia Advance diet as tolerated Pantoprazole 40 mg by mouth daily for GI prophylaxis. Docusate sodium/senna 1 tablet twice a day for bowel regimen ID: Possible aspiration pneumonia - right upper lobe Currently on piperacillin/tazobactam since 09/09 08/28 BC 09/21 bottles: Corynebacterium ( likely contaminant) s/p Vanco x1 dose 08/30 08/30 BC: NGTD 09/08 Blood cultures 2, sputum no growth to date Heme: Leukocytosis Normocytic anemia Monitor CBC, coags On heparin drip Endo: SSI with Accu-Chek's to maintain euglycemia. GI prophylaxis with pantoprazole and DVT prophylaxis with SCD's. Heparin drip Level II followup. Lee Bishop MD Sep 13, 2017 15:36
[2017-09-13] MEDS ORDERED: ACETAMINOPHEN 325 MG TAB PO PRN (15:45)
[2017-09-13] MEDS ORDERED: ACETAMINOPHEN 1000 MG/100 ML 100 ML IV PRN (15:45)
[2017-09-13] MEDS ORDERED: FUROSEMIDE 40 MG/4 ML VIAL IV PUSH ONE (16:00)
[2017-09-13 16:09] LABS: AUTOMATED NEUTROPHIL # 5.2 TH/MM3 (1.8-7.7); BASOPHIL # 0.1 TH/MM3 (0-0.2); BASOPHIL % 1.1 % (0.0-2.0); EOSINOPHIL # 0.1 TH/MM3 (0-0.4); EOSINOPHIL % 1.2 % (0.0-4.0); HEMATOCRIT 26.7 % (35.0-46.0); LYMPH % 13.9 % (9.0-44.0); MEAN CORPUSCULAR HEMOGLOBIN 34.2 PG (27.0-34.0); MEAN CORPUSCULAR HGB CONC 33.9 % (32.0-36.0); MEAN PLATELET VOLUME 9.4 FL (7.0-11.0); MONO % 7.7 % (0.0-8.0); MONOCYTE # 0.5 TH/MM3 (0-0.9); NEUT % 76.1 % (16.0-70.0); PLATELET COUNT 344 TH/MM3 (150-450); RED BLOOD COUNT 2.64 MIL/MM3 (4.00-5.30); RED CELL DISTRIBUTION WIDTH 19.8 % (11.6-17.2); WHITE BLOOD COUNT 6.8 TH/MM3 (4.0-11.0)
[2017-09-13 16:36] LABS: ALKALINE PHOSPHATASE 80 U/L (45-117); ALT (GPT) 12 U/L (10-53); AST (GOT) 18 U/L (15-37); BICARBONATE 23.3 MEQ/L (21.0-32.0); BLOOD UREA NITROGEN 6 MG/DL (7-18); CALCIUM 8.3 MG/DL (8.5-10.1); CHLORIDE 103 MEQ/L (98-107); CREATININE 0.45 MG/DL (0.50-1.00); GLOMERULAR FILTRATION RATE 140 ML/MIN (>89); GLUCOSE,RANDOM 91 MG/DL (74-106); MAGNESIUM 1.8 MG/DL (1.5-2.5); PHOSPHORUS 3.7 MG/DL (2.5-4.9); SODIUM (NA) 138 MEQ/L (136-145); TOTAL BILIRUBIN ADULT 0.4 MG/DL (0.2-1.0); TOTAL PROTEIN 6.5 GM/DL (6.4-8.2)
[2017-09-13 16:37] LABS: TROPONIN I 0.25 NG/ML (0.02-0.05)
[2017-09-13] MEDS: RESP: ALBUTEROL 2.5 MG/IPRATROPIUM 0.5 MG NEB (SCH) NEB ×2 (16:50→21:12)
[2017-09-13] MEDS ORDERED: POTASSIUM CHLORIDE 10 MEQ CONTROLLED RELEASE TAB PO ONE (17:00)
[2017-09-13] MEDS: POTASSIUM CHLOR 10 MEQ PREMIX 100 ML IV SCH ×2 (17:26→18:25)
--- NOTE | 2017-09-13 18:06 | RADRPT ---
EXAM DATE/TIME: 09/13/2017 17:47 [facility] COMPARISON: CT BRAIN W/O CONTRAST, August 28, 2017, 8:20. INDICATIONS : Altered mental status. RADIATION DOSE: 44.64 CTDIvol (mGy) MEDICAL HISTORY : Cardiovascular disease. Hypertension. SURGICAL HISTORY : None. ENCOUNTER: Initial ACUITY: 1 day PAIN SCALE: 0/10 LOCATION: cranial TECHNIQUE: Multiple contiguous axial images were obtained of the head. Using automated exposure control and adj ustment of the mA and/or kV according to patient size, radiation dose was kept as low as reasonably a chievable to obtain optimal diagnostic quality images. DICOM format image data is available electro nically for review and comparison. FINDINGS: CEREBRUM: Moderate diffuse volume loss. The ventricles are slightly prominent for degree of atrophy but stable in size. Moderate periventricular white matter hypodensities. No evidence of midline shift, mass les ion, hemorrhage or acute infarction. No extra-axial fluid collections are seen. POSTERIOR FOSSA: The cerebellum and brainstem are intact. The 4th ventricle is midline. The cerebellopontine angle i s unremarkable. EXTRACRANIAL: The visualized portion of the orbits is intact. Apparent opacification of the left maxillary sinus. SKULL: The calvaria is intact. No evidence of skull fracture. CONCLUSION: 1. Senescent changes with redemonstration of periventricular small vessel ischemic white matter demye lination. 2. No acute intracranial abnormality or significant interval change. Janes Cotton MD on September 13, 2017 at 18:02 Board Certified Radiologist. This report was verified electronically.
--- NOTE | 2017-09-13 18:15 | RADRPT ---
EXAM DATE/TIME: 09/13/2017 17:47 [facility] COMPARISON: CT CERVICAL SPINE W/O CONTRAST, August 28, 2017, 8:20. INDICATIONS : Neck pain. RADIATION DOSE: 35.99 CTDIvol (mGy) MEDICAL HISTORY : Cardiovascular disease. Hypertension. SURGICAL HISTORY : None. ENCOUNTER: Initial ACUITY: 1 day PAIN SCALE: 5/10 LOCATION: Bilateral neck TECHNIQUE: Volumetric scanning of the cervical spine was performed. Multiplanar reconstructions in the sagittal, coronal and oblique axial planes were performed. Using automated exposure control and adjustment o f the mA and/or kV according to patient size, radiation dose was kept as low as reasonably achievable to obtain optimal diagnostic quality images. DICOM format image data is available electronically f or review and comparison. FINDINGS: VERTEBRAE: Normal vertebral body height. ALIGNMENT: Alignment is stable. Biapical centrilobular emphysema. Interval development of small bilateral pleura l effusions near the apices. Resolution of groundglass opacities in the apices. C2-C3: The bony spinal canal is normal in size. No evidence of disc bulge or herniation. The neural foramina are bilaterally patent. C3-C4: The bony spinal canal is normal in size. No evidence of disc bulge or herniation. The neural foramina are bilaterally patent. C4-C5: Posterior disc osteophyte complex without canal stenosis. Mild bony bilateral neural foraminal stenos is. C5-C6: Posterior disc osteophyte complex without canal stenosis. Moderate bilateral bony neuroforaminal sten osis. C6-C7: Posterior disc osteophyte complex without canal stenosis. The neural foramina are bilaterally patent. C7-T1: The bony spinal canal is normal in size. No evidence of disc bulge or herniation. The neural foramina are bilaterally patent. CONCLUSION: 1. Multilevel degenerative spondylosis without significant interval change. 2. No acute fracture or subluxation. 3. Interval development of small bilateral pleural effusions. 4. Resolution of likely inflammatory or infectious last opacities previously noted in the lung apices . Janes Cotton MD on September 13, 2017 at 18:09 Board Certified Radiologist. This report was verified electronically.
[2017-09-13] MEDS: MAGNESIUM SULFATE 1 GM PREMIX 100 ML IV SCH ×2 (18:24→18:41)
[2017-09-13 20:44] LABS: PROTHROMBIN TIME - PATIENT 10.4 SEC (9.8-11.6)
[2017-09-13] MEDS: LORazepam 0.5 MG TAB PO PRN (21:52)
[2017-09-14] VITALS (9 sets, daily range): BP systolic 89–136; BP diastolic 43–76; PULSE 71–97; RESP 16–20; TEMP 97.5–98.7; O2SAT 92–98
[2017-09-14 02:00] LABS: HEMOGLOBIN 9.5 GM/DL (11.6-15.3); MEAN CELL VOLUME 99.9 FL (80.0-100.0); MEAN CORPUSCULAR HEMOGLOBIN 33.9 PG (27.0-34.0); MEAN PLATELET VOLUME 9.9 FL (7.0-11.0); PLATELET COUNT 353 TH/MM3 (150-450); RED BLOOD COUNT 2.81 MIL/MM3 (4.00-5.30); RED CELL DISTRIBUTION WIDTH 19.8 % (11.6-17.2)
[2017-09-14 02:17] LABS: BICARBONATE 25.2 MEQ/L (21.0-32.0); CALCIUM 8.5 MG/DL (8.5-10.1); CREATININE 0.4 MG/DL (0.50-1.00)
[2017-09-14 02:21] LABS: TROPONIN I 0.19 NG/ML (0.02-0.05)
[2017-09-14] MEDS: RESP: ALBUTEROL 2.5 MG/IPRATROPIUM 0.5 MG NEB (SCH) NEB ×4 (03:21→21:45)
[2017-09-14] MEDS: CHLORHEXIDINE GLUCONATE 2 % 1 PACK (2 CLOTHS) TOP SCH (04:00)
[2017-09-14] MEDS: PIPERACIL-TAZO 4.5 GM PREMIX 100 ML IV SCH ×4 (05:00→23:27)
[2017-09-14] MEDS: HEPARIN-D5W 25,000 U/250 ML 250 ML IV PRN (06:58)
[2017-09-14] MEDS: INSULIN ASPART SUPPLEMENTAL SCALE SQ SCH ×4 (08:00→19:50)
--- NOTE | 2017-09-14 08:16 | HHI.CCPN ---
Subjective Remarks/Hospital Course Patient is a 67-year-old female with a past medical history of mitral valve prolapse, chronic back pain, hyperlipidemia, hypertension. She presented to [facility] ED via EMS after she was found face down unresponsive by her . She was given 2 mg IV Ativan by EMS for a witnessed seizure. She was last seen at her baseline at 5:30 this morning. According to the , the patient does not have any seizure disorder and she is not on any seizure meds at home. She had a similar episode a couple years ago and he attributed it to her multiple medications that she takes at home. She is on Tylenol #3 along with Lorazepam, Baclofen and Propranolol. She was found to have a laceration on chin which was bleeding. Her blood sugar was measured at 95. On arrival to the ED, she was hypertensive with a blood pressure of 196/120 and tachycardiac with a heart rate in the 120's. The patient was intubated with etomidate, succinylcholine and placed on full mechanical ventilation. Her laboratory data is significant for lactic acidosis with lactic acid level of 4.0 , an elevated troponin at 0.97 with a total CK of 129. Her urine drug screen is negative for amphetamines, benzodiazepines, and opiates. A CT scan of the brain was performed in the ED which showed no acute intracranial abnormalities. Chronic opacification left maxillary sinus noted. She also had a CT maxillofacial which showed bilateral displaced mandible fractures and bilateral nasal fractures. A cervical spine CT showed multilevel degenerative changes without any compression fracture or subluxation. Chest x-ray, she also had a chest x-ray which showed minimal bilateral upper lobe densities. The patient was given 2 liters of crystalloids in the ED, tetanus shot and placed on Fentanyl and Versed for sedation. There is no history of any chest pain, shortness of breath or any constitutional symptoms. Also, no history of any GI symptoms per the patient's . 08/29 Patient became hypotensive last night started on Levophed 5 mics currently. MRI brain no acute findings, CT abd/pelvis showed mild colitis. On Heparin drip. Left IJ CVP was placed last night CXR post procedure showed 6 mm right apical PTX a repeat CXR from 4:30 showed reduction right apical PTX 4 mm( Right IJ was attempted first) 08/30 No events overnight. Sedated with Diprivan, Versed and intubated. Afebrile. Remains on Levophed. Afebrile. CXR last night mild basilar airspace disease,no PTX. 08/31 No events overnight. Sedated with Versed, Fentanyl and intubated. Afebrile. For cardiac cath today. Off Levophed. 09/01 Patient remains sedated and intubated. s/p transfusion 1u PRBC yesterday Hgb 9.5 this morning. 09/02: LHC yesterday without obstructive CAD. medical management recommended. hgb 8.8 from 9.5 continue to trend. 09/03: doing well this morning. awake and alert. remains intubated. on PSV. at this point, risk/benefit would be in favor of remaining intubated for mandibular fixation tomorrow, however, will attempt to ambulate patient to decrease immobility and debilitation. 09/04: still awake and alert. plan for fixation in OR tonight. no contra- indication to extubation after fixation. will give small dose of lasix to help with edema over last few days. intravascularly replete on physical exam. 09/05: mandible fixation overnight. this morning, passed SBT and extubated on pathway. denies complaints. 09/06: went into agitated delirium overnight, presumably etoh withdraw. was on precedex, now off. doing well today. stable for transfer to floor. still on o2 which prevents her from d/c home. RECONSULTED 09/07: patient was rapid response for severe hypertension, chest pain, and neck pain. per her she has had a SBP > 180 all day today. she has developed worsening neck pain, as well as substernal chest pain which is severe. EKG demonstrates ST depressions with t-wave inversions in the far lateral leads (prior EKG with t-wave inversions, but no depressions). she also endorses nausea and vomiting all day today. denies headache, photophobia. her wbc is normal and she is afebrile. she denies chills. Her ABG is 7.45/37/224 on NRB. on admission to the ICU her bp was 220/90 and her HR was 110s. I immediately gave her a total of 70mg labetalol iv and 10mg metoprolol iv. additionally, we immediately gave her 1" ntg paste. We improved her bp to the 150s range and her HR to the 80s, which improved her labored breathing. however , her chest pain persisted, and we started a ntg drip, which then relieved her chest pain. Her troponins are slightly elevated at 0.32 (prior NSTEMI trop peaked ~4). 09/08: Denies chest pain. Currently complaining of "gurgling" back throat. Currently on Venturi mask at 35% saturation 100%. Slight troponin bump is 0.3 for likely secondary to hypertension. Recent cardiac catheterization with non obstructive coronary disease. 09/09: Remains on nitroglycerin drip. Currently in 4 L nasal cannula. Start heparin drip due to lower lobe pulmonary embolism. Also started piperacillin/ tazobactam overnight. Using a cappella. RECONSULTED 09/13: Consulted by hospitalist for "respiratory failure requiring intubation. Patient is currently on 2 L nasal cannula. On CIC was on the 100% nonrebreather and nonresponsive? At her baseline currently complaining of neck pain. This is been an ongoing issue for her. We'll recheck CT neck and head currently has on heparin drip. Currently on 2 L nasal cannula. Subjective 09/14: Currently on Venturi mask at 24%. Episodic anxiety requiring lorazepam 2.5 mg at which time she is less anxious. Currently being diuresed with furosemide. His revealed mild pulmonary edema. Still complaining of neck pain. CT brain/neck showed no acute findings. MRI brain ordered for today. No active seizure activity noted. Objective Vital Signs Date Time Temp Pulse Resp B/P (MAP) Pulse Ox O2 Delivery O2 Flow Rate FiO2 09/14/17 07:00 92 Venturi Mask 4.00 24 09/14/17 07:00 78 09/14/17 07:00 97.6 18 125/69 (87) Intake and Output 09/14/17 09/14/17 09/15/17 08:00 16:00 00:00 Intake Total 1623 ml Balance 1623 ml Result Diagram: 09/14/17 0132 09/14/17 0132 Other Results Microbiology Date/Time Source Procedure Growth Status 09/09/17 05:56 Blood Peripheral Aerobic Blood Culture - Preliminary NO GROWTH IN 4 DAYS Resulted 09/09/17 05:56 Blood Peripheral Anaerobic Blood Culture - Preliminary NO GROWTH IN 4 DAYS Resulted 08/28/17 14:45 Sputum Endotracheal Gram Stain - Final Complete 08/28/17 14:45 Sputum Endotracheal Sputum Culture - Final HEAVY GROWTH NORMAL RESPIRATORY LAURA Complete 09/09/17 06:20 Urine Catheterized Urine Urine Culture - Final 10-50,000 CFU/ML MIXED LAURA... Complete Imaging Last Impressions Head CT 09/13/17 0000 Signed Impressions: Service Date/Time: Wednesday, September 13, 2017 17:47 - CONCLUSION: 1. Senescent changes with redemonstration of periventricular small vessel ischemic white matter demyelination. 2. No acute intracranial abnormality or significant interval change. Janes Cotton MD Chest X-Ray 09/13/17 0000 Signed Impressions: Service Date/Time: Wednesday, September 13, 2017 13:20 - CONCLUSION: 1. Mild interval improvement in pulmonary edema. 2. Bibasilar opacities remain as well as small to moderate effusions. García Thompson MD Cervical Spine CT 09/13/17 0000 Signed Impressions: Service Date/Time: Wednesday, September 13, 2017 17:47 - CONCLUSION: 1. Multilevel degenerative spondylosis without significant interval change. 2. No acute fracture or subluxation. 3. Interval development of small bilateral pleural effusions. 4. Resolution of likely inflammatory or infectious last opacities previously noted in the lung apices. Janes Cotton MD Lower Extremity Ultrasound 09/10/17 0900 Signed Impressions: Service Date/Time: Sunday, September 10, 2017 17:02 - CONCLUSION: No evidence of color Doppler flow into previously seen pseudoaneurysm. Hans Reagan MD CT Angiography 09/08/17 0000 Signed Impressions: Service Date/Time: Friday, September 08, 2017 13:08 - CONCLUSION: 1. There is at least one segmental right anterior lower lobe pulmonary artery branch containing embolus. Subsegmental branches are suboptimally visualized for definitive evaluation. Overall thrombus burden is low. 2. Dense airspace consolidation in the lower lobes with associated small to moderate simple appearing bilateral pleural effusions. 3. Scattered peripheral ground glass opacities in the right upper lobe. Differential considerations include inflammatory/infectious etiologies, focal volume loss, or less likely pulmonary infarction. 4. Prominent left ventricular peterson consistent with LVH. Correlation is recommended. Janes Cotton MD Brain MRI 08/28/17 1554 Signed Impressions: Service Date/Time: Monday, August 28, 2017 19:18 - CONCLUSION: 1. No focal mass or shift. No recent infarct. Chronic white matter ischemic changes involving periventricular region and brainstem especially jak. Lloyd Han MD Maxillofacial CT 08/28/17 0000 Signed Impressions: Service Date/Time: Monday, August 28, 2017 08:20 - CONCLUSION: 1. Bilateral displaced mandible fractures more extensive involving the condyles bilaterally. 2. Sensitive soft tissue swelling. 3. Bilateral nasal fractures. Armand Foreman MD Carotid Artery Ultrasound 08/28/17 0000 Signed Impressions: Service Date/Time: Monday, August 28, 2017 13:23 - CONCLUSION: 1. Mild bilateral carotid plaque. 2. No evidence of hemodynamically significant stenosis. 3. Antegrade flow in both vertebral arteries. Jason Martinez MD Abdomen/Pelvis CT 08/28/17 0000 Signed Impressions: Service Date/Time: Monday, August 28, 2017 19:02 - CONCLUSION: 1. Mild mural thickening of the rectosigmoid most characteristic of a mild colitis distally. No obstruction, free fluid or free air. 2. Small bilateral pleural effusions. 3. 1.6 cm left ovarian cyst. 4. Catheter in decompressed bladder. Lloyd Han MD Objective Remarks GENERAL: 67-year-old female, resting in bed in no acute distress on nasal cannula SKIN: Warm and dry. HEAD: Normocephalic. EYES: No scleral icterus. No injection or drainage. NECK: Supple JVD. Midline trachea. Transmitted upper airway sounds are appreciated. Decreased range of motion. Unable to do chin to chest. CARDIOVASCULAR: RRR. S1, S2 no S4. Without murmur RESPIRATORY: Nasal cannula. Diminished breath sounds in the bases. Few crackles appreciated bilateral upper lobes. GASTROINTESTINAL: Abdomen soft, non-tender, nondistended. Hypoactive bowel sounds are appreciated MUSCULOSKELETAL: Without significant peripheral edema Neuro: Cranial nerves II through XII grossly intact. Strength appears equal symmetric. Normal sensation. A/P Assessment and Plan Neuro/Psych: Status post ORIF right mandible fracture/extraction of tooth by Dr. Doll 09/04 Chronic narcotic use Chronic benzodiazepine use EtOH Patient is currently in acetaminophen 650 mg every 6 hours as needed for fever Oxycodone 5 mg every 4 hours. Pain greater than 5 Currently on levetiracetam 1000 mg IV twice a day for seizure Recheck EEG now Resuming baclofen 10 mill grams 3 times a day/home medication Resuming acetaminophen with Codeine 300/15 one tablet every 6 hours when necessary pain 1 through 5 Resumed lorazepam 0.5 mg by mouth every 8 hours as needed Followed this hospitalization by Dr. Moulton/neurology Haloperidol 5 mill grams IV every 4 hours if continued 09/13 CT scan of the brain in the ED negative for acute intracranial findings. MRI brain: No acute findings. Chronic white matter changes EEG: Generalized slowing, no ictal activity. Carotid Doppler US: No sig hemodynamic stenosis. Per Dr. Doll( [facility] [place]) s/p ORIF mandible 09/04. stable to d/c home from [place] standpoint. Thiamine 100 mg IV daily 09/13 CT brain - Senescent changes with redemonstration of periventricular small vessel ischemic white matter demyelination. 2. No acute intracranial abnormality or significant interval change. C-spine - Multilevel degenerative spondylosis without significant interval change. No acute fracture or subluxation. Interval development of small bilateral pleural effusions. Resolution of likely inflammatory or infectious last opacities previously noted in the lung apices. MRI brain ordered for today 09/14 EEG pending Pulm: Acute hypoxemic respiratory failure likely secondary to flash pulmonary edema Right lower lobe pulmonary embolism Possible healthcare associated pneumonia CT pulmonary angiogram revealed right lower lobe/anterior home embolism, but upper lobe groundglass opacities and small bilateral pleural effusions wean o2 by nasal cannulasimple mask for goal spo2 > 92% aggressive pulmonary toilet including a cappella to 6 hours Scheduled albuterol/ipratropium aerosols every 4 hours with albuterol aerosols every 2 hours. Dyspnea Methylprednisolone 40 mg IV twice a day Receiving furosemide 40 mg IV 1 now. Repeat today 1 BP control. CV: Chronic systolic heart failure Hypertension Catheterization 09/01 revealed nonobstructive coronary artery disease. Preserved LV function. Elevated LVDP. Question Takotsubo syndrome Echo 09/03 showed EF left ventricular systolic function is moderately reduced with an estimated ejection fraction in the range of 30-35%. Distal anteroseptal and apical hypokinesis. Normal left ventricular size. [id number] mitral valve regurgitation. Mild aortic valve regurgitation. There is mild tricuspid valve regurgitation. The estimated pulmonary arterial pressure is 41 mmHg. Continue with ASA 81 mg daily Started on carvedilol 25 twice a day. Added lisinopril 20 mill grams by mouth daily Cards is following- Dr. Han. discussed overnight 09/[address] Pearce. Discussed with Dr. Marquis - add lisinopril 20 milligrams by mouth daily Currently on heparin drip at 1000 units an hour. Transition to Apixaban 5 mg twice a day per Dr. Amato recommendations. Renal//FEN: Hypokalemia Monitor renal function Accurate I's and O's 60 mEq potassium chloride 1 now. 2 g mag sulfate. Recheck electrolytes this evening GI: Hypoalbuminemia Advance diet as tolerated Pantoprazole 40 mg by mouth daily for GI prophylaxis. Docusate sodium/senna 1 tablet twice a day for bowel regimen ID: Possible aspiration pneumonia - right upper lobe Currently on piperacillin/tazobactam since 09/09 08/28 BC 09/21 bottles: Corynebacterium ( likely contaminant) s/p Vanco x1 dose 08/30 08/30 BC: NGTD 09/08 Blood cultures 2, sputum no growth to date Heme: Leukocytosis Normocytic anemia Monitor CBC, coags On heparin drip Endo: SSI with Accu-Chek's to maintain euglycemia. GI prophylaxis with pantoprazole and DVT prophylaxis with SCD's. Heparin drip Level II followup. Lee Bishop MD Sep 14, 2017 08:16
[2017-09-14] MEDS ORDERED: ACETAMINOPHEN/CODEINE 300 MG/30 MG TAB PO PRN (08:30)
[2017-09-14] MEDS: methylPREDNISolone SOD SUCC 40 MG/1 ML VIAL IV PUSH SCH ×2 (08:45→20:22)
[2017-09-14] MEDS: CARVEDILOL 12.5 MG TAB PO SCH ×2 (08:46→20:23)
[2017-09-14] MEDS: LISINOPRIL 20 MG TAB PO SCH (08:46)
[2017-09-14] MEDS: THIAMINE HCL 100 MG TAB PO SCH (08:46)
[2017-09-14] MEDS: levETIRAcetam 500 MG TAB PO SCH ×2 (08:46→20:22)
[2017-09-14] MEDS: ASPIRIN 81 MG CHEW TAB CHEW SCH (08:46)
[2017-09-14] MEDS: FOLIC ACID 1 MG TAB PO SCH (08:47)
[2017-09-14] MEDS: PANTOPRAZOLE SOD 40 MG DELAYED RELEASE TAB PO SCH (08:47)
[2017-09-14] MEDS: DOCUSATE SODIUM 50 MG/SENNA 8.6 MG TAB PO SCH ×2 (08:47→20:24)
[2017-09-14] MEDS: MAGNESIUM SULFATE 1 GM PREMIX 100 ML IV SCH ×2 (08:49→10:22)
[2017-09-14] MEDS: POTASSIUM CHLOR 10 MEQ PREMIX 100 ML IV SCH ×3 (08:49→10:47)
[2017-09-14] MEDS: APIXABAN 5 MG TABLET PO SCH ×2 (08:49→20:23)
[2017-09-14] MEDS: MULTIVITAMIN TAB PO SCH (08:50)
[2017-09-14] MEDS ORDERED: POTASSIUM CHLORIDE 10 MEQ CONTROLLED RELEASE TAB PO ONE (09:00)
[2017-09-14] MEDS: LORazepam 0.5 MG TAB PO PRN ×2 (12:06→20:21)
[2017-09-14] MEDS ORDERED: EPINEPHrine HCL (1:10,000) 1 MG/10 ML SYRINGE ONE (12:32)
--- NOTE | 2017-09-14 13:35 | MG ---
cc: ROSMERY REEDER M.D. Lab No: [id number] Date: 09/14/2017 AGE: 67 Sex: F Race: DATE OF 1950 AGE [age] years old RESULTS EEG number [id number] in the REFERRING PHYSICIAN MD Dario ROOM 447 NOTE Awake, with photic stimulation. The EEG of 08/28/2017 shows abnormality because of generalized slowing. CT shows age-related changes, white matter disease. INDICATIONS FOR PROCEDURE This is a 67-year-old woman admitted for witnessed seizure followed by unresponsiveness. MEDICATIONS Currently on - 1. Thiamine. 2. Solu-Medrol. 3. Heparin. 4. Coreg. 5. Lisinopril. 6. Protonix. DESCRIPTION OF RECORD There is a alpha rhythm of 9 Hz, 20 to 80 microvolts seen. Noted to be talking during the study. She is awake. Fairly symmetrical background. Some artifacts of movement. No gross epileptiform features observed as well as high amplitude waves but consistent with a lot of artifact. Photic stimulation does show bilateral driving response. IMPRESSION Overall unremarkable EEG. Normal, without any epileptiform features. Clinical correlation. Rosmery Reeder MD DF/MALCOLM /1:01 PM /1:06 PM
[2017-09-14] MEDS ORDERED: GADODIAMIDE PF 287 MG/ML 10 ML VIAL (for RAD MRI) IV PUSH ONE (13:59)
[2017-09-14] MEDS: BACLOFEN 10 MG TAB PO SCH ×2 (14:00→20:24)
--- NOTE | 2017-09-14 16:59 | RADRPT ---
EXAM DATE/TIME: 09/14/2017 12:51 [facility] COMPARISON: MRI BRAIN W & W/O CONTRAST, October 13, 2010, 11:50. INDICATIONS : Altered mental status. Seizures. CONTRAST: 10 cc Omniscan (gadodiamide) IV MEDICAL HISTORY : Hypercholesterolemia. Hypertension. SURGICAL HISTORY : jaw repair ENCOUNTER: Subsequent ACUITY: 1 week PAIN SCORE: 0/10 LOCATION: cranial TECHNIQUE: Multiplanar, multisequence MRI of the brain was performed both prior to and following the administrat ion of paramagnetic contrast. FINDINGS: Mild interval enlargement of the ventricular system has occurred since the prior study in 2010. There is mild ventriculomegaly with periventricular T2 hyperintensity. The periventricular hyperintense ch anges have increased since the prior study. There is no evidence of restricted diffusion, hemorrhage, focal mass or enhancing lesions. Increasing T2 hyperintense changes are also noted within the brainstem. CONCLUSION: 1. Enlarging lateral ventricles and increasing periventricular T2 hyperintensity since 2010 which may represent chronic microvascular ischemic changes with central atrophy. 2. No evidence of acute infarct, hemorrhage, mass or edema. 3. Chronic opacification of the left maxillary sinus. 4. No enhancing intra-or extra-axial lesions. Jason Martinez MD on September 14, 2017 at 16:50 Board Certified Radiologist. This report was verified electronically.
[2017-09-14 17:08] LABS: MAGNESIUM 3.1 MG/DL (1.5-2.5)
--- NOTE | 2017-09-14 23:26 | EKG ---
Date Performed: 09/13/2017 Time Performed: 13:01:06 PTAGE: 67 years EKG: Sinus rhythm Prolonged QT interval LVH with secondary repolarization abnormality Extensive ST-T changes may be du e to hypertrophy and/or ischemia Abnormal ECG PREVIOUS TRACING : 09/07/2017 19.04 Compared to prior tracing no significant change DOCTOR: Toño Rosa Interpretating Date/Time 09/14/2017 23:25:49
[2017-09-15] VITALS (13 sets, daily range): BP systolic 123–150; BP diastolic 69–78; PULSE 71–100; RESP 16–20; TEMP 97.3–98.8; O2SAT 95–100
[2017-09-15] MEDS: RESP: ALBUTEROL 2.5 MG/IPRATROPIUM 0.5 MG NEB (SCH) NEB ×4 (03:44→20:34)
[2017-09-15] MEDS: CHLORHEXIDINE GLUCONATE 2 % 1 PACK (2 CLOTHS) TOP SCH (04:00)
[2017-09-15 04:13] LABS: AUTOMATED NEUTROPHIL # 7.5 TH/MM3 (1.8-7.7); BASOPHIL % 0.2 % (0.0-2.0); HEMATOCRIT 24.7 % (35.0-46.0); HEMOGLOBIN 8.2 GM/DL (11.6-15.3); LYMPH % 4.7 % (9.0-44.0); LYMPHOCYTE # 0.4 TH/MM3 (1.0-4.8); MEAN CELL VOLUME 100.5 FL (80.0-100.0); MEAN CORPUSCULAR HEMOGLOBIN 33.3 PG (27.0-34.0); MEAN CORPUSCULAR HGB CONC 33.2 % (32.0-36.0); MEAN PLATELET VOLUME 9.6 FL (7.0-11.0); MONO % 4.5 % (0.0-8.0); MONOCYTE # 0.4 TH/MM3 (0-0.9); NEUT % 90.6 % (16.0-70.0); PLATELET COUNT 316 TH/MM3 (150-450); RED BLOOD COUNT 2.46 MIL/MM3 (4.00-5.30); RED CELL DISTRIBUTION WIDTH 20.6 % (11.6-17.2); WHITE BLOOD COUNT 8.3 TH/MM3 (4.0-11.0)
[2017-09-15] MEDS: PIPERACIL-TAZO 4.5 GM PREMIX 100 ML IV SCH ×4 (04:42→23:00)
[2017-09-15] MEDS: BACLOFEN 10 MG TAB PO SCH ×3 (04:42→21:08)
[2017-09-15 04:51] LABS: ALKALINE PHOSPHATASE 63 U/L (45-117); ALT (GPT) 11 U/L (10-53); AST (GOT) 18 U/L (15-37); BLOOD UREA NITROGEN 16 MG/DL (7-18); CALCIUM 8.3 MG/DL (8.5-10.1); CHLORIDE 104 MEQ/L (98-107); CREATININE 0.42 MG/DL (0.50-1.00); GLOMERULAR FILTRATION RATE 151 ML/MIN (>89); GLUCOSE,RANDOM 132 MG/DL (74-106); MAGNESIUM 2.4 MG/DL (1.5-2.5); PHOSPHORUS 2.7 MG/DL (2.5-4.9); SODIUM (NA) 139 MEQ/L (136-145); TOTAL BILIRUBIN ADULT 0.2 MG/DL (0.2-1.0); TOTAL PROTEIN 5.9 GM/DL (6.4-8.2)
[2017-09-15 06:28] LABS: ACANTHOCYTES OCC (NORMAL); HELMET CELLS OCC (NORMAL)
[2017-09-15 06:34] LABS: POLYCHROMASIA 2.1 % (0.0-1.9)
[2017-09-15] MEDS: INSULIN ASPART SUPPLEMENTAL SCALE SQ SCH ×4 (08:00→21:00)
--- NOTE | 2017-09-15 08:01 | HHI.CCPN ---
Subjective Remarks/Hospital Course Patient is a 67-year-old female with a past medical history of mitral valve prolapse, chronic back pain, hyperlipidemia, hypertension. She presented to [facility] ED via EMS after she was found face down unresponsive by her . She was given 2 mg IV Ativan by EMS for a witnessed seizure. She was last seen at her baseline at 5:30 this morning. According to the , the patient does not have any seizure disorder and she is not on any seizure meds at home. She had a similar episode a couple years ago and he attributed it to her multiple medications that she takes at home. She is on Tylenol #3 along with Lorazepam, Baclofen and Propranolol. She was found to have a laceration on chin which was bleeding. Her blood sugar was measured at 95. On arrival to the ED, she was hypertensive with a blood pressure of 196/120 and tachycardiac with a heart rate in the 120's. The patient was intubated with etomidate, succinylcholine and placed on full mechanical ventilation. Her laboratory data is significant for lactic acidosis with lactic acid level of 4.0 , an elevated troponin at 0.97 with a total CK of 129. Her urine drug screen is negative for amphetamines, benzodiazepines, and opiates. A CT scan of the brain was performed in the ED which showed no acute intracranial abnormalities. Chronic opacification left maxillary sinus noted. She also had a CT maxillofacial which showed bilateral displaced mandible fractures and bilateral nasal fractures. A cervical spine CT showed multilevel degenerative changes without any compression fracture or subluxation. Chest x-ray, she also had a chest x-ray which showed minimal bilateral upper lobe densities. The patient was given 2 liters of crystalloids in the ED, tetanus shot and placed on Fentanyl and Versed for sedation. There is no history of any chest pain, shortness of breath or any constitutional symptoms. Also, no history of any GI symptoms per the patient's . 08/29 Patient became hypotensive last night started on Levophed 5 mics currently. MRI brain no acute findings, CT abd/pelvis showed mild colitis. On Heparin drip. Left IJ CVP was placed last night CXR post procedure showed 6 mm right apical PTX a repeat CXR from 4:30 showed reduction right apical PTX 4 mm( Right IJ was attempted first) 08/30 No events overnight. Sedated with Diprivan, Versed and intubated. Afebrile. Remains on Levophed. Afebrile. CXR last night mild basilar airspace disease,no PTX. 08/31 No events overnight. Sedated with Versed, Fentanyl and intubated. Afebrile. For cardiac cath today. Off Levophed. 09/01 Patient remains sedated and intubated. s/p transfusion 1u PRBC yesterday Hgb 9.5 this morning. 09/02: LHC yesterday without obstructive CAD. medical management recommended. hgb 8.8 from 9.5 continue to trend. 09/03: doing well this morning. awake and alert. remains intubated. on PSV. at this point, risk/benefit would be in favor of remaining intubated for mandibular fixation tomorrow, however, will attempt to ambulate patient to decrease immobility and debilitation. 09/04: still awake and alert. plan for fixation in OR tonight. no contra- indication to extubation after fixation. will give small dose of lasix to help with edema over last few days. intravascularly replete on physical exam. 09/05: mandible fixation overnight. this morning, passed SBT and extubated on pathway. denies complaints. 09/06: went into agitated delirium overnight, presumably etoh withdraw. was on precedex, now off. doing well today. stable for transfer to floor. still on o2 which prevents her from d/c home. RECONSULTED 09/07: patient was rapid response for severe hypertension, chest pain, and neck pain. per her she has had a SBP > 180 all day today. she has developed worsening neck pain, as well as substernal chest pain which is severe. EKG demonstrates ST depressions with t-wave inversions in the far lateral leads (prior EKG with t-wave inversions, but no depressions). she also endorses nausea and vomiting all day today. denies headache, photophobia. her wbc is normal and she is afebrile. she denies chills. Her ABG is 7.45/37/224 on NRB. on admission to the ICU her bp was 220/90 and her HR was 110s. I immediately gave her a total of 70mg labetalol iv and 10mg metoprolol iv. additionally, we immediately gave her 1" ntg paste. We improved her bp to the 150s range and her HR to the 80s, which improved her labored breathing. however , her chest pain persisted, and we started a ntg drip, which then relieved her chest pain. Her troponins are slightly elevated at 0.32 (prior NSTEMI trop peaked ~4). 09/08: Denies chest pain. Currently complaining of "gurgling" back throat. Currently on Venturi mask at 35% saturation 100%. Slight troponin bump is 0.3 for likely secondary to hypertension. Recent cardiac catheterization with non obstructive coronary disease. 09/09: Remains on nitroglycerin drip. Currently in 4 L nasal cannula. Start heparin drip due to lower lobe pulmonary embolism. Also started piperacillin/ tazobactam overnight. Using a cappella. RECONSULTED 09/13: Consulted by hospitalist for "respiratory failure requiring intubation. Patient is currently on 2 L nasal cannula. On CIC was on the 100% nonrebreather and nonresponsive? At her baseline currently complaining of neck pain. This is been an ongoing issue for her. We'll recheck CT neck and head currently has on heparin drip. Currently on 2 L nasal cannula. 09/14: Currently on Venturi mask at 24%. Episodic anxiety requiring lorazepam 2.5 mg at which time she is less anxious. Currently being diuresed with furosemide. His revealed mild pulmonary edema. Still complaining of neck pain. CT brain/neck showed no acute findings. MRI brain ordered for today. No active seizure activity noted. Subjective 09/15: Afebrile. Tolerating diet. No bowel movement. Continues to complain of neck pain. MRI reviewed with and patient yesterday. No lorazepam given overnight. On 1 L nasal cannula Objective Vital Signs Date Time Temp Pulse Resp B/P (MAP) Pulse Ox O2 Delivery O2 Flow Rate FiO2 09/15/17 05:32 97 Nasal Cannula 1.00 Humidified 09/15/17 03:00 87 09/15/17 03:00 98.4 18 123/74 (90) 09/14/17 11:00 31 Intake and Output 12/09/15/17 09/16/17 08:00 16:00 00:00 Intake Total 480 ml Output Total 200 ml Balance 280 ml Result Diagram: 09/15/17 0345 09/15/17 0345 Other Results Microbiology Date/Time Source Procedure Growth Status 09/09/17 05:56 Blood Peripheral Aerobic Blood Culture - Final NO GROWTH IN 5 DAYS Complete 09/09/17 05:56 Blood Peripheral Anaerobic Blood Culture - Final NO GROWTH IN 5 DAYS Complete 08/28/17 14:45 Sputum Endotracheal Gram Stain - Final Complete 08/28/17 14:45 Sputum Endotracheal Sputum Culture - Final HEAVY GROWTH NORMAL RESPIRATORY LAURA Complete 09/09/17 06:20 Urine Catheterized Urine Urine Culture - Final 10-50,000 CFU/ML MIXED LAURA... Complete Imaging Last Impressions Brain MRI 09/14/17 0000 Signed Impressions: Service Date/Time: August 12:51 - CONCLUSION: 1. Enlarging lateral ventricles and increasing periventricular T2 hyperintensity since 2010 which may represent chronic microvascular ischemic changes with central atrophy. 2. No evidence of acute infarct, hemorrhage, mass or edema. 3. Chronic opacification of the left maxillary sinus. 4. No enhancing intra-or extra-axial lesions. Jason Martinez MD Head CT 09/13/17 0000 Signed Impressions: Service Date/Time: Wednesday, September 13, 2017 17:47 - CONCLUSION: 1. Senescent changes with redemonstration of periventricular small vessel ischemic white matter demyelination. 2. No acute intracranial abnormality or significant interval change. Janes Cotton MD Chest X-Ray 09/13/17 0000 Signed Impressions: Service Date/Time: Wednesday, September 13, 2017 13:20 - CONCLUSION: 1. Mild interval improvement in pulmonary edema. 2. Bibasilar opacities remain as well as small to moderate effusions. García Thompson MD Cervical Spine CT 09/13/17 0000 Signed Impressions: Service Date/Time: Wednesday, September 13, 2017 17:47 - CONCLUSION: 1. Multilevel degenerative spondylosis without significant interval change. 2. No acute fracture or subluxation. 3. Interval development of small bilateral pleural effusions. 4. Resolution of likely inflammatory or infectious last opacities previously noted in the lung apices. Janes Cotton MD Lower Extremity Ultrasound 09/10/17 0900 Signed Impressions: Service Date/Time: Sunday, September 10, 2017 17:02 - CONCLUSION: No evidence of color Doppler flow into previously seen pseudoaneurysm. Hans Reagan MD CT Angiography 09/08/17 0000 Signed Impressions: Service Date/Time: Friday, September 08, 2017 13:08 - CONCLUSION: 1. There is at least one segmental right anterior lower lobe pulmonary artery branch containing embolus. Subsegmental branches are suboptimally visualized for definitive evaluation. Overall thrombus burden is low. 2. Dense airspace consolidation in the lower lobes with associated small to moderate simple appearing bilateral pleural effusions. 3. Scattered peripheral ground glass opacities in the right upper lobe. Differential considerations include inflammatory/infectious etiologies, focal volume loss, or less likely pulmonary infarction. 4. Prominent left ventricular peterson consistent with LVH. Correlation is recommended. Janes Cotton MD Maxillofacial CT 08/28/17 0000 Signed Impressions: Service Date/Time: Monday, August 28, 2017 08:20 - CONCLUSION: 1. Bilateral displaced mandible fractures more extensive involving the condyles bilaterally. 2. Sensitive soft tissue swelling. 3. Bilateral nasal fractures. Armand Foreman MD Carotid Artery Ultrasound 08/28/17 0000 Signed Impressions: Service Date/Time: Monday, August 28, 2017 13:23 - CONCLUSION: 1. Mild bilateral carotid plaque. 2. No evidence of hemodynamically significant stenosis. 3. Antegrade flow in both vertebral arteries. Jason Martinez MD Abdomen/Pelvis CT 08/28/17 0000 Signed Impressions: Service Date/Time: Monday, August 28, 2017 19:02 - CONCLUSION: 1. Mild mural thickening of the rectosigmoid most characteristic of a mild colitis distally. No obstruction, free fluid or free air. 2. Small bilateral pleural effusions. 3. 1.6 cm left ovarian cyst. 4. Catheter in decompressed bladder. Lloyd Han MD Objective Remarks GENERAL: 67-year-old female, resting in bed in no acute distress on nasal cannula SKIN: Warm and dry. HEAD: Normocephalic. EYES: No scleral icterus. No injection or drainage. NECK: Supple JVD. Midline trachea. Transmitted upper airway sounds are appreciated. Decreased range of motion. Unable to do chin to chest. CARDIOVASCULAR: RRR. S1, S2 no S4. Without murmur RESPIRATORY: Nasal cannula. Diminished breath sounds in the bases. Few crackles appreciated bilateral upper lobes. GASTROINTESTINAL: Abdomen soft, non-tender, nondistended. Hypoactive bowel sounds are appreciated MUSCULOSKELETAL: Without significant peripheral edema Neuro: Cranial nerves II through XII grossly intact. Strength appears equal symmetric. Normal sensation. Urinary Catheter: No Assessment to: Continue Vascular Central Line Catheter: No Assessment to: Continue A/P Assessment and Plan Neuro/Psych: Status post ORIF right mandible fracture/extraction of tooth by Dr. Doll 09/04 Chronic narcotic use Chronic benzodiazepine use EtOH Patient is currently in acetaminophen 650 mg every 6 hours as needed for fever Acetaminophen with codeine 300/30 one tablet every 6 hours when necessary pain 1 -5 Oxycodone 5 mg every 4 hours. Pain greater than 5 Currently on levetiracetam 1000 mg po twice a day for seizure EEG 09/13 - no epileptiform activity Continue baclofen 10 mill grams 3 times a day/home medication Resumed lorazepam 0.5 mg by mouth every 8 hours as needed Followed this hospitalization by Dr. Moulton/neurology CT scan of the brain in the ED negative for acute intracranial findings. MRI brain: No acute findings. Chronic white matter changes EEG: Generalized slowing, no ictal activity. Carotid Doppler US: No sig hemodynamic stenosis. Per Dr. Doll([facility] [place]) s/p ORIF mandible 09/04. stable to d/c home from [place] standpoint. Thiamine 100 mg IV daily 09/13 CT brain - Senescent changes with redemonstration of periventricular small vessel ischemic white matter demyelination. No acute intracranial abnormality or significant interval change. C-spine - Multilevel degenerative spondylosis without significant interval change. No acute fracture or subluxation. Interval development of small bilateral pleural effusions. Resolution of likely inflammatory or infectious last opacities previously noted in the lung apices. MRI brain 09/14 - Enlarging lateral ventricles and increasing periventricular T2 hyperintensity since 2010 which may represent chronic microvascular ischemic changes with central atrophy. No evidence of acute infarct, hemorrhage, mass or edema. Chronic opacification of the left maxillary sinus. No enhancing intra-or extra-axial lesions. Pulm: Acute hypoxemic respiratory failure likely secondary to flash pulmonary edema Right lower lobe pulmonary embolism Possible healthcare associated pneumonia CT pulmonary angiogram revealed right lower lobe/anterior home embolism, but upper lobe groundglass opacities and small bilateral pleural effusions Wean nasal cannula for goal spo2 > 92% aggressive pulmonary toilet including a cappella to 6 hours Scheduled albuterol/ipratropium aerosols every 4 hours with albuterol aerosols every 2 hours. Dyspnea Methylprednisolone 40 mg IV twice a day Receiving furosemide 40 mg IV 1 now. BP control. CV: Chronic systolic heart failure Hypertension Femoral Pseudoaneurysm/right status post embolization by IR Catheterization 09/01 revealed nonobstructive coronary artery disease. Preserved LV function. Elevated LVDP. Question Takotsubo syndrome Echo 09/03 showed EF left ventricular systolic function is moderately reduced with an estimated ejection fraction in the range of 30-35%. Distal anteroseptal and apical hypokinesis. Normal left ventricular size. [id number] mitral valve regurgitation. Mild aortic valve regurgitation. There is mild tricuspid valve regurgitation. The estimated pulmonary arterial pressure is 41 mmHg. Continue with ASA 81 mg daily Started on carvedilol 25 twice a day. Added lisinopril 20 mill grams by mouth daily Cards has followed- Dr. Han. discussed overnight 09/[address] Pearce. Discussed with Dr. Marquis - add lisinopril 20 milligrams by mouth daily 09/15 - heparin drip transitioned Apixaban 5 mg twice a day per Dr. Amato recommendations. Renal//FEN: Monitor renal function Accurate I's and O's 20 mEq potassium chloride twice a day 2 dosages 1 dose of furosemide 40 mill grams IV 1 now. Recheck electrolytes in a.m. GI: Hypoalbuminemia Regular diet Pantoprazole 40 mg by mouth daily for GI prophylaxis. Docusate sodium/senna 1 tablet twice a day for bowel regimen ID: Possible aspiration pneumonia - right upper lobe Currently on piperacillin/tazobactam since 09/09 08/28 BC 09/21 bottles: Corynebacterium ( likely contaminant) s/p Vanco x1 dose 08/30 08/30 BC: NGTD 09/09 Blood cultures 2 and urine no growth to date Heme: Leukocytosis Normocytic anemia Small right lower lobe pulmonary embolism Monitor CBC, coags Apixaban 5 mg BID Endo: SSI with Novulog Accu-Chek's to maintain euglycemia. GI prophylaxis with pantoprazole and DVT prophylaxis with SCD's. Apixaban Level II followup. Patient is stable from a critical care medicine standpoint. Transferred to [facility]. Hospitalist to assume care in a.. 09/16. Lee Bishop MD Sep 15, 2017 08:01
[2017-09-15] MEDS ORDERED: FUROSEMIDE 40 MG/4 ML VIAL IV PUSH ONE (08:15)
[2017-09-15] MEDS: MULTIVITAMIN TAB PO SCH (09:00)
[2017-09-15] MEDS: methylPREDNISolone SOD SUCC 40 MG/1 ML VIAL IV PUSH SCH ×2 (09:13→21:07)
[2017-09-15] MEDS: levETIRAcetam 500 MG TAB PO SCH ×2 (09:15→21:07)
[2017-09-15] MEDS: FOLIC ACID 1 MG TAB PO SCH (09:16)
[2017-09-15] MEDS: ASPIRIN 81 MG CHEW TAB CHEW SCH (09:16)
[2017-09-15] MEDS: CARVEDILOL 12.5 MG TAB PO SCH ×2 (09:16→21:08)
[2017-09-15] MEDS: THIAMINE HCL 100 MG TAB PO SCH (09:17)
[2017-09-15] MEDS: DOCUSATE SODIUM 50 MG/SENNA 8.6 MG TAB PO SCH ×2 (09:17→21:08)
[2017-09-15] MEDS: POTASSIUM CHLORIDE 20 MEQ CONTROLLED RELEASE TAB PO SCH ×2 (09:17→21:07)
[2017-09-15] MEDS: LORazepam 0.5 MG TAB PO PRN ×2 (09:17→21:08)
[2017-09-15] MEDS: PANTOPRAZOLE SOD 40 MG DELAYED RELEASE TAB PO SCH (09:18)
[2017-09-15] MEDS: APIXABAN 5 MG TABLET PO SCH ×2 (09:18→21:08)
[2017-09-15] MEDS: LISINOPRIL 20 MG TAB PO SCH (09:19)
--- NOTE | 2017-09-15 20:22 | HHI.PR ---
Review/Management Diagnosis seizure--no recurrence. May be related to etoh. Since this was an isolated SZ and EEG normal I think it is safe to stop keppra Mental status change---she appears delusional and anxious. Possibly related to keppra. possibly to etoh withdrawal. Plan stop keppra Diagnosis/Plan: Subjective Subjective Comments Patient has had no recurrent sz. She has been confused and delireus. Active Medications Current Medications Medications (Trade) Dose Ordered Sig/Benny Route Start Time Stop Time Status Last Admin (NS Flush) 2 ml UNSCH PRN IV FLUSH 08/28/17 08:00 09/11/17 09:59 Miscellaneous Information 1 Q361D XX 08/28/17 09:30 (Chlorhexidine 2% Cloth) Taper DAILY@04 TOP 08/29/17 04:00 08/25/18 03:59 09/15/17 04:00 (Chlorhexidine 2% Cloth) 3 pack UNSCH PRN TOP 08/28/17 09:30 (Brenna-Colace) 1 tab BID PO 08/28/17 21:00 09/15/17 09:17 (Milk Of Magnesia Liq) 30 ml Q12H PRN PO 08/28/17 09:30 (Senokot) 17.2 mg Q12H PRN PO 08/28/17 09:30 (Dulcolax Supp) 10 mg DAILY PRN RECTAL 08/28/17 09:30 (Lactulose Liq) 30 ml DAILY PRN PO 08/28/17 09:30 (Aspirin Chew) 81 mg DAILY CHEW 08/29/17 09:00 09/15/17 09:16 (Zofran Inj) 4 mg Q4H PRN IV PUSH 09/01/17 13:30 09/07/17 08:58 (Roxicodone) 5 mg Q4H PRN PO 09/05/17 12:00 09/13/17 07:51 (Keppra) 1,000 mg Q12HR PO 09/05/17 21:00 09/15/17 09:15 (Romazicon Inj) 0.2 mg Q1M PRN IV PUSH 09/06/17 00:45 (Reglan Inj) 5 mg Q8H PRN IV PUSH 09/07/17 10:45 (Phenergan) 25 mg Q6H PRN PO 09/07/17 10:45 09/07/17 11:17 (Compazine Supp) 25 mg Q6H PRN RECTAL 09/07/17 15:00 (Nitroglycerin 2% Oint) 1 inch Q6HR PRN TOPICAL 09/07/17 18:45 Nitroglycerin/ Dextrose 250 ml @ 1.5 mls/hr TITRATE PRN IV 09/07/17 19:30 09/07/17 19:52 (Lopressor Inj) 5 mg Q5M PRN IV PUSH 09/07/17 20:30 09/09/17 03:55 Levetriacetam 100 ml @ 400 mls/hr Q12HR PRN IV 09/07/17 20:30 09/08/17 22:04 (Albuterol Neb) 2.5 mg Q2HR NEB PRN NEB 09/08/17 08:30 09/13/17 12:48 (D50w (Vial) Inj) 50 ml UNSCH PRN IV PUSH 09/08/17 09:00 09/08/17 23:07 (Glucagon Inj) 1 mg UNSCH PRN OTHER 09/08/17 09:00 (NovoLOG SUPPLEMENTAL SCALE) 1 ACHS SLIDING SCALE SQ 09/08/17 12:00 09/14/17 17:21 (Trandate Inj) 10 mg Q1H PRN IV PUSH 09/08/17 09:00 09/09/17 17:58 (Apresoline Inj) 10 mg Q1H PRN IV PUSH 09/08/17 09:00 09/11/17 16:54 (Prinivil) 20 mg DAILY PO 09/09/17 09:00 09/15/17 09:19 Piperacillin Sod/ Tazobactam Sod 100 ml @ 200 mls/hr Q6H IV 09/09/17 05:00 09/15/17 16:27 (Protonix) 40 mg DAILY PO 09/09/17 09:00 09/15/17 09:18 (Catapres) 0.1 mg Q6H PRN PO 09/09/17 10:30 09/12/17 17:54 (Coreg) 25 mg Q12HR PO 09/12/17 21:00 09/15/17 09:16 (SoluMEDROL INJ) 40 mg Q12HR IV PUSH 09/13/17 14:30 09/15/17 09:13 (Duoneb Neb) 1 ampule Q6HR NEB NEB 09/13/17 16:00 09/15/17 09:28 (Tylenol) 650 mg Q6HR PRN PO 09/13/17 15:45 (Vitamin B1) 100 mg DAILY PO 09/14/17 09:00 09/15/17 09:17 (Theragran) 1 tab DAILY PO 09/14/17 09:00 (Folate) 1 mg DAILY PO 09/14/17 09:00 09/15/17 09:16 (Ativan) 0.5 mg Q8H PRN PO 09/13/17 19:15 09/15/17 09:17 (Lioresal) 10 mg Q8HR PO 09/14/17 14:00 09/15/17 16:25 (Tylenol-Codeine #3) 1 tab Q6H PRN PO 09/14/17 08:30 (Eliquis) 5 mg BID PO 09/14/17 09:00 09/15/17 09:18 (KCl) 20 meq Q12HR PO 09/15/17 09:00 09/15/17 21:01 09/15/17 09:17 Allergies Allergies Coded Allergies No Known Allergies (Verified10/13/10) Exam I&O / VS 09/15/17 09/15/17 09/16/17 15:00 23:00 07:00 Intake Total 100 ml Balance 100 ml Intake Oral 100 ml # Voids 6 Vital Signs Date Time Temp Pulse Resp B/P (MAP) Pulse Ox O2 Delivery O2 Flow Rate FiO2 09/15/17 19:42 100 Nasal Cannula 1.00 09/15/17 19:42 98.8 83 20 150/78 (102) 100 09/15/17 15:04 99 Nasal Cannula 2.00 09/15/17 15:00 79 09/15/17 15:00 97.3 86 16 143/76 (98) 96 09/15/17 12:00 89 09/15/17 12:00 97.4 100 18 143/69 (93) 97 09/15/17 09:28 99 Nasal Cannula 2.00 09/15/17 08:00 97.8 81 20 147/76 (99) 97 09/15/17 08:00 97 Nasal Cannula 1.00 Humidified 09/15/17 08:00 81 09/15/17 05:32 97 Nasal Cannula 1.00 Humidified 09/15/17 03:00 87 09/15/17 03:00 98.4 80 18 123/74 (90) 95 09/14/17 23:00 80 09/14/17 23:00 98.7 80 16 130/72 (91) 95 09/14/17 21:28 97 Nasal Cannula 2.00 Exam Comments alert, oriented times three, She has normal recent and remote memory speech is fluent and pressured. She appears delusional CN intact MOTOR 5/5 BUE Objective Radiology Results MRI brain--chronic white matter changes, atrophy Micro and Labs Laboratory Tests Test 09/15/17 03:45 White Blood Count 8.3 Red Blood Count 2.46 Hemoglobin 8.2 Hematocrit 24.7 Mean Corpuscular Volume 100.5 Mean Corpuscular Hemoglobin 33.3 Mean Corpuscular Hemoglobin Concent 33.2 Red Cell Distribution Width 20.6 Platelet Count 316 Mean Platelet Volume 9.6 Neutrophils (%) (Auto) 90.6 Lymphocytes (%) (Auto) 4.7 Monocytes (%) (Auto) 4.5 Eosinophils (%) (Auto) 0.0 Basophils (%) (Auto) 0.2 Neutrophils # (Auto) 7.5 Lymphocytes # (Auto) 0.4 Monocytes # (Auto) 0.4 Eosinophils # (Auto) 0.0 Basophils # (Auto) 0.0 CBC Comment AUTO DIFF Differential Comment AUTO DIFF CONFIRMED Platelet Estimate NORMAL Platelet Morphology Comment NORMAL Polychromasia 2.1 Helmet Cells OCC Acanthocytes OCC Blood Urea Nitrogen 16 Creatinine 0.42 Random Glucose 132 Total Protein 5.9 Albumin 2.0 Calcium Level 8.3 Phosphorus Level 2.7 Magnesium Level 2.4 Alkaline Phosphatase 63 Aspartate Amino Transf (AST/SGOT) 18 Alanine Aminotransferase (ALT/SGPT) 11 Total Bilirubin 0.2 Sodium Level 139 Potassium Level 3.8 Chloride Level 104 Carbon Dioxide Level 25.0 Anion Gap 10 Estimat Glomerular Filtration Rate 151 Date/Time Source Procedure Growth Status 09/09/17 05:56 Blood Peripheral Aerobic Blood Culture - Final NO GROWTH IN 5 DAYS Complete 09/09/17 05:56 Blood Peripheral Anaerobic Blood Culture - Final NO GROWTH IN 5 DAYS Complete 08/28/17 14:45 Sputum Endotracheal Gram Stain - Final Complete 08/28/17 14:45 Sputum Endotracheal Sputum Culture - Final HEAVY GROWTH NORMAL RESPIRATORY LAURA Complete 09/09/17 06:20 Urine Catheterized Urine Urine Culture - Final 10-50,000 CFU/ML MIXED LAURA... Complete Diagnostic Tests EEG---normal, no epileptiform changes. Mo Moulton MD PhD Sep 15, 2017 20:22
[2017-09-16] VITALS (16 sets, daily range): BP systolic 120–150; BP diastolic 61–77; PULSE 72–85; RESP 18–20; TEMP 97.6–98.9; O2SAT 97–99
[2017-09-16] MEDS: RESP: ALBUTEROL 2.5 MG/3 ML NEB (PRN) NEB ×2 (00:36→21:15)
[2017-09-16] MEDS: CHLORHEXIDINE GLUCONATE 2 % 1 PACK (2 CLOTHS) TOP SCH (04:00)
[2017-09-16] MEDS: RESP: ALBUTEROL 2.5 MG/IPRATROPIUM 0.5 MG NEB (SCH) NEB ×4 (04:16→21:15)
[2017-09-16] MEDS: PIPERACIL-TAZO 4.5 GM PREMIX 100 ML IV SCH ×4 (05:07→23:27)
[2017-09-16] MEDS: BACLOFEN 10 MG TAB PO SCH ×3 (05:07→20:40)
[2017-09-16] MEDS: LORazepam 0.5 MG TAB PO PRN (05:07)
--- NOTE | 2017-09-16 05:29 | RADRPT ---
EXAM DATE/TIME: 09/16/2017 04:24 [place] COMPARISON: CHEST SINGLE AP, September 13, 2017, 13:20. INDICATIONS : Shortness of breath, possible pulmonary disease. MEDICAL HISTORY : Hypertension. Rheumatoid arthritis. Mitral valve prolapse SURGICAL HISTORY : None. ENCOUNTER: Subsequent ACUITY: 2 weeks PAIN SCORE: Non-responsive. LOCATION: Bilateral chest FINDINGS: Bibasilar consolidation and pleural effusions are improving, now mild/small on both side. No pneumoth orax. Heart size stable, upper limits of normal. CONCLUSION: Decreasing bilateral consolidation and small effusions. Scooter Moreno MD on September 16, 2017 at 5:27 Board Certified Radiologist. This report was verified electronically.
[2017-09-16 05:58] LABS: AUTOMATED NEUTROPHIL # 6.7 TH/MM3 (1.8-7.7); BASOPHIL % 0.1 % (0.0-2.0); HEMATOCRIT 27.6 % (35.0-46.0); LYMPH % 7.8 % (9.0-44.0); LYMPHOCYTE # 0.6 TH/MM3 (1.0-4.8); MEAN CELL VOLUME 101.2 FL (80.0-100.0); MEAN CORPUSCULAR HEMOGLOBIN 33.2 PG (27.0-34.0); MEAN CORPUSCULAR HGB CONC 32.8 % (32.0-36.0); MEAN PLATELET VOLUME 9.6 FL (7.0-11.0); MONO % 6.7 % (0.0-8.0); MONOCYTE # 0.5 TH/MM3 (0-0.9); NEUT % 85.4 % (16.0-70.0); PLATELET COUNT 315 TH/MM3 (150-450); RED BLOOD COUNT 2.73 MIL/MM3 (4.00-5.30); RED CELL DISTRIBUTION WIDTH 19.7 % (11.6-17.2); WHITE BLOOD COUNT 7.8 TH/MM3 (4.0-11.0)
[2017-09-16 06:32] LABS: ALBUMIN 2.4 GM/DL (3.4-5.0); AST (GOT) 23 U/L (15-37); BICARBONATE 25.9 MEQ/L (21.0-32.0); BLOOD UREA NITROGEN 17 MG/DL (7-18); CALCIUM 8.8 MG/DL (8.5-10.1); CHLORIDE 100 MEQ/L (98-107); CREATININE 0.61 MG/DL (0.50-1.00); GLOMERULAR FILTRATION RATE 98 ML/MIN (>89); GLUCOSE,RANDOM 132 MG/DL (74-106); SODIUM (NA) 137 MEQ/L (136-145)
[2017-09-16 06:35] LABS: ALKALINE PHOSPHATASE 71 U/L (45-117); ALT (GPT) 13 U/L (10-53); PHOSPHORUS 3.2 MG/DL (2.5-4.9); TOTAL BILIRUBIN ADULT 0.3 MG/DL (0.2-1.0); TOTAL PROTEIN 6.8 GM/DL (6.4-8.2)
[2017-09-16] MEDS: INSULIN ASPART SUPPLEMENTAL SCALE SQ SCH ×3 (08:00→21:00)
--- NOTE | 2017-09-16 08:25 | HHI.PR ---
Subjective Remarks Patient seen and examined vitals are stable, afebrile. No overnight events. Nurse in room with patient. She does not answer questions appropriately. Oxygen has been turned off, and she is saturating at 100%. She goes on talking about animals and puppies and horses. Objective Vital Signs Date Time Temp Pulse Resp B/P (MAP) Pulse Ox O2 Delivery O2 Flow Rate FiO2 09/16/17 03:12 97.8 80 18 128/69 (88) 99 09/16/17 03:12 99 Nasal Cannula 2.00 09/16/17 03:00 85 09/16/17 02:04 80 09/16/17 01:00 80 09/16/17 00:00 78 09/15/17 23:38 100 Nasal Cannula 2.00 09/15/17 23:38 98.6 71 18 129/74 (92) 100 09/15/17 23:00 73 09/15/17 21:30 100 Nasal Cannula 2.00 09/15/17 21:00 76 09/15/17 20:37 98 Nasal Cannula 2.00 09/15/17 20:00 78 09/15/17 19:42 100 Nasal Cannula 4.00 09/15/17 19:42 98.8 83 20 150/78 (102) 100 09/15/17 19:00 78 09/15/17 15:04 99 Nasal Cannula 2.00 09/15/17 15:00 79 09/15/17 15:00 97.3 86 16 143/76 (98) 96 09/15/17 12:00 89 09/15/17 12:00 97.4 100 18 143/69 (93) 97 09/15/17 09:28 99 Nasal Cannula 2.00 09/15/17 08:00 97.8 81 20 147/76 (99) 97 09/15/17 08:00 97 Nasal Cannula 1.00 Humidified 09/15/17 08:00 81 I/O 09/15/17 09/15/17 09/15/17 09/16/17 09/16/17 09/16/17 07:00 15:00 23:00 07:00 15:00 23:00 Intake Total 480 ml 100 ml 526 ml Output Total 200 ml 1 ml Balance 280 ml 100 ml 525 ml Intake Oral 480 ml 100 ml 200 ml IV Total 326 ml Output Urine Total 200 ml 1 ml # Voids 6 # Bowel Movements 0 1 Result Diagram: 09/16/17 0530 09/16/17 0530 Imaging Last Impressions Chest X-Ray 09/16/17 0600 Signed Impressions: Service Date/Time: Saturday, September 16, 2017 04:24 - CONCLUSION: Decreasing bilateral consolidation and small effusions. Scooter Moreno MD Brain MRI 09/14/17 0000 Signed Impressions: Service Date/Time: August 12:51 - CONCLUSION: 1. Enlarging lateral ventricles and increasing periventricular T2 hyperintensity since 2010 which may represent chronic microvascular ischemic changes with central atrophy. 2. No evidence of acute infarct, hemorrhage, mass or edema. 3. Chronic opacification of the left maxillary sinus. 4. No enhancing intra-or extra-axial lesions. Jason Martinez MD Head CT 09/13/17 0000 Signed Impressions: Service Date/Time: Wednesday, September 13, 2017 17:47 - CONCLUSION: 1. Senescent changes with redemonstration of periventricular small vessel ischemic white matter demyelination. 2. No acute intracranial abnormality or significant interval change. Janes Cotton MD Cervical Spine CT 09/13/17 0000 Signed Impressions: Service Date/Time: Wednesday, September 13, 2017 17:47 - CONCLUSION: 1. Multilevel degenerative spondylosis without significant interval change. 2. No acute fracture or subluxation. 3. Interval development of small bilateral pleural effusions. 4. Resolution of likely inflammatory or infectious last opacities previously noted in the lung apices. Janes Cotton MD Lower Extremity Ultrasound 09/10/17 0900 Signed Impressions: Service Date/Time: Sunday, September 10, 2017 17:02 - CONCLUSION: No evidence of color Doppler flow into previously seen pseudoaneurysm. Hans Reagan MD CT Angiography 09/08/17 0000 Signed Impressions: Service Date/Time: Friday, September 08, 2017 13:08 - CONCLUSION: 1. There is at least one segmental right anterior lower lobe pulmonary artery branch containing embolus. Subsegmental branches are suboptimally visualized for definitive evaluation. Overall thrombus burden is low. 2. Dense airspace consolidation in the lower lobes with associated small to moderate simple appearing bilateral pleural effusions. 3. Scattered peripheral ground glass opacities in the right upper lobe. Differential considerations include inflammatory/infectious etiologies, focal volume loss, or less likely pulmonary infarction. 4. Prominent left ventricular peterson consistent with LVH. Correlation is recommended. Janes Cotton MD Maxillofacial CT 08/28/17 0000 Signed Impressions: Service Date/Time: Monday, August 28, 2017 08:20 - CONCLUSION: 1. Bilateral displaced mandible fractures more extensive involving the condyles bilaterally. 2. Sensitive soft tissue swelling. 3. Bilateral nasal fractures. Armand Foreman MD Carotid Artery Ultrasound 08/28/17 0000 Signed Impressions: Service Date/Time: Monday, August 28, 2017 13:23 - CONCLUSION: 1. Mild bilateral carotid plaque. 2. No evidence of hemodynamically significant stenosis. 3. Antegrade flow in both vertebral arteries. Jason Martinez MD Abdomen/Pelvis CT 08/28/17 0000 Signed Impressions: Service Date/Time: Monday, August 28, 2017 19:02 - CONCLUSION: 1. Mild mural thickening of the rectosigmoid most characteristic of a mild colitis distally. No obstruction, free fluid or free air. 2. Small bilateral pleural effusions. 3. 1.6 cm left ovarian cyst. 4. Catheter in decompressed bladder. Lloyd Han MD Objective Remarks GENERAL: well appearing, NAD SKIN: Warm and dry. HEAD: Normocephalic. SOme facial swelling noted EYES: No scleral icterus. No injection or drainage. NECK: Supple, trachea midline. No JVD or lymphadenopathy. CARDIOVASCULAR: Regular rate and rhythm without murmurs, gallops, or rubs. RESPIRATORY: Breath sounds equal bilaterally. No accessory muscle use. GASTROINTESTINAL: Abdomen soft, non-tender, nondistended. MUSCULOSKELETAL: No cyanosis, or edema. No calf tenderness Neuro: she is A&O x3, she is tangential, moves all extremities, moves on command A/P Problem List: (1) Pneumonia ICD Code: J18.9 - Pneumonia, unspecified organism (2) Pulmonary embolism ICD Code: I26.99 - Other pulmonary embolism without acute cor pulmonale (3) Hypertensive heart disease ICD Code: I11.9 - Hypertensive heart disease without heart failure (4) Cardiomyopathy, nonischemic ICD Code: I42.8 - Other cardiomyopathies (5) Pseudoaneurysm of femoral artery ICD Code: I72.4 - Aneurysm of artery of lower extremity (6) HCAP (healthcare-associated pneumonia) ICD Code: J18.9 - Pneumonia, unspecified organism (7) Acute hypoxemic respiratory failure ICD Code: J96.01 - Acute respiratory failure with hypoxia Assessment and Plan In summary this is 67-year-old female patient with medical history significant for mitral valve prolapse, chronic back pain, hyperlipidemia and hypertension. She initially presented to [place] on 08/29 by EMS for unresponsiveness. Initially admitted to [facility], "She presented to [facility] ED via EMS after she was found face down unresponsive by her . She was given 2 mg IV Ativan by EMS for a witnessed seizure. She was last seen at her baseline at 5:30 this morning. According to the , the patient does not have any seizure disorder and she is not on any seizure meds at home. She had a similar episode a couple years ago and he attributed it to her multiple medications that she takes at home. She is on Tylenol #3 along with Lorazepam, Baclofen and Propranolol. She was found to have a laceration on chin which was bleeding. Her blood sugar was measured at 95. On arrival to the ED, she was hypertensive with a blood pressure of 196/120 and tachycardiac with a heart rate in the 120's. The patient was intubated with etomidate, succinylcholine and placed on full mechanical ventilation. Her laboratory data is significant for lactic acidosis with lactic acid level of 4.0, an elevated troponin at 0.97 with a total CK of 129. Her urine drug screen is negative for amphetamines, benzodiazepines, and opiates. A CT scan of the brain was performed in the ED which showed no acute intracranial abnormalities. Chronic opacification left maxillary sinus noted. She also had a CT maxillofacial which showed bilateral displaced mandible fractures and bilateral nasal fractures. A cervical spine CT showed multilevel degenerative changes without any compression fracture or subluxation. Chest x-ray, she also had a chest x-ray which showed minimal bilateral upper lobe densities. The patient was given 2 liters of crystalloids in the ED, tetanus shot and placed on Fentanyl and Versed for sedation. There is no history of any chest pain, shortness of breath or any constitutional symptoms. Also, no history of any GI symptoms per the patient's ." Hospitalization is accompanied by both chest pain and severe hypertension with elevated troponins, she required nitro drip, recent cardiac catheter with nonobstructive coronary artery disease. Hospitalist also reconsulted for respiratory failure, reintubation on 09/13. Status post ORIF right mandible fracture/extraction of tooth by Dr. Doll after fall - Per Dr. Doll([facility]) s/p ORIF mandible 09/04. stable to d/c home from [place] standpoint. Seizure-like activity - Concern for seizure-like activity per EMS - EEG on 1227 with no epileptiform activity - Lorazepam 0.5 mg every 8 hours when necessary - CT scan of the brain in the ED negative for acute intracranial findings. - MRI brain: No acute findings. Chronic white matter changes. Enlarging lateral ventricles and increasing periventricular T2 hyperintensity since 2010 which may represent chronic microvascular ischemic changes with central atrophy. No evidence of acute infarct, hemorrhage, mass or edema. Chronic opacification of the left maxillary sinus. No enhancing intra-or extra-axial lesions. - No seizure recurrence, symptoms may be related to EtOH, per neuro safe to stop Keppra. Mental status change, patient appeared to be anxious and delusional, neural thought related to Keppra and possibly alcohol withdrawal. Respiratory failure, likely secondary to flash pulmonary edema Right lower lobe PE, upper lobe groundglass opacities - Methylprednisolone 40 mg IV twice a day - Albuterol and DuoNeb scheduled - Currently on nasal cannula, goal for oxygen saturation greater than 92% - Her PE currently on Apixiban 5 mg BID Aspiration versus healthcare associated pneumonia - Currently on piperacillin/tazobactam since 09/09 - 09/09 Blood cultures 2 and urine no growth to date Chronic narcotic use, chronic benzo use, alcohol - Home meds resumed Systolic heart failure Hypertension Femoral Pseudoaneurysm/right status post embolization by IR - Catheterization 09/01 revealed nonobstructive coronary artery disease. Preserved LV function. Elevated LVDP. Question Takotsubo syndrome - Echo 09/03 showed EF left ventricular systolic function is moderately reduced with an estimated ejection fraction in the range of 30-35%. Distal anteroseptal and apical hypokinesis. Normal left ventricular size. Trace-to- mild mitral valve regurgitation. Mild aortic valve regurgitation. There is mild tricuspid valve regurgitation. The estimated pulmonary arterial pressure is 41 mmHg. - Continue with ASA 81 mg daily, carvedilol 25 twice a day, lisinopril 20 mill grams by mouth daily - Per Dr. Bishop- Cards has followed- Dr. Han. discussed overnight 09/[address] Pearce. - 09/15 - heparin drip transitioned Apixaban 5 mg twice a day per Dr. Amato recommendations. DVT prophylaxis: Apixiban, SCDs GI prophylaxis: Protonix 40 mg daily Low dose SSI Discharge Planning Pending stabilization of clinical status. Case discussed with nurse. Lisbet Lebron MD Sep 16, 2017 08:25
[2017-09-16] MEDS: FOLIC ACID 1 MG TAB PO SCH (09:16)
[2017-09-16] MEDS: MULTIVITAMIN TAB PO SCH (09:36)
[2017-09-16] MEDS: LISINOPRIL 20 MG TAB PO SCH (09:36)
[2017-09-16] MEDS: PANTOPRAZOLE SOD 40 MG DELAYED RELEASE TAB PO SCH (09:36)
[2017-09-16] MEDS: APIXABAN 5 MG TABLET PO SCH ×2 (09:36→20:40)
[2017-09-16] MEDS: ASPIRIN 81 MG CHEW TAB CHEW SCH (09:36)
[2017-09-16] MEDS: CARVEDILOL 12.5 MG TAB PO SCH ×2 (09:37→20:40)
[2017-09-16] MEDS: DOCUSATE SODIUM 50 MG/SENNA 8.6 MG TAB PO SCH ×2 (09:37→20:40)
[2017-09-16] MEDS: THIAMINE HCL 100 MG TAB PO SCH (09:37)
[2017-09-16] MEDS: methylPREDNISolone SOD SUCC 40 MG/1 ML VIAL IV PUSH SCH ×2 (09:38→20:40)
[2017-09-17] VITALS (26 sets, daily range): BP systolic 133–175; BP diastolic 65–79; PULSE 66–95; RESP 16–20; TEMP 97.7–98.6; O2SAT 98–100
[2017-09-17] MEDS: RESP: ALBUTEROL 2.5 MG/IPRATROPIUM 0.5 MG NEB (SCH) NEB ×3 (03:42→15:05)
[2017-09-17] MEDS: CHLORHEXIDINE GLUCONATE 2 % 1 PACK (2 CLOTHS) TOP SCH (04:00)
[2017-09-17] MEDS: PIPERACIL-TAZO 4.5 GM PREMIX 100 ML IV SCH ×4 (04:40→23:00)
[2017-09-17] MEDS: BACLOFEN 10 MG TAB PO SCH ×3 (06:26→21:34)
[2017-09-17 06:33] LABS: AUTOMATED NEUTROPHIL # 6.9 TH/MM3 (1.8-7.7); BASOPHIL % 0.1 % (0.0-2.0); HEMATOCRIT 26.1 % (35.0-46.0); HEMOGLOBIN 8.7 GM/DL (11.6-15.3); LYMPH % 10.4 % (9.0-44.0); LYMPHOCYTE # 0.9 TH/MM3 (1.0-4.8); MEAN CELL VOLUME 100.5 FL (80.0-100.0); MEAN CORPUSCULAR HEMOGLOBIN 33.5 PG (27.0-34.0); MEAN CORPUSCULAR HGB CONC 33.3 % (32.0-36.0); MEAN PLATELET VOLUME 9.3 FL (7.0-11.0); MONO % 6.1 % (0.0-8.0); MONOCYTE # 0.5 TH/MM3 (0-0.9); NEUT % 83.4 % (16.0-70.0); PLATELET COUNT 310 TH/MM3 (150-450); WHITE BLOOD COUNT 8.3 TH/MM3 (4.0-11.0)
[2017-09-17 06:50] LABS: CALCIUM 8.1 MG/DL (8.5-10.1); CREATININE 0.46 MG/DL (0.50-1.00)
[2017-09-17] MEDS: INSULIN ASPART SUPPLEMENTAL SCALE SQ SCH ×3 (08:00→21:00)
[2017-09-17] MEDS: PANTOPRAZOLE SOD 40 MG DELAYED RELEASE TAB PO SCH (09:17)
[2017-09-17] MEDS: DOCUSATE SODIUM 50 MG/SENNA 8.6 MG TAB PO SCH ×2 (09:17→21:00)
[2017-09-17] MEDS: methylPREDNISolone SOD SUCC 40 MG/1 ML VIAL IV PUSH SCH ×2 (09:17→21:34)
[2017-09-17] MEDS: MULTIVITAMIN TAB PO SCH (09:17)
[2017-09-17] MEDS: THIAMINE HCL 100 MG TAB PO SCH (09:17)
[2017-09-17] MEDS: FOLIC ACID 1 MG TAB PO SCH (09:17)
[2017-09-17] MEDS: APIXABAN 5 MG TABLET PO SCH ×2 (09:17→21:34)
[2017-09-17] MEDS: CARVEDILOL 12.5 MG TAB PO SCH ×2 (09:17→21:34)
[2017-09-17] MEDS: LISINOPRIL 20 MG TAB PO SCH (09:17)
[2017-09-17] MEDS: ASPIRIN 81 MG CHEW TAB CHEW SCH (09:18)
--- NOTE | 2017-09-17 10:17 | HHI.PR ---
Subjective Remarks Patient is sitting by the bedside in a chair. She is poor historian. She answers yes to most of the questioning of review of system while she answered no to them on repeated questioning. She tells me that she is very important person because she carries the name of RYAN and that she is even more so in accordance now because she is to Vika. Her thoughts symptoms to be tangential. Her came to bedside during the interview later. Most of the history is taken from her . Her is worried about patient's care and wanted to get some answers. He reports that patient for the past 3 months prior to coming to the hospital on August 28, 2017, has been not acting normal. He described her pain all the time, mopping her floor and washing her closed and doing laundry constantly for the past 3 months. He reports that she usually is someone who would lay down in bed all day long cannot do any of the house chores. He reports that she is usually somebody who takes all her medications within 3 weeks and would run out of them for the last week of months before she could get an appointment to refill her meds for the month. She usually takes lorazepam, Tylenol No. 3 which was recently switched to Tylenol No. 4 by PCP, and propranolol. When she was acting unusual for past 3 months, he thought that it may be secondary to her running out of her medications, particularly propranolol. He brought her to the emergency room on August 27, 2017. She was discharged from ER with advise to follow up with psychiatry which they refused at that time. The next day on August 28, 2017, he found her on the floor. He thought that she fell down. He reports of her shaking episode that he did not think it was seizures. However per EMS reports, her symptoms where suspicious for seizures. Patient was managed in ICU under hydrographic engineer service and transferred to hospitalist service on September 16, 2017. Per , patient used to drink about three fourths of a bottle of wine a day. He is however unsure when she last had her drink. He just knew that she has significantly decreased her alcohol intake in the past 3 months or so. Objective Vitals Vital Signs Date Time Temp Pulse Resp B/P (MAP) Pulse Ox O2 Delivery O2 Flow Rate FiO2 09/17/17 07:59 99 21 09/17/17 06:00 66 09/17/17 05:00 75 09/17/17 04:00 76 09/17/17 03:00 97.7 76 18 137/71 (93) 98 09/17/17 03:00 70 09/17/17 02:00 70 09/17/17 01:00 74 09/17/17 00:00 78 09/16/17 23:00 80 09/16/17 23:00 98.4 81 20 120/61 (80) 98 09/16/17 22:00 76 09/16/17 21:19 97 21 09/16/17 21:00 84 09/16/17 20:00 76 09/16/17 19:00 97.6 73 18 138/66 (90) 99 09/16/17 19:00 82 09/16/17 15:59 72 09/16/17 15:59 98.9 72 20 150/77 (101) 98 09/16/17 15:59 72 09/16/17 15:59 99 Room Air 09/16/17 11:45 75 09/16/17 11:45 99 Room Air 09/16/17 11:45 98.3 75 20 143/63 (89) 98 09/16/17 10:16 99 I/O 09/16/17 09/16/17 09/16/17 09/17/17 09/17/17 09/17/17 07:00 15:00 23:00 07:00 15:00 23:00 Intake Total 526 ml 100 ml 440 ml Output Total 1 ml Balance 525 ml 100 ml 440 ml Intake Oral 200 ml 240 ml IV Total 326 ml 100 ml 200 ml Output Urine Total 1 ml # Voids 2 # Bowel Movements 1 Result Diagram: 09/17/17 0612 09/17/17 0612 Objective Remarks GENERAL: Awake alert. Seems to be having racing thoughts. Was nonstop talking. Reports she is related to Trump and her name Ryan is quite important. Reports of shortness of breath. Not on oxygen. Saturating well. SKIN: Normal temperature. No obvious ulcerations or redness HEAD: Normocephalic. Atraumatic. EYES: No scleral icterus. No injection or drainage. NECK: Supple, trachea midline. No JVD. Pain on palpation at right manidibular area CARDIOVASCULAR: Regular rate and rhythm without murmurs, gallops, or rubs. RESPIRATORY: Breath sounds equal bilaterally. No accessory muscle use. Decreased air entry bilaterally GASTROINTESTINAL: Abdomen soft, non-tender, nondistended. MUSCULOSKELETAL: No cyanosis, or edema. No calf tenderness. Neuro: Awake, alert. Seems to be confused and having racing thoughts. Sitting up in chair. No acute focal deficits grossly. A/P Problem List: (1) Acute hypoxemic respiratory failure ICD Code: J96.01 - Acute respiratory failure with hypoxia (2) HCAP (healthcare-associated pneumonia) ICD Code: J18.9 - Pneumonia, unspecified organism (3) Pulmonary embolism ICD Code: I26.99 - Other pulmonary embolism without acute cor pulmonale (4) Cardiomyopathy, nonischemic ICD Code: I42.8 - Other cardiomyopathies Assessment and Plan 67 years old female admitted to hospital since August 28, 2017. Was found down on the floor by her . Was managed in ICU and intubated. Mental confusion of about 3 months duration since prior to admission. Suspects underlying bipolar disorder with manic episode from history. Possible this patient could have Wernicke's encephalopath. EEG was negative. MRI reviewed. Enlarged bilateral lateral ventricles. Given that patient has mental confusion, falls, questionable urinary symptoms although patient is not a good historian, I would consult neurosurgery for further opinion as to whether patient might need E LEARNING COORDINATOR shunt. Psychiatry consult for possible underlying untreated long-standing bipolar disorder Status post fall Possible seizure secondary to benzo withdrawal versus alcohol withdrawal versus baclofen withdrawal. Patient is currently back on lorazepam when necessary, baclofen, propranolol. Keppra has been discontinued by neurology as her mental confusion may be related to keppra use and likely her etiology for possible seizures is from withdrawal seizures per neurology. New-onset CHF. EF 30-35% by echo. Coronary angiogram Sep 01 2017 revealed non- obstructive CAD. Elevated left ventricular diastolic pressures. Question Takotsubo syndrome. Follow-up with Dr. Han as an outpatient. AICD to consider in future On aspirin/beta blockers/Jaxson inhibitors Femoral Pseudoaneurysm/right status post embolization by IR Severe hypertension on admission. Resolved. Was off propranolol for about a week prior to admission. Right mandibular fracture. Status post ORIF and extraction of tooth by Dr. Doll September 04, 2017. Can be discharged home per Dr. Doll standpoint. Pulmonary embolism. Diagnosed this admission. On Eliquis as per hematology. Follow up with Dr. Amato as outpatient Respiratory failure requiring intubation. Resolved Secondary flash pulmonary edema, pulmonary embolism. Aspiration versus healthcare associated pneumonia. On Zosyn since September 09, 2017. Will complete total of 10 days. Chronic narcotic use, chronic benzo use, alcohol - Home meds resumed Chronic diarrhea per patient and . Outpatient colonoscopy. DVT prophylaxis by Jazmin Discharge Planning Patient, her at the bedside, nursing staff Mookie Rogers MD Sep 17, 2017 10:17
--- NOTE | 2017-09-17 14:39 | PD.CONS ---
History of Present Illness Service Neurosurgery Consult Requested By Reason for Consult Altered mental status. Ventriculomegaly Primary Care Physician Unknown Diagnoses: History of Present Illness 67-year-old female who was brought to [facility] emergency room on 08/28/17 after her found her unresponsive at home. He noted some twitching of the left side of the face. Her initial blood pressure in the emergency room was 196/120. She was intubated in the emergency room. 2016 EEG revealed generalized slowing consistent with encephalopathy. No further seizure activity reported. She was initially placed on Keppra which has subsequently been discontinued. A follow-up EKG on 09/14/17 do not reveal significant abnormalities. The patient's states that she has had chronic low back pain. She had a previous hospital admission in 2010 apparently for drug overdose due to chronic pain. There was also a questionable seizure at that time. The patient's states that she is normally very active without significant medical problems, although she does have a history of depression. However approximately 3 months ago she started becoming very active, somewhat agitated and talking constantly, all of which is unusual for her such she usually sleeps much of the day. She does have a history of alcohol abuse, drinks wine daily. Her states that she has cut back over the past couple months . The agitation and hyperactivity have continued to progress over the past 2-3 months. The mental status changes have fluctuated quite a bit from day to day. He does feel that she has gotten much worse in the past 2 or 3 weeks since admission in regards to her speech and comprehension. Review of Systems Unable to obtain review of systems from the patient. The states that in addition to the hyperactivity cognitive dysfunction, she has experienced some visual obscurations, seeing spots in her visual santiago. Past Family Social History Allergies: Coded Allergies: No Known Allergies (Verified , 10/13/10) Past Medical History Mitral valve prolapse Hypertension Chronic low back pain Depression Past Surgical History No major surgeries reported Reported Medications Reported Meds & Active Scripts Active Reported Lorazepam 2 Mg Tab 2 Mg PO BID PRN Lorazepam 2 Mg Tab 2 Mg PO BID PRN Diphenoxylate-Atropine 2.5-0.025 Mg Tab 2 Tab PO Q6H PRN Acetaminophen-Codeine 300-15 mg Tab 1 Tab PO Q6H PRN Propranolol (Propranolol HCl) 20 Mg Tab 20 Mg PO Q8HR Baclofen 10 Mg Tab 10 Mg PO TID Family History No history of psychiatric disorders, neurodegenerative disorders Social History Daily alcoholic use up until her recent admission. Smokes cigarettes occasional Physical Exam Vital Signs Vital Signs Date Time Temp Pulse Resp B/P (MAP) Pulse Ox O2 Delivery O2 Flow Rate FiO2 09/17/17 11:40 98.0 95 18 147/69 (95) 100 09/17/17 11:40 95 09/17/17 07:59 99 21 09/17/17 07:00 66 09/17/17 07:00 97.9 66 16 175/79 (111) 99 09/17/17 06:00 66 09/17/17 05:00 75 09/17/17 04:00 76 09/17/17 03:00 97.7 76 18 137/71 (93) 98 09/17/17 03:00 70 09/17/17 02:00 70 09/17/17 01:00 74 09/17/17 00:00 78 09/16/17 23:00 80 09/16/17 23:00 98.4 81 20 120/61 (80) 98 09/16/17 22:00 76 09/16/17 21:19 97 21 09/16/17 21:00 84 09/16/17 20:00 76 09/16/17 19:00 97.6 73 18 138/66 (90) 99 09/16/17 19:00 82 09/16/17 15:59 72 09/16/17 15:59 98.9 72 20 150/77 (101) 98 09/16/17 15:59 72 09/16/17 15:59 99 Room Air Physical Exam GENERAL: This is a well-nourished, well-developed patient, in no apparent distress. SKIN: No rashes, ecchymoses or lesions. Cool and dry. HEAD: Atraumatic. Normocephalic. No temporal or scalp tenderness. EYES: Sclerae are clear and nonicteric ENT: No facial edema or ecchymosis. NECK: Trachea midline. No JVD or lymphadenopathy. Supple, nontender, no meningeal signs. CARDIOVASCULAR: Regular rate and rhythm without murmurs, gallops, or rubs. RESPIRATORY: Clear to auscultation. Breath sounds equal bilaterally. No wheezes , rales, or rhonchi. GASTROINTESTINAL: Abdomen soft, non-tender, nondistended. No hepato-splenomegaly , or palpable masses. No guarding. MUSCULOSKELETAL: Extremities without clubbing, cyanosis, or edema. No joint tenderness, effusion, or edema noted. Posterior tibial pulse 2+ NEUROLOGICAL: Awake and alert Very hyperactive, hypervigilant. Speech is rapid. She has significant tangential thought processes. When asked a question, she will sometimes say a few words related to the question, but then will begin to talk about unrelated issues. Much of her speech is unintelligible. She has significant problems with word substitution. Also significant object naming difficulty. Her intelligible speech is mostly scattered unrelated and inappropriate words, "word salad". However when her she is telling me about her recent symptoms and history , she will often repeat certain words or concepts that he is telling me, often saying "yes that is it", as if she has some comprehension but is unable to formulate her thoughts or words. She will follow a few simple commands but not consistent. Cranial nerves II through XII are fully tested and intact. She does not have any nystagmus. She counts fingers in all quadrants bilateral. Her facial sensorimotor tongue, palate, sternocleidomastoid testing hearing to finger rub bilaterally shoulder shrug are all intact. She appears to have intact sensation to light touch all extremities Motor strength is normal all extremities Hoffmans response absent bilateral No ankle clonus plantar response flexor bilateral findings motor difficult to test due to altered mental status but appears reasonably intact. She is incontinent of urine during the examination, seemingly unaware of her incontinence or loss of bladder function. Laboratory Laboratory Tests Test 09/17/17 06:12 White Blood Count 8.3 Red Blood Count 2.60 Hemoglobin 8.7 Hematocrit 26.1 Mean Corpuscular Volume 100.5 Mean Corpuscular Hemoglobin 33.5 Mean Corpuscular Hemoglobin Concent 33.3 Red Cell Distribution Width 20.0 Platelet Count 310 Mean Platelet Volume 9.3 Neutrophils (%) (Auto) 83.4 Lymphocytes (%) (Auto) 10.4 Monocytes (%) (Auto) 6.1 Eosinophils (%) (Auto) 0.0 Basophils (%) (Auto) 0.1 Neutrophils # (Auto) 6.9 Lymphocytes # (Auto) 0.9 Monocytes # (Auto) 0.5 Eosinophils # (Auto) 0.0 Basophils # (Auto) 0.0 CBC Comment AUTO DIFF Differential Comment AUTO DIFF CONFIRMED Blood Urea Nitrogen 13 Creatinine 0.46 Random Glucose 108 Calcium Level 8.1 Sodium Level 138 Potassium Level 3.9 Chloride Level 103 Carbon Dioxide Level 28.0 Anion Gap 7 Estimat Glomerular Filtration Rate 136 Date/Time Source Procedure Growth Status 09/09/17 05:56 Blood Peripheral Aerobic Blood Culture - Final NO GROWTH IN 5 DAYS Complete 09/09/17 05:56 Blood Peripheral Anaerobic Blood Culture - Final NO GROWTH IN 5 DAYS Complete 08/28/17 14:45 Sputum Endotracheal Gram Stain - Final Complete 08/28/17 14:45 Sputum Endotracheal Sputum Culture - Final HEAVY GROWTH NORMAL RESPIRATORY LAURA Complete 09/09/17 06:20 Urine Catheterized Urine Urine Culture - Final 10-50,000 CFU/ML MIXED LAURA... Complete Result Diagram: 09/17/17 0612 09/17/17 0612 Imaging The patient's MRI of the brain from 1116 and 09/14/17 as well as head and cervical spine CT scan images of all been reviewed by the undersigned. Patient has scattered white matter and franco-white interface signal intensity changes most consistent with white matter microvascular ischemic changes. There is relatively mild overall ventriculomegaly which does not appear out of proportion to the degree of surrounding atrophy. An area of increased signal intensity on FLAIR images noted on MRI of 08/28/17 appears somewhat less prominent on repeat scan of 09/14/17. Chest X-Ray 09/16/17 0600 Signed Impressions: Service Date/Time: Saturday, September 16, 2017 04:24 - CONCLUSION: Decreasing bilateral consolidation and small effusions. Scooter Moreno MD Brain MRI 09/14/17 0000 Signed Impressions: Service Date/Time: August 12:51 - CONCLUSION: 1. Enlarging lateral ventricles and increasing periventricular T2 hyperintensity since 2010 which may represent chronic microvascular ischemic changes with central atrophy. 2. No evidence of acute infarct, hemorrhage, mass or edema. 3. Chronic opacification of the left maxillary sinus. 4. No enhancing intra-or extra-axial lesions. Jason Martinez MD Head CT 09/13/17 0000 Signed Impressions: Service Date/Time: Wednesday, September 13, 2017 17:47 - CONCLUSION: 1. Senescent changes with redemonstration of periventricular small vessel ischemic white matter demyelination. 2. No acute intracranial abnormality or significant interval change. Janes Cotton MD Cervical Spine CT 09/13/17 0000 Signed Impressions: Service Date/Time: Wednesday, September 13, 2017 17:47 - CONCLUSION: 1. Multilevel degenerative spondylosis without significant interval change. 2. No acute fracture or subluxation. 3. Interval development of small bilateral pleural effusions. 4. Resolution of likely inflammatory or infectious last opacities previously noted in the lung apices. Janes Cotton MD Lower Extremity Ultrasound 09/10/17 0900 Signed Impressions: Service Date/Time: Sunday, September 10, 2017 17:02 - CONCLUSION: No evidence of color Doppler flow into previously seen pseudoaneurysm. Hans Reagan MD CT Angiography 09/08/17 0000 Signed Impressions: Service Date/Time: Friday, September 08, 2017 13:08 - CONCLUSION: 1. There is at least one segmental right anterior lower lobe pulmonary artery branch containing embolus. Subsegmental branches are suboptimally visualized for definitive evaluation. Overall thrombus burden is low. 2. Dense airspace consolidation in the lower lobes with associated small to moderate simple appearing bilateral pleural effusions. 3. Scattered peripheral ground glass opacities in the right upper lobe. Differential considerations include inflammatory/infectious etiologies, focal volume loss, or less likely pulmonary infarction. 4. Prominent left ventricular peterson consistent with LVH. Correlation is recommended. Janes Cotton MD Maxillofacial CT 08/28/17 0000 Signed Impressions: Service Date/Time: Monday, August 28, 2017 08:20 - CONCLUSION: 1. Bilateral displaced mandible fractures more extensive involving the condyles bilaterally. 2. Sensitive soft tissue swelling. 3. Bilateral nasal fractures. Armand Foreman MD Carotid Artery Ultrasound 08/28/17 0000 Signed Impressions: Service Date/Time: Monday, August 28, 2017 13:23 - CONCLUSION: 1. Mild bilateral carotid plaque. 2. No evidence of hemodynamically significant stenosis. 3. Antegrade flow in both vertebral arteries. Jason Martinez MD Abdomen/Pelvis CT 08/28/17 0000 Signed Impressions: Service Date/Time: Monday, August 28, 2017 19:02 - CONCLUSION: 1. Mild mural thickening of the rectosigmoid most characteristic of a mild colitis distally. No obstruction, free fluid or free air. 2. Small bilateral pleural effusions. 3. 1.6 cm left ovarian cyst. 4. Catheter in decompressed bladder. Lloyd Han MD Assessment and Plan Assessment and Plan Impression: Progressive altered mental status. Etiology undetermined. Previous history of alcohol use. Questionable new onset seizures. Possible vascular dementia, at least moderate ischemic periventricular deep white matter signal intensity changes on MRI. Ventriculomegaly appears to be primarily related to surrounding atrophy. NPH would not be expected to cause the hyperactivity, speech deficit and severe cognitive and mental status changes that have been encountered with this patient. Underlying neurodegenerative disorder, slow virus main possibilities although he EEG follow-up study not entirely consistent with this diagnosis. Plan: Findings and impressions were discussed at length with the patient's in the patient's room today. It is not felt that the ventriculomegaly is a primary cause for her mental status changes. No surgical intervention is planned at this time. Depending on neurology impressions regarding etiology, a lumbar puncture may be indicated. Blas Louis MD Sep 17, 2017 14:39
[2017-09-18] VITALS (22 sets, daily range): BP systolic 149–170; BP diastolic 78–87; PULSE 69–92; RESP 16–20; TEMP 98–98.6; O2SAT 99–100
[2017-09-18] MEDS: LORazepam 0.5 MG TAB PO PRN ×2 (00:35→09:02)
[2017-09-18] MEDS: CHLORHEXIDINE GLUCONATE 2 % 1 PACK (2 CLOTHS) TOP SCH (04:00)
[2017-09-18] MEDS: PIPERACIL-TAZO 4.5 GM PREMIX 100 ML IV SCH ×3 (05:00→16:57)
[2017-09-18] MEDS: BACLOFEN 10 MG TAB PO SCH ×2 (05:53→13:05)
[2017-09-18 05:57] LABS: HEMATOCRIT 25.7 % (35.0-46.0); HEMOGLOBIN 8.7 GM/DL (11.6-15.3); MEAN CELL VOLUME 101.8 FL (80.0-100.0); MEAN CORPUSCULAR HEMOGLOBIN 34.7 PG (27.0-34.0); MEAN CORPUSCULAR HGB CONC 34.1 % (32.0-36.0); MEAN PLATELET VOLUME 10.2 FL (7.0-11.0); PLATELET COUNT 330 TH/MM3 (150-450); RED BLOOD COUNT 2.52 MIL/MM3 (4.00-5.30); RED CELL DISTRIBUTION WIDTH 19.3 % (11.6-17.2); WHITE BLOOD COUNT 8.7 TH/MM3 (4.0-11.0)
[2017-09-18] MEDS: INSULIN ASPART SUPPLEMENTAL SCALE SQ SCH ×3 (08:00→16:51)
[2017-09-18] MEDS: DOCUSATE SODIUM 50 MG/SENNA 8.6 MG TAB PO SCH (09:00)
[2017-09-18] MEDS: CARVEDILOL 12.5 MG TAB PO SCH (09:01)
[2017-09-18] MEDS: FOLIC ACID 1 MG TAB PO SCH (09:01)
[2017-09-18] MEDS: MULTIVITAMIN TAB PO SCH (09:01)
[2017-09-18] MEDS: methylPREDNISolone SOD SUCC 40 MG/1 ML VIAL IV PUSH SCH (09:01)
[2017-09-18] MEDS: THIAMINE HCL 100 MG TAB PO SCH (09:01)
[2017-09-18] MEDS: APIXABAN 5 MG TABLET PO SCH (09:02)
[2017-09-18] MEDS: LISINOPRIL 20 MG TAB PO SCH (09:02)
[2017-09-18] MEDS: PANTOPRAZOLE SOD 40 MG DELAYED RELEASE TAB PO SCH (09:02)
[2017-09-18] MEDS: ASPIRIN 81 MG CHEW TAB CHEW SCH (09:02)
--- NOTE | 2017-09-18 10:53 | HHI.PR ---
Subjective Remarks still with tangantial thoughts and pressured speech at the bedside neurosurgery notes reviewed No acute events overnight although patient was quite agitated overnight throwing tissue boxes to the nurses. Objective Vitals Vital Signs Date Time Temp Pulse Resp B/P (MAP) Pulse Ox O2 Delivery O2 Flow Rate FiO2 09/18/17 10:00 78 09/18/17 09:00 80 09/18/17 08:00 72 09/18/17 07:34 98.6 80 16 170/83 (112) 100 09/18/17 07:00 75 09/18/17 06:00 70 09/18/17 05:00 69 09/18/17 04:00 79 09/18/17 03:00 98.0 74 20 157/81 (106) 99 09/18/17 03:00 72 09/18/17 02:00 70 09/18/17 01:00 84 09/18/17 00:00 80 09/17/17 23:00 98.6 85 20 133/65 (87) 100 09/17/17 23:00 74 09/17/17 22:00 90 09/17/17 21:00 80 09/17/17 20:00 78 09/17/17 19:00 98.3 79 18 148/77 (100) 100 09/17/17 19:00 80 09/17/17 18:00 82 09/17/17 17:00 74 09/17/17 16:00 80 09/17/17 15:30 73 09/17/17 15:30 98.4 73 18 145/70 (95) 100 09/17/17 15:00 70 09/17/17 14:00 76 09/17/17 13:00 70 09/17/17 12:00 74 09/17/17 11:40 98.0 95 18 147/69 (95) 100 09/17/17 11:40 95 09/17/17 11:00 76 I/O 09/17/17 09/17/17 09/17/17 09/18/17 09/18/17 09/18/17 07:00 15:00 23:00 07:00 15:00 23:00 Intake Total 440 ml 600 ml 220 ml Balance 440 ml 600 ml 220 ml Intake Oral 240 ml 400 ml 120 ml IV Total 200 ml 200 ml 100 ml # Voids 2 3 2 # Bowel Movements 1 Result Diagram: 09/18/17 0415 09/17/17 0612 Objective Remarks GENERAL: Awake alert. Seems to be having racing thoughts. Was nonstop talking. Reports of shortness of breath. Not on oxygen. Saturating well. SKIN: Normal temperature. No obvious ulcerations or redness HEAD: Normocephalic. Atraumatic. EYES: No scleral icterus. No injection or drainage. NECK: Supple, trachea midline. No JVD. Pain on palpation at right manidibular area CARDIOVASCULAR: Regular rate and rhythm without murmurs, gallops, or rubs. RESPIRATORY: Breath sounds equal bilaterally. No accessory muscle use. Decreased air entry bilaterally GASTROINTESTINAL: Abdomen soft, non-tender, nondistended. MUSCULOSKELETAL: No cyanosis, or edema. No calf tenderness. Neuro: Awake, alert. Seems to be confused and having racing thoughts. Lying in bed No acute focal deficits grossly. A/P Problem List: (1) Acute hypoxemic respiratory failure ICD Code: J96.01 - Acute respiratory failure with hypoxia (2) HCAP (healthcare-associated pneumonia) ICD Code: J18.9 - Pneumonia, unspecified organism (3) Pulmonary embolism ICD Code: I26.99 - Other pulmonary embolism without acute cor pulmonale (4) Cardiomyopathy, nonischemic ICD Code: I42.8 - Other cardiomyopathies Assessment and Plan 67 years old female admitted to hospital since August 28, 2017. Was found down on the floor by her . Was managed in ICU and intubated. Mental confusion of about 3 months duration since prior to admission. Suspects underlying bipolar disorder with manic episode from history. Possible this patient could have Wernicke's encephalopath. EEG was negative. MRI reviewed. Enlarged bilateral lateral ventricles. Neurosurgery was consulted regarding this. Appreciate his assistance and notes reviewed. A large ventricles secondary mainly to atrophy of the brain itself. No surgical intervention needed. Viral illness a possibility if neurology suspects so and to consider LP. Nursing staff did call neurologist to confirm whether further intervention needs to be done. Patient is medically cleared per neurology. Agree with the decision. I strongly do suspect the patient's mental confusion is likely from undiagnosed bipolar disorder. Possibly compounded by alcohol related encephalopathy. Psychiatry consult for possible underlying untreated long-standing bipolar disorder. Discussed with psychiatrist. Appreciate his assistance. Psychiatrist agree patient would need start of medications and stabilization as an inpatient in med psych unit. Status post fall Possible seizure secondary to benzo withdrawal versus alcohol withdrawal versus baclofen withdrawal. Patient is currently back on lorazepam when necessary, baclofen, propranolol. Keppra has been discontinued by neurology as her mental confusion may be related to keppra use and likely her etiology for possible seizures is from withdrawal seizures per neurology. New-onset CHF. EF 30-35% by echo. Coronary angiogram Sep 01 2017 revealed non- obstructive CAD. Elevated left ventricular diastolic pressures. Question Takotsubo syndrome. Follow-up with Dr. Han as an outpatient. AICD to consider in future On aspirin/beta blockers/Jaxson inhibitors Femoral Pseudoaneurysm/right status post embolization by IR Severe hypertension on admission. Resolved. Was off propranolol for about a week prior to admission. Right mandibular fracture. Status post ORIF and extraction of tooth by Dr. Doll September 04, 2017. Can be discharged home per Dr. Doll standpoint. Pulmonary embolism. Diagnosed this admission. On Eliquis as per hematology. Follow up with Dr. Amato as outpatient Respiratory failure requiring intubation. Resolved Secondary to flash pulmonary edema, pulmonary embolism. Aspiration versus healthcare associated pneumonia. On Zosyn since September 09, 2017. Will complete total of 10 days. Stop date September 20, 2017 Chronic narcotic use, chronic benzo use, alcohol - Home meds resumed Chronic diarrhea per patient and . Outpatient colonoscopy. DVT prophylaxis by Jazmin Medically cleared. Discharge patient to med psych unit and a Dr. Bill. Discharge Planning discharge to med psych unit today once bed is available discussed with Dr Jones, 4 [facility] charge nurse, and admitting office Mookie Rogers MD Sep 18, 2017 10:53
[2017-09-18] MEDS ORDERED: DIVALPROEX SODIUM E.R. 250 MG TAB PO SCH (14:15)
--- NOTE | 2017-09-18 14:31 | PD.PSY.CON ---
Provisional Diagnosis Admission Date Aug 28, 2017 at 09:24 [place] I. Unspecified psychosis, rule out bipolar disorder type I, manic episode with psychosis, rule out schizoaffective disorder bipolar type [place] II. deferred [place] III. Seizures, CHF [place] IV. History of drug abuse [place] V. 40 History of Present Illness Service Psychiatry Consult Requested By Medical team Reason for Consult Psychotic behavior Primary Care Physician Unknown HPI The patient is a 67-year-old woman, domiciled with her in [facility], without any previous psychiatric history, no previous psychiatric hospitalizations, no previous suicidal attempts, medical history lower back pain and hypertension, who was admitted to hospital since August 28, 2017. Was found down on the floor by her . Was managed in ICU and intubated. Her admitting diagnosis was Mental confusion of about 3 months duration since prior to admission. Possible this patient could have Wernicke's encephalopath. EEG was negative. MRI reviewed. Enlarged bilateral lateral ventricles. Possible seizure secondary to benzo withdrawal versus alcohol withdrawal versus baclofen withdrawal. Patient is currently back on lorazepam when necessary, baclofen, propranolol. Keppra has been discontinued by neurology as her mental confusion may be related to Keppra use and likely her etiology for possible seizures is from withdrawal seizures per neurology. New-onset CHF. EF 30-35% by echo. Coronary angiogram Sep 01 2017 revealed non-obstructive CAD. Elevated left ventricular diastolic pressures. Question Takotsubo syndrome. Since the patient is now medically cleared, but continues to be confused, disorganized, very talkative, psychiatry was consulted to rule out a major psychiatric illness as a cause of current presentation. On psychiatric evaluation today patient is found in her room with her , very talkative, at times pressured, superficially cooperative. Once the patient saw me she is started saying "pray for me, pray for me". She says that she has been having problems communicating, "there is a lot of people trying to talk to me at the same time, I am too happy, but too many voices at the same time". She reports a lot of energy, she says that she is very happy. She can follow simple commands, but becomes tangential immediately disorganized, unable to provide significant information for the psychiatric follow-up. She is fully oriented 3 , with a very poor concentration is span. She says that she needs to be up / 7. Her at bedside, Jayro Long, states that the patient has been with altered mental status for the last 3 weeks. At the beginning she was more logical, with periodic episodes of disorganization and become very talkative, she was functional. Now, in the last week she has not been making a lot of sense, but he was assuming that this was due to medical issues. He clarifies that the patient doesn't have any psychiatric history, she had never tried to commit suicide, but many years ago she had a similar episode in which she was very childish, acting very bizarrely, talking a lot, no sleeping, and engaging in multiple activities at the same time. At that time, he did not look for help and by a week the patient was normal again without medications. He also clarifies that the patient has been abusing her pain medication and her baclofen. When the patient was brought to the hospital he counted her baclofen and she did not have any pills. He expresses his concern about the current mental state of the patient "because sometimes she makes some saying, but most of the time she talks too much, and nothing that she says is really logical". The patient denies the use of illegal drugs, she reports taking 1 or 2 cups of wine socially. Review of Systems Constitutional: DENIES: Diaphoretic episodes, Fatigue, Fever, Weight gain, Weight loss, Chills, Dizziness, Change in appetite, Night Sweats Endocrine: DENIES: Abnorml menstrual pattern, Heat/cold intolerance, Polydipsia , Polyuria, Polyphagia Eyes: DENIES: Blurred vision, Diplopia, Eye inflammation, Eye pain, Vision loss , Photosensitivity, Double Vision Ears, nose, mouth, throat: DENIES: Tinnitus, Hearing loss, Vertigo, Nasal discharge, Oral lesions, Throat pain, Hoarseness, Ear Pain, Running Nose, Epistaxis, Sinus Pain, Toothache, Odynophagia Respiratory: DENIES: Apneas, Cough, Snoring, Wheezing, Hemoptysis, Sputum production, Shortness of breath Cardiovascular: DENIES: Chest pain, Palpitations, Syncope, Dyspnea on Exertion , PND, Lower Extremity Edema, Orthopnea, Claudication Gastrointestinal: DENIES: Abdominal pain, Black stools, Bloody stools, Constipation, Diarrhea, Nausea, Vomiting, Difficulty Swallowing, Anorexia Genitourinary: DENIES: Abnormal vaginal bleeding, Dysmenorrhea, Dyspareunia, Sexual dysfunction, Urinary frequency, Urinary incontinence, Urgency, Hematuria , Dysuria, Nocturia, Vaginal discharge Musculoskeletal: DENIES: Joint pain, Muscle aches, Stiffness, Joint Swelling, Back pain, Neck pain Integumentary: DENIES: Abnormal pigmentation, Pruritus, Rash, Nail changes, Breast masses, Breast skin changes, Nipple discharge Hematologic/lymphatic: DENIES: Bruising, Lymphadenopathy Immunologic/allergic: DENIES: Eczema, Urticaria Neurologic: DENIES: Abnormal gait, Headache, Localized weakness, Paresthesias, Seizures, Speech Problems, Tremor, Poor Balance Psychiatric: COMPLAINS OF: Confusion, Mood changes, Delusions Past Family Social History Coded Allergies: No Known Allergies (Verified , 10/13/10) Reported Medications Lorazepam (Lorazepam) 2 Mg Tab, 2 MG PO BID Y for ANXIETY, TAB 0 Refills 08/28/17 Lorazepam (Lorazepam) 2 Mg Tab, 2 MG PO BID Y for ANXIETY, TAB 0 Refills 08/28/17 Diphenoxylate-Atropine (Diphenoxylate-Atropine) 2.5-0.025 Mg Tab, 2 TAB PO Q6H Y for DIARRHEA, TAB 0 Refills 08/28/17 Acetaminophen-Codeine (Acetaminophen-Codeine) 300-15 mg Tab, 1 TAB PO Q6H Y for PAIN, TAB 0 Refills 08/28/17 Propranolol (Propranolol) 20 Mg Tab, 20 MG PO Q8HR, #90 TAB 0 Refills 08/28/17 Baclofen (Baclofen) 10 Mg Tab, 10 MG PO TID for Muscle Spasm, TAB 0 Refills 08/28/17 Current Medications Medications (Trade) Dose Ordered Sig/Benny Route Start Time Stop Time Status Last Admin (NS Flush) 2 ml UNSCH PRN IV FLUSH 08/28/17 08:00 09/11/17 09:59 Miscellaneous Information 1 Q361D XX 08/28/17 09:30 (Chlorhexidine 2% Cloth) 3 pack Taper DAILY@04 TOP 08/29/17 04:00 08/25/18 03:59 09/15/17 04:00 (Chlorhexidine 2% Cloth) 3 pack UNSCH PRN TOP 08/28/17 09:30 (Brenna-Colace) 1 tab BID PO 08/28/17 21:00 09/17/17 09:17 (Milk Of Magnesia Liq) 30 ml Q12H PRN PO 08/28/17 09:30 (Senokot) 17.2 mg Q12H PRN PO 08/28/17 09:30 (Dulcolax Supp) 10 mg DAILY PRN RECTAL 08/28/17 09:30 (Lactulose Liq) 30 ml DAILY PRN PO 08/28/17 09:30 (Aspirin Chew) 81 mg DAILY CHEW 08/29/17 09:00 09/18/17 09:02 (Zofran Inj) 4 mg Q4H PRN IV PUSH 09/01/17 13:30 09/07/17 08:58 (Roxicodone) 5 mg Q4H PRN PO 09/05/17 12:00 09/13/17 07:51 (Romazicon Inj) 0.2 mg Q1M PRN IV PUSH 09/06/17 00:45 (Reglan Inj) 5 mg Q8H PRN IV PUSH 09/07/17 10:45 (Phenergan) 25 mg Q6H PRN PO 09/07/17 10:45 09/07/17 11:17 (Compazine Supp) 25 mg Q6H PRN RECTAL 09/07/17 15:00 (Nitroglycerin 2% Oint) 1 inch Q6HR PRN TOPICAL 09/07/17 18:45 Nitroglycerin/ Dextrose 250 ml @ 1.5 mls/hr TITRATE PRN IV 09/07/17 19:30 09/07/17 19:52 (Lopressor Inj) 5 mg Q5M PRN IV PUSH 09/07/17 20:30 09/09/17 03:55 (Albuterol Neb) 2.5 mg Q2HR NEB PRN NEB 09/08/17 08:30 09/16/17 21:15 (D50w (Vial) Inj) 50 ml UNSCH PRN IV PUSH 09/08/17 09:00 09/08/17 23:07 (Glucagon Inj) 1 mg UNSCH PRN OTHER 09/08/17 09:00 (NovoLOG SUPPLEMENTAL SCALE) 1 ACHS SLIDING SCALE SQ 09/08/17 12:00 09/14/17 17:21 (Trandate Inj) 10 mg Q1H PRN IV PUSH 09/08/17 09:00 09/09/17 17:58 (Apresoline Inj) 10 mg Q1H PRN IV PUSH 09/08/17 09:00 09/11/17 16:54 (Prinivil) 20 mg DAILY PO 09/09/17 09:00 09/18/17 09:02 Piperacillin Sod/ Tazobactam Sod 100 ml @ 200 mls/hr Q6H IV 09/09/17 05:00 09/18/17 10:19 (Protonix) 40 mg DAILY PO 09/09/17 09:00 09/18/17 09:02 (Catapres) 0.1 mg Q6H PRN PO 09/09/17 10:30 09/12/17 17:54 (Coreg) 25 mg Q12HR PO 09/12/17 21:00 09/18/17 09:01 (SoluMEDROL INJ) 40 mg Q12HR IV PUSH 09/13/17 14:30 09/18/17 09:01 (Tylenol) 650 mg Q6HR PRN PO 09/13/17 15:45 (Vitamin B1) 100 mg DAILY PO 09/14/17 09:00 09/18/17 09:01 (Theragran) 1 tab DAILY PO 09/14/17 09:00 09/18/17 09:01 (Folate) 1 mg DAILY PO 09/14/17 09:00 09/18/17 09:01 (Ativan) 0.5 mg Q8H PRN PO 09/13/17 19:15 09/18/17 09:02 (Lioresal) 10 mg Q8HR PO 09/14/17 14:00 09/18/17 13:05 (Tylenol-Codeine #3) 1 tab Q6H PRN PO 09/14/17 08:30 (Eliquis) 5 mg BID PO 09/14/17 09:00 09/18/17 09:02 (Depakote Er) 250 mg BID PO 09/18/17 14:15 UNV (ZyPREXA) 2.5 mg HS PO 09/18/17 21:00 UNV Family Psych History Denies family psychiatric history Social History Patient was born and raised in [facility], she lives in [facility] with her , she has no kids, unemployed, her highest level of education is college Patient's Strengths (min. 2) Support of her , no official psychiatric history Physical Exam No tremors, no EPS, no withdrawal symptoms, but marked psychomotor agitation Vital Signs Vital Signs Date Time Temp Pulse Resp B/P (MAP) Pulse Ox O2 Delivery O2 Flow Rate FiO2 09/18/17 13:00 90 09/18/17 11:34 98.5 16 149/78 (101) 100 09/17/17 07:59 21 09/16/17 15:59 Room Air 09/16/17 03:12 2.00 I/O 09/18/17 09/18/17 09/19/17 08:00 16:00 00:00 Intake Total 220 ml Balance 220 ml Lab Results Test 09/18/17 04:15 White Blood Count 8.7 TH/MM3 Red Blood Count 2.52 MIL/MM3 Hemoglobin 8.7 GM/DL Hematocrit 25.7 % Mean Corpuscular Volume 101.8 FL Mean Corpuscular Hemoglobin 34.7 PG Mean Corpuscular Hemoglobin Concent 34.1 % Red Cell Distribution Width 19.3 % Platelet Count 330 TH/MM3 Mean Platelet Volume 10.2 FL Date/Time Source Procedure Growth Status 09/09/17 05:56 Blood Peripheral Aerobic Blood Culture - Final NO GROWTH IN 5 DAYS Complete 09/09/17 05:56 Blood Peripheral Anaerobic Blood Culture - Final NO GROWTH IN 5 DAYS Complete 08/28/17 14:45 Sputum Endotracheal Gram Stain - Final Complete 08/28/17 14:45 Sputum Endotracheal Sputum Culture - Final HEAVY GROWTH NORMAL RESPIRATORY LAURA Complete 09/09/17 06:20 Urine Catheterized Urine Urine Culture - Final 10-50,000 CFU/ML MIXED LAURA... Complete Mental Status Examination Appearance: Appropriate Consciousness: Alert, Vigilant Orientation: x4 Motor Activity: Abnormal gait Speech: Pressured, Rapid Language: Adequate Fund of Knowledge: Adequate Attention and Concentration: Adequate Memory: Unremarkable Mood: Angry, Irritable, Other (elevated) Affect: Other (manic) Thought Process & Associations: Loose associations, Disorganized Thought Content: Bizarre thinking, Racing thoughts Hallucination Type: None Delusion Type: None Suicidal Ideation: No Suicidal Plan: No Suicidal Intention: No Homicidal Ideation: No Homicidal Plan: No Homicidal Intention: No Insight: Fair Judgment: Impulsive Assessment & Plan Problem List: (1) Unspecified psychosis ICD Codes: F29 - Unspecified psychosis not due to a substance or known physiological condition Assessment & Plan: Psychiatric evaluation the patient presents with evidence features of nirmal/psychosis. Patient is very talkative, at times pressured, with poor attention span, tangential and disorganized thought process, irritable /elevated mood, also mood lability, hyperactive and sleeping poorly at night. As per , current presentation since to be going on for the last 2 weeks. The patient doesn't have any official psychiatric history, no previous psychotic hospitalizations, no previous suicidal attempts, she never had being in psychotropics, but her clarify that she might had a similar episode to this one many years ago and recovered without treatment. The patient could potentially be of using baclofen and pain medication, the is not clear if she could be using also alcohol. At this point the etiology of current presentation seems to be kind of obscure, but an undiagnosed bipolar disorder needs to be in the differential along with GABAergic drugs withdrawal, medical induced psychosis and a major neurocognitive disorder. Due to the level of disorganization and psychosis she needs psychiatric hospitalization for stabilization. This case was widely discussed with primary attending and her . The patient and her are in agreement with voluntary psychiatric admission. I will start Depakote 250 ng twice a day and olanzapine 2.5 mg at bedtime to help with psychosis and mood stabilization. Patient will be transferred to med psych unit. Assessment & Plan Estimated LOS: Alfonso Rincon MD Sep 18, 2017 14:30
--- NOTE | 2017-09-18 16:59 | HHI.DS ---
Discharge Summary Admission Date Aug 28, 2017 at 09:24 Discharge Date: Sep 18, 2017 Admitting Diagnosis metabolic encephalopathy, respiratory failure, mandibular fracture (1) Acute hypoxemic respiratory failure ICD Code: J96.01 - Acute respiratory failure with hypoxia (2) HCAP (healthcare-associated pneumonia) ICD Code: J18.9 - Pneumonia, unspecified organism (3) Pulmonary embolism ICD Code: I26.99 - Other pulmonary embolism without acute cor pulmonale (4) Cardiomyopathy, nonischemic ICD Code: I42.8 - Other cardiomyopathies Procedures mechanical intubation ORIF of mandible Brief History - From Admission pt admitted to ICU, on aug 28 2017, after finding down on floor by Suspected seizure-like activity per EMS report. Patient was intubated and managed in ICU and her behavioral therapy coordinator care. Initially limited history upon arrival. Thought to be secondary to drugs versus alcohol withdrawal causing seizures CBC/BMP: 09/18/17 0415 09/17/17 0612 Significant Findings Laboratory Tests Test 09/16/17 05:30 09/17/17 06:12 09/18/17 04:15 Red Blood Count 2.73 MIL/MM3 (4.00-5.30) 2.60 MIL/MM3 (4.00-5.30) 2.52 MIL/MM3 (4.00-5.30) Hemoglobin 9.0 GM/DL (11.6-15.3) 8.7 GM/DL (11.6-15.3) 8.7 GM/DL (11.6-15.3) Hematocrit 27.6 % (35.0-46.0) 26.1 % (35.0-46.0) 25.7 % (35.0-46.0) Mean Corpuscular Volume 101.2 FL (80.0-100.0) 100.5 FL (80.0-100.0) 101.8 FL (80.0-100.0) Red Cell Distribution Width 19.7 % (11.6-17.2) 20.0 % (11.6-17.2) 19.3 % (11.6-17.2) Neutrophils (%) (Auto) 85.4 % (16.0-70.0) 83.4 % (16.0-70.0) Lymphocytes (%) (Auto) 7.8 % (9.0-44.0) Lymphocytes # (Auto) 0.6 TH/MM3 (1.0-4.8) 0.9 TH/MM3 (1.0-4.8) Random Glucose 132 MG/DL (74-106) 108 MG/DL (74-106) Albumin 2.4 GM/DL (3.4-5.0) Creatinine 0.46 MG/DL (0.50-1.00) Calcium Level 8.1 MG/DL (8.5-10.1) Mean Corpuscular Hemoglobin 34.7 PG (27.0-34.0) PE at Discharge GENERAL: Awake alert. Seems to be having racing thoughts. Was nonstop talking. Reports of shortness of breath. Not on oxygen. Saturating well. SKIN: Normal temperature. No obvious ulcerations or redness HEAD: Normocephalic. Atraumatic. EYES: No scleral icterus. No injection or drainage. NECK: Supple, trachea midline. No JVD. Pain on palpation at right manidibular area CARDIOVASCULAR: Regular rate and rhythm without murmurs, gallops, or rubs. RESPIRATORY: Breath sounds equal bilaterally. No accessory muscle use. Decreased air entry bilaterally GASTROINTESTINAL: Abdomen soft, non-tender, nondistended. MUSCULOSKELETAL: No cyanosis, or edema. No calf tenderness. Neuro: Awake, alert. Seems to be confused and having racing thoughts. Lying in bed No acute focal deficits grossly. Hospital Course 67 years old female admitted to hospital since August 28, 2017. Was found down on the floor by her . Was managed in ICU and intubated. Mental confusion of about 3 months duration since prior to admission. Suspects underlying bipolar disorder with manic episode from history. Possible this patient could have Wernicke's encephalopath. EEG was negative. MRI reviewed. Evaluated by neurosurgery and neurology. Psychiatry consult for possible underlying untreated long-standing bipolar disorder. Discussed with psychiatrist. Appreciate his assistance. Psychiatrist agree patient would need start of medications and stabilization as an inpatient in med psych unit. Status post fall Possible seizure secondary to benzo withdrawal versus alcohol withdrawal versus baclofen withdrawal. Patient is currently back on lorazepam when necessary, baclofen, propranolol. Keppra has been discontinued by neurology as her mental confusion may be related to keppra use and likely her etiology for possible seizures is from withdrawal seizures per neurology. New-onset CHF. EF 30-35% by echo. Coronary angiogram Sep 01 2017 revealed non- obstructive CAD. Elevated left ventricular diastolic pressures. Question Takotsubo syndrome. Follow-up with Dr. Han as an outpatient. AICD to consider in future On aspirin/beta blockers/Jaxson inhibitors Femoral Pseudoaneurysm/right status post embolization by IR Severe hypertension on admission. Resolved. Was off propranolol for about a week prior to admission. Right mandibular fracture. Status post ORIF and extraction of tooth by Dr. Doll September 04, 2017. Can be discharged home per Dr. Doll standpoint. Pulmonary embolism. Diagnosed this admission. On Eliquis as per hematology. Follow up with Dr. Amato as outpatient Respiratory failure requiring intubation. Resolved Secondary to flash pulmonary edema, pulmonary embolism. Aspiration versus healthcare associated pneumonia. On Zosyn since September 09, 2017. Will complete total of 10 days. Stop date September 20, 2017 Chronic narcotic use, chronic benzo use, alcohol - Home meds resumed Chronic diarrhea per patient and . Outpatient colonoscopy. DVT prophylaxis by Eliquis Patient is medically cleared to discharge to inpatient psychiatry unit. Pt Condition on Discharge: Good Discharge Disposition: Disc to Psych Care Fac Discharge Time: > 30 minutes Discharge Instructions DIET: Follow Instructions for: As Tolerated, No Restrictions Activities you can perform: Regular-No Restrictions Other Activity Instructions: FALL PRECAUTIONS Mookie Rogers MD Sep 18, 2017 16:59
[2017-09-18] MEDS ORDERED: OLANZapine 2.5 MG TAB PO SCH (21:00)
== END 2017-09-18 18:30 | DRG 981 ==
LOC: NEPE 07:39 → NEDA 09:24 → HIMW 11:20 → N06B 09-07 01:21 → N03B 09-07 18:21 → HCIS 09-10 02:49 → HCVI 09-13 13:45 → HCPC 09-15 10:45
PROVIDERS: ADMIT Internal Medicine; ATTEND Internal Medicine
PROC: 0T9B70Z Drainage of Bladder with Drainage Device, Via Natural or Artificial Opening (ICD-10-PCS; principal; 2017-08-28)
PROC: 03HY32Z Insertion of Monitoring Device into Upper Artery, Percutaneous Approach (ICD-10-PCS; 2017-08-29)
PROC: 05HN33Z Insertion of Infusion Device into Left Internal Jugular Vein, Percutaneous Approach (ICD-10-PCS; 2017-08-29)
PROC: 4A133B1 Monitoring of Arterial Pressure, Peripheral, Percutaneous Approach (ICD-10-PCS; 2017-08-29)
PROC: 4A133J1 Monitoring of Arterial Pulse, Peripheral, Percutaneous Approach (ICD-10-PCS; 2017-08-29)
PROC: 3E053GC Introduction of Other Therapeutic Substance into Peripheral Artery, Percutaneous Approach (ICD-10-PCS; 2017-08-30)
PROC: 30233N1 Transfusion of Nonautologous Red Blood Cells into Peripheral Vein, Percutaneous Approach (ICD-10-PCS; 2017-08-31)
PROC: 4A023N7 Measurement of Cardiac Sampling and Pressure, Left Heart, Percutaneous Approach (ICD-10-PCS; 2017-09-01)
PROC: B2111ZZ Fluoroscopy of Multiple Coronary Arteries using Low Osmolar Contrast (ICD-10-PCS; 2017-09-01)
PROC: B2151ZZ Fluoroscopy of Left Heart using Low Osmolar Contrast (ICD-10-PCS; 2017-09-01)
PROC: 0NST04Z Reposition Right Mandible with Internal Fixation Device, Open Approach (ICD-10-PCS; 2017-09-04)
PROC: 0CDXXZ1 Extraction of Lower Tooth, Multiple, External Approach (ICD-10-PCS; 2017-09-04)
DX: F10.231 Alcohol dependence with withdrawal delirium (principal); J96.01 Acute respiratory failure with hypoxia; I26.99 Other pulmonary embolism without acute cor pulmonale; Z99.11 Dependence on respirator [ventilator] status; J18.9 Pneumonia, unspecified organism; S27.329A Contusion of lung, unspecified, initial encounter; I11.0 Hypertensive heart disease with heart failure; I95.9 Hypotension, unspecified; I42.8 Other cardiomyopathies; I50.22 Chronic systolic (congestive) heart failure; S02.601A Fracture of unspecified part of body of right mandible, initial encounter for closed fracture; E87.2 Acidosis; E44.1 Mild protein-calorie malnutrition; I51.81 Takotsubo syndrome; E87.1 Hypo-osmolality and hyponatremia; S02.642A Fracture of ramus of left mandible, initial encounter for closed fracture; I16.1 Hypertensive emergency; J95.811 Postprocedural pneumothorax; R56.9 Unspecified convulsions; I72.4 Aneurysm of artery of lower extremity; E83.42 Hypomagnesemia; E83.51 Hypocalcemia; S20.219A Contusion of unspecified front wall of thorax, initial encounter; S02.2XXA Fracture of nasal bones, initial encounter for closed fracture; I08.3 Combined rheumatic disorders of mitral, aortic and tricuspid valves; S01.81XA Laceration without foreign body of other part of head, initial encounter; F32.9 Major depressive disorder, single episode, unspecified; F41.9 Anxiety disorder, unspecified; W18.30XA Fall on same level, unspecified, initial encounter; F19.239 Other psychoactive substance dependence with withdrawal, unspecified; Y93.9 Activity, unspecified; Y92.009 Unspecified place in unspecified non-institutional (private) residence as the place of occurrence of the external cause; G89.29 Other chronic pain; M54.5 Low back pain; F17.210 Nicotine dependence, cigarettes, uncomplicated; Z78.1 Physical restraint status; I45.10 Unspecified right bundle-branch block; E78.5 Hyperlipidemia, unspecified; E11.9 Type 2 diabetes mellitus without complications; M50.30 Other cervical disc degeneration, unspecified cervical region; R11.2 Nausea with vomiting, unspecified; R55 Syncope and collapse; E87.6 Hypokalemia; I25.10 Atherosclerotic heart disease of native coronary artery without angina pectoris; Z79.891 Long term (current) use of opiate analgesic; D64.9 Anemia, unspecified; Y95 Nosocomial condition; R32 Unspecified urinary incontinence; M47.9 Spondylosis, unspecified; B34.9 Viral infection, unspecified; F31.9 Bipolar disorder, unspecified; G31.2 Degeneration of nervous system due to alcohol; K02.9 Dental caries, unspecified; G93.89 Other specified disorders of brain
CPT/HCPCS: 31500; 36002; 36430; 36556; 36600; 51702; 70450; 70486; 70551; 70553; 71010; 71275; 72125; 74177; 76937; 80048; 80053; 80076; 80307; 81001; 82140; 82550; 82552; 82805; 82948; 83605; 83735; 84100; 84132; 84443; 84484; 85014; 85018; 85025; 85027; 85384; 85610; 85730; 86850; 86900; 86901; 86920; 87040; 87070; 87086; 87205; 87493; 87641; 90714; 93005; 93306; 93458; 93880; 93926; 93970; 94002; 94003; 94150; 94640; 94664; 94667; 94668; 95819; A9579; C1713; C1729; C1760; C1769; C1893; C9113; G0269; J0131; J0171; J0330; J0360; J0610; J0690; J1100; J1170; J1644; J1720; J1815; J1940; J1953; J2250; J2270; J2370; J2405; J2543; J2920; J3010; J3370; J3475; J3480; J7030; J7042; J7050; J7070; J7613; P9016; Q0169; Q9963; Q9967

== ENCOUNTER 2017-09-18 18:35 | Inpatient (IN) | payer BC ==
[~2017-09-18] VITALS: Ht 165.1 cm; Wt 42.3 kg
[~2017-09-18 18:35] MED LIST changes: +ACET300T49 PO; +BACL10TA PO; -CYPR4TAB PO; +DIPH2.5T14 PO; +LORA2TAB7 PO; -MEDR4PAK3 PO; -PROP20TA24 PO; -PROZ20CA11 PO; -TYLE3 PO; -ZOCO40TA PO
[2017-09-18] MEDS ORDERED: NALOXONE HCL 0.4 MG/ML AMP IV PUSH PRN (19:30)
[2017-09-18] MEDS ORDERED: SODIUM CHLORIDE 0.9% FLUSH 10 ML FLUSH IV FLUSH PRN (19:30)
[2017-09-18] MEDS: DIVALPROEX SODIUM E.R. 250 MG TAB PO SCH (21:00)
[2017-09-18] MEDS ORDERED: OLANZapine 2.5 MG TAB PO SCH (21:00)
[2017-09-18 21:10] VITALS: BP 186/87; PULSE 89; RESP 18; TEMP 98; O2SAT 100
[2017-09-18] MEDS: CARVEDILOL 12.5 MG TAB PO SCH (21:43)
[2017-09-18] MEDS: APIXABAN 5 MG TABLET PO SCH (21:43)
[2017-09-18] MEDS: SODIUM CHLORIDE 0.9% FLUSH 10 ML FLUSH IV FLUSH SCH (21:50)
[2017-09-18 22:30] VITALS: BP 150/75; PULSE 80
[2017-09-18] MEDS: BACLOFEN 10 MG TAB PO SCH (23:34)
[2017-09-18] MEDS: PIPERACIL-TAZO 4.5 GM PREMIX 100 ML IV SCH (23:34)
[2017-09-19] MEDS: BACLOFEN 10 MG TAB PO SCH ×4 (06:01→21:25)
[2017-09-19] MEDS: PIPERACIL-TAZO 4.5 GM PREMIX 100 ML IV SCH ×3 (06:01→17:27)
[2017-09-19 06:09] VITALS: BP 176/85; PULSE 76; RESP 15; TEMP 97.6; O2SAT 97
[2017-09-19 06:10] VITALS: BP 162/80
[2017-09-19] MEDS: predniSONE 20 MG TAB PO SCH (10:07)
[2017-09-19] MEDS: CARVEDILOL 12.5 MG TAB PO SCH ×2 (10:09→21:26)
[2017-09-19] MEDS: LISINOPRIL 20 MG TAB PO SCH (10:10)
[2017-09-19] MEDS: FOLIC ACID 1 MG TAB PO SCH (10:10)
[2017-09-19] MEDS: THIAMINE HCL 100 MG TAB PO SCH (10:10)
[2017-09-19] MEDS: MULTIVITAMIN TAB PO SCH (10:11)
[2017-09-19] MEDS: PANTOPRAZOLE SOD 40 MG DELAYED RELEASE TAB PO SCH (10:11)
[2017-09-19] MEDS: DIVALPROEX SODIUM E.R. 250 MG TAB PO SCH ×2 (10:11→21:25)
[2017-09-19] MEDS: APIXABAN 5 MG TABLET PO SCH ×2 (10:11→21:25)
[2017-09-19] MEDS: ASPIRIN EC 81 MG TABEC PO SCH (10:12)
[2017-09-19] MEDS: SODIUM CHLORIDE 0.9% FLUSH 10 ML FLUSH IV FLUSH SCH ×2 (10:22→21:25)
--- NOTE | 2017-09-19 11:12 | HHI.HP ---
Provisional Diagnosis Admission Date Sep 18, 2017 at 19:14 [place]. Bipolar disorder Certification of Person's Competence To Provide Express and Informed Consent I have personally examined Yanely Long , a person being served at [facility] on, Sep 19, 2017 11:02. Express and informed consent means consent voluntarily given in writing, by a competent person, after sufficient explanation and disclosure of the subject matter involved to enable the person to make a knowing and willful decision without any element of force, fraud, deceit, duress, or other form of constraint or coercion. This person is 18 years of age or older, is not now known to be incompetent to consent to treatment with a guardian advocate, and does not have a health care surrogate or proxy currently making medical treatment decisions. I have found this person to be one of the following: [] Competent to provide express and informed consent, as defined above, for voluntary admission to this facility and is competent to provide express and informed consent for treatment. He/she has the consistent capacity to make well reasoned, willful, and knowing decisions concerning his or her medical or mental health treatment. The person fully and consistently understands the purpose of the admission for examination/placement and is fully capable of personally exercising all rights assured [place] [x] Incompetent to provide express and informed consent to voluntary admission, and this is incompetent to provide express and informed consent to treatment. The person must be transferred to involuntary status and a petition for a guardian advocate filed with the Circuit Court. [] Refusing to provide express and informed consent to voluntary admission but is competent to provide express and informed consent for treatment. The person must be discharged or transferred to involuntary status. Form shall be completed within 24 hours of a person's arrival at the receiving facility and filed in the clinical record of each person: 1. Admitted on a voluntary basis 2. Permitted to provide express and informed consent to his/her own treatment 3. Allowed to transfer from involuntary to voluntary status 4. Prior to permitting a person to consent to his or her own treatment after having been previously found incompetent to consent to treatment. History of Present Illness Capacity: Lacks Capacity HPI Patient 67-year-old woman, woman domiciled with her , unemployed supported by her , no prior psychiatric history, no prior psychiatric diagnoses, hospitalization or suicide attempts past medical history significant for hypertension and chronic low back pain was recently admitted to the medical floor on 09/03 and discharged on 09/18/17 for respiratory failure, pulmonary embolism, HCAP, and cardiomyopathy nonischemic after having been found on the floor by her with suspicion of possible seizures secondary to benzo withdrawal versus alcohol withdrawal versus baclofen withdrawal. As per Dr. Adame consult note, possible confusion of 3 months duration prior to admission, EEG negative, followed by neurology for possible seizures which Keppra was discontinued as a possible etiology to her confusion. It was also noted that upon evaluation by the Dr. Bill patient was found to be very talkative, pressured speech or, tangential, disorganized, unable to provide significant information pending with poor concentration span is along with nonsensical statements at times.. He also noted in his evaluation the patient had a great admitted to a previous probable manic episode in the past but was not treated at that time. Collateral obtained by Dr. Bill at that time from , Jayro Long, and stated that patient had altered mental status for the past weeks, was very talkative acting bizarre, no sleep and engage in multiple activities at the same time. He also noted that the patient had been abusing her pain medications and baclofen prior to admission along with auditory glasses of wine socially. Patient was transferred to the inpatient medical/psychiatry for further evaluation and management for probable bipolar disorder manic episode and was found lying in hospital bed at times laughing and at times crying prior to interview. Patient states that be able to recall events prior to her hospitalization, stating that she has been not able to sleep and has been up all night and stating doing multiple activities at that time. Patient noted to be labile, expansive mood, and disorganized at times during interview. Patient states that her mood is depressed along with noted the more irritable lately, having racing thoughts, difficulty with concentration with distractibility and states having increased shopping online at night. Patient does recall having been in the at the care unit prior to transfer to this unit but unable to recall details. She mentions she has been visited by her and states that she has psychic abilities and knows what her is coming to visit her. Patient denies any suicidal homicidal ideation at this time, denies any perceptual disturbances but endorses grandiose delusions. past psychiatric history: Denies previous psychiatric diagnoses, hospitalizations, suicide attempt himself and his behavior. No prior medication trials, no outpatient psychiatry psychiatric services. No history of abuse. Family psychiatric history: Sister with bipolar disorder, no suicidal and family Substance use history: Patient reports having quit tobacco use years ago, alcohol use reports taking wine daily about 1 glass at a time, reports having previous marijuana use back in college but no other illicit drug use at this time recent. Past medical history: Hypertension, chronic low back pain, recent diagnosis of respiratory failure, HCAP, PE, cardiomyopathy nonischemic Allergies: NKDA Social history: with has been, unemployed supported by . Review of Systems Except as stated in HPI: all other systems reviewed are Neg Past Psych History Psychological trauma history Denies abuse Violence risk - others (6 mos) Low Violence risk - self (6 mos) Low Substance Abuse History Drugs/Alcohol past 12 months Patient reports having quit tobacco use years ago, alcohol use reports taking wine daily about 1 glass at a time, reports having previous marijuana use back in college but no other illicit drug use at this time recent. Past Family Social History Coded Allergies: No Known Allergies (Verified , 10/13/10) Reported Medications Lorazepam (Lorazepam) 2 Mg Tab, 2 MG PO BID Y for ANXIETY, TAB 0 Refills 08/28/17 Lorazepam (Lorazepam) 2 Mg Tab, 2 MG PO BID Y for ANXIETY, TAB 0 Refills 08/28/17 Diphenoxylate-Atropine (Diphenoxylate-Atropine) 2.5-0.025 Mg Tab, 2 TAB PO Q6H Y for DIARRHEA, TAB 0 Refills 08/28/17 Acetaminophen-Codeine (Acetaminophen-Codeine) 300-15 mg Tab, 1 TAB PO Q6H Y for PAIN, TAB 0 Refills 08/28/17 Propranolol (Propranolol) 20 Mg Tab, 20 MG PO Q8HR, #90 TAB 0 Refills 08/28/17 Baclofen (Baclofen) 10 Mg Tab, 10 MG PO TID for Muscle Spasm, TAB 0 Refills 08/28/17 Current Medications Medications (Trade) Dose Ordered Sig/Benny Route Start Time Stop Time Status Last Admin (Lioresal) 10 mg Q8HR PO 09/18/17 22:00 09/19/17 06:01 (Vitamin B1) 100 mg DAILY PO 09/19/17 09:00 09/19/17 10:10 (Theragran) 1 tab DAILY PO 09/19/17 09:00 09/19/17 10:11 (Folate) 1 mg DAILY PO 09/19/17 09:00 09/19/17 10:10 (Eliquis) 5 mg BID PO 09/18/17 21:00 09/19/17 10:11 (Ativan) 0.5 mg Q8H PRN PO 09/18/17 19:15 (Deltasone) 20 mg DAILY PO 09/19/17 09:00 09/19/17 10:07 (Coreg) 25 mg Q12HR PO 09/18/17 21:00 09/19/17 10:09 (Prinivil) 20 mg DAILY PO 09/19/17 09:00 09/19/17 10:10 (Protonix) 40 mg DAILY PO 09/19/17 09:00 09/19/17 10:11 Piperacillin Sod/ Tazobactam Sod 100 ml @ 200 mls/hr Q6H IV 09/18/17 23:00 09/20/17 05:00 09/19/17 10:23 (Ecotrin Ec) 81 mg DAILY PO 09/19/17 09:00 09/19/17 10:12 (NS Flush) 2 ml UNSCH PRN IV FLUSH 09/18/17 19:30 (NS Flush) 2 ml BID IV FLUSH 09/18/17 21:00 09/19/17 10:22 (Narcan Inj) 0.4 mg UNSCH PRN IV PUSH 09/18/17 19:30 (ZyPREXA) 2.5 mg HS PO 09/18/17 21:00 (Depakote Er) 250 mg BID PO 09/18/17 21:00 09/19/17 10:11 Social History with has been, unemployed supported by . Physical Exam Patient not noted to be in acute distress, no gross motor abnormalities, no tremors or EPS, no noted psychomotor retardation or agitation. Vital Signs Vital Signs Date Time Temp Pulse Resp B/P (MAP) Pulse Ox O2 Delivery O2 Flow Rate FiO2 09/19/17 06:10 162/80 (107) 09/19/17 06:09 97.6 76 15 97 I/O 09/19/17 09/19/17 09/20/17 08:00 16:00 00:00 Intake Total 120 ml Output Total 400 ml Balance -280 ml Mental Status Examination Appearance: Disheveled Consciousness: Alert, Highly Distractible Orientation: Person, Place, Date/Time (partially) Speech: Pressured Language: Adequate Fund of Knowledge: Inadequate Attention and Concentration: Easily Distracted Memory: Impaired Mood: Other Affect: Labile, Other (noted to be laughing and crying at different points of time; expansive affect) Thought Process & Associations: Loose associations, Disorganized Thought Content: Bizarre thinking, Racing thoughts, Delusional Hallucination Type: None Delusion Type: Bizarre Suicidal Ideation: No Suicidal Plan: No Suicidal Intention: No Homicidal Ideation: No Homicidal Plan: No Homicidal Intention: No Insight: Poor Judgment: Poor Assessment & Plan Problem List: (1) Bipolar disorder, curr episode mixed, severe, with psychotic features ICD Codes: F31.64 - Bipolar disorder, current episode mixed, severe, with psychotic features Assessment & Plan Estimated LOS: 5-7 days. Patient is a 67-year-old woman with no previous psychiatric history, likely had an undiagnosed manic episode in the past and untreated, currently with manic symptoms as well disorganization and psychotic symptoms including bizarre delusions. Patient noted to be labile, disorganized, tangential and loose in associations, pressured speech and expansive mood and affect. Patient at this time likely to have bipolar disorder , mixed episode with psychotic features but also considering withdrawal from GABAergic medications a differential diagnoses. Patient will continue recommendations by medical team. Will continue Depakote 250 by mouth twice a day with follow-up VPA levels, decrease olanzapine 5mg by mouth at bedtime for psychotic symptoms. Petition for involuntary hospitalization started, requests an opinion, patient for healthcare surrogate a guardian advocate completed. Discharge planning in progress Discharge Planning Patient reported back to her residence when psychiatrically medically stable Armand Sanz MD Sep 19, 2017 11:12
[2017-09-19 12:39] VITALS: BP 132/68; PULSE 71; RESP 20; TEMP 97.4; O2SAT 100
--- NOTE | 2017-09-19 12:47 | PD.PSY.CON ---
Provisional Diagnosis Admission Date Sep 18, 2017 at 19:14 [place] I. Bipolar disorder History of Present Illness Service Psychiatry Consult Requested By Dr. Sanz Reason for Consult Second opinion Primary Care Physician Unknown HPI Patient 67-year-old woman, woman domiciled with her , unemployed supported by her , no prior psychiatric history, no prior psychiatric diagnoses, hospitalization or suicide attempts past medical history significant for hypertension and chronic low back pain was recently admitted to the medical floor on 09/03 and discharged on 09/18/17 for respiratory failure, pulmonary embolism, HCAP, and cardiomyopathy nonischemic after having been found on the floor by her with suspicion of possible seizures secondary to benzo withdrawal versus alcohol withdrawal versus baclofen withdrawal. As per Dr. Adame consult note, possible confusion of 3 months duration prior to admission, EEG negative, followed by neurology for possible seizures which Keppra was discontinued as a possible etiology to her confusion. It was also noted that upon evaluation by the Dr. Bill patient was found to be very talkative, pressured speech or, tangential, disorganized, unable to provide significant information pending with poor concentration span is along with nonsensical statements at times.. He also noted in his evaluation the patient had a great admitted to a previous probable manic episode in the past but was not treated at that time. Collateral obtained by Dr. Bill at that time from , Jayro Long, and stated that patient had altered mental status for the past weeks, was very talkative acting bizarre, no sleep and engage in multiple activities at the same time. He also noted that the patient had been abusing her pain medications and baclofen prior to admission along with auditory glasses of wine socially. Patient was transferred to the inpatient medical/psychiatry for further evaluation and management for probable bipolar disorder manic episode and was found lying in hospital bed at times laughing and at times crying prior to interview. Patient states that be able to recall events prior to her hospitalization, stating that she has been not able to sleep and has been up all night and stating doing multiple activities at that time. Patient noted to be labile, expansive mood, and disorganized at times during interview. Patient states that her mood is depressed along with noted the more irritable lately, having racing thoughts, difficulty with concentration with distractibility and states having increased shopping online at night. Patient does recall having been in the at the care unit prior to transfer to this unit but unable to recall details. She mentions she has been visited by her and states that she has psychic abilities and knows what her is coming to visit her. Patient denies any suicidal homicidal ideation at this time, denies any perceptual disturbances but endorses grandiose delusions. past psychiatric history. The patient is a 67-year-old woman, domiciled with her in [facility], without any previous psychiatric history, no previous psychiatric hospitalizations, no previous suicidal attempts, medical history lower back pain and hypertension, who was admitted to hospital since August 28, 2017. Was found down on the floor by her . Initially admitted in the ICU for after mental status. Now medically cleared. Patient has developed manic behavior and psychotic thought process and was admitted in psychiatry. She is admitted under the care of Dr. Sanz. Consulted to live for second opinion. I know the patient from previous encounter with her just today. Today patient continues to be very tangential, disorganized, pressured speech. Patient has active loosening of associations unable to sustain a logical conversation. However, she denies suicidal and homicidal ideation, she denies visual and auditory hallucinations. Past Family Social History Coded Allergies: No Known Allergies (Verified , 10/13/10) Reported Medications Lorazepam (Lorazepam) 2 Mg Tab, 2 MG PO BID Y for ANXIETY, TAB 0 Refills 08/28/17 Lorazepam (Lorazepam) 2 Mg Tab, 2 MG PO BID Y for ANXIETY, TAB 0 Refills 08/28/17 Diphenoxylate-Atropine (Diphenoxylate-Atropine) 2.5-0.025 Mg Tab, 2 TAB PO Q6H Y for DIARRHEA, TAB 0 Refills 08/28/17 Acetaminophen-Codeine (Acetaminophen-Codeine) 300-15 mg Tab, 1 TAB PO Q6H Y for PAIN, TAB 0 Refills 08/28/17 Propranolol (Propranolol) 20 Mg Tab, 20 MG PO Q8HR, #90 TAB 0 Refills 08/28/17 Baclofen (Baclofen) 10 Mg Tab, 10 MG PO TID for Muscle Spasm, TAB 0 Refills 08/28/17 Current Medications Medications (Trade) Dose Ordered Sig/Benny Route Start Time Stop Time Status Last Admin (Lioresal) 10 mg Q8HR PO 09/18/17 22:00 09/19/17 06:01 (Vitamin B1) 100 mg DAILY PO 09/19/17 09:00 09/19/17 10:10 (Theragran) 1 tab DAILY PO 09/19/17 09:00 09/19/17 10:11 (Folate) 1 mg DAILY PO 09/19/17 09:00 09/19/17 10:10 (Eliquis) 5 mg BID PO 09/18/17 21:00 09/19/17 10:11 (Ativan) 0.5 mg Q8H PRN PO 09/18/17 19:15 (Deltasone) 20 mg DAILY PO 09/19/17 09:00 09/19/17 10:07 (Coreg) 25 mg Q12HR PO 09/18/17 21:00 09/19/17 10:09 (Prinivil) 20 mg DAILY PO 09/19/17 09:00 09/19/17 10:10 (Protonix) 40 mg DAILY PO 09/19/17 09:00 09/19/17 10:11 Piperacillin Sod/ Tazobactam Sod 100 ml @ 200 mls/hr Q6H IV 09/18/17 23:00 09/20/17 05:00 09/19/17 10:23 (Ecotrin Ec) 81 mg DAILY PO 09/19/17 09:00 09/19/17 10:12 (NS Flush) 2 ml UNSCH PRN IV FLUSH 09/18/17 19:30 (NS Flush) 2 ml BID IV FLUSH 09/18/17 21:00 09/19/17 10:22 (Narcan Inj) 0.4 mg UNSCH PRN IV PUSH 09/18/17 19:30 (ZyPREXA) 2.5 mg HS PO 09/18/17 21:00 (Depakote Er) 250 mg BID PO 09/18/17 21:00 09/19/17 10:11 Social History Patient is a sister with bipolar disorder Physical Exam Vital Signs Vital Signs Date Time Temp Pulse Resp B/P (MAP) Pulse Ox O2 Delivery O2 Flow Rate FiO2 09/19/17 12:39 97.4 71 20 132/68 (89) 100 I/O 09/19/17 09/19/17 09/20/17 08:00 16:00 00:00 Intake Total 120 ml Output Total 400 ml Balance -280 ml Mental Status Examination Appearance: Disheveled Consciousness: Alert, Highly Distractible Orientation: Person, Place, Date/Time (partially) Speech: Pressured Language: Adequate Fund of Knowledge: Inadequate Attention and Concentration: Easily Distracted Memory: Impaired Mood: Other Affect: Labile, Other (noted to be laughing and crying at different points of time; expansive affect) Thought Process & Associations: Loose associations, Disorganized Thought Content: Bizarre thinking, Racing thoughts, Delusional Hallucination Type: None Delusion Type: Bizarre Suicidal Ideation: No Suicidal Plan: No Suicidal Intention: No Homicidal Ideation: No Homicidal Plan: No Homicidal Intention: No Insight: Poor Judgment: Poor Assessment & Plan Problem List: (1) Bipolar disorder, curr episode mixed, severe, with psychotic features ICD Codes: F31.64 - Bipolar disorder, current episode mixed, severe, with psychotic features Assessment & Plan: I have seen and examined this patient. Discussed the case with Dr. Sanz. Review the chart. I completely agree and concur with Dr. Sanz assessment and plan. Assessment & Plan Estimated LOS: Alfonso Rincon MD Sep 19, 2017 12:47
[2017-09-19] MEDS: LORazepam 0.5 MG TAB PO PRN ×2 (14:26→22:00)
[2017-09-19 18:00] VITALS: BP 141/65; PULSE 68; RESP 17; TEMP 98.4; O2SAT 98
[2017-09-19] MEDS ORDERED: OLANZapine 5 MG TAB PO SCH (21:00)
[2017-09-20] MEDS: PIPERACIL-TAZO 4.5 GM PREMIX 100 ML IV SCH ×2 (00:14→05:29)
[2017-09-20] MEDS: BACLOFEN 10 MG TAB PO SCH ×3 (06:00→22:00)
[2017-09-20 06:09] VITALS: BP 171/83; PULSE 77; RESP 20; TEMP 97.3; O2SAT 100
[2017-09-20] MEDS ORDERED: OLANZapine IM 10 MG VIAL IM ONE ×2 (07:27→07:30)
--- NOTE | 2017-09-20 07:32 | HHI.PYPN ---
Subjective Remarks Patient seen for follow-up, chart reviewed. Discussion she staff reported the patient had poor sleep last evening so about 1 hour, and is stating that she had been flying airplanes all night to nursing staff. Patient was found initially asleep but later noted to be speaking very loud nonsensical statements and noted to be increasingly agitated which at one point patient ended up grabbing publications writer's arm and noted to be banging on the side rails of the hospital bed. Patient had not been receiving olanzapine due to healthcare surrogate at having sign consent for this medication. Patient is taking Depakote but due to psychotic symptoms requires antipsychotic at this time. Due to patient's current agitation patient will be administered and ETO of olanzapine 5 mg IM 1. Review of Systems Except as stated in HPI: all other systems reviewed are Neg Mental Status Examination Appearance: Disheveled Consciousness: Alert, Highly Distractible Orientation: Person, Place, Date/Time (partially) Speech: Pressured, Incoherent, Other (speaking very loudly) Language: Adequate Fund of Knowledge: Inadequate Attention and Concentration: Easily Distracted Memory: Impaired Mood: Irritable, Manic Affect: Irritable, Labile, Other (agitated) Thought Process & Associations: Loose associations, Disorganized Thought Content: Bizarre thinking, Racing thoughts, Delusional Hallucination Type: None Delusion Type: Bizarre Suicidal Ideation: No Suicidal Plan: No Suicidal Intention: No Homicidal Ideation: No Homicidal Plan: No Homicidal Intention: No Insight: Poor Judgment: Poor Results Vitals/IOs Vital Signs Date Time Temp Pulse Resp B/P (MAP) Pulse Ox O2 Delivery O2 Flow Rate FiO2 09/20/17 06:09 97.3 77 20 171/83 (112) 100 Intake and Output 09/20/17 09/20/17 09/21/17 08:00 16:00 00:00 Intake Total 100 ml Balance 100 ml Assessment & Plan Problem List: (1) Bipolar disorder, curr episode mixed, severe, with psychotic features ICD Codes: F31.64 - Bipolar disorder, current episode mixed, severe, with psychotic features Assessment & Plan Patient at this time continues to have manic symptoms, pressured speech, disorganization, loosening of associations. Patient this morning noted to be yelling, agitated, banging on hospital bed requiring ETO with olanzapine 5 mg IM for agitation 1. Will continue current treatment. Will have discussion with patient's health care surrogate about the medication for olanzapine as part of her treatment to to her current psychotic symptoms at this time. Discharge planning in progress Justification for Cont. Inpt. At risk for further decompensation at lower level of care Discharge Planning To return back to her residence 1 psychiatrically stable Armand Sanz MD Sep 20, 2017 07:32
[2017-09-20] MEDS: APIXABAN 5 MG TABLET PO SCH ×2 (09:00→20:09)
[2017-09-20] MEDS: PANTOPRAZOLE SOD 40 MG DELAYED RELEASE TAB PO SCH (09:00)
[2017-09-20] MEDS: predniSONE 20 MG TAB PO SCH (09:00)
[2017-09-20] MEDS: DIVALPROEX SODIUM E.R. 250 MG TAB PO SCH ×2 (09:00→20:09)
[2017-09-20] MEDS: MULTIVITAMIN TAB PO SCH (09:00)
[2017-09-20] MEDS: ASPIRIN EC 81 MG TABEC PO SCH (09:00)
[2017-09-20] MEDS: THIAMINE HCL 100 MG TAB PO SCH (09:00)
[2017-09-20] MEDS: CARVEDILOL 12.5 MG TAB PO SCH ×2 (09:00→20:10)
[2017-09-20] MEDS: LISINOPRIL 20 MG TAB PO SCH (09:00)
[2017-09-20] MEDS: FOLIC ACID 1 MG TAB PO SCH (09:00)
[2017-09-20] MEDS: SODIUM CHLORIDE 0.9% FLUSH 10 ML FLUSH IV FLUSH SCH ×2 (09:00→20:10)
[2017-09-20] MEDS: LORazepam 0.5 MG TAB PO PRN ×2 (12:30→20:09)
[2017-09-20] MEDS: ARIPiprazole 5 MG TAB PO SCH (20:10)
[2017-09-21] MEDS: BACLOFEN 10 MG TAB PO SCH ×3 (05:39→20:12)
[2017-09-21 06:03] VITALS: BP 176/80; PULSE 68; RESP 18; TEMP 97.9; O2SAT 100
[2017-09-21 06:14] LABS: AUTOMATED NEUTROPHIL # 7.9 TH/MM3 (1.8-7.7); BASOPHIL # 0.1 TH/MM3 (0-0.2); BASOPHIL % 0.5 % (0.0-2.0); EOSINOPHIL % 0.4 % (0.0-4.0); HEMATOCRIT 30.9 % (35.0-46.0); HEMOGLOBIN 10.4 GM/DL (11.6-15.3); LYMPH % 15.4 % (9.0-44.0); LYMPHOCYTE # 1.6 TH/MM3 (1.0-4.8); MEAN CELL VOLUME 102.2 FL (80.0-100.0); MEAN CORPUSCULAR HEMOGLOBIN 34.5 PG (27.0-34.0); MEAN CORPUSCULAR HGB CONC 33.7 % (32.0-36.0); MONOCYTE # 0.8 TH/MM3 (0-0.9); NEUT % 75.7 % (16.0-70.0); PLATELET COUNT 359 TH/MM3 (150-450); RED BLOOD COUNT 3.03 MIL/MM3 (4.00-5.30); RED CELL DISTRIBUTION WIDTH 20.3 % (11.6-17.2); WHITE BLOOD COUNT 10.4 TH/MM3 (4.0-11.0)
[2017-09-21 06:35] LABS: ALBUMIN 2.6 GM/DL (3.4-5.0); ALT (GPT) 23 U/L (10-53); AST (GOT) 24 U/L (15-37); BICARBONATE 27.3 MEQ/L (21.0-32.0); BLOOD UREA NITROGEN 12 MG/DL (7-18); CHLORIDE 103 MEQ/L (98-107); CREATININE 0.48 MG/DL (0.50-1.00); GLOMERULAR FILTRATION RATE 130 ML/MIN (>89); GLUCOSE,RANDOM 78 MG/DL (74-106); SODIUM (NA) 139 MEQ/L (136-145)
[2017-09-21 06:36] LABS: ALKALINE PHOSPHATASE 82 U/L (45-117); TOTAL BILIRUBIN ADULT 0.3 MG/DL (0.2-1.0); TOTAL PROTEIN 7.1 GM/DL (6.4-8.2)
[2017-09-21] MEDS: APIXABAN 5 MG TABLET PO SCH ×2 (07:45→20:12)
[2017-09-21] MEDS: DIVALPROEX SODIUM E.R. 250 MG TAB PO SCH (07:46)
[2017-09-21] MEDS: MULTIVITAMIN TAB PO SCH (07:46)
[2017-09-21] MEDS: THIAMINE HCL 100 MG TAB PO SCH (07:46)
[2017-09-21] MEDS: PANTOPRAZOLE SOD 40 MG DELAYED RELEASE TAB PO SCH (07:46)
[2017-09-21] MEDS: CARVEDILOL 12.5 MG TAB PO SCH ×2 (07:46→20:12)
[2017-09-21] MEDS: LISINOPRIL 20 MG TAB PO SCH (07:46)
[2017-09-21] MEDS: FOLIC ACID 1 MG TAB PO SCH (07:47)
[2017-09-21] MEDS: ASPIRIN EC 81 MG TABEC PO SCH (07:47)
[2017-09-21] MEDS: predniSONE 20 MG TAB PO SCH (07:47)
[2017-09-21] MEDS: ARIPiprazole 5 MG TAB PO SCH ×2 (07:47→20:12)
[2017-09-21] MEDS ORDERED: POTASSIUM CHLORIDE 10 MEQ CONTROLLED RELEASE TAB PO ONE (08:30)
--- NOTE | 2017-09-21 08:39 | PD.CONS ---
HPI Service [facility] Hospitalists Consult Requested By Dr. Sanz Reason for Consult Medical management Primary Care Physician Unknown Diagnoses: (1) Bipolar disorder (2) HTN (hypertension) (3) Pulmonary embolism (4) Cardiomyopathy, nonischemic History of Present Illness 67-year-old recently discharged from [facility] to inpatient psychiatry unit. She is currently in medical psych unit and medical team has been consulted to manage hypertension as patient also has a history of nonischemic cardiomyopathy. Chart was reviewed from hospitalization stay she was admitted 08/28 and discharged on 09/18. Patient was admitted after her found her unresponsive at home. She was intubated and treated for HCAP , new onset of CHF, nonischemic cardiomyopathy, PE, femoral pseudoaneurysm, and questionable seizures. Patient was seen and examined in her room resting comfortably after finishing eating breakfast. She is alert and oriented to self , time, place. She is very talkative and very thankful that I am there to see her. Her thoughts are very disorganized and as I begin to talk to her one topic will lead to another topic, very poor historian. She denies chest pain, SOB, cough, fever, chills, nausea, vomiting, diarrhea or abdominal pain. Patient states that she has not gone to bathroom, but non-invasive urinary container with about 250ml of clear yellow urine. There is no family at bedside at this moment. Review of Systems Except as stated in HPI: all other systems reviewed are Neg Past Family Social History Allergies: Coded Allergies: No Known Allergies (Verified , 10/13/10) Past Medical History Gathered from EMR Hypertension Hyperlipidemia Chronic lower back pain with sciatica PE on Eliquis CHF echo 08/29/17 with EF 30-35% Ventriulomegaly ( evaluated on 09/17/17, no surgical intervention recommended) Mitral valve prolapse Chronic anxiety Past Surgical History Gathered from EMR Bilaterally displaced mandible with fractures (ORIF of right mandible fracture/ extraction of tooth by 09/04/17) Cardiac catheter 09/01/17: Nonobstructive coronary artery disease, elevated LVEDP, preserved LV systolic function. Reported Medications Reported Meds & Active Scripts Active Reported Lorazepam 2 Mg Tab 2 Mg PO BID PRN Lorazepam 2 Mg Tab 2 Mg PO BID PRN Diphenoxylate-Atropine 2.5-0.025 Mg Tab 2 Tab PO Q6H PRN Acetaminophen-Codeine 300-15 mg Tab 1 Tab PO Q6H PRN Propranolol (Propranolol HCl) 20 Mg Tab 20 Mg PO Q8HR Baclofen 10 Mg Tab 10 Mg PO TID Active Ordered Medications Current Medications Medications (Trade) Dose Ordered Sig/Benny Route Start Time Stop Time Status Last Admin (Lioresal) 10 mg Q8HR PO 09/18/17 22:00 09/21/17 05:39 (Vitamin B1) 100 mg DAILY PO 09/19/17 09:00 09/21/17 07:46 (Theragran) 1 tab DAILY PO 09/19/17 09:00 09/21/17 07:46 (Folate) 1 mg DAILY PO 09/19/17 09:00 09/21/17 07:47 (Eliquis) 5 mg BID PO 09/18/17 21:00 09/21/17 07:45 (Ativan) 0.5 mg Q8H PRN PO 09/18/17 19:15 09/20/17 20:09 (Deltasone) 20 mg DAILY PO 09/19/17 09:00 09/21/17 07:47 (Coreg) 25 mg Q12HR PO 09/18/17 21:00 09/21/17 07:46 (Protonix) 40 mg DAILY PO 09/19/17 09:00 09/21/17 07:46 (Ecotrin Ec) 81 mg DAILY PO 09/19/17 09:00 09/21/17 07:47 (NS Flush) 2 ml UNSCH PRN IV FLUSH 09/18/17 19:30 (NS Flush) 2 ml BID IV FLUSH 09/18/17 21:00 09/20/17 20:10 (Narcan Inj) 0.4 mg UNSCH PRN IV PUSH 09/18/17 19:30 (Depakote Er) 250 mg BID PO 09/18/17 21:00 09/21/17 07:46 (Abilify) 5 mg BID PO 09/20/17 21:00 09/21/17 07:47 (Prinivil) 30 mg DAILY PO 09/22/17 09:00 UNV (Prinivil) 10 mg ONCE ONCE PO 09/21/17 08:45 09/21/17 08:46 UNV Family History Unable to obtain Social History Obtained from prior EMR documentation History of alcohol and wine abuse Tobacco: Smoked 2-3 cigarettes a day Physical Exam Vital Signs Vital Signs Date Time Temp Pulse Resp B/P (MAP) Pulse Ox O2 Delivery O2 Flow Rate FiO2 09/21/17 06:03 97.9 68 18 176/80 (112) 100 Physical Exam GENERAL: This is a female, very chatty in no apparent distress. SKIN: No rashes, ecchymoses or lesions. Cool and dry. HEAD: Atraumatic. Normocephalic. No temporal or scalp tenderness. EYES: Pupils equal round and reactive. Extraocular motions intact. No scleral icterus. No injection or drainage. ENT: Nose without bleeding, purulent drainage or septal hematoma. Throat without erythema. Uvula midline. Airway patent. NECK: Trachea midline. No JVD. Supple, nontender, no meningeal signs. CARDIOVASCULAR: Regular rate and rhythm without murmurs, gallops, or rubs. RESPIRATORY: Clear to auscultation. Breath sounds equal bilaterally. No wheezes , rales, or rhonchi. GASTROINTESTINAL: Abdomen soft, non-tender, nondistended. No guarding. MUSCULOSKELETAL: Extremities without clubbing, cyanosis, or edema. No joint tenderness, effusion, or edema noted. No calf tenderness. NEUROLOGICAL: Awake and alert oriented to self, place, time. Motor and sensory grossly within normal limits. 5/5 muscle strength in all muscle groups. Normal speech. Laboratory Laboratory Tests Test 09/21/17 04:51 White Blood Count 10.4 Red Blood Count 3.03 Hemoglobin 10.4 Hematocrit 30.9 Mean Corpuscular Volume 102.2 Mean Corpuscular Hemoglobin 34.5 Mean Corpuscular Hemoglobin Concent 33.7 Red Cell Distribution Width 20.3 Platelet Count 359 Mean Platelet Volume 10.0 Neutrophils (%) (Auto) 75.7 Lymphocytes (%) (Auto) 15.4 Monocytes (%) (Auto) 8.0 Eosinophils (%) (Auto) 0.4 Basophils (%) (Auto) 0.5 Neutrophils # (Auto) 7.9 Lymphocytes # (Auto) 1.6 Monocytes # (Auto) 0.8 Eosinophils # (Auto) 0.0 Basophils # (Auto) 0.1 CBC Comment AUTO DIFF Blood Urea Nitrogen 12 Creatinine 0.48 Random Glucose 78 Total Protein 7.1 Albumin 2.6 Calcium Level 9.0 Alkaline Phosphatase 82 Aspartate Amino Transf (AST/SGOT) 24 Alanine Aminotransferase (ALT/SGPT) 23 Total Bilirubin 0.3 Sodium Level 139 Potassium Level 3.3 Chloride Level 103 Carbon Dioxide Level 27.3 Anion Gap 9 Estimat Glomerular Filtration Rate 130 Valproic Acid (Depakene) Level 19 Result Diagram: 09/21/17 04509/21/17 0451 Assessment and Plan Assessment and Plan 67-year-old female recently discharged from medical side to inpatient psychiatry unit. Patient recently hospitalized for fall, possible seizures, respiratory failure, pneumonia, CHF, pulmonary embolism, femoral pseudoaneurysm , and hypertension. Bipolar disorder - Treated by primary team, patient recently switched over to Abilify - Per nurse patient doing slightly better today although still with very disorganized thoughts. Hypertension, uncontrolled - Patient with a history of hypertension prior to recent hospitalization - Blood pressure this morning 170s/80s - Currently on carvedilol 25 mg twice a day and lisinopril 20 mg daily - Will increase lisinopril to 30 mg daily - Continue trending blood pressures, vital signs every 4hrs CHF with nonischemic cardiomyopathy CAD - Echo 08/29/17 left ventricular systolic function moderately reduced EF 30- 35% - Cardiac cath on 09/01/17: Nonobstructive coronary artery disease, elevated LVEDP, preserved LV systolic function. - Patient appears euvolemic, clear breath sounds, no shortness of breath, oxygen saturation high 90s to 100% - Continue BB/MARY ELLEN/and ASA - Patient will need to follow up with as outpatient History of PE - Anticoagulated on Eliquis - Continue monitoring respiratory status -Patient will need to follow-up with as outpatient Possible seizures - Keppra was discontinued while hospitalized. Believed that seizures were related to benzo withdrawal versus alcohol withdrawal. - Mental status changes were believed to be related to underlying psychological issues Hypokalemia - Potassium 3.3 this morning - 30meq of potassium by mouth, recheck potassium level tomorrow VTE - On Eliquis - PT/OT following Felipe De Santiago Sep 21, 2017 08:39
[2017-09-21] MEDS ORDERED: LISINOPRIL 10 MG TAB PO ONE (08:45)
[2017-09-21] MEDS: SODIUM CHLORIDE 0.9% FLUSH 10 ML FLUSH IV FLUSH SCH ×2 (09:00→20:25)
[2017-09-21 09:28] LABS: OVALOCYTES 1+ (NORMAL)
--- NOTE | 2017-09-21 16:07 | HHI.PYPN ---
Subjective Remarks Patient seen for follow-up, chart reviewed. Discussion with nursing staff reported the patient mood has been little more stable, eating better and slept through 4 hours last evening. She was found with covers over her head no to continue be very labile with her mood, continues with pressured speech but less intense today. Patient states that she was "confused, mind", reporting having slept "barely", but reports eating well. Patient continues to be noted to have loosening associations during interview and tangential. Patient states that she has been visited by her which went well. Patient also reports auditory hallucinations of her friend Jayro and her at times but denies feeling depressed or having any SI. Review of Systems Except as stated in HPI: all other systems reviewed are Neg Mental Status Examination Appearance: Disheveled Consciousness: Alert, Highly Distractible (less so today) Orientation: Person, Place, Date/Time (partially) Speech: Pressured, Incoherent, Other (speaking very loudly) Language: Adequate Fund of Knowledge: Inadequate Attention and Concentration: Easily Distracted Memory: Impaired Mood: Irritable, Manic Affect: Labile Thought Process & Associations: Loose associations, Disorganized Thought Content: Bizarre thinking, Racing thoughts, Delusional Hallucination Type: None Delusion Type: Bizarre Suicidal Ideation: No Suicidal Plan: No Suicidal Intention: No Homicidal Ideation: No Homicidal Plan: No Homicidal Intention: No Insight: Poor Judgment: Poor Results Labs Labs reviewed Test 09/21/17 04:51 White Blood Count 10.4 TH/MM3 Red Blood Count 3.03 MIL/MM3 Hemoglobin 10.4 GM/DL Hematocrit 30.9 % Mean Corpuscular Volume 102.2 FL Mean Corpuscular Hemoglobin 34.5 PG Mean Corpuscular Hemoglobin Concent 33.7 % Red Cell Distribution Width 20.3 % Platelet Count 359 TH/MM3 Mean Platelet Volume 10.0 FL Neutrophils (%) (Auto) 75.7 % Lymphocytes (%) (Auto) 15.4 % Monocytes (%) (Auto) 8.0 % Eosinophils (%) (Auto) 0.4 % Basophils (%) (Auto) 0.5 % Neutrophils # (Auto) 7.9 TH/MM3 Lymphocytes # (Auto) 1.6 TH/MM3 Monocytes # (Auto) 0.8 TH/MM3 Eosinophils # (Auto) 0.0 TH/MM3 Basophils # (Auto) 0.1 TH/MM3 CBC Comment AUTO DIFF Differential Comment AUTO DIFF CONFIRMED Ovalocytes 1+ Blood Urea Nitrogen 12 MG/DL Creatinine 0.48 MG/DL Random Glucose 78 MG/DL Total Protein 7.1 GM/DL Albumin 2.6 GM/DL Calcium Level 9.0 MG/DL Alkaline Phosphatase 82 U/L Aspartate Amino Transf (AST/SGOT) 24 U/L Alanine Aminotransferase (ALT/SGPT) 23 U/L Total Bilirubin 0.3 MG/DL Sodium Level 139 MEQ/L Potassium Level 3.3 MEQ/L Chloride Level 103 MEQ/L Carbon Dioxide Level 27.3 MEQ/L Anion Gap 9 MEQ/L Estimat Glomerular Filtration Rate 130 ML/MIN Valproic Acid (Depakene) Level 19 MCG/ML Vitals/IOs Vital Signs Date Time Temp Pulse Resp B/P (MAP) Pulse Ox O2 Delivery O2 Flow Rate FiO2 09/21/17 06:03 97.9 68 18 176/80 (112) 100 Intake and Output 09/21/17 09/21/17 09/22/17 08:00 16:00 00:00 Intake Total 240 ml 480 ml Output Total 600 ml Balance -360 ml 480 ml Assessment & Plan Problem List: (1) Bipolar disorder, curr episode mixed, severe, with psychotic features ICD Codes: F31.64 - Bipolar disorder, current episode mixed, severe, with psychotic features Assessment & Plan Patient at this time continues to be manic, hyperverbal, labile mood, tangential loosening associations along with auditory hallucinations but noted to be able to maintain more attention during interviews today. VPA level was subtherapeutic (19.0) we'll increase Depakote to 250/500 mg, continue Abilify 5 mg by mouth twice a day. Will reorder EKG to continue to follow QTc. Continue recommendations for primary medical team, repeat potassium level pending this morning. Discharge planning in progress Justification for Cont. Inpt. At risk for further decompensation if at lower level of care Discharge Planning Discharge back to her residence when medically and psychiatrically stable Armand Sanz MD Sep 21, 2017 16:07
[2017-09-21 17:42] VITALS: BP 155/67; PULSE 73; RESP 17; TEMP 97.9; O2SAT 100
[2017-09-21] MEDS: LORazepam 0.5 MG TAB PO PRN (20:12)
[2017-09-21] MEDS: DIVALPROEX SODIUM E.R. 500 MG TAB PO SCH (20:12)
[2017-09-22] MEDS: BACLOFEN 10 MG TAB PO SCH ×3 (05:37→21:08)
[2017-09-22 06:14] VITALS: BP 165/72; PULSE 62; RESP 17; TEMP 97.6; O2SAT 99
--- NOTE | 2017-09-22 07:56 | HHI.PR ---
Subjective Remarks Follow up on 67-year-old for HTN, CHF, PE, and hypokalemia. Patient seen and examined sitting up eating breakfast, she is very chatty again today, repots left hip pain. States that her doctor prescribed her Tylenol #3 for her pain, was told she had arthritis. Rates right hip pain 8/10 worse when she gets up out of bed. Will add Tylenol PRN for pain. Otherwise patient reports she is doing well. Denies any headache, fevers, chills, nausea, vomiting, diarrhea. Objective Vitals Vital Signs Date Time Temp Pulse Resp B/P (MAP) Pulse Ox O2 Delivery O2 Flow Rate FiO2 09/22/17 06:14 97.6 62 17 165/72 (103) 99 09/21/17 17:42 97.9 73 17 155/67 (96) 100 I/O 09/21/17 09/21/17 09/21/17 09/22/17 09/22/17 09/22/17 07:00 15:00 23:00 07:00 15:00 23:00 Intake Total 240 ml 480 ml 1800 ml 75 ml Output Total 600 ml 301 ml 120 ml Balance -360 ml 480 ml 1499 ml -45 ml Intake Oral 240 ml 480 ml 1800 ml 75 ml Output Urine Total 600 ml 301 ml 120 ml # Bowel Movements 1 2 Result Diagram: 09/21/17 0451 09/21/17 0451 Objective Remarks GENERAL: This is a female, very chatty in no apparent distress. SKIN: No rashes, ecchymoses or lesions. Cool and dry. No ecchymotic or open skin noted on right hip or thigh. HEAD: Atraumatic. Normocephalic. No temporal or scalp tenderness. EYES: Pupils equal round and reactive. Extraocular motions intact. No scleral icterus. No injection or drainage. ENT: Nose without bleeding, purulent drainage or septal hematoma. Airway patent. NECK: Trachea midline. No JVD. Supple. CARDIOVASCULAR: Regular rate and rhythm without murmurs, gallops, or rubs. RESPIRATORY: Clear to auscultation. Breath sounds equal bilaterally. No wheezes , rales, or rhonchi. GASTROINTESTINAL: Abdomen soft, non-tender, nondistended. No guarding. MUSCULOSKELETAL: Extremities without clubbing, cyanosis, or edema. No joint tenderness, effusion, or edema noted. + Tenderness to light palpation on right thigh. NEUROLOGICAL: Awake and alert oriented to self, place, time. Motor and sensory grossly within normal limits. 5/5 muscle strength in all muscle groups. Normal speech. A/P Problem List: (1) Bipolar disorder ICD Code: F31.9 - Bipolar disorder, unspecified (2) HTN (hypertension) ICD Code: I10 - Essential (primary) hypertension (3) Pulmonary embolism ICD Code: I26.99 - Other pulmonary embolism without acute cor pulmonale (4) Cardiomyopathy, nonischemic ICD Code: I42.8 - Other cardiomyopathies Assessment and Plan 67-year-old female recently discharged from medical side to inpatient psychiatry unit. Patient recently hospitalized for fall, possible seizures, respiratory failure, pneumonia, CHF, pulmonary embolism, femoral pseudoaneurysm , and hypertension. Bipolar disorder - Treated by primary team, patient recently switched over to Abilify - Per nurse patient doing slightly better today although still with very disorganized thoughts. Right hip pain, arthritis - Patient reports she was taking Tylenol #3, ?hip as she is tender with light palpation of right thigh, no trauma seen - Order for Tylenol when necessary for pain. PT already working with patient. Hypertension, mildly elevated - Patient with a history of hypertension prior to recent hospitalization - Blood pressure this morning 160/72, slightly better than yesterday - Continue carvedilol 25 mg twice a day - lisinopril increased to 30 mg daily yesterday - Continue trending blood pressures, vital signs every 4hrs CHF with nonischemic cardiomyopathy CAD - Echo 08/29/17 left ventricular systolic function moderately reduced EF 30- 35% - Cardiac cath on 09/01/17: Nonobstructive coronary artery disease, elevated LVEDP, preserved LV systolic function. - Patient appears euvolemic, clear breath sounds, no shortness of breath, oxygen saturation high 90s to 100% - Continue BB/MARY ELLEN/and ASA - Patient will need to follow up with as outpatient History of PE - Anticoagulated on Eliquis - Continue monitoring respiratory status - Patient will need to follow-up with as outpatient Possible seizures - Keppra was discontinued while hospitalized. Believed that seizures were related to benzo withdrawal versus alcohol withdrawal. - Mental status changes were believed to be related to underlying psychological issues Hypokalemia - Potassium 3.3 yesterday, 30meq of potassium - Potassium just morning 4.1 VTE - On Eliquis - PT/OT following (Discontinued Prednisone, not sure what this was started she was not on it while hospitalized) Patient discussed with nurse and Felipe Chen Sep 22, 2017 07:56
[2017-09-22] MEDS: APIXABAN 5 MG TABLET PO SCH ×2 (08:07→21:08)
[2017-09-22] MEDS: CARVEDILOL 12.5 MG TAB PO SCH ×2 (08:07→21:07)
[2017-09-22] MEDS: FOLIC ACID 1 MG TAB PO SCH (08:08)
[2017-09-22] MEDS: DIVALPROEX SODIUM E.R. 250 MG TAB PO SCH (08:08)
[2017-09-22] MEDS: MULTIVITAMIN TAB PO SCH (08:08)
[2017-09-22] MEDS: SODIUM CHLORIDE 0.9% FLUSH 10 ML FLUSH IV FLUSH SCH ×2 (08:08→21:00)
[2017-09-22] MEDS: ARIPiprazole 5 MG TAB PO SCH ×2 (08:08→21:00)
[2017-09-22] MEDS: ASPIRIN EC 81 MG TABEC PO SCH (08:08)
[2017-09-22] MEDS: THIAMINE HCL 100 MG TAB PO SCH (08:09)
[2017-09-22] MEDS: PANTOPRAZOLE SOD 40 MG DELAYED RELEASE TAB PO SCH (08:09)
[2017-09-22] MEDS: predniSONE 20 MG TAB PO SCH (08:10)
[2017-09-22] MEDS ORDERED: LISINOPRIL 10 MG TAB PO SCH (09:00)
--- NOTE | 2017-09-22 10:18 | HHI.PYPN ---
Subjective Remarks Patient seen for follow-up, chart reviewed. Discussion she staff reported the patient noted to be hyperverbal, denying any perceptual services have been compliant medication but had reported some loose stools last evening. Patient was found lying in hospital bed, cooperative noted to be good spirits but noted to be hyperverbal as well. Patient states that she had been feeling confused recently but did report sleeping well, eating and drinking well, and having a good mood. Patient states that she feels she is doing better, reports having been visited by her but during interview was noted to have loosening of association in speaking about her family history. Patient at times is confused and referring to her having visited her statement that her father has come to see her every morning and every evening to make sure she takes her medications at times will make some nonsensical statements stating "I wanted team that on winning". Patient denies any auditory or visual hallucinations at this time. Review of Systems Except as stated in HPI: all other systems reviewed are Neg Mental Status Examination Appearance: Disheveled Consciousness: Alert, Highly Distractible (less so today) Orientation: Person, Place, Date/Time (partially) Speech: Pressured, Incoherent, Other (speaking very loudly) Language: Adequate Fund of Knowledge: Inadequate Attention and Concentration: Easily Distracted (but improving) Memory: Impaired Mood: Manic, Other (reports feeling "okay") Affect: Labile (less intense) Thought Process & Associations: Loose associations, Disorganized (less so today ) Thought Content: Bizarre thinking, Racing thoughts (less so today), Delusional Hallucination Type: None Delusion Type: Bizarre Suicidal Ideation: No Suicidal Plan: No Suicidal Intention: No Homicidal Ideation: No Homicidal Plan: No Homicidal Intention: No Insight: Poor Judgment: Poor Results Labs Labs reviewed Test 09/22/17 07:50 Potassium Level 4.1 MEQ/L Vitals/IOs Vital Signs Date Time Temp Pulse Resp B/P (MAP) Pulse Ox O2 Delivery O2 Flow Rate FiO2 09/22/17 06:14 97.6 62 17 165/72 (103) 99 Intake and Output 09/22/17 09/22/17 09/23/17 08:00 16:00 00:00 Intake Total 315 ml Output Total 120 ml Balance 195 ml Assessment & Plan Problem List: (1) Bipolar disorder, curr episode mixed, severe, with psychotic features ICD Codes: F31.64 - Bipolar disorder, current episode mixed, severe, with psychotic features Assessment & Plan Patient at this time continues to have some disorganization and loosening association but less intense and less lability noted. Continues to have some pressor speech at times making some nonspecific statements but denying any perceptual disturbances or noted to be internally preoccupied. Patient recently had Depakote increased yesterday as her VPA level was subtherapeutic. Patient's potassium level was corrected by primary medical team. Will continue current treatment for now and requesting VPA level for 09/24/17 in the a.m. we' ll order repeat EKG to continue to try and QTc. Continue to monitor mood and behavior. Continue to encourage patient to work with physical therapy as noted to participate in groups and activities. Discharge planning in progress Justification for Cont. Inpt. At risk for further decompensation if at lower level of care Discharge Planning To return back to her home once psychiatrically medically stable Armand Sanz MD Sep 22, 2017 10:18
[2017-09-22 18:00] VITALS: BP 136/62; PULSE 82; RESP 17; TEMP 97.8; O2SAT 100
--- NOTE | 2017-09-22 21:01 | EKG ---
Date Performed: 09/22/2017 Time Performed: 11:32:22 PTAGE: 67 years EKG: Sinus rhythm ST DEVIATION AND MODERATE T-WAVE ABNORMALITY, CONSIDER ANTEROLATERAL ISCHEMIA ST DEVIATION AND MODER ATE T-WAVE ABNORMALITY, CONSIDER INFERIOR ISCHEMIA ABNORMAL ECG PREVIOUS TRACING : 09/20/2017 16.55 Compared to prior tracing no significant change DOCTOR: Toño Rosa Interpretating Date/Time 09/22/2017 20:59:37
[2017-09-22] MEDS: DIVALPROEX SODIUM E.R. 500 MG TAB PO SCH (21:08)
[2017-09-22] MEDS: LORazepam 0.5 MG TAB PO PRN (21:08)
--- NOTE | 2017-09-22 23:41 | EKG ---
Date Performed: 09/20/2017 Time Performed: 16:55:31 PTAGE: 67 years EKG: Sinus rhythm MARKED T-WAVE ABNORMALITY, CONSIDER ANTEROLATERAL ISCHEMIA MODERATE T-WAVE ABNORMALITY, CONSIDER INF ERIOR ISCHEMIA ABNORMAL ECG PREVIOUS TRACING : 09/20/2017 13.31 DOCTOR: Allie Mathis Interpretating Date/Time 09/22/2017 23:39:54
--- NOTE | 2017-09-22 23:55 | EKG ---
Date Performed: 09/20/2017 Time Performed: 13:31:48 PTAGE: 67 years EKG: SINUS BRADYCARDIA MODERATE T-WAVE ABNORMALITY, CONSIDER ANTEROLATERAL ISCHEMIA MODERATE T-W AVE ABNORMALITY, CONSIDER INFERIOR ISCHEMIA ABNORMAL ECG PREVIOUS TRACING : 09/13/2017 13.01 DOCTOR: Allie Mathis Interpretating Date/Time 09/22/2017 23:54:50
[2017-09-23 05:46] VITALS: BP 169/82; PULSE 71; RESP 16; TEMP 97.5; O2SAT 100
[2017-09-23] MEDS: BACLOFEN 10 MG TAB PO SCH ×3 (05:57→20:51)
[2017-09-23] MEDS: APIXABAN 5 MG TABLET PO SCH ×2 (08:27→20:43)
[2017-09-23] MEDS: CARVEDILOL 12.5 MG TAB PO SCH ×2 (08:28→20:43)
[2017-09-23] MEDS: THIAMINE HCL 100 MG TAB PO SCH (08:28)
[2017-09-23] MEDS: PANTOPRAZOLE SOD 40 MG DELAYED RELEASE TAB PO SCH (08:28)
[2017-09-23] MEDS: DIVALPROEX SODIUM E.R. 250 MG TAB PO SCH (08:28)
[2017-09-23] MEDS: FOLIC ACID 1 MG TAB PO SCH (08:28)
[2017-09-23] MEDS: ARIPiprazole 5 MG TAB PO SCH ×2 (08:28→20:43)
[2017-09-23] MEDS: SODIUM CHLORIDE 0.9% FLUSH 10 ML FLUSH IV FLUSH SCH ×2 (08:28→20:44)
[2017-09-23] MEDS: ASPIRIN EC 81 MG TABEC PO SCH (08:28)
[2017-09-23] MEDS: MULTIVITAMIN TAB PO SCH (08:28)
--- NOTE | 2017-09-23 08:28 | HHI.PR ---
Subjective Remarks Complaints of back pain and hip pain, has back spasm and wants a muscle relaxer. No fever ro chills. No n/v/d/c. Eating fairly well. Objective Vitals Vital Signs Date Time Temp Pulse Resp B/P (MAP) Pulse Ox O2 Delivery O2 Flow Rate FiO2 09/23/17 05:46 97.5 71 16 169/82 (111) 100 09/22/17 18:00 97.8 82 17 136/62 (86) 100 I/O 09/22/17 09/22/17 09/22/17 09/23/17 09/23/17 09/23/17 07:00 15:00 23:00 07:00 15:00 23:00 Intake Total 75 ml 480 ml 480 ml 240 ml Output Total 120 ml Balance -45 ml 480 ml 480 ml 240 ml Intake Oral 75 ml 480 ml 480 ml 240 ml Output Urine Total 120 ml # Voids 2 # Bowel Movements 2 2 Result Diagram: 09/21/17 0451 09/22/17 0750 Objective Remarks GENERAL: This is a female, very chatty in no apparent distress. CARDIOVASCULAR: Regular rate and rhythm without murmurs, gallops, or rubs. RESPIRATORY: Clear to auscultation. Breath sounds equal bilaterally. No wheezes , rales, or rhonchi. GASTROINTESTINAL: Abdomen soft, non-tender, nondistended. No guarding. MUSCULOSKELETAL: Extremities without clubbing, cyanosis, or edema. No joint tenderness, effusion, or edema noted. + Tenderness to light palpation on right thigh. NEUROLOGICAL: Awake and alert oriented to self, place, time. Motor and sensory grossly within normal limits. 5/5 muscle strength in all muscle groups. Normal speech. A/P Problem List: (1) Bipolar disorder ICD Code: F31.9 - Bipolar disorder, unspecified (2) HTN (hypertension) ICD Code: I10 - Essential (primary) hypertension (3) Pulmonary embolism ICD Code: I26.99 - Other pulmonary embolism without acute cor pulmonale (4) Cardiomyopathy, nonischemic ICD Code: I42.8 - Other cardiomyopathies Assessment and Plan 67-year-old female recently discharged from medical side to inpatient psychiatry unit. Patient recently hospitalized for fall, possible seizures, respiratory failure, pneumonia, CHF, pulmonary embolism, femoral pseudoaneurysm , and hypertension. Bipolar disorder - Treated by primary team, patient recently switched over to Abilify - Per nurse patient doing slightly better today although still with very disorganized thoughts. Right hip pain, arthritis - Patient reports she was taking Tylenol #3, ?hip as she is tender with light palpation of right thigh, no trauma seen - Order for Tylenol when necessary for pain. PT already working with patient. Hypertension, mildly elevated - Patient with a history of hypertension prior to recent hospitalization - Blood pressure this morning 160/72, slightly better than yesterday - Continue carvedilol 25 mg twice a day - lisinopril increased to 30 mg daily yesterday - Continue trending blood pressures, vital signs every 4hrs CHF with nonischemic cardiomyopathy CAD - Echo 08/29/17 left ventricular systolic function moderately reduced EF 30- 35% - Cardiac cath on 09/01/17: Nonobstructive coronary artery disease, elevated LVEDP, preserved LV systolic function. - Patient appears euvolemic, clear breath sounds, no shortness of breath, oxygen saturation high 90s to 100% - Continue BB/MARY ELLEN/and ASA - Patient will need to follow up with as outpatient History of PE - Anticoagulated on Eliquis - Continue monitoring respiratory status - Patient will need to follow-up with as outpatient Possible seizures - Keppra was discontinued while hospitalized. Believed that seizures were related to benzo withdrawal versus alcohol withdrawal. - Mental status changes were believed to be related to underlying psychological issues Hypokalemia - Potassium 3.3 yesterday, 30meq of potassium - Potassium just morning 4.1 VTE - On Eliquis - PT/OT following (Discontinued Prednisone, not sure what this was started she was not on it while hospitalized) Discussed with the patient, nurse Yuni Martinez MD Sep 23, 2017 08:28
[2017-09-23] MEDS: LISINOPRIL 20 MG TAB PO SCH ×2 (08:38→20:43)
--- NOTE | 2017-09-23 13:31 | HHI.PYPN ---
Subjective Remarks Unchanged clinical condition. Review of Systems Except as stated in HPI: all other systems reviewed are Neg Mental Status Examination Appearance: Disheveled Consciousness: Alert, Highly Distractible (less so today) Orientation: Person, Place, Date/Time (partially) Speech: Pressured, Incoherent, Other (speaking very loudly) Language: Adequate Fund of Knowledge: Inadequate Attention and Concentration: Easily Distracted (but improving) Memory: Impaired Mood: Manic, Other (reports feeling "okay") Affect: Labile (less intense) Thought Process & Associations: Loose associations, Disorganized (less so today ) Thought Content: Bizarre thinking, Racing thoughts (less so today), Delusional Hallucination Type: None Delusion Type: Bizarre Suicidal Ideation: No Suicidal Plan: No Suicidal Intention: No Homicidal Ideation: No Homicidal Plan: No Homicidal Intention: No Insight: Poor Judgment: Poor Results Vitals/IOs Vital Signs Date Time Temp Pulse Resp B/P (MAP) Pulse Ox O2 Delivery O2 Flow Rate FiO2 09/23/17 05:46 97.5 71 16 169/82 (111) 100 Intake and Output 09/23/17 09/23/17 09/24/17 08:00 16:00 00:00 Intake Total 360 ml Balance 360 ml Assessment & Plan Problem List: (1) Bipolar disorder, curr episode mixed, severe, with psychotic features ICD Codes: F31.64 - Bipolar disorder, current episode mixed, severe, with psychotic features Assessment & Plan Estimated LOS: days. Continue current treatment plan. Justification for Cont. Inpt. Likely to decompensate at lower level of care. Chuck Lemos MD Sep 23, 2017 13:31
[2017-09-23 18:00] VITALS: BP 154/69; PULSE 78; RESP 18; TEMP 97.1; O2SAT 100
[2017-09-23] MEDS: DIVALPROEX SODIUM E.R. 500 MG TAB PO SCH (20:44)
[2017-09-24] MEDS: BACLOFEN 10 MG TAB PO SCH ×3 (05:08→22:29)
[2017-09-24 07:15] VITALS: BP 157/70; PULSE 61; RESP 18; TEMP 97.4; O2SAT 100
--- NOTE | 2017-09-24 09:51 | HHI.PR ---
Subjective Remarks NO NEW COMPLAINTS DW RN AND PT CONTINUE CURRENT TREATMENTS Objective Vitals Vital Signs Date Time Temp Pulse Resp B/P (MAP) Pulse Ox O2 Delivery O2 Flow Rate FiO2 09/24/17 07:15 97.4 61 18 157/70 (99) 100 09/23/17 18:00 97.1 78 18 154/69 (97) 100 I/O 09/23/17 09/23/17 09/23/17 09/24/17 09/24/17 09/24/17 07:00 15:00 23:00 07:00 15:00 23:00 Intake Total 240 ml 360 ml 240 ml 240 ml 360 ml Output Total 1200 ml 650 ml Balance 240 ml 360 ml -960 ml -410 ml 360 ml Intake Oral 240 ml 360 ml 240 ml 240 ml 360 ml Output Urine Total 1200 ml 650 ml # Voids 2 3 1 # Bowel Movements 2 1 Result Diagram: 09/21/17 0451 09/22/17 0750 Other Results Laboratory Tests Test 09/22/17 07:50 09/24/17 05:24 Potassium Level 4.1 MEQ/L Valproic Acid (Depakene) Level 65 MCG/ML Objective Remarks GENERAL: AWAKE AND ALERT IN NO ACUTE DISTRESS SKIN: Warm and dry. HEAD: Atraumatic. Normocephalic. EYES: Pupils equal and round. No scleral icterus. No injection or drainage. EOMI ENT: No nasal bleeding or discharge. Mucous membranes pink and moist. TONGUE MIDLINE NECK: Trachea midline. No JVD. SUPPLE CARDIOVASCULAR: IRRegular rate and rhythm. S1, S2 NO S3 OR S4 RESPIRATORY: No accessory muscle use. Clear to auscultation. Breath sounds equal bilaterally. GASTROINTESTINAL: Abdomen soft, non-tender, nondistended. Hepatic and splenic margins not palpable. MUSCULOSKELETAL: Extremities without clubbing, cyanosis, or edema. No obvious deformities. NEUROLOGICAL: Awake and alert. No obvious cranial nerve deficits. Motor grossly within normal limits. 4 out of 5 muscle strength in the arms and legs. Normal speech. PSYCHIATRIC: INAppropriate mood and affect; insight and judgment ABnormal. Medications and IVs Current Medications Baclofen (Lioresal) 10 mg Q8HR PO Last administered on 09/24/17at 05:08; Start at 22:00 Thiamine HCl (Vitamin B1) 100 mg DAILY PO Last administered on 09/23/17at 08:28; Start 09/19/17 at 09:00 Multivitamins (Theragran) 1 tab DAILY PO Last administered on 09/23/17 08:28; Start 09/19/17 at 09:00 Folic Acid (Folate) 1 mg DAILY PO Last administered on 09/23/17at 08:28; Start at 09:00 Apixaban (Eliquis) 5 mg BID PO Last administered on 09/23/17 20:43; Start at 21:00 Lorazepam (Ativan) 0.5 mg Q8H PRN PO anxiety Last administered on 09/22/17 21: 08; Start 09/18/17 at 19:15 Prednisone (Deltasone) 20 mg DAILY PO Last administered on 09/22/17 08:10; Start 09/19/17 at 09:00; Stop 09/22/17 at 08:26; Status DC Carvedilol (Coreg) 25 mg Q12HR PO Last administered on 09/23/17 20:43; Start at 21:00 Lisinopril (Prinivil) 20 mg DAILY PO Last administered on 09/21/17at 07:46; Start 09/19/17 at 09:00; Stop 09/21/17 at 08:45; Status DC Pantoprazole Sodium (Protonix) 40 mg DAILY PO Last administered on 09/23/17 08: 28; Start 09/19/17 at 09:00 Piperacillin Sod/ Tazobactam Sod 100 ml @ 200 mls/hr Q6H IV Last administered on 09/20/17at 05:29; Start 09/18/17 at 23:00; Stop 09/20/17 at 05:00; Status DC Aspirin (Ecotrin Ec) 81 mg DAILY PO Last administered on 09/23/17 08:28; Start 09/19/17 at 09:00 Sodium Chloride (NS Flush) 2 ml UNSCH PRN IV FLUSH FLUSH AFTER USING IV ACCESS ; Start 09/18/17 at 19:30 Sodium Chloride (NS Flush) 2 ml BID IV FLUSH Last administered on 09/23/17at 20: 44; Start 09/18/17 at 21:00 Naloxone HCl (Narcan Inj) 0.4 mg UNSCH PRN IV PUSH SEE LABEL COMMENTS; Start at 19:30 Olanzapine (ZyPREXA) 2.5 mg HS PO ; Start 09/18/17 at 21:00; Stop 09/19/17 at 14: 45; Status DC Divalproex Sodium (Depakote Er) 250 mg BID PO Last administered on 09/21/17at 07: 46; Start 09/18/17 at 21:00; Stop 09/21/17 at 12:09; Status DC Olanzapine (ZyPREXA) 5 mg HS PO ; Start 09/19/17 at 21:00; Stop 09/20/17 at 16:18 ; Status DC Olanzapine (ZyPREXA INJ) 10 mg STK-MED ONCE IM ; Start 09/20/17 at 07:27; Stop at 07:28; Status DC Olanzapine (ZyPREXA INJ) 5 mg ONCE ONCE IM Last administered on 09/20/17at 07:30 ; Start 09/20/17 at 07:30; Stop 09/20/17 at 07:31; Status DC Aripiprazole (Abilify) 5 mg BID PO Last administered on 09/23/17at 20:43; Start 09/20/17 at 21:00 Potassium Chloride (KCl) 30 meq ONCE ONCE PO Last administered on 09/21/17at 08: 30; Start 09/21/17 at 08:30; Stop 09/21/17 at 08:41; Status DC Lisinopril (Prinivil) 30 mg DAILY PO Last administered on 09/22/17at 08:07; Start 09/22/17 at 09:00; Stop 09/23/17 at 08:24; Status DC Lisinopril (Prinivil) 10 mg ONCE ONCE PO Last administered on 09/21/17at 08:45; Start 09/21/17 at 08:45; Stop 09/21/17 at 09:08; Status DC Divalproex Sodium (Depakote Er) 250 mg DAILY PO Last administered on 09/23/17at 08:28; Start 09/22/17 at 09:00 Divalproex Sodium (Depakote Er) 500 mg HS PO Last administered on 09/23/17at 20: 44; Start 09/21/17 at 21:00 Acetaminophen (Tylenol) 650 mg Q6H PRN PO PAIN 1-10 OR TEMP > 101 F; Start 09/22 at 08:30 Lisinopril (Prinivil) 20 mg BID PO Last administered on 09/23/17at 20:43; Start 09/23/17 at 09:00 A/P Problem List: (1) Bipolar disorder ICD Code: F31.9 - Bipolar disorder, unspecified (2) HTN (hypertension) ICD Code: I10 - Essential (primary) hypertension (3) Pulmonary embolism ICD Code: I26.99 - Other pulmonary embolism without acute cor pulmonale (4) Cardiomyopathy, nonischemic ICD Code: I42.8 - Other cardiomyopathies Assessment and Plan 67-year-old female recently discharged from medical side to inpatient psychiatry unit. Patient recently hospitalized for fall, possible seizures, respiratory failure, pneumonia, CHF, pulmonary embolism, femoral pseudoaneurysm , and hypertension. Bipolar disorder - Treated by primary team, patient recently switched over to Abilify - Per nurse patient doing slightly better today although still with very disorganized thoughts. Right hip pain, arthritis - Patient reports she was taking Tylenol #3, ?hip as she is tender with light palpation of right thigh, no trauma seen - Order for Tylenol when necessary for pain. PT already working with patient. Hypertension, mildly elevated - Patient with a history of hypertension prior to recent hospitalization - Blood pressure this morning 160/72, slightly better than yesterday - Continue carvedilol 25 mg twice a day - lisinopril increased to 30 mg daily yesterday - Continue trending blood pressures, vital signs every 4hrs CHF with nonischemic cardiomyopathy CAD - Echo 08/29/17 left ventricular systolic function moderately reduced EF 30- 35% - Cardiac cath on 09/01/17: Nonobstructive coronary artery disease, elevated LVEDP, preserved LV systolic function. - Patient appears euvolemic, clear breath sounds, no shortness of breath, oxygen saturation high 90s to 100% - Continue BB/MARY ELLEN/and ASA - Patient will need to follow up with as outpatient History of PE - Anticoagulated on Eliquis - Continue monitoring respiratory status - Patient will need to follow-up with as outpatient Possible seizures - Keppra was discontinued while hospitalized. Believed that seizures were related to benzo withdrawal versus alcohol withdrawal. - Mental status changes were believed to be related to underlying psychological issues Hypokalemia - Potassium 3.3 yesterday, 30meq of potassium - Potassium YESTERDAY morning 4.1 VTE - On Eliquis - PT/OT following AM LABS Leroy Crawford DO Sep 24, 2017 09:51
[2017-09-24] MEDS: CARVEDILOL 12.5 MG TAB PO SCH ×2 (10:24→20:05)
[2017-09-24] MEDS: PANTOPRAZOLE SOD 40 MG DELAYED RELEASE TAB PO SCH (10:25)
[2017-09-24] MEDS: APIXABAN 5 MG TABLET PO SCH ×2 (10:25→20:05)
[2017-09-24] MEDS: ASPIRIN EC 81 MG TABEC PO SCH (10:25)
[2017-09-24] MEDS: LISINOPRIL 20 MG TAB PO SCH ×2 (10:25→20:05)
[2017-09-24] MEDS: THIAMINE HCL 100 MG TAB PO SCH (10:25)
[2017-09-24] MEDS: MULTIVITAMIN TAB PO SCH (10:26)
[2017-09-24] MEDS: FOLIC ACID 1 MG TAB PO SCH (10:26)
[2017-09-24] MEDS: ARIPiprazole 5 MG TAB PO SCH ×2 (10:26→20:05)
[2017-09-24] MEDS: DIVALPROEX SODIUM E.R. 250 MG TAB PO SCH (10:26)
[2017-09-24] MEDS: SODIUM CHLORIDE 0.9% FLUSH 10 ML FLUSH IV FLUSH SCH ×2 (10:36→20:14)
[2017-09-24 19:01] VITALS: BP 128/70; PULSE 73; RESP 18; TEMP 98.1; O2SAT 97
[2017-09-24] MEDS: DIVALPROEX SODIUM E.R. 500 MG TAB PO SCH (20:05)
[2017-09-24] MEDS: ACETAMINOPHEN 325 MG TAB PO PRN (20:06)
[2017-09-25] MEDS: BACLOFEN 10 MG TAB PO SCH ×3 (05:34→20:38)
[2017-09-25 06:26] VITALS: BP 107/69; PULSE 63; RESP 16; TEMP 98; O2SAT 100
[2017-09-25 07:01] LABS: AUTOMATED NEUTROPHIL # 4.2 TH/MM3 (1.8-7.7); BASOPHIL # 0.1 TH/MM3 (0-0.2); BASOPHIL % 0.8 % (0.0-2.0); EOSINOPHIL # 0.1 TH/MM3 (0-0.4); EOSINOPHIL % 1.5 % (0.0-4.0); HEMATOCRIT 31.8 % (35.0-46.0); HEMOGLOBIN 10.7 GM/DL (11.6-15.3); LYMPH % 22.8 % (9.0-44.0); LYMPHOCYTE # 1.5 TH/MM3 (1.0-4.8); MEAN CELL VOLUME 101.8 FL (80.0-100.0); MEAN CORPUSCULAR HEMOGLOBIN 34.4 PG (27.0-34.0); MEAN CORPUSCULAR HGB CONC 33.8 % (32.0-36.0); MEAN PLATELET VOLUME 9.4 FL (7.0-11.0); MONO % 10.5 % (0.0-8.0); MONOCYTE # 0.7 TH/MM3 (0-0.9); NEUT % 64.4 % (16.0-70.0); PLATELET COUNT 303 TH/MM3 (150-450); RED BLOOD COUNT 3.12 MIL/MM3 (4.00-5.30); RED CELL DISTRIBUTION WIDTH 18.4 % (11.6-17.2); WHITE BLOOD COUNT 6.6 TH/MM3 (4.0-11.0)
[2017-09-25 07:46] LABS: ALBUMIN 2.9 GM/DL (3.4-5.0); ALT (GPT) 25 U/L (10-53); AST (GOT) 15 U/L (15-37); BICARBONATE 28.8 MEQ/L (21.0-32.0); BLOOD UREA NITROGEN 15 MG/DL (7-18); CHLORIDE 101 MEQ/L (98-107); CREATININE 0.54 MG/DL (0.50-1.00); GLOMERULAR FILTRATION RATE 113 ML/MIN (>89); GLUCOSE,RANDOM 85 MG/DL (74-106); MAGNESIUM 2.2 MG/DL (1.5-2.5); PHOSPHORUS 4.1 MG/DL (2.5-4.9); SODIUM (NA) 137 MEQ/L (136-145)
[2017-09-25 07:49] LABS: ALKALINE PHOSPHATASE 101 U/L (45-117); TOTAL BILIRUBIN ADULT 0.3 MG/DL (0.2-1.0); TOTAL PROTEIN 7.6 GM/DL (6.4-8.2)
[2017-09-25] MEDS: CARVEDILOL 12.5 MG TAB PO SCH ×2 (08:40→20:38)
[2017-09-25] MEDS: ASPIRIN EC 81 MG TABEC PO SCH (08:40)
[2017-09-25] MEDS: THIAMINE HCL 100 MG TAB PO SCH (08:40)
[2017-09-25] MEDS: MULTIVITAMIN TAB PO SCH (08:40)
[2017-09-25] MEDS: FOLIC ACID 1 MG TAB PO SCH (08:40)
[2017-09-25] MEDS: LISINOPRIL 20 MG TAB PO SCH (08:40)
[2017-09-25] MEDS: APIXABAN 5 MG TABLET PO SCH ×2 (08:40→20:38)
[2017-09-25] MEDS: ARIPiprazole 5 MG TAB PO SCH ×2 (08:40→20:38)
[2017-09-25] MEDS: DIVALPROEX SODIUM E.R. 250 MG TAB PO SCH (08:40)
[2017-09-25] MEDS: PANTOPRAZOLE SOD 40 MG DELAYED RELEASE TAB PO SCH (08:40)
[2017-09-25] MEDS: SODIUM CHLORIDE 0.9% FLUSH 10 ML FLUSH IV FLUSH SCH ×2 (08:42→20:38)
--- NOTE | 2017-09-25 11:08 | HHI.PYPN ---
Subjective Remarks Psychiatric progress note for September 24, 2017. Patient interviewed at bedside briefly. She continues to be hyperverbal, tangential and circumstantial. Somewhat hypomanic. Review of Systems ROS Limitations: Clinical Condition Except as stated in HPI: all other systems reviewed are Neg Mental Status Examination Appearance: Disheveled Consciousness: Alert, Highly Distractible (less so today) Orientation: Person, Place, Date/Time (partially) Speech: Pressured, Incoherent, Other (speaking very loudly) Language: Adequate Fund of Knowledge: Inadequate Attention and Concentration: Easily Distracted (but improving) Memory: Impaired Mood: Manic, Other (reports feeling "okay") Affect: Labile (less intense) Thought Process & Associations: Loose associations, Disorganized (less so today ) Thought Content: Bizarre thinking, Racing thoughts (less so today), Delusional Hallucination Type: None Delusion Type: Bizarre Suicidal Ideation: No Suicidal Plan: No Suicidal Intention: No Homicidal Ideation: No Homicidal Plan: No Homicidal Intention: No Insight: Poor Judgment: Poor Results Labs Test 09/25/17 06:35 09/25/17 06:38 Blood Urea Nitrogen 15 MG/DL Creatinine 0.54 MG/DL Random Glucose 85 MG/DL Total Protein 7.6 GM/DL Albumin 2.9 GM/DL Calcium Level 9.0 MG/DL Phosphorus Level 4.1 MG/DL Magnesium Level 2.2 MG/DL Alkaline Phosphatase 101 U/L Aspartate Amino Transf (AST/SGOT) 15 U/L Alanine Aminotransferase (ALT/SGPT) 25 U/L Total Bilirubin 0.3 MG/DL Sodium Level 137 MEQ/L Potassium Level 4.2 MEQ/L Chloride Level 101 MEQ/L Carbon Dioxide Level 28.8 MEQ/L Anion Gap 7 MEQ/L Estimat Glomerular Filtration Rate 113 ML/MIN White Blood Count 6.6 TH/MM3 Red Blood Count 3.12 MIL/MM3 Hemoglobin 10.7 GM/DL Hematocrit 31.8 % Mean Corpuscular Volume 101.8 FL Mean Corpuscular Hemoglobin 34.4 PG Mean Corpuscular Hemoglobin Concent 33.8 % Red Cell Distribution Width 18.4 % Platelet Count 303 TH/MM3 Mean Platelet Volume 9.4 FL Neutrophils (%) (Auto) 64.4 % Lymphocytes (%) (Auto) 22.8 % Monocytes (%) (Auto) 10.5 % Eosinophils (%) (Auto) 1.5 % Basophils (%) (Auto) 0.8 % Neutrophils # (Auto) 4.2 TH/MM3 Lymphocytes # (Auto) 1.5 TH/MM3 Monocytes # (Auto) 0.7 TH/MM3 Eosinophils # (Auto) 0.1 TH/MM3 Basophils # (Auto) 0.1 TH/MM3 CBC Comment AUTO DIFF Differential Comment AUTO DIFF CONFIRMED Vitals/IOs Vital Signs Date Time Temp Pulse Resp B/P (MAP) Pulse Ox O2 Delivery O2 Flow Rate FiO2 09/25/17 06:26 98.0 63 16 107/69 (82) 100 Intake and Output 09/25/17 09/25/17 09/26/17 08:00 16:00 00:00 Intake Total 480 ml 360 ml Output Total 800 ml Balance -320 ml 360 ml Assessment & Plan Problem List: (1) Bipolar disorder, curr episode mixed, severe, with psychotic features ICD Codes: F31.64 - Bipolar disorder, current episode mixed, severe, with psychotic features Assessment & Plan Estimated LOS: days. Patient continues to require observation and evaluation for efficacy of mood stabilizing medications. She appears somewhat improved since admission but continues to need more time to respond. Will consider increasing the doses of her medications. Justification for Cont. Inpt. Likely to decompensate at lower level of care. Chuck Lemos MD Sep 25, 2017 11:08
--- NOTE | 2017-09-25 11:48 | HHI.PYPN ---
Subjective Remarks Patient seen for follow, chart reviewed. Discussion her sister reported the patient continues to be increased somewhat talkative, slept well, denies any perceptual disturbances. Patient was found lying in hospital bed, cooperative interview today. Patient states that she had been feeling weak but that her mood has been okay. Patient states that her week and had great and have been visited by her last evening. They noted to be talkative but not hyperverbal or pressured speech. Patient noted to have more disorganized thought process, denying any perceptual disturbances or delusions at this time. Review of Systems Except as stated in HPI: all other systems reviewed are Neg Mental Status Examination Appearance: Appropriate Consciousness: Alert, Highly Distractible (less so today) Orientation: Person, Place, Date/Time (partially) Speech: Other (slightly hyperverbal) Language: Adequate Fund of Knowledge: Inadequate Attention and Concentration: Adequate Memory: Impaired Mood: Appropriate, Other (reports feeling "okay") Affect: Appropriate Thought Process & Associations: Loose associations (less so today) Thought Content: Appropriate Hallucination Type: None Delusion Type: None Suicidal Ideation: No Suicidal Plan: No Suicidal Intention: No Homicidal Ideation: No Homicidal Plan: No Homicidal Intention: No Insight: Fair Judgment: Impulsive Results Labs Labs reviewed Test 09/25/17 06:35 09/25/17 06:38 Blood Urea Nitrogen 15 MG/DL Creatinine 0.54 MG/DL Random Glucose 85 MG/DL Total Protein 7.6 GM/DL Albumin 2.9 GM/DL Calcium Level 9.0 MG/DL Phosphorus Level 4.1 MG/DL Magnesium Level 2.2 MG/DL Alkaline Phosphatase 101 U/L Aspartate Amino Transf (AST/SGOT) 15 U/L Alanine Aminotransferase (ALT/SGPT) 25 U/L Total Bilirubin 0.3 MG/DL Sodium Level 137 MEQ/L Potassium Level 4.2 MEQ/L Chloride Level 101 MEQ/L Carbon Dioxide Level 28.8 MEQ/L Anion Gap 7 MEQ/L Estimat Glomerular Filtration Rate 113 ML/MIN White Blood Count 6.6 TH/MM3 Red Blood Count 3.12 MIL/MM3 Hemoglobin 10.7 GM/DL Hematocrit 31.8 % Mean Corpuscular Volume 101.8 FL Mean Corpuscular Hemoglobin 34.4 PG Mean Corpuscular Hemoglobin Concent 33.8 % Red Cell Distribution Width 18.4 % Platelet Count 303 TH/MM3 Mean Platelet Volume 9.4 FL Neutrophils (%) (Auto) 64.4 % Lymphocytes (%) (Auto) 22.8 % Monocytes (%) (Auto) 10.5 % Eosinophils (%) (Auto) 1.5 % Basophils (%) (Auto) 0.8 % Neutrophils # (Auto) 4.2 TH/MM3 Lymphocytes # (Auto) 1.5 TH/MM3 Monocytes # (Auto) 0.7 TH/MM3 Eosinophils # (Auto) 0.1 TH/MM3 Basophils # (Auto) 0.1 TH/MM3 CBC Comment AUTO DIFF Differential Comment AUTO DIFF CONFIRMED Vitals/IOs Vital Signs Date Time Temp Pulse Resp B/P (MAP) Pulse Ox O2 Delivery O2 Flow Rate FiO2 09/25/17 06:26 98.0 63 16 107/69 (82) 100 Intake and Output 09/25/17 09/25/17 09/26/17 08:00 16:00 00:00 Intake Total 480 ml 360 ml Output Total 800 ml Balance -320 ml 360 ml Assessment & Plan Problem List: (1) Bipolar disorder, curr episode mixed, severe, with psychotic features ICD Codes: F31.64 - Bipolar disorder, current episode mixed, severe, with psychotic features Assessment & Plan Patient is time noted to have improvement and organized thought processes, continue to be noted is somewhat hyperverbal but not pressured. We'll continue current treatment. Will obtain collateral information from to assess whether patient is close to baseline. Continue recommend visions from a medical team. Discharge planning in progress Justification for Cont. Inpt. At risk for further decompensation if at lower level of care Discharge Planning To return back to her residence with psychiatrically medically cleared. Armand Sanz MD Sep 25, 2017 11:48
--- NOTE | 2017-09-25 12:36 | HHI.PR ---
Subjective Remarks Follow-up for nonischemic cardiomyopathy, history of PE, hypertension. Patient is currently doing well. No acute concerns. No fever or chills. She reports some bilateral ankle numbness but this is not new. Objective Vitals Vital Signs Date Time Temp Pulse Resp B/P (MAP) Pulse Ox O2 Delivery O2 Flow Rate FiO2 09/25/17 06:26 98.0 63 16 107/69 (82) 100 09/24/17 19:01 98.1 73 18 128/70 (89) 97 I/O 09/24/17 09/24/17 09/24/17 09/25/17 09/25/17 09/25/17 07:00 15:00 23:00 07:00 15:00 23:00 Intake Total 240 ml 600 ml 1020 ml 360 ml Output Total 650 ml 800 ml Balance -410 ml 600 ml 220 ml 360 ml Intake Oral 240 ml 600 ml 1020 ml 360 ml Output Urine Total 650 ml 800 ml # Voids 1 2 # Bowel Movements 1 Result Diagram: 09/25/17 0638 09/25/17 0635 Objective Remarks GENERAL: Alert, NAD SKIN: Warm and dry. HEAD: Normocephalic. EYES: No scleral icterus. No injection or drainage. NECK: Supple, trachea midline. No JVD or lymphadenopathy. CARDIOVASCULAR: Regular rate and rhythm without murmurs, gallops, or rubs. RESPIRATORY: Breath sounds equal bilaterally. No accessory muscle use. GASTROINTESTINAL: Abdomen soft, non-tender, nondistended. MUSCULOSKELETAL: No cyanosis, or edema. BACK: Nontender without obvious deformity. No CVA tenderness. Procedures None A/P Problem List: (1) Bipolar disorder ICD Code: F31.9 - Bipolar disorder, unspecified (2) HTN (hypertension) ICD Code: I10 - Essential (primary) hypertension (3) Pulmonary embolism ICD Code: I26.99 - Other pulmonary embolism without acute cor pulmonale (4) Cardiomyopathy, nonischemic ICD Code: I42.8 - Other cardiomyopathies Assessment and Plan 67-year-old female recently discharged from medical side to inpatient psychiatry unit. Patient recently hospitalized for fall, possible seizures, respiratory failure, pneumonia, CHF, pulmonary embolism, femoral pseudoaneurysm , and hypertension. Bipolar disorder - Treated by primary team, patient recently switched over to Abilify - Per nurse patient doing slightly better Right hip pain, arthritis - Patient reports she was taking Tylenol #3 - Order for Tylenol when necessary for pain. PT already working with patient. Hypertension, mildly elevated - Patient with a history of hypertension prior to recent hospitalization - Blood pressure this morning 160/72, slightly better than yesterday - Continue carvedilol 25 mg twice a day - lisinopril 20mg BID. - BP improved. Today, BP 107/69. Will reduce lisinopril to 20mg Qday. CHF with nonischemic cardiomyopathy CAD - Echo 08/29/17 left ventricular systolic function moderately reduced EF 30- 35% - Cardiac cath on 09/01/17: Nonobstructive coronary artery disease, elevated LVEDP, preserved LV systolic function. - Patient appears euvolemic, clear breath sounds, no shortness of breath, oxygen saturation high 90s to 100% - Continue BB/MARY ELLEN/and ASA - Patient will need to follow up with as outpatient History of PE - Anticoagulated on Apixaban. - Continue monitoring respiratory status - Patient will need to follow-up with as outpatient Possible seizures - Keppra was discontinued while hospitalized. Believed that seizures were related to benzo withdrawal versus alcohol withdrawal. - Mental status changes were believed to be related to underlying psychological issues Hypokalemia - Corrected after replacement. K+ 4.2. VTE - On Eliquis - PT/OT following Patient is hemodynamically stable. Can be discharged from medical standpoint. Nabeel Garcia DO Sep 25, 2017 12:36 pm
--- NOTE | 2017-09-25 16:55 | PD.TTN ---
Patient Problems 1. Discharge planning 2. Medication compliance 3. Knowledge deficit 4. Lack of coping skills Progress Toward Goals Provider Present: Dr. Awilda Sanz Provider Input: 09/25/2017; Patient will be assess for medication managment, treatment and stablization needs Nurse(s) Present: RN Nurse(s) Input: 09/25/2017; patient is eating meals and taking his medication Psychiatric Counselors Present: STANISLAV Armstrong Psych Therapist Input: 09/25/2017; counselor will assess patient for dc planning Documentation Scribe: STANISLAV Armstrong Sandra LMHC Sep 25, 2017 16:55
[2017-09-25 18:00] VITALS: BP 124/60; PULSE 80; RESP 16; TEMP 98.2; O2SAT 100
[2017-09-25] MEDS: DIVALPROEX SODIUM E.R. 500 MG TAB PO SCH (20:38)
[2017-09-25] MEDS: LORazepam 0.5 MG TAB PO PRN (20:38)
[2017-09-26] MEDS: BACLOFEN 10 MG TAB PO SCH ×3 (05:55→21:43)
[2017-09-26 06:24] VITALS: BP 139/88; PULSE 70; RESP 15; TEMP 97.6; O2SAT 100
[2017-09-26] MEDS: SODIUM CHLORIDE 0.9% FLUSH 10 ML FLUSH IV FLUSH SCH ×2 (09:00→21:00)
[2017-09-26] MEDS ORDERED: LISINOPRIL 20 MG TAB PO SCH (09:00)
--- NOTE | 2017-09-26 10:46 | HHI.PYPN ---
Subjective Remarks Patient seen for follow-up, chart reviewed. Discussion she staff reported patient has been appropriate slept well and compliant with medications. Patient was found sitting in hospital bed, cooperative noted to have appropriate engagement in interview, organized thought process now noted to have rapid or pressured speech. Patient states that she is feeling "much better " continue to report physical therapy here on the unit feels that she continues to feel weak and concerned about subsequent falls at home in her current physical state. Patient agreeable to transition to a physical rehabilitation Center prior to going home as a transition. It is been recorded by physical therapy the patient undergo rehabilitation as well. Patient states she was visited by her yesterday that he feels she is doing much better. She denies any perceptual disturbances or delusions at this time. Review of Systems Except as stated in HPI: all other systems reviewed are Neg Mental Status Examination Appearance: Appropriate Consciousness: Alert, Highly Distractible (less so today) Orientation: Person, Place, Date/Time (partially) Speech: Unremarkable Language: Adequate Fund of Knowledge: Inadequate Attention and Concentration: Adequate Memory: Impaired Mood: Appropriate, Other (reports feeling "okay") Affect: Appropriate Thought Process & Associations: Loose associations (less so today) Thought Content: Appropriate Hallucination Type: None Delusion Type: None Suicidal Ideation: No Suicidal Plan: No Suicidal Intention: No Homicidal Ideation: No Homicidal Plan: No Homicidal Intention: No Insight: Fair Judgment: Impulsive Results Vitals/IOs Vital Signs Date Time Temp Pulse Resp B/P (MAP) Pulse Ox O2 Delivery O2 Flow Rate FiO2 09/26/17 06:24 97.6 70 15 139/88 (105) 100 Intake and Output 09/26/17 09/26/17 09/26/17 07:59 15:59 23:59 Intake Total 240 ml 360 ml Balance 240 ml 360 ml Assessment & Plan Problem List: (1) Bipolar disorder, curr episode mixed, severe, with psychotic features ICD Codes: F31.64 - Bipolar disorder, current episode mixed, severe, with psychotic features Assessment & Plan Patient at this time noted to have stable mood, no longer having pressured or rapid speech, organized thought process. Patient agrees to sign voluntary hospitalization. Patient agrees to the referred to physical rehabilitation program to continue recovery. We'll continue current treatment for now. Continue recommendations as per primary medical team. Discharge planning in progress Justification for Cont. Inpt. At risk for further decompensation if at lower level of care Discharge Planning To be discharged to rehabilitation program Armand Sanz MD Sep 26, 2017 10:46
[2017-09-26] MEDS: CARVEDILOL 12.5 MG TAB PO SCH ×2 (11:45→21:44)
[2017-09-26] MEDS: DIVALPROEX SODIUM E.R. 250 MG TAB PO SCH (11:45)
[2017-09-26] MEDS: APIXABAN 5 MG TABLET PO SCH ×2 (11:45→21:44)
[2017-09-26] MEDS: FOLIC ACID 1 MG TAB PO SCH (11:45)
[2017-09-26] MEDS: MULTIVITAMIN TAB PO SCH (11:45)
[2017-09-26] MEDS: PANTOPRAZOLE SOD 40 MG DELAYED RELEASE TAB PO SCH (11:45)
[2017-09-26] MEDS: ASPIRIN EC 81 MG TABEC PO SCH (11:46)
[2017-09-26] MEDS: THIAMINE HCL 100 MG TAB PO SCH (11:46)
[2017-09-26] MEDS: ARIPiprazole 5 MG TAB PO SCH ×2 (11:46→21:44)
--- NOTE | 2017-09-26 11:50 | HHI.PR ---
Subjective Remarks Follow-up for nonischemic cardiomyopathy, history of PE, hypertension. No acute concerns. Objective Vitals Vital Signs Date Time Temp Pulse Resp B/P (MAP) Pulse Ox O2 Delivery O2 Flow Rate FiO2 09/26/17 06:24 97.6 70 15 139/88 (105) 100 09/25/17 18:00 98.2 80 16 124/60 (81) 100 I/O 09/25/17 09/25/17 09/25/17 09/26/17 09/26/17 09/26/17 07:00 15:00 23:00 07:00 15:00 23:00 Intake Total 1020 ml 720 ml 700 ml 600 ml 360 ml Output Total 800 ml 350 ml 800 ml Balance 220 ml 720 ml 350 ml -200 ml 360 ml Intake Oral 1020 ml 720 ml 700 ml 600 ml 360 ml Output Urine Total 800 ml 350 ml 800 ml # Voids 2 1 # Bowel Movements 1 Result Diagram: 09/25/17 0638 09/25/17 0635 Objective Remarks GENERAL: Alert, NAD SKIN: Warm and dry. HEAD: Normocephalic. EYES: No scleral icterus. No injection or drainage. NECK: Supple, trachea midline. No JVD or lymphadenopathy. CARDIOVASCULAR: Regular rate and rhythm without murmurs, gallops, or rubs. RESPIRATORY: Breath sounds equal bilaterally. No accessory muscle use. GASTROINTESTINAL: Abdomen soft, non-tender, nondistended. MUSCULOSKELETAL: No cyanosis, or edema. BACK: Nontender without obvious deformity. No CVA tenderness. Procedures None A/P Problem List: (1) Bipolar disorder ICD Code: F31.9 - Bipolar disorder, unspecified (2) HTN (hypertension) ICD Code: I10 - Essential (primary) hypertension (3) Pulmonary embolism ICD Code: I26.99 - Other pulmonary embolism without acute cor pulmonale Status: Acute (4) Cardiomyopathy, nonischemic ICD Code: I42.8 - Other cardiomyopathies Status: Acute Assessment and Plan 67-year-old female recently discharged from medical side to inpatient psychiatry unit. Patient recently hospitalized for fall, possible seizures, respiratory failure, pneumonia, CHF, pulmonary embolism, femoral pseudoaneurysm , and hypertension. Bipolar disorder - Treated by primary team, patient recently switched over to Abilify - Per nurse patient doing slightly better Right hip pain, arthritis - Patient reports she was taking Tylenol #3 - Order for Tylenol when necessary for pain. PT already working with patient. Hypertension, mildly elevated - Patient with a history of hypertension prior to recent hospitalization - Blood pressure this morning 160/72, slightly better than yesterday - Continue carvedilol 25 mg twice a day - lisinopril 20mg BID. - BP improved. Today, BP 107/69. Will reduce lisinopril to 20mg Qday. CHF with nonischemic cardiomyopathy CAD - Echo 08/29/17 left ventricular systolic function moderately reduced EF 30- 35% - Cardiac cath on 09/01/17: Nonobstructive coronary artery disease, elevated LVEDP, preserved LV systolic function. - Patient appears euvolemic, clear breath sounds, no shortness of breath, oxygen saturation high 90s to 100% - Continue BB/MARY ELLEN/and ASA - Patient will need to follow up with as outpatient History of PE - Anticoagulated on Apixaban. - Continue monitoring respiratory status - Patient will need to follow-up with as outpatient Possible seizures - Keppra was discontinued while hospitalized. Believed that seizures were related to benzo withdrawal versus alcohol withdrawal. - Mental status changes were believed to be related to underlying psychological issues Hypokalemia - Corrected after replacement. K+ 4.2. VTE - On Eliquis - PT/OT following Patient is hemodynamically stable. Can be discharged from medical standpoint. Nabeel Garcia DO Sep 26, 2017 11:50
[2017-09-26 12:46] VITALS: BP 116/63; PULSE 82; RESP 17; TEMP 98.3; O2SAT 100
[2017-09-26] MEDS: ACETAMINOPHEN 325 MG TAB PO PRN (13:23)
[2017-09-26 18:33] VITALS: BP 110/56; PULSE 70; RESP 17; TEMP 98.1; O2SAT 100
[2017-09-26] MEDS: DIVALPROEX SODIUM E.R. 500 MG TAB PO SCH (21:43)
[2017-09-27] MEDS: LORazepam 0.5 MG TAB PO PRN (03:09)
[2017-09-27] MEDS: ACETAMINOPHEN 325 MG TAB PO PRN (03:10)
[2017-09-27] MEDS: BACLOFEN 10 MG TAB PO SCH (06:12)
[2017-09-27 07:10] VITALS: BP 101/57; PULSE 70; RESP 17; TEMP 97.5; O2SAT 99
--- NOTE | 2017-09-27 09:01 | HHI.PR ---
Subjective Remarks Patient states that she had a good night. No complaints. Doing okay. No complaints of chest pain or shortness of breath. Objective Vitals Vital Signs Date Time Temp Pulse Resp B/P (MAP) Pulse Ox O2 Delivery O2 Flow Rate FiO2 09/27/17 07:10 97.5 70 17 101/57 (72) 99 09/27/17 04:10 16 09/26/17 18:33 98.1 70 17 110/56 (74) 100 09/26/17 12:46 98.3 82 17 116/63 (80) 100 I/O 09/26/17 09/26/17 09/26/17 09/27/17 09/27/17 09/27/17 07:00 15:00 23:00 07:00 15:00 23:00 Intake Total 600 ml 720 ml 360 ml 240 ml Output Total 800 ml Balance -200 ml 720 ml 360 ml 240 ml Intake Oral 600 ml 720 ml 360 ml 240 ml Output Urine Total 800 ml # Voids 1 2 Result Diagram: 09/25/17 0638 09/25/17 0635 Objective Remarks GENERAL: This is a well-nourished, well-developed patient, in no apparent distress. CARDIOVASCULAR: Regular rate and rhythm RESPIRATORY: Clear to auscultation. Breath sounds equal bilaterally. No wheezes , rales, or rhonchi. GASTROINTESTINAL: Abdomen soft, non-tender, nondistended. Normal active bowel sounds MUSCULOSKELETAL: Extremities without clubbing, cyanosis, or edema. NEURO: Alert & Oriented x3 to person, place, and time . Moves all ext x4 Procedures None A/P Problem List: (1) Bipolar disorder ICD Code: F31.9 - Bipolar disorder, unspecified (2) HTN (hypertension) ICD Code: I10 - Essential (primary) hypertension (3) Pulmonary embolism ICD Code: I26.99 - Other pulmonary embolism without acute cor pulmonale (4) Cardiomyopathy, nonischemic ICD Code: I42.8 - Other cardiomyopathies Assessment and Plan Bipolar disorder-continue treatment per psychiatry - Currently on Abilify. Right hip pain, arthritis - Patient reports she was taking Tylenol #3 previously outside hospital - Continue Tylenol when necessary for pain. Avoid narcotics at this time. PT already working with patient. Hypertension, mildly elevated - Patient with a history of hypertension prior to recent hospitalization - Blood pressure this morning 101/57. On decrease lisinopril to 10 mg by mouth daily, currently asymptomatic - Continue carvedilol 25 mg twice a day Chronic systolic CHF with nonischemic cardiomyopathy CAD - Echo 08/29/17 left ventricular systolic function moderately reduced EF 30- 35% - Cardiac cath on 09/01/17: Nonobstructive coronary artery disease, elevated LVEDP, preserved LV systolic function. - Patient appears euvolemic, clear breath sounds, no shortness of breath- doing well. - Continue BB/MARY ELLEN/and ASA - Patient will need to follow up with as outpatient History of PE - Anticoagulated on Apixaban. - Continue monitoring respiratory status - Patient will need to follow-up with as outpatient Possible seizures - Keppra was discontinued while hospitalized. Believed that seizures were related to benzo withdrawal versus alcohol withdrawal. - Mental status changes were believed to be related to underlying psychological issues Hypokalemia- resolved - Corrected after replacement. K+ 4.2. VTE prophylaxis - On Eliquis Patient is hemodynamically stable. Can be discharged from medical standpoint. Kasie Santacruz MD Sep 27, 2017 09:01
[2017-09-27] MEDS: ARIPiprazole 5 MG TAB PO SCH (09:44)
[2017-09-27] MEDS: THIAMINE HCL 100 MG TAB PO SCH (09:44)
[2017-09-27] MEDS: MULTIVITAMIN TAB PO SCH (09:44)
[2017-09-27] MEDS: CARVEDILOL 12.5 MG TAB PO SCH (09:45)
[2017-09-27] MEDS: PANTOPRAZOLE SOD 40 MG DELAYED RELEASE TAB PO SCH (09:46)
[2017-09-27] MEDS: ASPIRIN EC 81 MG TABEC PO SCH (09:46)
[2017-09-27] MEDS: DIVALPROEX SODIUM E.R. 250 MG TAB PO SCH (09:46)
[2017-09-27] MEDS: APIXABAN 5 MG TABLET PO SCH (09:47)
[2017-09-27] MEDS: FOLIC ACID 1 MG TAB PO SCH (09:47)
[2017-09-27] MEDS ORDERED: ECASA81 PO (10:59)
[2017-09-27] MEDS ORDERED: PANT40TA3 PO (10:59)
[2017-09-27] MEDS ORDERED: FOLI1TAB6 PO (10:59)
[2017-09-27] MEDS ORDERED: THIA100 PO (10:59)
[2017-09-27] MEDS ORDERED: DIVA250ER PO (10:59)
[2017-09-27] MEDS ORDERED: THERTAB15 PO (10:59)
[2017-09-27] MEDS ORDERED: ARIP1TAB11 PO (10:59)
[2017-09-27] MEDS ORDERED: LISI10TA3 PO (10:59)
[2017-09-27] MEDS ORDERED: APIX5TAB PO (10:59)
[2017-09-27] MEDS ORDERED: DEPA500T3 PO (10:59)
--- NOTE | 2017-09-27 17:28 | HHI.DS ---
Psychiatry Discharge Summary Inpatient Psychiatric care?: Yes Advance Directive: No Reason Not Provided: pt is confused Mental Health AdvanceDirective: [place] and Number: [email or web address] Health Care Proxy: No Admission Admission Date Sep 18, 2017 at 19:14 Admission Diagnosis: (1) Bipolar disorder, curr episode mixed, severe, with psychotic features ICD Code: F31.64 - Bipolar disorder, current episode mixed, severe, with psychotic features Brief History Patient 67-year-old woman, woman domiciled with her , unemployed supported by her , no prior psychiatric history, no prior psychiatric diagnoses, hospitalization or suicide attempts past medical history significant for hypertension and chronic low back pain was recently admitted to the medical floor on 09/03 and discharged on 09/18/17 for respiratory failure, pulmonary embolism, HCAP, and cardiomyopathy nonischemic after having been found on the floor by her with suspicion of possible seizures secondary to benzo withdrawal versus alcohol withdrawal versus baclofen withdrawal. As per Dr. Adame consult note, possible confusion of 3 months duration prior to admission, EEG negative, followed by neurology for possible seizures which Keppra was discontinued as a possible etiology to her confusion. It was also noted that upon evaluation by the Dr. Bill patient was found to be very talkative, pressured speech or, tangential, disorganized, unable to provide significant information pending with poor concentration span is along with nonsensical statements at times.. He also noted in his evaluation the patient had a great admitted to a previous probable manic episode in the past but was not treated at that time. Collateral obtained by Dr. Bill at that time from , [facility] Long, and stated that patient had altered mental status for the past weeks, was very talkative acting bizarre, no sleep and engage in multiple activities at the same time. He also noted that the patient had been abusing her pain medications and baclofen prior to admission along with auditory glasses of wine socially. Patient was transferred to the inpatient medical/psychiatry for further evaluation and management for probable bipolar disorder manic episode and was found lying in hospital bed at times laughing and at times crying prior to interview. Patient states that be able to recall events prior to her hospitalization, stating that she has been not able to sleep and has been up all night and stating doing multiple activities at that time. Patient noted to be labile, expansive mood, and disorganized at times during interview. Patient states that her mood is depressed along with noted the more irritable lately, having racing thoughts, difficulty with concentration with distractibility and states having increased shopping online at night. Patient does recall having been in the at the care unit prior to transfer to this unit but unable to recall details. She mentions she has been visited by her and states that she has psychic abilities and knows what her is coming to visit her. Patient denies any suicidal homicidal ideation at this time, denies any perceptual disturbances but endorses grandiose delusions. past psychiatric history. The patient is a 67-year-old woman, domiciled with her in [facility], without any previous psychiatric history, no previous psychiatric hospitalizations, no previous suicidal attempts, medical history lower back pain and hypertension, who was admitted to hospital since August 28, 2017. Was found down on the floor by her . Initially admitted in the ICU for after mental status. Now medically cleared. Patient has developed manic behavior and psychotic thought process and was admitted in psychiatry. She is admitted under the care of Dr. Sanz. Consulted to live for second opinion. I know the patient from previous encounter with her just today. Today patient continues to be very tangential, disorganized, pressured speech. Patient has active loosening of associations unable to sustain a logical conversation. However, she denies suicidal and homicidal ideation, she denies visual and auditory hallucinations. Tobacco Use In Past 30 Days: Cognitive Impairment Alcohol Use: Never Hospital Course Patient 67-year-old woman, woman domiciled with her , unemployed supported by her , no prior psychiatric history, no prior psychiatric diagnoses, hospitalization or suicide attempts past medical history significant for hypertension and chronic low back pain was recently admitted to the medical floor on 09/03 and discharged on 09/18/17 for respiratory failure, pulmonary embolism, HCAP, and cardiomyopathy nonischemic after having been found on the floor by her with suspicion of possible seizures secondary to benzo withdrawal versus alcohol withdrawal versus baclofen withdrawal which she was admitted to the inpatient psychiatry unit for further evaluation and management. Patient was started on Depakote 250mg PO BID and titrated up to 250mg/500mg with therapeutic levels at this dose. She was also started on Abilify 5mg PO BID for psychosis. She was continued on medical regimen as per primary team and had physical therapy during admission. Patient noted to start to improve in mood symptoms with less pressured speech, less lability, had become more organized in thought process and cessation of psychotic symptoms as well. Patient began to maintain stable mood, and noted to have more consistent sleep. Patient was noted prior to discharge to be participating in her care, pleasant with staff and returning back to baseline. Upon discharge patient stated feeling good, stated wanting to continue to improve and return back to residence with her and planning on continuing treatment and attend outpatient follow up appointments for continuity of care after further physical stabilization with inpatient rehabilitation. Patient will be discharged to inpatient rehabilitation prior to discharge home. Patient; denies SI, HI, AVH or delusions. Supportive psychotherapy provided. Patient advised to call 911 or return back to the ED in case of any emergency. Patient agrees with plan. Results Blood Pressure 101 / 57 Vital Signs Date Time Temp Pulse Resp B/P (MAP) Pulse Ox O2 Delivery O2 Flow Rate FiO2 09/27/17 07:10 97.5 70 17 101/57 (72) 99 Laboratory Tests Test 09/25/17 06:35 09/25/17 06:38 Albumin 2.9 GM/DL (3.4-5.0) Red Blood Count 3.12 MIL/MM3 (4.00-5.30) Hemoglobin 10.7 GM/DL (11.6-15.3) Hematocrit 31.8 % (35.0-46.0) Mean Corpuscular Volume 101.8 FL (80.0-100.0) Mean Corpuscular Hemoglobin 34.4 PG (27.0-34.0) Red Cell Distribution Width 18.4 % (11.6-17.2) Monocytes (%) (Auto) 10.5 % (0.0-8.0) Laboratory Results Test 09/24/17 05:24 Valproic Acid (Depakene) Level 65 MCG/ML (50-100) Summary of Procedures None Pending results at discharge: No Medications # of Antipsychotic meds at D/C: 1 Approp Antipsych med options 1 - Minimum of three failed multiple trials of monotherapy. 2 - Documented plan to taper to monotherapy due to previous use of multiple meds OR cross-taper in progress at D/C. 3 - Documentation of augmentation of Clozapine. 4 - Justification other than those listed in allowable values 1-3, document here : Discharge Discharge Date: Sep 27, 2017 Discharge Diagnosis: (1) Bipolar disorder, curr episode mixed, severe, with psychotic features ICD Code: F31.64 - Bipolar disorder, current episode mixed, severe, with psychotic features Status: Acute Pt Condition on Discharge: Stable Discharge Disposition: Rehab Inpatient Discharge Instructions Diet Instructions: Heart Healthy Diet Activities you can perform: Weight Bearing as [place] Discharge Time > 30 minutes Mental Status Examination Appearance: Appropriate Consciousness: Alert, Highly Distractible (less so today) Orientation: Person, Place, Date/Time (partially) Speech: Unremarkable Language: Adequate Fund of Knowledge: Inadequate Attention and Concentration: Adequate Memory: Impaired Mood: Appropriate, Other (reports feeling "okay") Affect: Appropriate Thought Process & Associations: Intact, Goal directed, Linear Thought Content: Appropriate Hallucination Type: None Delusion Type: None Suicidal Ideation: No Suicidal Plan: No Suicidal Intention: No Homicidal Ideation: No Homicidal Plan: No Homicidal Intention: No Insight: Adequate Judgment: Adequate Discharge/Advance Care Plan Health Problems: (1) Bipolar disorder, curr episode mixed, severe, with psychotic features Goals to promote your health * To prevent worsening of your condition and complications * To maintain your health at the optimal level Directions to meet your goals Take your medications as prescribed Follow your dietary instruction Follow activity as directed Keep your appointments as scheduled Take your immunizations and boosters as scheduled If your symptoms worsen call your PCP, if no PCP go to Urgent Care Center or Emergency Room For 24/ questions related to your inpatient stay or results of tests pending at discharge, please contact Dr. Armand Sanz at Smoking is Dangerous to Your Health. Avoid second hand smoking Armand Sanz MD Sep 27, 2017 17:28
[2017-09-28] MEDS ORDERED: LISINOPRIL 10 MG TAB PO SCH (09:00)
== END 2017-09-27 12:53 | DRG 885 ==
LOC: H4EA 19:14
PROVIDERS: ADMIT Student in an Organized Health Care Education/Training Program; ATTEND Student in an Organized Health Care Education/Training Program
DX: F31.64 Bipolar disorder, current episode mixed, severe, with psychotic features (principal); I26.99 Other pulmonary embolism without acute cor pulmonale; I50.22 Chronic systolic (congestive) heart failure; I42.8 Other cardiomyopathies; I11.0 Hypertensive heart disease with heart failure; E78.5 Hyperlipidemia, unspecified; I34.1 Nonrheumatic mitral (valve) prolapse; I25.10 Atherosclerotic heart disease of native coronary artery without angina pectoris; E87.6 Hypokalemia; I45.81 Long QT syndrome; M16.11 Unilateral primary osteoarthritis, right hip; M62.830 Muscle spasm of back; M54.30 Sciatica, unspecified side; Z79.01 Long term (current) use of anticoagulants; Z81.8 Family history of other mental and behavioral disorders; Z87.891 Personal history of nicotine dependence
CPT/HCPCS: 80053; 80164; 83735; 84100; 84132; 85025; 93005; J2543; J7512